=== PATIENT | female | born 1950 | race Caucasian/White ===

== ENCOUNTER → 2018-03-22 10:03 | Outpatient (CLI) | payer MEDICARE, SELFPAY ==
[2018-03-22 12:34] LABS: Erythrocyte Sedimentation Rate 6 mm/hr (0-30)
[2018-03-22 12:38] LABS: Absolute Lymphocyte Count 1.49 X10^3/ul (0.83-4.51); Absolute Neutrophil Count 3.7 X10^3/uL (2.0-7.7); Basophil# 0.03 X10^3/uL; Basophil% 0.5 % (0-1); Eosinophil# 0.12 X10^3/uL; Eosinophils% 2.1 % (0-5); Hematocrit 42.4 % (37-47); Lymphocyte # 1.49 X10^3/ul (4.0); Lymphocyte % 25.8 % (19-41); Mean Corpuscular Hgb 30.4 pg (27.0-32.0); Mean Corpuscular Volume 92.2 fL (81-99); Mean Platelet Vol. 9.7 fl (6.2-12.0); Monocyte# 0.45 X10^3/uL; Monocyte% 7.8 % (0-10); Neutrophil # 3.69 X10^3/uL (2.7-7.7); Neutrophil % 63.8 % (47-70); Platelet Count 241 K/mm3 (150-450); RBC Distribution Width CV 13.6 % (11.6-14.6); RBC Distribution Width SD 45.3 fl (35.1-43.9); White Blood Count 5.8 K/mm3 (4.4-11.0)
[2018-03-22 12:39] LABS: POSITIVE COUNT NO; POSITIVE DIFFERENTIAL NO; POSITIVE MORPHOLOGY NO
[2018-03-22 12:51] LABS: AST(SGOT) 22 U/L (15-37); Alanine Aminotransfer ALT/SGPT 29 U/L (13-56); Albumin, Serum 3.6 g/dL (3.2-5.0); Alkaline Phosphatase 70 U/L (45-117); Anion Gap 8 (5-15); BUN 15 mg/dL (7-18); BUN/Creat Ratio 19.4 RATIO (10-20); CRP < 2.90 mg/L (0.0-3.0); Chloride 106 mmol/L (98-107); Creatinine, Serum 0.77 mg/dL (0.55-1.02); EST Glomerular Filtration Rate 79 mL/min (>60); Est Glom Filt Rate - Afr Amer 95 mL/min (>60); Free T3 2.7 pg/mL (2.18-3.98); Globulin 3.3 g/dL (2.2-4.2); Glucose 86 mg/dL (74-106); Phosphorus 3.7 mg/dL (2.5-4.9); Potassium 4.3 mmol/L (3.5-5.1); Protein, Total 6.9 g/dL (6.4-8.2); Sodium Level 142 mmol/L (136-145); T4 Free Direct 0.94 ng/dL (0.76-1.46); Thyroid Stim Hormone (TSH) 1.95 uIU/mL (0.358-3.74)
[2018-03-23 08:29] LABS: Vitamin D,25 Hydroxy 32.6 ng/mL (29.95-100.01)
[2018-03-23 11:41] LABS: Thyroid Peroxidase AB 51 IU/mL (0-34)
== END ==
PROVIDERS: Family Provider Family Medicine; PCP Family Medicine; Visit Provider Family Medicine
DX: T14.8XXA Other injury of unspecified body region, initial encounter (principal); M81.0 Age-related osteoporosis without current pathological fracture; G47.00 Insomnia, unspecified; R79.89 Other specified abnormal findings of blood chemistry; L40.9 Psoriasis, unspecified; K76.0 Fatty (change of) liver, not elsewhere classified
CPT/HCPCS: 36415; 80048; 80076; 82306; 84100; 84439; 84443; 84481; 85025; 85652; 86140; 86376

== ENCOUNTER → 2018-04-07 15:19 | Outpatient (CLI) | payer MEDICARE, SELFPAY ==
--- NOTE | 2018-04-07 15:21 | BI_ITS ---
MAMMOGRAPHY - BILATERAL SCREENING 3-D EDILBERTO SYNTHESIS REASON FOR EXAM: Female, 67 years old. Bilateral Screening 3-D tomosynthesis PERTINENT HISTORY: Bilateral breast aspirations after right excisional breast biopsy 1990. Still with right areolar itching x several years. Family history mother with mastectomy for calcifications. TECHNIQUE: Digital bilateral breast edilberto (3D mammographic acquisition) in the CC and MLO projections. 2-D mediolateral oblique (MLO) and craniocaudad (CC) views of both breasts were obtained. CAD: Full Field Digital Mammography with Computer Added Detection was performed. COMPARISON: 04/01/2017 3 03/12/2015. FINDINGS: The breast composition is extremely dense which lowers the sensitivity of mammography. No significant asymmetric density, architecture distortion, abnormal microcalcification cluster, dominant mass, adenopathy, skin thickening or nipple retraction identified. Coarse benign-appearing calcification. BI/SCREENING MAMM (CAD), BILAT IMPRESSION: No mammographic signs of malignancy. Routine yearly mammograms recommended. ASSESSMENT CATEGORY: BIRADS Category 2: Benign. A letter regarding these results will be sent to the patient by the facility within 30 days. FOLLOW UP RECOMMENDATION: Yearly follow up mammogram recommended. (A) Negative mammographic results should not deter biopsy as a palpable lesion should be followed on clinical grounds and biopsy performed if clinically persistent for 3 months or increasing size. Approximately 10% of breast cancers are not detected by mammography. A normal mammogram should not delay biopsy of a clinically suspicious abnormality. Electronically Signed: Ronald Waggoner, at 22:04 EDT Tel , Service support ,
== END ==
PROVIDERS: Family Provider Family Medicine; PCP Family Medicine; Visit Provider Family Medicine
DX: Z00.00 Encounter for general adult medical examination without abnormal findings (principal); Z12.31 Encounter for screening mammogram for malignant neoplasm of breast
CPT/HCPCS: 77063; 77067

== ENCOUNTER → 2018-11-22 10:59 | Outpatient (CLI) | payer MEDICARE, SELFPAY ==
--- NOTE | 2018-11-22 11:03 | RAD_ITS ---
STUDY: X-RAY - SOFT TISSUE NECK REASON FOR EXAM: Female, 68 years old. Obstructive sleep apnea . TECHNIQUE: AP and lateral view(s) of the neck were obtained. COMPARISON: None. FINDINGS: Normal visualized nasopharynx, oropharynx, hypopharynx. The airway measures 1.9 cm from the posterior base of the tongue to the anterior prevertebral soft tissues at the C2 level. Normal epiglottis. Normal visualized subglottic tracheal air column. Normal prevertebral soft tissue structures. There are degenerative changes of the cervical spine with cervical spondylosis. The soft tissue structures are unremarkable. RAD/Neck for Soft Tissue IMPRESSION: Normal x-ray soft tissue neck. Electronically Signed: Wayne Garcia, at 15:34 EDT , Service support ,
== END ==
PROVIDERS: Family Provider Family Medicine; PCP Family Medicine; Referring Provider Otolaryngology Otolaryngology/Facial Plastic Surgery; Visit Provider Otolaryngology Otolaryngology/Facial Plastic Surgery
DX: R06.83 Snoring (principal)
CPT/HCPCS: 70360

== ENCOUNTER → 2018-12-13 11:45 | Outpatient (CLI) | payer MEDICARE, SELFPAY ==
[2018-12-13 13:45] LABS: BUN 14 mg/dL (7-18); EST Glomerular Filtration Rate 88 mL/min (>60); Est Glom Filt Rate - Afr Amer 106 mL/min (>60)
== END ==
PROVIDERS: Family Provider Family Medicine; PCP Family Medicine; Referring Provider Otolaryngology Otolaryngology/Facial Plastic Surgery; Visit Provider Otolaryngology Otolaryngology/Facial Plastic Surgery
DX: Z01.812 Encounter for preprocedural laboratory examination (principal)
CPT/HCPCS: 36415; 82565; 84520

== ENCOUNTER → 2019-02-01 | Outpatient (CLI) | payer MEDICARE, SELFPAY ==
--- NOTE | 2019-02-01 16:02 | RAD_ITS ---
HISTORY: Chronic pain after fall. Half months ago. History of rotator cuff repair in 2012. Exam:4 views of the right Shoulder COMPARISON: MRI of the right shoulder from March 15, 2014 FINDINGS: # of images incl. paperwork: 4 XR Shoulder Min 2 Views: The humeral head is well-positioned within the glenoid fossa. No fracture or subluxation. The acromioclavicular joint is normal. The adjacent chest is unremarkable. Anchoring devices within the right humeral head from rotator cuff repair. On the fourth image, there is lower imaging in the right hemithorax, and superimposed over the anterior sixth rib, there is what appears to be a calcified lung parenchymal granuloma. RAD/Shoulder min 2 Views IMPRESSION: No acute disease perceived within the right shoulder. at 0318 Reported and signed by: Saud Mcgrath MD Electronically Signed: Saud Mcgrath MD at 3:17 EDT Tel , Service support ,
== END | disposition home or self-care (01) ==
PROVIDERS: Family Provider Family Medicine; PCP Family Medicine; Referring Provider Family Medicine; Visit Provider Family Medicine
DX: M75.21 Bicipital tendinitis, right shoulder (principal)
CPT/HCPCS: 73030

== ENCOUNTER → 2019-04-04 | Outpatient (CLI) | payer MEDICARE, SELFPAY ==
[2019-04-04 10:29] LABS: Vitamin D,25 Hydroxy 37.7 ng/mL (29.95-100.01)
[2019-04-04 10:40] LABS: AST(SGOT) 18 U/L (15-37); Alanine Aminotransfer ALT/SGPT 31 U/L (13-56); Albumin, Serum 3.5 g/dL (3.2-5.0); Alkaline Phosphatase 67 U/L (45-117); Anion Gap 7 (5-15); BUN 12 mg/dL (7-18); BUN/Creat Ratio 18.9 RATIO (10-20); Bilirubin, Direct 0.08 mg/dL (0.00-0.30); Chloride 107 mmol/L (98-107); Creatinine, Serum 0.64 mg/dL (0.55-1.02); EST Glomerular Filtration Rate 98 mL/min (>60); Est Glom Filt Rate - Afr Amer 119 mL/min (>60); Globulin 3.2 g/dL (2.2-4.2); Glucose 80 mg/dL (74-106); Magnesium 2.4 mg/dL (1.6-2.6); Phosphorus 3.6 mg/dL (2.5-4.9); Protein, Total 6.7 g/dL (6.4-8.2); Sodium Level 141 mmol/L (136-145); Thyroid Stim Hormone (TSH) 2.27 uIU/mL (0.358-3.74)
[2019-04-06 08:23] LABS: Thyroid Peroxidase AB 30 IU/mL (0-34)
== END | disposition home or self-care (01) ==
LOC: MTLAB 07:32
PROVIDERS: Family Provider Family Medicine; PCP Family Medicine; Referring Provider Family Medicine; Visit Provider Family Medicine
DX: K76.0 Fatty (change of) liver, not elsewhere classified (principal); M81.0 Age-related osteoporosis without current pathological fracture; R25.2 Cramp and spasm
CPT/HCPCS: 36415; 80048; 80076; 82306; 82330; 83735; 83970; 84100; 84443; 86376

== ENCOUNTER → 2019-04-27 | Outpatient (CLI) | payer MEDICARE, SELFPAY ==
--- NOTE | 2019-04-27 09:25 | BI_ITS ---
MAMMOGRAPHY - BILATERAL SCREENING REASON FOR EXAM: Female, 68 years old. Routine annual screening examination. PERTINENT HISTORY: Mother with breast cancer. Prior right excisional breast biopsy and bilateral aspirations. TECHNIQUE: Digital bilateral breast edilberto (3D mammographic acquisition) in the CC and MLO projections. 2-D mediolateral oblique (MLO) and craniocaudad (CC) views of both breasts were obtained. CAD: Full Field Digital Mammography with Computer Added Detection was performed. COMPARISON: Comparison is made with prior study dated April 07, 2018 and April 01, 2017. FINDINGS: Breast Composition: The breasts are extremely dense, which lowers the sensitivity of mammography. There are no dominant masses or suspicious calcifications. No other significant abnormalities are identified. There has been no significant change since the prior study. BI/SCREEN MAMM (CAD) W/EDILBERTO BILAT IMPRESSION: Stable bilateral screening mammogram. Yearly follow-up mammogram recommended. (A) ASSESSMENT CATEGORY: BIRADS Category 1: Negative. A letter regarding these results will be sent to the patient by the facility within 30 days. Approximately 10% of breast cancers are not detected by mammography. A normal mammogram should not delay biopsy of a clinically suspicious abnormality. [id number] Electronically Signed: Wayne Garcia, at 14:05 EDT , Service support ,
--- NOTE | 2019-04-27 09:27 | BD_ITS ---
STUDY: DUAL ENERGY X-RAY ABSORPTIOMETRY / DXA REASON FOR EXAM: Female, 68 years old. The patient is postmenopausal. Loss of height. TECHNIQUE: Bone Mineral Density (BMD) measurements of lumbar spine and bilateral hips were obtained. COMPARISON: Comparison is made with prior examination dated April 01, 2017. FINDINGS: Lumbar Spine (L1-L4): g/cm2 (0.858) / T-score (-2.6) / Z-score (-0.9) Findings are suggestive of osteoporosis with a high fracture risk. Left Femur Total: g/cm2 (0.880) / T-score (-1.0) / Z-score (0.4) Left Femoral Neck: g/cm2 (0.805) / T-score (-1.7) / Z-score (0.0) Right Femur Total: g/cm2 (0.920) / T-score (-0.7) / Z-score (0.8) Right Femoral Neck: g/cm2 (0.851) / T-score (-1.3) / Z-score (0.3) The T-Scores on the most recent prior examination were: Lumbar Spine (L1-L4): There has been improvement of bone density since the previous examination. Left Femur Total: which represents a worsening of 2%. Right Femur Total: which represents a worsening of 1.3%. BD/Dexa Bone Density Study IMPRESSION: The patient is considered osteoporotic as outlined below according to World Sj Organization (WHO) criteria with a high fracture risk. There has been worsening of bone density since the previous examination. Reference Information: The T-score is the number of standard deviations above or below the standard which is normal for young adults at their peak bone mineral density. The World Health Organization (WHO) interprets the T-scores as follows: Above -1 Normal bone density Between -1 and -2.5 Osteopenia Equal to / or below -2.5 Osteoporosis As a practical clinical guideline, osteopenia may be graded as follows: Mild -1 through -1.5 Moderate -1.6 through -2.0 Severe -2.1 through -2.4 The Z-score is the number of standard deviations above or below age-matched controls. A Z-score of less than -1.5 would be considered abnormal. References: 1. NIH Osteoporosis and Related Bone Diseases http://www.osteo.org 2. International Society for Clinical Densitometry http://www.iscd.org 3. National Osteoporosis Foundation http://www.nof.org Electronically Signed: Wayne Garcia, at 14:31 EDT , Service support ,
== END | disposition home or self-care (01) ==
LOC: OPBD 09:23
PROVIDERS: Family Provider Family Medicine; PCP Family Medicine; Referring Provider Family Medicine; Visit Provider Family Medicine
DX: Z12.31 Encounter for screening mammogram for malignant neoplasm of breast (principal); M81.0 Age-related osteoporosis without current pathological fracture
CPT/HCPCS: 77063; 77067; 77080

== ENCOUNTER → 2019-09-11 14:32 | Outpatient (CLI) | payer MEDICARE, SELFPAY ==
[2019-09-11 17:50] LABS: CRP < 2.90 mg/L (0.0-3.0)
[2019-09-13 20:07] LABS: Endomysial Antibody IgA Negative (Negative)
[2019-09-13 20:51] LABS: Immunoglobulin A 173 mg/dL (87-352); t-Transglutaminase IgA <2 U/mL (0-3)
== END ==
PROVIDERS: Family Provider Family Medicine; PCP Family Medicine; Referring Provider Internal Medicine Gastroenterology; Visit Provider Internal Medicine Gastroenterology
DX: R10.9 Unspecified abdominal pain (principal); R19.7 Diarrhea, unspecified
CPT/HCPCS: 36415; 82784; 83516; 86140; 86255

== ENCOUNTER → 2020-04-03 11:58 | Outpatient (CLI) | payer MEDICARE, SELFPAY ==
--- NOTE | 2020-04-03 12:03 | RAD_ITS ---
STUDY: X-RAY - LUMBAR SPINE REASON FOR EXAM: Female, 69 years old. DDD lumbar TECHNIQUE: 5 view(s) of the lumbar spine were obtained. COMPARISON: None FINDINGS: Normal lumbar lordosis. S shaped scoliosis. There is a normal alignment of the vertebrae. Degenerative disc disease at the L2-3 and L4-5 levels. Multilevel facet disease. The soft tissue structures are unremarkable. RAD/L/S Spine Min 4 Views IMPRESSION: Multilevel degenerative disease as described. Electronically Signed: Nathaniel Fisher MD at 17:04 EDT Tel , Service support ,
== END ==
PROVIDERS: PCP Family Medicine; Referring Provider Family Medicine; Visit Provider Family Medicine
DX: M51.36 Other intervertebral disc degeneration, lumbar region (principal)
CPT/HCPCS: 72110

== ENCOUNTER → 2020-04-05 07:28 | Outpatient (CLI) | payer MEDICARE, SELFPAY ==
[2020-04-05 09:56] LABS: Erythrocyte Sedimentation Rate 10 mm/hr (0-30)
[2020-04-05 09:57] LABS: Absolute Lymphocyte Count 1.26 X10^3/uL (0.83-4.51); Absolute Neutrophil Count 3.1 X10^3/uL (2.0-7.7); Basophil# 0.04 X10^3/uL; Basophil% 0.8 % (0-1); Eosinophil# 0.14 X10^3/uL; Eosinophils% 2.9 % (0-5); Hematocrit 43.4 % (37-47); Hemoglobin 14.3 g/dL (12.0-15.0); Lymphocyte # 1.26 X10^3/ul (4.0); Lymphocyte % 26.1 % (19-41); Mean Corp Hgb Conc 32.9 g/dL (32-36); Mean Corpuscular Hgb 31.6 pg (27.0-32.0); Mean Corpuscular Volume 95.8 fL (81-99); Mean Platelet Vol. 9.8 fl (6.2-12.0); Monocyte# 0.28 X10^3/uL; Monocyte% 5.8 % (0-10); NRBC Flagged by Analyzer 0 % (0-5); Neutrophil # 3.08 X10^3/uL (2.7-7.7); Platelet Count 244 K/mm3 (150-450); RBC Distribution Width CV 12.9 % (11.6-14.6); RBC Distribution Width SD 45.7 fl (35.1-43.9); Red Blood Count 4.53 M/mm3 (4.2-5.4); White Blood Count 4.8 K/mm3 (4.4-11.0)
[2020-04-05 10:15] LABS: Vitamin B12 996 pg/mL (211-911); Vitamin D,25 Hydroxy 80.2 ng/mL
[2020-04-05 10:21] LABS: ALB/GLOB Ratio 1.1 RATIO (0.9-2.4); AST(SGOT) 19 U/L (15-37); Alanine Aminotransfer ALT/SGPT 25 U/L (13-56); Albumin, Serum 3.5 g/dL (3.2-5.0); Alkaline Phosphatase 66 U/L (45-117); Anion Gap 5 (5-15); BUN 14 mg/dL (7-18); BUN/Creat Ratio 20.5 RATIO (10-20); Chloride 108 mmol/L (98-107); Creatinine, Serum 0.68 mg/dL (0.55-1.02); EST Glomerular Filtration Rate 90 mL/min (>60); Est Glom Filt Rate - Afr Amer 109 mL/min (>60); Globulin 3.2 g/dL (2.2-4.2); Glucose 86 mg/dL (74-106); Iron 87 ug/dL (50-170); Magnesium 2.3 mg/dL (1.6-2.6); Phosphorus 3.2 mg/dL (2.5-4.9); Potassium 4.3 mmol/L (3.5-5.1); Protein, Total 6.7 g/dL (6.4-8.2); Sodium Level 140 mmol/L (136-145); T4 Free Direct 0.91 ng/dL (0.76-1.46); Thyroid Stim Hormone (TSH) 2.39 uIU/mL (0.358-3.74)
== END ==
PROVIDERS: PCP Family Medicine; Referring Provider Family Medicine; Visit Provider Family Medicine
DX: R23.2 Flushing (principal); R53.83 Other fatigue; M81.0 Age-related osteoporosis without current pathological fracture; Z13.220 Encounter for screening for lipoid disorders
CPT/HCPCS: 36415; 80053; 82306; 82607; 83540; 83735; 83970; 84100; 84439; 84443; 84481; 85025; 85652

== ENCOUNTER → 2020-04-29 10:15 | Outpatient (CLI) | payer MEDICARE, SELFPAY ==
--- NOTE | 2020-04-29 10:20 | BI_ITS ---
MAMMOGRAPHY - BILATERAL SCREENING REASON FOR EXAM: Female, 69 years old. Routine annual screening examination. PERTINENT HISTORY: Mother with breast cancer. Remote right excisional breast biopsy for adenoma. TECHNIQUE: Digital bilateral breast edilberto (3D mammographic acquisition) in the CC and MLO projections. 2-D mediolateral oblique (MLO) and craniocaudad (CC) views of both breasts were obtained. CAD: Full Field Digital Mammography with Computer Added Detection was performed. COMPARISON: Comparison is made with prior examination dated 04/27/2019 and 04/07/2018. FINDINGS: Breast Composition: The breasts are extremely dense, which lowers the sensitivity of mammography. There are no dominant masses or suspicious calcifications. No other significant abnormalities are identified. There has been no significant change since the prior study. BI/SCREEN MAMM (CAD) W/EDILBERTO BILAT IMPRESSION: Stable bilateral screening mammogram. Yearly follow-up mammogram recommended. (A) ASSESSMENT CATEGORY: BIRADS Category 1: Negative. A letter regarding these results will be sent to the patient by the facility within 30 days. Approximately 10% of breast cancers are not detected by mammography. A normal mammogram should not delay biopsy of a clinically suspicious abnormality. [id number] Electronically Signed: Wayne Garcia, at 12:27 EDT , Service support ,
== END ==
PROVIDERS: PCP Family Medicine; Referring Provider Family Medicine; Visit Provider Family Medicine
DX: Z12.31 Encounter for screening mammogram for malignant neoplasm of breast (principal); Z80.3 Family history of malignant neoplasm of breast
CPT/HCPCS: 77063; 77067

== ENCOUNTER → 2020-07-03 11:53 | Outpatient (CLI) | payer MEDICARE, SELFPAY ==
--- NOTE | 2020-07-03 11:55 | RAD_ITS ---
HISTORY: Low back pain Thoracic and lumbar spine Comparison prior lumbar spine on April 03, 2020 Findings: Only AP views were provided There is dextroscoliosis of the thoracolumbar spine with the apex of the curvature at the L2 vertebral body. This measures approximately 29. There is also minimal levoscoliosis of the lower thoracic spine centered at the level of T10 measuring approximately 16.7. No acute fracture Calcified granuloma right lung base Postsurgical changes in the right humeral head RAD/Scoliosis 1 view IMPRESSION: Scoliosis of the thoracic and lumbar spine as discussed at 0305 Reported and signed by: Jennifer Urias DO Electronically Signed: Jennifer Urias DO at 3:04 EST Tel , Service support ,
== END ==
PROVIDERS: PCP Family Medicine; Referring Provider Family Medicine; Visit Provider Family Medicine
DX: M41.9 Scoliosis, unspecified (principal)
CPT/HCPCS: 72081

== ENCOUNTER → 2021-02-04 10:50 | Outpatient (CLI) | payer MEDICARE, SELFPAY ==
[2020-09-17 10:15] VITALS: BMI 21.0
--- NOTE | 2021-02-04 10:54 | RAD_ITS ---
STUDY: X-RAY - PELVIS REASON FOR EXAM: Female, 70 years old. PAIN TECHNIQUE: One view of the pelvis was obtained. COMPARISON: None. FINDINGS: There is a non-specific bowel gas pattern. Normal visualized soft tissue structures. There is an 8.5 mm rounded sclerotic density in the superior medial aspect of the left iliac bone most likely representing a small bone island. Normal visualized bilateral superior and inferior pubic rami. Normal pubic symphysis. Normal ischial tuberosities. Normal visualized right femoral head. Normal right acetabulum. Normal right hip joint. Normal visualized left femoral head. Normal left acetabulum. Normal left hip joint. RAD/Pelvis 1 or 2 Views IMPRESSION: Findings suggestive of a small bone island in the upper medial aspect of the left iliac wing. Electronically Signed: Wayne Garcia MD at 15:03 EDT , Service support ,
[2021-02-04 12:12] LABS: Erythrocyte Sedimentation Rate 11 mm/hr (0-30)
[2021-02-04 12:14] LABS: Absolute Lymphocyte Count 1.59 X10^3/uL (0.83-4.51); Absolute Neutrophil Count 4.8 X10^3/uL (2.0-7.7); Basophil# 0.04 X10^3/uL; Basophil% 0.6 % (0-1); Eosinophil# 0.23 X10^3/uL; Eosinophils% 3.2 % (0-5); Hematocrit 44.6 % (37-47); Hemoglobin 14.9 g/dL (12.0-15.0); Lymphocyte # 1.59 X10^3/ul (0.83-4.51); Lymphocyte % 22.2 % (19-41); Mean Corp Hgb Conc 33.4 g/dL (32-36); Mean Corpuscular Hgb 30.7 pg (27.0-32.0); Mean Platelet Vol. 9.8 fl (6.2-12.0); Monocyte# 0.53 X10^3/uL; Monocyte% 7.4 % (0-10); NRBC Flagged by Analyzer 0 % (0-5); Neutrophil # 4.77 X10^3/uL (2.7-7.7); Neutrophil % 66.5 % (47-70); Platelet Count 260 K/mm3 (150-450); RBC Distribution Width CV 12.9 % (11.6-14.6); RBC Distribution Width SD 43.7 fl (35.1-43.9); Red Blood Count 4.85 M/mm3 (4.2-5.4); White Blood Count 7.2 K/mm3 (4.4-11.0)
[2021-02-04 12:45] LABS: ALB/GLOB Ratio 1.2 RATIO (0.9-2.4); AST(SGOT) 25 U/L (15-37); Alanine Aminotransfer ALT/SGPT 30 U/L (13-56); Albumin, Serum 3.7 g/dL (3.2-5.0); Alkaline Phosphatase 89 U/L (45-117); Anion Gap 6 (5-15); BUN 18 mg/dL (7-18); BUN/Creat Ratio 16.8 RATIO (10-20); CRP < 2.90 mg/L (0.0-3.0); Calcium,Total 9.4 mg/dL (8.5-10.1); Chloride 107 mmol/L (98-107); Creatinine, Serum 1.07 mg/dL (0.55-1.02); EST Glomerular Filtration Rate 54 mL/min (>60); Est Glom Filt Rate - Afr Amer 65 mL/min (>60); Glucose 83 mg/dL (74-106); Potassium 4.1 mmol/L (3.5-5.1); Protein, Total 6.7 g/dL (6.4-8.2); Rheumatoid Factor < 10.0 IU/mL (<15); Sodium Level 140 mmol/L (136-145)
[2021-02-04 13:04] LABS: Hepatitis B Surface Antibody Non-Reactive; Hepatitis B Surface Antigen Non-Reactive (Nonreactive); Hepatitis C Antibody Non-Reactive (Nonreactive)
[2021-02-06 08:43] LABS: CCP IgG Antibodies 4 units (0-19)
== END ==
PROVIDERS: PCP Family Medicine; Referring Provider Internal Medicine Rheumatology; Visit Provider Internal Medicine Rheumatology
DX: M06.4 Inflammatory polyarthropathy (principal); M79.7 Fibromyalgia; Q66.70 Congenital pes cavus, unspecified foot; H44.119 Panuveitis, unspecified eye; K76.0 Fatty (change of) liver, not elsewhere classified
CPT/HCPCS: 36415; 72170; 80053; 85025; 85652; 86140; 86200; 86431; 86706; 86803; 87340

== ENCOUNTER → 2021-02-26 15:04 | Outpatient (CLI) | payer MEDICARE, SELFPAY ==
[2020-09-17 10:15] VITALS: BMI 21.0
== END ==
PROVIDERS: PCP Family Medicine; Referring Provider Internal Medicine Rheumatology; Visit Provider Internal Medicine Rheumatology
DX: L40.59 Other psoriatic arthropathy (principal); M79.7 Fibromyalgia; Q66.70 Congenital pes cavus, unspecified foot; H44.112 Panuveitis, left eye; K76.0 Fatty (change of) liver, not elsewhere classified
CPT/HCPCS: 36415; 82955

== ENCOUNTER → 2021-04-10 14:54 | Outpatient (CLI) | payer MEDICARE, SELFPAY ==
[2020-09-17 10:15] VITALS: BMI 21.0
[2021-04-10 17:39] LABS: Anion Gap 7 (5-15); BUN 19 mg/dL (7-18); BUN/Creat Ratio 29.1 RATIO (10-20); Calcium,Total 9.3 mg/dL (8.5-10.1); Chloride 105 mmol/L (98-107); Creatinine, Serum 0.65 mg/dL (0.55-1.02); EST Glomerular Filtration Rate 95 mL/min (>60); Est Glom Filt Rate - Afr Amer 115 mL/min (>60); Glucose 90 mg/dL (74-106); Sodium Level 139 mmol/L (136-145)
[2021-04-10 17:45] LABS: Vitamin D,25 Hydroxy 82.3 ng/mL
== END ==
PROVIDERS: PCP Family Medicine; Visit Provider Family Medicine
DX: L40.50 Arthropathic psoriasis, unspecified (principal); N28.9 Disorder of kidney and ureter, unspecified; M81.0 Age-related osteoporosis without current pathological fracture
CPT/HCPCS: 36415; 80048; 82306

== ENCOUNTER → 2021-04-17 | Outpatient (CLI) | payer MEDICARE, SELFPAY ==
[2021-04-17 10:57] LABS: Bacteria 0 SEEN /hpf (None Seen); Mucous, Urine 0 SEEN /hpf (<or=2+); Red Blood Cells-Urine 0 SEEN /hpf (0-5); White Blood Cells 0 SEEN /hpf (0-5)
[2021-04-17 12:19] LABS: Color, Urine Yellow (Yellow); Glucose, Dipstick Normal (Normal); Ketone-Dipstick Negative (Negative); Leukocyte Esterase-Dipstick Negative /ul (Negative); Nitrite-Dipstick Negative (Negative); Occult Blood-Urine Negative /ul (Negative); Protein-Dipstick Negative (Negative); Urine Bilirubin Dipstick Negative (Negative); Urine Clarity Sl. Cloudy (Clear); Urine Urobilinogen Normal (Normal)
[2021-04-17 12:25] LABS: Squamous Epithelial Cells - UA 0-5 SEEN /hpf (5-10)
== END | disposition home or self-care (01) ==
LOC: LABSPEC 10:51
PROVIDERS: PCP Family Medicine; Referring Provider Family Medicine; Visit Provider Family Medicine
DX: R31.9 Hematuria, unspecified (principal)
CPT/HCPCS: 81001

== ENCOUNTER → 2021-05-29 14:06 | Outpatient (CLI) | payer MEDICARE, SELFPAY ==
--- NOTE | 2021-05-29 14:15 | RAD_ITS ---
INDICATION: CERVICALGIA EXAMINATION/TECHNIQUE: X-RAY - XR Spine Cervical 4 or 5 Views COMPARISON: None. FINDINGS: VERTEBRAE: Preserved vertebral body height. No fracture. Grade 1 anterolisthesis C3 on C4 and C7 on C8. Straightening of the normal cervical lordosis. Mild multilevel facet arthropathy. DISCS: Severe multilevel degenerative disc disease and spondylosis. NECK SOFT TISSUES: No prevertebral soft tissue widening. LUNG APICES: Clear. RAD/Cerv Spine 4 or 5 Views IMPRESSION: Grade 1 anterolisthesis C3 on C4 and C7 on C8. Severe multilevel degenerative disc disease and spondylosis. Electronically Signed: Kyler Ennis MD at 22:24 EDT Tel , Service support ,
== END ==
PROVIDERS: PCP Family Medicine; Referring Provider Nurse Practitioner Family; Visit Provider Nurse Practitioner Family
DX: M54.2 Cervicalgia (principal)
CPT/HCPCS: 72050

== ENCOUNTER → 2021-08-20 13:15 | Outpatient (CLI) | payer MEDICARE, SELFPAY ==
--- NOTE | 2021-08-20 13:16 | MRI_ITS ---
STUDY: MRI CERVICAL SPINE WITHOUT CONTRAST REASON FOR EXAM: Female, 71 years old. Pain left neck TECHNIQUE: Standardized fat and water weighted pulse sequences were obtained in the sagittal and axial planes. COMPARISON: October 17, 2012 FINDINGS: Normal foramen magnum and brainstem-cervical cord junction. Normal craniovertebral junction. Normal anterior atlantoaxial articulation. Normal odontoid process. There is reversal of the normal cervical lordosis. There is no acute fracture. Normal vertebral bodies and posterior osseous elements. C2-3: Normal endplates. Normal disc height, signal and morphology. Normal central canal and intervertebral neural foramina. C3-4: Normal endplates. Normal disc height, signal and morphology. Facet spurring on the left. Normal central canal and intervertebral neural foramina. C4-5: Disc bulge and spurring asymmetric to the right. Facet spurring. No canal stenosis. Right foraminal narrowing. C5-6: Disc bulge and spurring. Mild facet spurring. No canal stenosis. Right foraminal narrowing C6-7: Disc space narrowing. Disc bulge and spurring. Mild facet spurring. No canal stenosis. Mild right foraminal narrowing. C7-T1: Normal endplates. Normal disc height, signal and morphology. Normal central canal and intervertebral neural foramina. Normal cervical cord. Normal visualized soft tissue structures. MRI/Spine Cervical (Routine) IMPRESSION: Multilevel degenerative changes, as described above. Electronically Signed: Keegan Naidu MD at 15:32 EST , Service support ,
== END ==
PROVIDERS: PCP Family Medicine; Visit Provider Orthopaedic Surgery
DX: M50.30 Other cervical disc degeneration, unspecified cervical region (principal)
CPT/HCPCS: 72141

== ENCOUNTER 2021-10-15 10:37 | Outpatient (CLI) | payer MEDICARE, SELFPAY ==
[2021-10-15 12:54] LABS: Anion Gap 5 (5-15); BUN 16 mg/dL (7-18); BUN/Creat Ratio 20.7 RATIO (10-20); Calcium,Total 9.2 mg/dL (8.5-10.1); Chloride 109 mmol/L (98-107); Creatinine, Serum 0.77 mg/dL (0.55-1.02); EST Glomerular Filtration Rate 78 mL/min (>60); Est Glom Filt Rate - Afr Amer 94 mL/min (>60); Glucose 110 mg/dL (74-106); Potassium 4.2 mmol/L (3.5-5.1); Sodium Level 141 mmol/L (136-145)
== END 2021-10-15 23:59 | disposition home or self-care (01) ==
LOC: MTLAB 10:39
PROVIDERS: PCP Family Medicine; Referring Provider Nurse Practitioner Family; Visit Provider Nurse Practitioner Family
DX: Z79.1 Long term (current) use of non-steroidal anti-inflammatories (NSAID) (principal)
CPT/HCPCS: 36415; 80048

== ENCOUNTER → 2022-04-14 | Outpatient (CLI) | payer MEDICARE, SELFPAY ==
[2022-04-14 17:56] LABS: Absolute Neutrophil Count 4.5 X10^3/uL (2.0-7.7); Basophil# 0.05 X10^3/uL; Basophil% 0.7 % (0-1); Eosinophil# 0.11 X10^3/uL; Eosinophils% 1.6 % (0-5); Hemoglobin 14.2 g/dL (12.0-15.0); Lymphocyte % 25.8 % (19-41); Mean Corpuscular Hgb 31.4 pg (27.0-32.0); Mean Corpuscular Volume 95.1 fL (81-99); Mean Platelet Vol. 9.8 fl (6.2-12.0); Monocyte# 0.47 X10^3/uL; Monocyte% 6.7 % (0-10); NRBC Flagged by Analyzer 0 % (0-5); Neutrophil # 4.52 X10^3/uL (2.7-7.7); Neutrophil % 64.8 % (47-70); Platelet Count 273 K/mm3 (150-450); RBC Distribution Width CV 12.7 % (11.6-14.6); RBC Distribution Width SD 45.3 fl (35.1-43.9); Red Blood Count 4.52 M/mm3 (4.2-5.4)
[2022-04-14 17:58] LABS: Glucose, Dipstick Normal (Normal); Ketone-Dipstick Negative (Negative); Leukocyte Esterase-Dipstick Negative /ul (Negative); Nitrite-Dipstick Negative (Negative); Occult Blood-Urine Negative /ul (Negative); Protein-Dipstick Negative (Negative); Specific Gravity, Urine 1.015 (1.002-1.030); Urine Bilirubin Dipstick Negative (Negative); Urine Urobilinogen Normal (Normal); Urine pH 6.5 (5.0 - 8.0)
[2022-04-14 18:09] LABS: Color, Urine Yellow (Yellow); Urine Clarity Clear (Clear)
[2022-04-14 18:12] LABS: Erythrocyte Sedimentation Rate 5 mm/hr (0-30)
[2022-04-14 18:25] LABS: Albumin, Serum 3.4 g/dL (3.2-5.0); BUN 15 mg/dL (7-18); BUN/Creat Ratio 18.3 RATIO (10-20); Creatinine, Serum 0.82 mg/dL (0.55-1.02); EST Glomerular Filtration Rate 73 mL/min (>60); Est Glom Filt Rate - Afr Amer 88 mL/min (>60); Glucose 106 mg/dL (74-106); Protein, Total 6.4 g/dL (6.4-8.2)
[2022-04-14 18:26] LABS: ALB/GLOB Ratio 1.1 RATIO (0.9-2.4); AST(SGOT) 23 U/L (15-37); Alanine Aminotransfer ALT/SGPT 34 U/L (13-56); Alkaline Phosphatase 71 U/L (45-117); Anion Gap 6 (5-15); Calcium,Total 8.8 mg/dL (8.5-10.1); Chloride 105 mmol/L (98-107); Magnesium 2.2 mg/dL (1.6-2.6); Potassium 3.8 mmol/L (3.5-5.1); Sodium Level 138 mmol/L (136-145); Thyroid Stim Hormone (TSH) 1.13 uIU/mL (0.358-3.74)
[2022-04-14 18:40] LABS: PTHIN 72.9 pg/mL (18.4-80.1)
== END | disposition home or self-care (01) ==
LOC: MFPLAB 15:04
PROVIDERS: PCP Family Medicine; Referring Provider Family Medicine; Visit Provider Family Medicine
DX: Z00.00 Encounter for general adult medical examination without abnormal findings (principal); L40.50 Arthropathic psoriasis, unspecified; M81.0 Age-related osteoporosis without current pathological fracture
CPT/HCPCS: 36415; 80053; 81002; 82306; 82330; 83735; 83970; 84443; 85025; 85652

== ENCOUNTER → 2022-04-30 | Outpatient (CLI) | payer MEDICARE, SELFPAY ==
--- NOTE | 2022-04-30 15:07 | BI_ITS ---
MAMMOGRAPHY - BILATERAL SCREENING REASON FOR EXAM: Female, 71 years old. Routine annual screening examination. PERTINENT HISTORY: Mother with breast cancer. TECHNIQUE: Digital bilateral breast edilberto (3D mammographic acquisition) in the CC and MLO projections. 2-D mediolateral oblique (MLO) and craniocaudad (CC) views of both breasts were obtained. CAD: Full Field Digital Mammography with Computer Added Detection was performed. COMPARISON: Comparison is made with prior study dated 04/29/2020 and 04/27/2019. FINDINGS: Breast Composition: The breasts are extremely dense, which lowers the sensitivity of mammography. There are no dominant masses or suspicious calcifications. No other significant abnormalities are identified. There has been no significant change since the prior study. BI/SCRN MAMM (CAD)W/EDILBERTO BILAT IMPRESSION: Stable bilateral screening mammogram. Yearly follow-up mammogram recommended. (A) ASSESSMENT CATEGORY: BIRADS Category 1: Negative. A letter regarding these results will be sent to the patient by the facility within 30 days. Approximately 10% of breast cancers are not detected by mammography. A normal mammogram should not delay biopsy of a clinically suspicious abnormality. [id number] Electronically Signed: Wayne Garcia MD at 15:52 EDT ,
== END | disposition home or self-care (01) ==
LOC: OPBD 15:05
PROVIDERS: PCP Family Medicine; Visit Provider Family Medicine
DX: Z12.31 Encounter for screening mammogram for malignant neoplasm of breast (principal); Z80.3 Family history of malignant neoplasm of breast
CPT/HCPCS: 77063; 77067

== ENCOUNTER → 2022-10-16 | Outpatient (CLI) | payer MEDICARE, SELFPAY ==
[2022-10-16 19:00] LABS: ALB/GLOB Ratio 1.4 RATIO (0.9-2.4); AST(SGOT) 18 U/L (15-37); Alanine Aminotransfer ALT/SGPT 24 U/L (13-56); Albumin, Serum 3.5 g/dL (3.2-5.0); Alkaline Phosphatase 76 U/L (45-117); Anion Gap 5 (5-15); BUN 17 mg/dL (7-18); BUN/Creat Ratio 23.1 RATIO (10-20); Calcium,Total 9.7 mg/dL (8.5-10.1); Chloride 106 mmol/L (98-107); Creatinine, Serum 0.74 mg/dL (0.55-1.02); EST Glomerular Filtration Rate 82 mL/min (>60); Est Glom Filt Rate - Afr Amer 100 mL/min (>60); Globulin 2.5 g/dL (2.2-4.2); Glucose 86 mg/dL (74-106); Potassium 4.3 mmol/L (3.5-5.1); Sodium Level 140 mmol/L (136-145)
== END | disposition home or self-care (01) ==
PROVIDERS: PCP Family Medicine; Referring Provider Family Medicine; Visit Provider Family Medicine
DX: L40.50 Arthropathic psoriasis, unspecified (principal)
CPT/HCPCS: 36415; 80053

== ENCOUNTER → 2023-01-06 | Outpatient (CLI) | payer MEDICARE, SELFPAY ==
[2023-01-06 17:45] LABS: Absolute Lymphocyte Count 1.53 X10^3/uL (0.83-4.51); Absolute Neutrophil Count 4.1 X10^3/uL (2.0-7.7); Basophil# 0.05 X10^3/uL; Basophil% 0.8 % (0-1); Eosinophil# 0.12 X10^3/uL; Eosinophils% 1.9 % (0-5); Hematocrit 40.5 % (37-47); Hemoglobin 13.6 g/dL (12.0-15.0); Lymphocyte # 1.53 X10^3/ul (0.83-4.51); Lymphocyte % 24.8 % (19-41); Mean Corp Hgb Conc 33.6 g/dL (32-36); Mean Corpuscular Hgb 31.3 pg (27.0-32.0); Mean Corpuscular Volume 93.3 fL (81-99); Mean Platelet Vol. 9.9 fl (6.2-12.0); Monocyte# 0.34 X10^3/uL; Monocyte% 5.5 % (0-10); NRBC Flagged by Analyzer 0 % (0-5); Neutrophil # 4.12 X10^3/uL (2.7-7.7); Neutrophil % 66.8 % (47-70); Platelet Count 258 K/mm3 (150-450); RBC Distribution Width CV 13.1 % (11.6-14.6); RBC Distribution Width SD 45.1 fl (35.1-43.9); Red Blood Count 4.34 M/mm3 (4.2-5.4); White Blood Count 6.2 K/mm3 (4.4-11.0)
[2023-01-06 18:14] LABS: Erythrocyte Sedimentation Rate 5 mm/hr (0-30)
[2023-01-06 18:43] LABS: ALB/GLOB Ratio 1.2 RATIO (0.9-2.4); AST(SGOT) 22 U/L (15-37); Alanine Aminotransfer ALT/SGPT 24 U/L (13-56); Albumin, Serum 3.4 g/dL (3.2-5.0); Alkaline Phosphatase 77 U/L (45-117); Anion Gap 5 (5-15); BUN 14 mg/dL (7-18); BUN/Creat Ratio 21.3 RATIO (10-20); CRP < 2.90 mg/L (0.0-3.0); Calcium,Total 9.1 mg/dL (8.5-10.1); Chloride 112 mmol/L (98-107); Creatinine, Serum 0.66 mg/dL (0.55-1.02); EST Glomerular Filtration Rate 94 mL/min (>60); Est Glom Filt Rate - Afr Amer 114 mL/min (>60); Free T3 2.1 pg/mL (2.18-3.98); Globulin 2.8 g/dL (2.2-4.2); Glucose 122 mg/dL (74-106); Iron 52 ug/dL (50-170); Magnesium 2.5 mg/dL (1.6-2.6); Potassium 3.8 mmol/L (3.5-5.1); Protein, Total 6.2 g/dL (6.4-8.2); Rheumatoid Factor < 10.0 IU/mL (<15); Sodium Level 142 mmol/L (136-145); T4 Free Direct 0.91 ng/dL (0.76-1.46); Thyroid Stim Hormone (TSH) 2.25 uIU/mL (0.358-3.74); Uric Acid 3.4 mg/dL (2.6-6.0)
[2023-01-06 20:32] LABS: Vitamin B12 800 pg/mL (211-911); Vitamin D,25 Hydroxy 59.5 ng/mL
[2023-01-08 13:08] LABS: ANTINUCLEAR ANTIBODIES DIRECT Negative (Negative)
== END | disposition home or self-care (01) ==
LOC: MFPLAB 14:41
PROVIDERS: PCP Family Medicine; Visit Provider Family Medicine
DX: R20.0 Anesthesia of skin (principal); M81.0 Age-related osteoporosis without current pathological fracture
CPT/HCPCS: 36415; 80053; 82306; 82607; 83540; 83735; 84439; 84443; 84481; 84550; 85025; 85652; 86038; 86140; 86431

== ENCOUNTER → 2023-02-10 | Outpatient (CLI) | payer MEDICARE, SELFPAY ==
[2023-02-10 13:13] LABS: Anion Gap 4 (5-15); BUN 18 mg/dL (7-18); BUN/Creat Ratio 29.3 RATIO (10-20); Calcium,Total 9.8 mg/dL (8.5-10.1); Chloride 108 mmol/L (98-107); Creatinine, Serum 0.62 mg/dL (0.55-1.02); EST Glomerular Filtration Rate 101 mL/min (>60); Est Glom Filt Rate - Afr Amer 122 mL/min (>60); Free T3 2.7 pg/mL (2.18-3.98); Glucose 85 mg/dL (74-106); Potassium 4.1 mmol/L (3.5-5.1); Sodium Level 139 mmol/L (136-145); T4 Free Direct 0.94 ng/dL (0.76-1.46); Thyroid Stim Hormone (TSH) 2.18 uIU/mL (0.358-3.74)
[2023-02-11 05:07] LABS: Thyroid Peroxidase AB < 9 IU/mL (0-34)
== END | disposition home or self-care (01) ==
LOC: MFPLAB 11:09
PROVIDERS: PCP Family Medicine; Visit Provider Family Medicine
DX: M13.0 Polyarthritis, unspecified (principal); E03.8 Other specified hypothyroidism
CPT/HCPCS: 36415; 80048; 84439; 84443; 84481; 86376

== ENCOUNTER → 2023-02-16 | Outpatient (CLI) | payer MEDICARE, SELFPAY ==
--- NOTE | 2023-02-16 10:46 | US_ITS ---
STUDY: ABDOMINAL ULTRASOUND - RIGHT UPPER QUADRANT REASON FOR VISIT: Female, 72 years old FATTY LIVER TECHNIQUE: Ultrasound evaluation of the right upper quadrant was performed with real-time and static hawkins-scale imaging. TECHNICAL QUALITY: Adequate. COMPARISON: March 15, 2014 FINDINGS: Liver: The liver measures 14.5 cm. There is obliquely diffusely increased echogenicity of the liver. The bile ducts are within normal limits. There is hepatic color flow. The direction of portal flow is hepatopetal. There are multiple hepatic cysts the largest measuring 2.7 x 2.5 x 1.8 cm in the right lobe. Gallbladder: Normal distended gallbladder. The gallbladder wall measures 1.9 mm. There is a negative sonographic Chavarria''s sign. There is no pericholecystic fluid. There are no gallstones. Common Bile Duct (C.B.D.): The common bile duct measures 2.9 mm. Pancreas: Normal size of the head, body and tail of the pancreas. There is normal echogenicity of the pancreas. There is no demonstrated pancreatic mass or cyst. Right Kidney: Normal size of the right kidney. The right kidney measures 11.2 x 4.4 x 3.9 cm. Normal renal cortex. The right cortex measures 1.2 cm. There is no demonstrated renal mass or cyst. There is no right hydronephrosis. US/Abdomen Limited IMPRESSION: Mild nonspecific fatty infiltrated liver and multiple hepatic cysts. No other significant abnormality unchanged since previous exam. Electronically Signed: Edgar Martino MD at 20:30 EDT ,
== END | disposition home or self-care (01) ==
LOC: US 10:45
PROVIDERS: PCP Family Medicine; Referring Provider Family Medicine; Visit Provider Family Medicine
DX: K76.0 Fatty (change of) liver, not elsewhere classified (principal)
CPT/HCPCS: 76705

== ENCOUNTER → 2023-04-23 | Outpatient (CLI) | payer MEDICARE, SELFPAY ==
[2023-04-23 10:34] LABS: Anion Gap 3 (5-15); BUN 14 mg/dL (7-18); BUN/Creat Ratio 21.5 RATIO (10-20); Calcium,Total 9.4 mg/dL (8.5-10.1); Chloride 109 mmol/L (98-107); Cholesterol 186 mg/dL (200); Creatinine, Serum 0.65 mg/dL (0.55-1.02); EST Glomerular Filtration Rate 95 mL/min (>60); Est Glom Filt Rate - Afr Amer 115 mL/min (>60); Glucose 83 mg/dL (74-106); High Density Lipoprotein 78 mg/dL; Potassium 4.4 mmol/L (3.5-5.1); Sodium Level 142 mmol/L (136-145); Triglycerides 63 mg/dL; Very Low Density Lipoprotein 13 mg/dL (5-40)
[2023-04-23 11:49] LABS: PTHIN 58.4 pg/mL (18.4-80.1)
== END | disposition home or self-care (01) ==
PROVIDERS: PCP Family Medicine; Referring Provider Family Medicine; Visit Provider Family Medicine
DX: M81.0 Age-related osteoporosis without current pathological fracture (principal); K76.0 Fatty (change of) liver, not elsewhere classified; Z13.220 Encounter for screening for lipoid disorders
CPT/HCPCS: 36415; 80048; 80061; 83970

== ENCOUNTER 2023-05-04 08:40 | Outpatient (CLI) | payer MEDICARE, SELFPAY ==
--- NOTE | 2023-05-04 08:52 | BD_ITS ---
STUDY: DUAL ENERGY X-RAY ABSORPTIOMETRY / DXA REASON FOR EXAM: Female, 72 years old. Z78.0 TECHNIQUE: Bone Mineral Density (BMD) measurements of lumbar spine and bilateral hips were obtained. COMPARISON: Comparison is made with prior study dated April 27, 2019. FINDINGS: Lumbar Spine (L1-L4): g/cm2 (0.833) / T-score (-2.0) / Z-score (0.4) Findings are suggestive of osteopenia with a moderate fracture risk. Left Femur Total: g/cm2 (0.821) / T-score (-1.0) / Z-score (0.7) Left Femoral Neck: g/cm2 (0.640) / T-score (-1.9) / Z-score (0.1) Right Femur Total: g/cm2 (0.816) / T-score (-1.0) / Z-score (0.7) Right Femoral Neck: g/cm2 (0.640) / T-score (-1.9) / Z-score (0.1) The T-Scores on the most recent prior examination were: Lumbar Spine (L1-L4): There has been improvement of bone density since the previous examination. Left Femur Total: which represents an improvement of 0.4%. Right Femur Total: which represents a worsening of 4.8%. BD/Dexa Bone Density Study IMPRESSION: The patient is considered osteopenic as outlined below according to World Sj Organization (WHO) criteria with a moderate fracture risk. There has been improvement of bone density since the previous examination. Reference Information: The T-score is the number of standard deviations above or below the standard which is normal for young adults at their peak bone mineral density. The World Health Organization (WHO) interprets the T-scores as follows: Above -1 Normal bone density Between -1 and -2.5 Osteopenia Equal to / or below -2.5 Osteoporosis As a practical clinical guideline, osteopenia may be graded as follows: Mild -1 through -1.5 Moderate -1.6 through -2.0 Severe -2.1 through -2.4 The Z-score is the number of standard deviations above or below age-matched controls. A Z-score of less than -1.5 would be considered abnormal. References: 1. NIH Osteoporosis and Related Bone Diseases www osteo.org 2. International Society for Clinical Densitometry www iscd.org 3. National Osteoporosis Foundation www nof.org Electronically Signed: Wayne Garcia MD at 13:44 EDT ,
--- NOTE | 2023-05-04 09:05 | RAD_ITS ---
STUDY: X-RAY - ESOPHAGUS (BARIUM SWALLOW) WITH FLUOROSCOPY REASON FOR EXAM: Female, 72 years old. DYSPHAGIA TECHNIQUE: 14 view(s) of the esophagus were obtained following swallowing of barium. FLUOROSCOPY TIME (if supplied): (33 seconds) minutes/seconds. 6.16 mGy COMPARISON: None. FINDINGS: There is no demonstrated esophageal foreign body. There is no demonstrated stricture or mucosal abnormality. Normal gastroesophageal junction, without a demonstrated hiatal hernia. The patient ingested a 12 mm tablet of barium without any difficulty. There is atherosclerotic tortuosity of the aortic arch and descending thoracic aorta. Normal visualized pulmonary parenchyma. There are diffuse degenerative changes of the visualized thoracic spine. RAD/Esophagus Dual Contrast IMPRESSION: Normal plain film x-ray examination (barium swallow) of the esophagus. Electronically Signed: Wayne Garcia MD at 13:47 EDT ,
== END 2023-05-04 23:59 | disposition home or self-care (01) ==
LOC: RAD 08:40
PROVIDERS: PCP Family Medicine; Referring Provider Family Medicine; Visit Provider Family Medicine
DX: R13.10 Dysphagia, unspecified (principal); Z78.0 Asymptomatic menopausal state
CPT/HCPCS: 74221; 77080

== ENCOUNTER → 2023-05-13 | Outpatient (CLI) | payer MEDICARE, SELFPAY ==
[2023-05-13 12:19] LABS: Absolute Lymphocyte Count 1.48 X10^3/uL (0.83-4.51); Absolute Neutrophil Count 5.7 X10^3/uL (2.0-7.7); Basophil# 0.07 X10^3/uL; Basophil% 0.9 % (0-1); Eosinophil# 0.09 X10^3/uL; Eosinophils% 1.1 % (0-5); Hemoglobin 14.4 g/dL (12.0-15.0); Lymphocyte # 1.48 X10^3/ul (0.83-4.51); Lymphocyte % 18.6 % (19-41); Mean Corp Hgb Conc 32.7 g/dL (32-36); Mean Corpuscular Hgb 30.8 pg (27.0-32.0); Mean Corpuscular Volume 94.2 fL (81-99); Mean Platelet Vol. 10.2 fl (6.2-12.0); Monocyte# 0.55 X10^3/uL; Monocyte% 6.9 % (0-10); NRBC Flagged by Analyzer 0 % (0-5); Neutrophil # 5.72 X10^3/uL (2.7-7.7); Neutrophil % 72.1 % (47-70); Platelet Count 252 K/mm3 (150-450); RBC Distribution Width CV 13.2 % (11.6-14.6); RBC Distribution Width SD 44.8 fl (35.1-43.9); Red Blood Count 4.67 M/mm3 (4.2-5.4); White Blood Count 7.9 K/mm3 (4.4-11.0)
[2023-05-13 12:42] LABS: ALB/GLOB Ratio 1.1 RATIO (0.9-2.4); AST(SGOT) 20 U/L (15-37); Alanine Aminotransfer ALT/SGPT 26 U/L (13-56); Albumin, Serum 3.6 g/dL (3.2-5.0); Alkaline Phosphatase 77 U/L (45-117); Anion Gap 5 (5-15); BUN 17 mg/dL (7-18); BUN/Creat Ratio 24.1 RATIO (10-20); Calcium,Total 9.6 mg/dL (8.5-10.1); Chloride 104 mmol/L (98-107); EST Glomerular Filtration Rate 86 mL/min (>60); Est Glom Filt Rate - Afr Amer 104 mL/min (>60); Globulin 3.4 g/dL (2.2-4.2); Glucose 83 mg/dL (74-106); Sodium Level 137 mmol/L (136-145)
== END | disposition home or self-care (01) ==
PROVIDERS: PCP Family Medicine; Visit Provider Internal Medicine Rheumatology
DX: L40.59 Other psoriatic arthropathy (principal); M35.00 Sjogren syndrome, unspecified; K76.0 Fatty (change of) liver, not elsewhere classified; Z79.899 Other long term (current) drug therapy
CPT/HCPCS: 36415; 80053; 85025

== ENCOUNTER → 2023-08-19 | Outpatient (CLI) | payer MEDICARE, SELFPAY ==
--- NOTE | 2023-08-19 13:11 | RAD_ITS ---
EXAM: XR CHEST, 2 VIEWS CLINICAL INDICATION: COUGH TECHNIQUE: Frontal and lateral views of the chest. COMPARISON: No relevant prior studies available. FINDINGS: LUNGS AND PLEURAL SPACES: Granuloma in the right lung. Hyperinflation of the lungs suggesting COPD. No focal pneumonia. No pneumothorax. No effusion. HEART: No significant abnormality. Cardiac silhouette not enlarged. MEDIASTINUM: Central airways and mediastinal contour are unremarkable. BONES/JOINTS: Scoliotic curvature and degenerative changes of the spine. Postoperative changes of the right shoulder. No acute fracture. SOFT TISSUES: No significant abnormality. VASCULATURE: Atherosclerosis. RAD/Chest PA and Lateral IMPRESSION: Hyperinflation of the lungs suggesting COPD. No focal pneumonia. Electronically Signed: Alberto Gregg DO at 20:09 EST ,
== END | disposition home or self-care (01) ==
LOC: MTRAD 13:05
PROVIDERS: PCP Family Medicine; Referring Provider Family Medicine; Visit Provider Family Medicine
DX: J40 Bronchitis, not specified as acute or chronic (principal)
CPT/HCPCS: 71046

== ENCOUNTER → 2023-11-16 | Outpatient (CLI) | payer MEDICARE, SELFPAY ==
[2023-11-16 15:48] LABS: Absolute Lymphocyte Count 1.81 X10^3/uL (0.83-4.51); Absolute Neutrophil Count 5.8 X10^3/uL (2.0-7.7); Basophil# 0.06 X10^3/uL; Basophil% 0.7 % (0-1); Eosinophil# 0.18 X10^3/uL; Eosinophils% 2.1 % (0-5); Hematocrit 44.1 % (37-47); Hemoglobin 14.6 g/dL (12.0-15.0); Lymphocyte # 1.81 X10^3/ul (0.83-4.51); Lymphocyte % 21.6 % (19-41); Mean Corp Hgb Conc 33.1 g/dL (32-36); Mean Corpuscular Hgb 31.3 pg (27.0-32.0); Mean Corpuscular Volume 94.4 fL (81-99); Mean Platelet Vol. 10.8 fl (6.2-12.0); Monocyte# 0.57 X10^3/uL; Monocyte% 6.8 % (0-10); NRBC Flagged by Analyzer 0 % (0-5); Neutrophil # 5.76 X10^3/uL (2.7-7.7); Neutrophil % 68.7 % (47-70); Platelet Count 260 K/mm3 (150-450); RBC Distribution Width CV 13.2 % (11.6-14.6); RBC Distribution Width SD 45.5 fl (35.1-43.9); Red Blood Count 4.67 M/mm3 (4.2-5.4); White Blood Count 8.4 K/mm3 (4.4-11.0)
[2023-11-16 16:02] LABS: Erythrocyte Sedimentation Rate 11 mm/hr (0-30)
[2023-11-16 16:26] LABS: ALB/GLOB Ratio 1.1 RATIO (0.9-2.4); AST(SGOT) 26 U/L (15-37); Alanine Aminotransfer ALT/SGPT 24 U/L (13-56); Albumin, Serum 3.6 g/dL (3.2-5.0); Alkaline Phosphatase 81 U/L (45-117); Anion Gap 8 (5-15); BUN 16 mg/dL (7-18); BUN/Creat Ratio 20.3 RATIO (10-20); CRP < 2.90 mg/L (0.0-3.0); Calcium,Total 10.4 mg/dL (8.5-10.1); Chloride 105 mmol/L (98-107); Creatinine, Serum 0.79 mg/dL (0.55-1.02); EST Glomerular Filtration Rate 76 mL/min (>60); Est Glom Filt Rate - Afr Amer 92 mL/min (>60); Globulin 3.3 g/dL (2.2-4.2); Glucose 78 mg/dL (74-106); Potassium 4.1 mmol/L (3.5-5.1); Protein, Total 6.9 g/dL (6.4-8.2); Sodium Level 141 mmol/L (136-145)
== END | disposition home or self-care (01) ==
LOC: MTLAB 11:17
PROVIDERS: PCP Family Medicine; Referring Provider Internal Medicine Rheumatology; Visit Provider Internal Medicine Rheumatology
DX: L40.59 Other psoriatic arthropathy (principal); L40.8 Other psoriasis; K76.0 Fatty (change of) liver, not elsewhere classified; Z79.899 Other long term (current) drug therapy
CPT/HCPCS: 36415; 80053; 85025; 85652; 86140

== ENCOUNTER → 2023-12-16 | Outpatient (CLI) | payer MEDICARE, SELFPAY ==
[2023-12-16 12:43] LABS: Anion Gap 3 (5-15); BUN 13 mg/dL (7-18); BUN/Creat Ratio 16.9 RATIO (10-20); Calcium,Total 9.9 mg/dL (8.5-10.1); Chloride 108 mmol/L (98-107); Creatinine, Serum 0.77 mg/dL (0.55-1.02); EST Glomerular Filtration Rate 78 mL/min (>60); Est Glom Filt Rate - Afr Amer 94 mL/min (>60); Glucose 84 mg/dL (74-106); Magnesium 2.5 mg/dL (1.6-2.6); Phosphorus 3.3 mg/dL (2.5-4.9); Potassium 4.2 mmol/L (3.5-5.1); Sodium Level 140 mmol/L (136-145)
[2023-12-16 13:01] LABS: PTHIN 42.8 pg/mL (18.4-80.1)
[2023-12-16 13:59] LABS: Ionized Calcium 5.23 mg/dL (4.36-5.20)
== END | disposition home or self-care (01) ==
LOC: MTLAB 10:21
PROVIDERS: PCP Family Medicine; Referring Provider Family Medicine; Visit Provider Family Medicine
DX: E83.52 Hypercalcemia (principal)
CPT/HCPCS: 36415; 80048; 82330; 83735; 83970; 84100

== ENCOUNTER → 2024-02-03 | Outpatient (CLI) | payer MEDICARE, SELFPAY ==
--- NOTE | 2024-02-03 08:51 | CDU_ITS ---
Reason For Study: Amaurosis Fugax Rt. Velocities/BP Lt. Velocities/BP Prox CCA 81.8/14.2 cm/sec. Prox CCA 94.1/21.6 cm/sec. Mid CCA 94.1/21.6 cm/sec. Mid CCA 80.9/16.6 cm/sec. Dist CCA 86.7/21.6 cm/sec. Dist CCA 74.3/20.4 cm/sec. Prox ICA 74.4/19.2 cm/sec. Prox ICA 45.9/16.6 cm/sec. Mid ICA 81.8/31.4 cm/sec. Mid ICA 42.1/14.7 cm/sec. Dist ICA 91.6/32.7 cm/sec. Dist ICA 80.6/25.3 cm/sec. Rt. ICA/CCA = 1.0. Lt. ICA/CCA = 1.0. Prox ECA 101.4/11.8 cm/sec. Prox ECA 94.1/10.6 cm/sec. Rt. Vert. 43.1/14.7 cm/sec. Lt. Vert. 45.0/13.6 cm/sec. Right Extracranial There is intimal thickening but no significant atherosclerotic plaque noted in the right common carotid artery. There is intimal thickening but no significant atherosclerotic plaque noted in the right internal carotid artery. There is intimal thickening but no significant atherosclerotic plaque noted in the right external carotid artery. Antegrade flow is noted in the right vertebral artery. Left Extracranial There is intimal thickening but no significant atherosclerotic plaque noted in the left common carotid artery. There is intimal thickening but no significant atherosclerotic plaque noted in the left internal carotid artery. There is intimal thickening but no significant atherosclerotic plaque noted in the left external carotid artery. Antegrade flow is noted in the left vertebral artery. Procedure Carotid Duplex [id number]. This is a Carotid Duplex examination using B-mode, color flow and specral Doppler. The exam was diagnostic. Exam performed in department. VL/Carotid Duplex Ultrasound Interpretation Summary Normal right extracranial internal carotid. Normal left extracranial internal carotid. Patent and antegrade vertebrals bilaterally. Ordering Physician: Vinay Patel Referring Physician: Kyler Salvador MD Performed By: Juan Pablo Suarez RVT
== END | disposition home or self-care (01) ==
PROVIDERS: PCP Family Medicine; Referring Provider Ophthalmology; Visit Provider Ophthalmology
DX: H53.10 Unspecified subjective visual disturbances (principal); G45.3 Amaurosis fugax; G43.B0 Ophthalmoplegic migraine, not intractable
CPT/HCPCS: 93880

== ENCOUNTER → 2024-02-14 | Outpatient (CLI) | payer MEDICARE, SELFPAY ==
--- NOTE | 2024-02-14 14:15 | RAD_ITS ---
STUDY: X-RAY - THORACIC SPINE REASON FOR EXAM: Female, 73 years old. DDD TECHNIQUE: 2 view(s) of the thoracic spine were obtained. COMPARISON: None. FINDINGS: Normal kyphosis of the thoracic spine. There is no substantial scoliosis. There is demineralization of the thoracic spine. There is multilevel disc space narrowing of the thoracic spine. The soft tissue structures are unremarkable. RAD/Thoracic Spine 3 Views IMPRESSION: Multilevel disc space narrowing. Electronically Signed: Wayne Garcia MD at 13:34 EDT ,
--- NOTE | 2024-02-14 14:15 | RAD_ITS ---
STUDY: X-RAY EXAMINATION: SCOLIOSIS SERIES REASON FOR EXAM: Female, 73 years old. SCOLIOSIS TECHNIQUE: 2 view(s) of the thoracolumbar spine were obtained in the upright standing position. COMPARISON: None. FINDINGS: There is a 20.9 degree dextroscoliosis scoliosis of the lumbar spine with the apex of the convexity at the L2-L3 level. Normal kyphosis of the thoracic spine. Normal thoracic vertebrae and endplates. Normal disc space heights of the thoracic spine. Normal lordosis of the lumbar spine. Normal lumbar vertebrae and endplates. Normal disc space heights of the lumbar spine. The soft tissue structures are unremarkable. RAD/Scoliosis 2 or 3 views IMPRESSION: 20.9 degree dextroscoliosis of the lumbar spine with the apex of the convexity at the L2-L3 level. Electronically Signed: Wayne Garcia MD at 13:33 EDT ,
--- NOTE | 2024-02-14 14:15 | RAD_ITS ---
STUDY: X-RAY - LUMBAR SPINE REASON FOR EXAM: Female, 73 years old. DDD TECHNIQUE: 4 view(s) of the lumbar spine were obtained. COMPARISON: None FINDINGS: Normal lumbar lordosis. There is a dextroscoliosis of the lumbar spine. There is a normal alignment of the vertebrae. Normal vertebral bodies and endplates. There is multi-level degenerative disc disease with multi-level disc space narrowing. The soft tissue structures are unremarkable. RAD/L/S Spine Min 4 Views IMPRESSION: Dextroscoliosis and disc space narrowing at multiple levels. Electronically Signed: Wayne Garcia MD at 13:35 EDT ,
== END | disposition home or self-care (01) ==
PROVIDERS: PCP Family Medicine; Referring Provider Clinical Nurse Specialist Adult Health; Visit Provider Clinical Nurse Specialist Adult Health
DX: M41.9 Scoliosis, unspecified (principal); M51.36 Other intervertebral disc degeneration, lumbar region; M51.34 Other intervertebral disc degeneration, thoracic region
CPT/HCPCS: 72072; 72082; 72110

== ENCOUNTER → 2024-02-23 | Outpatient (CLI) | payer MEDICARE, SELFPAY ==
[2024-02-23 15:45] LABS: Ionized Calcium 4.96 mg/dL (4.36-5.20)
[2024-02-23 15:49] LABS: Anion Gap 6 (5-15); BUN 15 mg/dL (7-18); BUN/Creat Ratio 21.2 RATIO (10-20); Calcium,Total 9.2 mg/dL (8.5-10.1); Chloride 109 mmol/L (98-107); Creatinine, Serum 0.71 mg/dL (0.55-1.02); EST Glomerular Filtration Rate 86 mL/min (>60); Est Glom Filt Rate - Afr Amer 104 mL/min (>60); Glucose 81 mg/dL (74-106); Potassium 4.2 mmol/L (3.5-5.1); Sodium Level 139 mmol/L (136-145)
[2024-02-23 15:52] LABS: Vitamin D,25 Hydroxy 38.1 ng/mL
[2024-02-23 19:51] LABS: Ionized Calcium Order ORDER TUBE
== END | disposition home or self-care (01) ==
LOC: MFPLAB 11:49
PROVIDERS: PCP Family Medicine; Visit Provider Family Medicine
DX: E83.52 Hypercalcemia (principal)
CPT/HCPCS: 36415; 80048; 82306; 82330

== ENCOUNTER → 2024-03-28 | Outpatient (CLI) | payer MEDICARE, SELFPAY ==
--- NOTE | 2024-03-28 13:06 | MRI_ITS ---
STUDY: MRI THORACIC SPINE WITHOUT CONTRAST REASON FOR EXAM: Female, 73 years old. DEGENERATIVE DISC DISEASE TECHNIQUE: Standardized fat and water weighted pulse sequences were obtained in the sagittal and axial planes. COMPARISON: Thoracic spine x-ray dated February 14, 2024 FINDINGS: Normal kyphosis of the thoracic spine. Mild dextroscoliosis is present. T1-2, T2-3, T3-4, T4-5, T5-6, T6-7, T7-8, T8-9, T9-10, T10-11, T11-12: Disc desiccation at all visualized levels. Mild multilevel disc space narrowing, Schmorl''s node formation, spondylosis, endplate spurring. Minor disc bulges are present at several levels but not resulting in cord compression or central canal stenosis. No critical foraminal stenosis with nerve root compression is demonstrated. Benign fatty hemangiomas are present at multiple levels. No demonstrated acute fracture or compression deformity or active marrow edema. No aggressive lesions are present. No spinal cord demyelinating lesions or intramedullary mass or nodule or cyst.. Normal central canal and intervertebral neural foramina at the corresponding levels. Normal visualized thoracic cord. Normal conus medullaris that terminates at the T12-L1 level. The soft tissue structures are unremarkable. MRI/Spine Thoracic (Routine) IMPRESSION: 1. Multilevel degenerative changes of the thoracic spine. Electronically Signed: Robert Ramsey MD at 15:49 EDT ,
== END | disposition home or self-care (01) ==
LOC: MRI 13:03
PROVIDERS: PCP Family Medicine; Referring Provider Clinical Nurse Specialist Adult Health; Visit Provider Clinical Nurse Specialist Adult Health
DX: M51.34 Other intervertebral disc degeneration, thoracic region (principal)
CPT/HCPCS: 72146

== ENCOUNTER → 2024-09-13 | Outpatient (CLI) | payer MEDICARE, SELFPAY ==
[2024-09-13 10:07] LABS: Absolute Lymphocyte Count 1.67 X10^3/uL (0.83-4.51); Absolute Neutrophil Count 5.3 X10^3/uL (2.0-7.7); Basophil# 0.05 X10^3/uL; Basophil% 0.7 % (0-1); Eosinophil# 0.08 X10^3/uL; Hematocrit 43.4 % (37-47); Hemoglobin 14.1 g/dL (12.0-15.0); Lymphocyte # 1.67 X10^3/ul (0.83-4.51); Lymphocyte % 21.7 % (19-41); Mean Corp Hgb Conc 32.5 g/dL (32-36); Mean Corpuscular Hgb 30.3 pg (27.0-32.0); Mean Corpuscular Volume 93.1 fL (81-99); Mean Platelet Vol. 9.7 fl (6.2-12.0); Monocyte# 0.52 X10^3/uL; Monocyte% 6.8 % (0-10); NRBC Flagged by Analyzer 0 % (0-5); Neutrophil # 5.34 X10^3/uL (2.7-7.7); Neutrophil % 69.5 % (47-70); Platelet Count 270 K/mm3 (150-450); RBC Distribution Width CV 12.9 % (11.6-14.6); RBC Distribution Width SD 43.9 fl (35.1-43.9); Red Blood Count 4.66 M/mm3 (4.2-5.4); White Blood Count 7.7 K/mm3 (4.4-11.0)
[2024-09-13 10:11] LABS: Erythrocyte Sedimentation Rate 2 mm/hr (0-30)
[2024-09-13 10:54] LABS: ALB/GLOB Ratio 1.2 RATIO (0.9-2.4); AST(SGOT) 17 U/L (15-37); Alanine Aminotransfer ALT/SGPT 21 U/L (13-56); Albumin, Serum 3.6 g/dL (3.2-5.0); Alkaline Phosphatase 82 U/L (45-117); Anion Gap 2 (5-15); BUN 18 mg/dL (7-18); BUN/Creat Ratio 20.4 RATIO (10-20); CRP < 2.90 mg/L (0.0-3.0); Calcium,Total 9.4 mg/dL (8.5-10.1); Chloride 109 mmol/L (98-107); Creatinine, Serum 0.88 mg/dL (0.55-1.02); EST Glomerular Filtration Rate 66 mL/min (>60); Est Glom Filt Rate - Afr Amer 80 mL/min (>60); Globulin 3.1 g/dL (2.2-4.2); Glucose 68 mg/dL (74-106); Potassium 4.2 mmol/L (3.5-5.1); Protein, Total 6.7 g/dL (6.4-8.2); Sodium Level 140 mmol/L (136-145)
== END | disposition home or self-care (01) ==
LOC: MTLAB 09:12
PROVIDERS: PCP Family Medicine; Referring Provider Internal Medicine Rheumatology; Visit Provider Internal Medicine Rheumatology
DX: L40.59 Other psoriatic arthropathy (principal); M79.7 Fibromyalgia; Z79.899 Other long term (current) drug therapy
CPT/HCPCS: 36415; 80053; 85025; 85652; 86140

== ENCOUNTER → 2024-10-05 | Outpatient (CLI) | payer MEDICARE, SELFPAY ==
[2024-10-05 12:41] LABS: Vitamin D,25 Hydroxy 47.9 ng/mL
== END | disposition home or self-care (01) ==
LOC: MFPLAB 09:53
PROVIDERS: PCP Family Medicine; Referring Provider Family Medicine; Visit Provider Family Medicine
DX: E55.9 Vitamin D deficiency, unspecified (principal)
CPT/HCPCS: 36415; 82306

== ENCOUNTER → 2025-02-22 | Outpatient (CLI) | payer MEDICARE, SELFPAY ==
[2025-02-22 16:07] LABS: Anion Gap 12 (5-15); BUN 14 mg/dL (4-19); BUN/Creat Ratio 16.7 RATIO (10-20); Calcium,Total 9.6 mg/dL (7.6-11.0); Carbon Dioxide 23.1 mmol/L (21.0-32.0); Chloride 105 mmol/L (98-108); Creatinine, Serum 0.81 mg/dL (0.70-1.20); EST Glomerular Filtration Rate 76 (>60); Glucose 94 mg/dL (70-99); Potassium 4.1 mmol/L (3.3-5.1); Sodium Level 140 mmol/L (133-145); Vitamin D,25 Hydroxy 59.2 ng/mL (30-100)
--- OUTSIDE RECORDS SUMMARY | 2025-02-22 21:31 | XMS RPT_ITS | CCD ---
Author Organization [facility] CliniSysd Care Team Providers Care Communications Billing Analyst Name Role Phone Dr. Tigre Salvador Primary Care Provider Dr. Tigre Salvador Referring Provider Babar, Dr. Ware Attending Provider [phone] Dr. Tigre Salvador Primary Care Provider [phone] Dr. Tigre Salvador Referring Provider Babar, Dr. Ware Attending Provider [phone] Hollis Tomas Attending Provider [phone] Dr. Sam Shook Attending Provider [phone] [place] MEZA, Dr. Chávez Primary Care Provider Dossiddharth PENA, Dr. Ware Attending Provider [phone] Dossiddharth DC, Dr. Ware Referring Provider [phone] [place] MEZA, Dr. Chávez Referring Provider Kyler Salvador Primary Care Unavailable DosJeanie messina Referring Unavailable DosJeanie messina Attending Unavailable Kyler Salvador Primary Care Unavailable Kyler Salvador Referring Unavailable DossiJeanie Attending Unavailable Kyler Salvador Primary Care Unavailable DosJeanie messina Attending Unavailable DosJeanie messina Referring Unavailable Kyler Salvador Primary Care Unavailable Dossi, Jeanie Attending Unavailable Kyler Salvador Referring Unavailable Kyler Salvador Primary Care Unavailable Kyler Salvador Referring Unavailable DossiJeanie Attending Unavailable Kyler Salvador Primary Care Unavailable Kyler Salvador Referring Unavailable Dossi, Jeanie Attending Unavailable Kyler Salvador Primary Care Unavailable Dossi, Jeanie Attending Unavailable Kyler Salvador Referring Unavailable Kyler Salvador Primary Care Unavailable Raneden, [facility] Referring Unavailable Dossi, Jeanie Attending Unavailable Raneden, [place] Primary [facility] Unavailable Dossi, Jeanie Attending Unavailable [facility]aned[facility], [facility] Referring Unavailable Raneden, [place] Primary Care Unavailable Dossi, Jeanie Attending Unavailable Dossi, Jeanie Referring Unavailable Dossi, Jeanie Referring Unavailable Ranney, [place] Primary Care Unavailable Dossi, Jeanie Attending Unavailable Dossi, Jeanie Referring Unavailable Ranney, [place] Primary Care Unavailable Dossi, Jeanie Attending Unavailable Ranney, [place] Primary Care Unavailable Ranney, [facility] Referring Unavailable Dossi, Jeanie Attending Unavailable Miley, Yasmin Referring Unavailable Miley, Yasmin Attending Unavailable Raneden, [place] Primary Care Unavailable Raneden, [place] Primary [facility] Unavailable [facility], [facility] Referring Unavailable Ranney, Christopher Attending Unavailable Miley, Yasmin Attending Unavailable Raneden, [place] Primary Care Unavailable Miley, Yasmin Referring Unavailable Ranney, [facility] Attending Unavailable Raneden, [place] Primary Care Unavailable Vellanki, Cait Referring Unavailable Vellanki, Cait Attending Unavailable Raneden, [place] Primary Care Unavailable Dossi, Jeanie Referring Unavailable Raneden, [place] Primary Care Unavailable Dossi, Jeanie Attending Unavailable Dossi, Jeanie Referring Unavailable Raneden, [place] Primary Care Unavailable Dossi, Jeanie Attending Unavailable Allergies Allergy Classification Reported Allergen(s) Allergy Type Date of Onset Reaction(s) Facility (12 sources) Adhesive Tape; Translations: [adhesive tape] Propensity to adverse reactions 2 Rash [facility] (11 sources) POISON MARLEEN EXTRACT Drug Allergy 2 unknown [facility] (1 source) poison marleen extract Drug allergy (disorder) 5 [facility] Repository Medications Current Medications Medication Drug Class(es) Dates Sig (Normalized) Sig (Original) calcium carbonate 1250 mg oral tablet (11 sources) Start: 07-10-2020 take 1 tablet by mouth once daily Calcium Carbonate (Calcium 500) 500 mg calcium (1,250 mg) tablet Active 500 mg PO DAILY July 10, 2020 1:00am cholecalciferol 0.025 mg oral capsule (11 sources) Vitamin D Start: 07-10-2020 take 1 capsule by mouth once daily Cholecalciferol (Vitamin D3) 25 mcg (1,000 unit) capsule Active 25 ug PO DAILY July 10, 2020 1:00am Multivitamin With Minerals (3 sources) Start: 06-04-2023 take 1 tablet by mouth once daily Multivitamin With Minerals Active 1 TABLET PO DAILY June 04, 2023 12:00am Start: 06-04-2023 take 1 tablet by ginny th once daily Multivitamin With Minerals Active 1 TABLET PO DAILY 2023 11:00pm Multivitamin With Minerals tablet (1 source) Start: 06-04-2023 Multivitamin W ith Minerals tablet Active 1 {tbl} PO DAILY June 04, 2023 12:00am nabumetone 500 mg oral tablet (1 source) Nonsteroidal Anti-inflammatory Drug Start: 05-04-2024 take 1 tablet by mouth twice daily Nabumetone 500 mg tablet Active 500 mg PO TWICE A DAY May 04, 2024 12:00am polyethylene glycol 3350 31773 mg powder for oral solution (15 sources) Osmotic Laxative Start: 07-10-2020 End: 06-04-2023 Polyethylene Glycol 3350 (Miralax) 17 gram/dose powder Active 17 g PO DAILY as needed June 04, 2023 9:30am Completed/Discontinued Medications Medication Drug Class(es) Dates Sig (Normalized) Sig (Original) Magnesium (11 sources) Start: 07-10-2020 End: 06-04-2023 take 1 tablet by mouth once daily Magnesium 200 mg tablet Discontinued 200 mg PO DAILY July 10, 2020 1:00am June 04, 2023 9:30am Start: 07-10-2020 End: 06-04-2023 take 200 mg by mouth once daily Magnesium Discontinued 200 MG PO DAILY July 10, 2020 1:00am June 04, 2023 9:30am Start: 07-10-2020 End: 06-04-2023 take 200 mg by mouth once daily Magnesium Discontinued 200 MG PO DAILY July 10, 2020 12:00am June 04, 2023 8:30am Start: 07-10-2020 take 200 mg by mouth once daily Magnesium Active 200 MG PO DAILY July 10, 2020 1:00am Multivitamin (Daily Multi-Vitamin) tablet (11 sources) Start: 07-10-2020 End: 06-04-2023 Multivitamin (Daily Multi-Vitamin) tablet Discontinued 1 {tbl} PO DAILY July 10, 2020 1:00am June 04, 2023 9:30am Start: 07-10-2020 End: 06-04-2023 take 1 tablet by mouth once daily Multivitamin (Daily Multi-Vitamin) tablet Discontinued 1 TABLET PO DAILY July 10, 2020 1:00am June 04, 2023 9:30am Start: 07-10-2020 End: 06-04-2023 take 1 tablet by mouth once daily Multivitamin (Daily Multi-Vitamin) tablet Discontinued 1 TABLET PO DAILY July 10, 2020 12:00am June 04, 2023 8:30am Start: 07-10-2020 take 1 tablet by ginny th once daily Multivitamin (Daily Multi-Vitamin) tablet Active 1 TABLET PO DAILY July 10, 2020 1:00am vitamin b12 1 mg oral capsule (11 sources) Vitamin B12 Start: 07-10-2020 End: 07-18-2021 take 1 capsule by mouth once daily Cyanocobalamin (Vitamin B-12) 1,000 mcg capsule Discontinued 1000 ug PO DAILY July 10, 2020 1:00am July 18, 2021 12:34pm Problems Active Problems Problem Classification Problem Date Documented Date Episodic/Chronic Cataract (11 sources) Bilateral cataracts 03-26-2022 Chronic Nutritional deficiencies (1 source) Vitamin D deficiency, unspecified; Translations: [Vitamin D deficiency, unspecified] Onset: 10-20-2024 Chronic Other acquired deformities (14 sources) Scoliosis deformity of spine; Translations: [Scoliosis, unspecified] 09-17-2020 Chronic Comment on above: right apex L2 Other acquired deformities (17 sources) Scoliosis, unspecified; Translations: [Scoliosis [and kyphoscoliosis], idiopathic] Onset: 02-22-2024 12-10-2022 Chronic Other bone disease and musculoskeletal deformities (1 source) Other idiopathic scoliosis, thoracolumbar region; Translations: [Other idiopathic scoliosis, thoracolumbar region] Onset: 02-05-2025 Chronic Other bone disease and musculoskeletal deformities (20 sources) Segmental and somatic dysfunction; Translations: [Segmental and somatic dysfunction of cervical region] 04-15-2021 Episodic Other bone disease and musculoskeletal deformities (16 sources) Segmental and somatic dysfunction of lumbar region; Translations: [Nonallopathic lesions, lumbar region] Onset: 02-05-2025 12-10-2022 Episodic Other bone disease and musculoskeletal deformities (16 sources) Segmental and somatic dysfunction of pelvic region; Translations: [Nonallopathic lesions, pelvic region] Onset: 02-05-2025 12-10-2022 Episodic Other bone disease and musculoskeletal deformities (8 sources) Segmental and somatic dysfunction of cervical region; Translations: [Nonallopathic lesions, cervical region] Onset: 02-05-2025 12-24-2022 Episodic Other bone disease and musculoskeletal deformities (10 sources) Segmental and somatic dysfunction of thoracic region; Translations: [Nonallopathic lesions, thoracic region] Onset: 02-05-2025 12-24-2022 Episodic Other inflammatory condition of skin (1 source) Other psoriatic arthropathy; Translations: [Other psoriatic arthropathy] Onset: 10-03-2024 Chronic Other nervous system disorders (11 sources) Peripheral neuritis; Translations: [Other specified mononeuropathies] 09-17-2020 Chronic Other nervous system disorders (1 source) Other specified mononeuropathies; Translations: [Other specified mononeuropathies] Onset: 01-25-2025 Chronic Other nutritional; endocrine; and metabolic disorders (1 source) Hypercalcemia; Translations: [Hypercalcemia] Onset: 03-13-2024 Chronic Residual codes; unclassified (1 source) Other specified postprocedural states; Translations: [Other specified postprocedural states] Onset: 11-15-2024 Episodic Spondylosis; intervertebral disc disorders; other back problems (20 sources) Degeneration of cervical intervertebral disc; Translations: [Other cervical disc degeneration, unspecified cervical region] Onset: 04-22-2024 12-24-2022 Chronic Spondylosis; intervertebral disc disorders; other back problems (20 sources) Neck pain; Translations: [Cervicalgia] Onset: 01-25-2025 04-15-2021 Episodic Unclassified (1 source) M41.25 - Other idiopathic scoliosis, thoracolumbar region,M99.02 - Segmental and somatic dysfunction of thoracic region,G58.8 - Other specified mononeuropathies Unclassified (1 source) Other intervertebral disc degeneration, 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; Translations: [Other intervertebral disc degeneration, 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] Onset: 02-05-2025 Unclassified (1 source) Low back pain, unspecified; Translations: [Low back pain, unspecified] Onset: 12-18-2024 Past or Other Problems Problem Classification Problem Date Documented Da te Episodic/Chronic Unclassified (11 sources) hx of child 03-26-2022 Results Test Name Value Interpretation Reference Range Facility Chiropractic Reporton 2024 Chiropractic Report [facility] [address] [place] [address] OFFICE VISIT Date of Service: 02/05/25 MR#: [id number] Acct: [id number] Name: HELDER BROWNLEE Rep #: [id number] : 1950 Provider: BECKY Silvestre Age/Sex: 74/F Location: [facility] Status: Signed Intake Vital Signs 07/17/24 11:42 Height 5 ft 2 in Intake Visit Reasons: Back pain Chief Complaint: Low and upper back Pain Is patient in pain?: Yes (right shoulder, low back ) Pain scale (1-10): 1 Allergies poison marleen extract Allergy (Unknown, Verified 02/05/25 10:40) unknown adhesive tape Adverse Reaction (Mild, Verified 02/05/25 10:40) Rash Medications ???Medication ???Instructions ???Recorded ???Confirmed ???Type calcium carbonate (Calcium 500) 500 mg PO DAILY 07/10/20 02/05/25 History cholecalciferol (vitamin D3) 25 25 mcg PO DAILY 07/10/20 02/05/25 History mcg (1,000 unit) capsule multivitamin with minerals 1 tab PO DAILY 06/04/23 02/05/25 H istory polyethylene glycol 3350 17 17 g PO DAILY PRN 06/04/23 5 History gram/dose oral powder (Miralax) nabumetone 500 mg tablet 500 mg PO BID 05/04/24 02/05/25 Hi story Have you fallen in the past year?: No PFSH Medical History History of breast abscess Cataracts Arthritis Osteoporosis Scoliosis Appendicitis hx of child Low back pain Visual impairment Psoriasis Surgical History History of cataract surgery History of rotator cuff surgery Hx of breast lump removal History of laparotomy Hx of appendectomy Hx of section Family History Mother Arthritis Autoimmune disease Hypertension Father Hypertension Myocardial infarction Brother Depression Grandfather CVA (cerebral vascular accident) Sister Thyroid disorder Social History Smoking Status: Never smoker alcohol intake: never what type of physical activity do you participate in: walking and swimming frequency: 3-4 times per week HPI Back pain Chief Complaint: neck/low back Visit Number: 5 Details: Helder is a 74 year old female here to follow up on back pain. Pt. c/o intermittent sharp pains in her right shoulder/upper back. She feels as though her shoulder 'falls forward' She rates her shoulder pain a mild 1/10 today. She complains of left low back pain that is tender to touch. She states it extends up towards the thoracic area on the left. She has been treating her left rib pain with CBD and Magnesium oil which has been helpful. She had to take her NSAID's daily to help alleviate her pain. Her low back is achy equal bilaterally. Her pain and stiffness is worse in the mornings but gets better as the day goes on. She has had difficulty sleeping at night due to this discomfort.She treats pain at home with heat, turmeric, stretching and aspirin as needed. She reports chiropractic adjustments and dry needling are helpful in relieving her pain and discomfort. Location: neck/back Duration: frequent Aggravating or associated factors: twisting, bending,lifting R arm Relieving factors: chiro/acu Pain Quality: aching and dull Exam Musc General: Yes normal gait, muscle weakness, joint tenderness and decreased range of motion; No normal posture Cervical Spine: Yes loss of normal cervical lordosis, Yes cervical muscular tenderness right greater than left diffuse , Yes cervical spasm right greater than left lower trapezius and paracervical muscles and Yes misalignment misalignment: C5 and C6 Thoracic/Lumber: No thoracic and lumbar spine normal to inspection, Yes paraspinal tenderness on the right greater than left (lumbopelvic/upper thoracic) and on the left greater than right (mid thoracic), Yes scoliosis (R thoracolumbar apex L2), Yes thoraco-lumbar spasm on the right greater than left (paraspinal L1-L5, trap,latissimus dorsi) and on the left greater than right (glute, piriformis, thoracic paraspinal (T5-T10),), Yes Trigger (R:teres Major,trap,latissimus dorsi) and Yes misalignment T1, T2, T6, T7, T8, L1, L2, L3, L4, L5 and RIL Sacroiliac joints: on the right tender to palpation Office Procedures Procedures - Chiropractic Procedures Manipulation: Cervical C6, Lumbar L4, Thoracic T4 and Pelvis RIL Manipulation: 3-4 regions Acupuncture: Acupuncture with electrical stimulation (ES) (initial session) Patient Response: positive Details: ???Acupuncture Patient instructions/Risk: Patient instructed not to move and informed of risks of moving. Risks associated with the procedure and the specific location were reviewed with the patient and consent was obtained. Acupuncture performed: E-stim was u (more content not included)... Normal [facility] Chiropractic Reporton 2024 Chiropractic Report [facility] [address] [place] [address] OFFICE VISIT Date of Service: 12/25/24 MR#: [id number] Acct: [id number] Name: KEMHELDER HESTER Rep #: [id number] : 1950 Provider: BECKY Silvestre Age/Sex: 74/F Location: [facility] Status: Signed Intake Vital Signs 07/17/24 11:42 Height 5 ft 2 in Intake Visit Reasons: Back pain Chief Complaint: Low and upper back Pain Is patient in pain?: Yes (LBP, Left rib) Pain scale (1-10): 4 Allergies poison marleen extract Allergy (Unknown, Verified 12/25/24 10:45) unknown adhesive tape Adverse Reaction (Mild, Verified 12/25/24 10:45) Rash Medications ???Medication ???Instructions ???Recorded ???Confirmed ???Type calcium carbonate (Calcium 500) 500 mg PO DAILY 07/10/20 12/25/24 History cholecalciferol (vitamin D3) 25 25 mcg PO DAILY 07/10/20 12/25/24 History mcg (1,000 unit) capsule multivitamin with minerals 1 tab PO DAILY 06/04/23 12/25/24 H istory polyethylene glycol 3350 17 17 g PO DAILY PRN 06/04/23 5 History gram/dose oral powder (Miralax) nabumetone 500 mg tablet 500 mg PO BID 05/04/24 12/25/24 Hi story Have you fallen in the past year?: No PFSH Medical History History of breast abscess Cataracts Arthritis Osteoporosis Scoliosis Appendicitis hx of child Low back pain Visual impairment Psoriasis Surgical History History of cataract surgery History of rotator cuff surgery Hx of breast lump removal History of laparotomy Hx of appendectomy Hx of section Family History Mother Arthritis Autoimmune disease Hypertension Father Hypertension Myocardial infarction Brother Depression Grandfather CVA (cerebral vascular accident) Sister Thyroid disorder Social History Smoking Status: Never smoker alcohol intake: never what type of physical activity do you participate in: walking and swimming frequency: 3-4 times per week HPI Back pain Chief Complaint: neck/low back Visit Number: 4 Details: Helder is a 74 year old female here to follow up on back pain. She reports improvement in her right shoulder pain since her last adjustment. She complains of minimal pain in her shoulder today. She st ates the dry needling is helping a great deal and her pain level has improved. She had a flare up of low back pain that started two weeks ago after [place]. She had to take her NSAID's daily to help alleviate her pain. The low back pain is equal bilaterally. She continues to experience left rib pain that is quite bothersome. She rates her pain 4/10 today. She has been trying to only take NSAID's every other day due to bruising on her hands. The pain and stiffness is worse in the mornings but gets better as the day goes on. She treats pain at home with heat, turmeric, stretching and aspirin as needed. She reports chiropractic adjustments and dry needling are helpful in relieving her pain and discomfort. Location: neck/back Duration: intermittent Aggravating or associated factors: twisting, bending,lifting R arm Relieving factors: chiro/DN Pain Quality: aching and dull Exam Musc General: Yes normal gait, muscle weakness, joint tenderness and decreased range of motion; No normal posture Cervical Spine: Yes loss of normal cervical lordosis, Yes cervical muscular tenderness bilateral lower , Yes cervical spasm right greater than left lower trapezius and paracervical muscles and Yes misalignment misalignment: C5 and C6 Thoracic/Lumber: No thoracic and lumbar spine normal to inspection, Yes paraspinal tenderness on the right greater than left (lumbopelvic/upper thoracic) and on the left greater than right (mid thoracic,lumbopelvic) , Yes scoliosis (R thoracolumbar apex L2), Yes thoraco-lumbar spasm on the right greater than left (paraspinal L1-L5, trap,latissimus dorsi) and on the left greater than right (glute, piriformis, thoracic paraspinal (T5-T10),), Yes Trigger (R:teres Major,trap,latissimus dorsi) and Yes misalignment T1, T2, T6, T7, T8, L1, L2, L3, L4, L5 and RIL Sacroiliac joints: on the right tender to palpation Office Procedures Procedures - Chiropractic Procedures Manipulation: Cervical C6, Lumbar L4, Thoracic T4 and Pelvis RIL Manipulation: 3-4 regions Patient Response: positive Dry Needling Patient Position: Side laying Patient Instructions/Consent: Patient instructed not to move and informed of risks of moving. Risks associated with the procedure and the specific location were reviewed with the patient and consent was obtained. Procedure: The R:teres Major,trap,latissimu (more content not included)... Normal [facility] Chiropractic Reporton 2024 Chiropractic Report [facility] [address] [place] [address] OFFICE VISIT Date of Service: 11/14/24 MR#: [id number] Acct: [id number] Name: HELDER BROWNLEE Rep #: [id number] : 1950 Provider: BECKY Silvestre Age/Sex: 74/F Location: [facility] Status: Signed Intake Vital Signs 07/17/24 11:42 Height 5 ft 2 in Intake Visit Reasons: Back pain Chief Complaint: Low and upper back Pain Is patient in pain?: Yes (low back ) Pain scale (1-10): 3 Allergies poison marleen extract Allergy (Unknown, Verified 11/14/24 14:07) unknown adhesive tape Adverse Reaction (Mild, Verified 11/14/24 14:07) Rash Medications ???Medication ???Instructions ???Recorded ???Confirmed ???Type calcium carbonate (Calcium 500) 500 mg PO DAILY 07/10/20 11/14/24 History cholecalciferol (vitamin D3) 25 25 mcg PO DAILY 07/10/20 11/14/24 History mcg (1,000 unit) capsule multivitamin with minerals 1 tab PO DAILY 06/04/23 11/14/24 H istory polyethylene glycol 3350 17 17 g PO DAILY PRN 06/04/23 5 History gram/dose oral powder (Miralax) nabumetone 500 mg tablet 500 mg PO BID 05/04/24 11/14/24 Hi story Have you fallen in the past year?: No PFSH Medical History History of breast abscess Cataracts Arthritis Osteoporosis Scoliosis Appendicitis hx of child Low back pain Visual impairment Psoriasis Surgical History History of cataract surgery History of rotator cuff surgery Hx of breast lump removal History of laparotomy Hx of appendectomy Hx of section Family History Mother Arthritis Autoimmune disease Hypertension Father Hypertension Myocardial infarction Brother Depression Grandfather CVA (cerebral vascular accident) Sister Thyroid disorder Social History Smoking Status: Never smoker alcohol intake: never what type of physical activity do you participate in: walking and swimming frequency: 3-4 times per week HPI Back pain Chief Complaint: neck/low back Visit Number: 3 Details: Helder is a 74 year old female here to follow up on back pain. Pt. complains of right shoulder stiffness that extends down her arm and into her upper back. She states the dry needling is helping a great deal and her pain level has improved. She also complains of low back pain and stiffness. She states she had company last week and her low back pain increased with being on her feet more but it has improved. She rates her pain 3/10 today. She has been trying to only take NSAID's every other day due to bruising on her hands. The pain and stiffness is worse in the mornings but gets better as the day goes on. She treats pain at home with heat, turmeric, stretching and aspirin as needed. She reports chiropractic adjustments and dry needling are helpful in relieving her pain and discomfort. Location: neck/back Duration: intermittent Aggravating or associated factors: twisting, bending,lifting R arm Relieving factors: chiro/DN Pain Quality: aching and dull Exam Musc General: Yes normal gait, muscle weakness, joint tenderness and decreased range of motion; No normal posture Cervical Spine: Yes loss of normal cervical lordosis, Yes cervical muscular tenderness bilateral lower , Yes cervical spasm right greater than left lower trapezius and paracervical muscles and Yes misalignment misalignment: C5 and C6 Thoracic/Lumber: No thoracic and lumbar spine normal to inspection, Yes paraspinal tenderness on the right greater than left (lumbopelvic/upper thoracic) and on the left greater than right (mid thoracic,lumbopelvic) , Yes scoliosis (R thoracolumbar apex L2), Yes thoraco-lumbar spasm on the right greater than left (paraspinal L1-L5, trap,latissimus dorsi) and on the left greater than right (glute, piriformis, thoracic paraspinal (T5-T10),), Yes Trigger (R:deltoid,trap,latis simus dorsi) and Yes misalignment T1, T2, T6, T7, T8, L1, L2, L3, L4, L5 and RIL Sacroiliac joints: on the right tender to palpation Office Procedures Procedures - Chiropractic Procedures Manipulation: Cervical C6, Lumbar L4, Thoracic T4 and Pelvis RIL Manipulation: 3-4 regions Patient Response: positive Dry Needling Patient Position: Prone Patient Instructions/Consent: Patient instructed not to move and informed of risks of moving. Risks associated with the procedure and the specific location were reviewed with the patient and consent was obtained. Procedure: The R:deltoid,trap,latiss imus dorsi was located by palpation. The skin and surrounding area was inspected and found to be free of any defects. The area was cleaned and prepped. Need (more content not included)... Normal [facility] Chiropractic Reporton 2024 Chiropractic Report [facility] [place] [address] OFFICE VISIT Date of Service: 10/19/24 MR#: [id number] Acct: [id number] Name: HELDER BROWNLEE Rep #: [id number] : 1950 Provider: BECKY Silvestre Age/Sex: 74/F Location: [facility] Status: Signed Intake Vital Signs 07/17/24 11:42 Height 5 ft 2 in Intake Visit Reasons: Back pain Chief Complaint: Low and upper back Pain Is patient in pain?: Yes (Right shoulder, LBP, Left rib) Pain scale (1-10): 3 Allergies poison marleen extract Allergy (Unknown, Verified 10/19/24 09:41) unknown adhesive tape Adverse Reaction (Mild, Verified 10/19/24 09:41) Rash Medications ???Medication ???Instructions ???Recorded ???Confirmed ???Type calcium carbonate (Calcium 500) 500 mg PO DAILY 07/10/20 10/19/24 History cholecalciferol (vitamin D3) 25 25 mcg PO DAILY 07/10/20 10/19/24 History mcg (1,000 unit) capsule multivitamin with minerals 1 tab PO DAILY 06/04/23 10/19/24 H istory polyethylene glycol 3350 17 17 g PO DAILY PRN 06/04/23 5 History gram/dose oral powder (Miralax) nabumetone 500 mg tablet 500 mg PO BID 05/04/24 10/19/24 Hi story Have you fallen in the past year?: No PFSH Medical History History of breast abscess Cataracts Arthritis Osteoporosis Scoliosis Appendicitis hx of child Low back pain Visual impairment Psoriasis Surgical History History of cataract surgery History of rotator cuff surgery Hx of breast lump removal History of laparotomy Hx of appendectomy Hx of section Family History Mother Arthritis Autoimmune disease Hypertension Father Hypertension Myocardial infarction Brother Depression Grandfather CVA (cerebral vascular accident) Sister Thyroid disorder Social History Smoking Status: Never smoker alcohol intake: never what type of physical activity do you participate in: walking and swimming frequency: 3-4 times per week HPI Back pain Chief Complaint: neck/low back Visit Number: 2 Details: Helder is a 74 year old female here to follow up on back pain. She complains of right shoulder pain and stiffness that extends down her arm and into her upper back. The right shoulder is the worse as she had a bicep tendon avulsion year ago. She gets a lot of relief with DN. She also complains of left anterior cutaneous pain that is intermittent, she states it is painful. The cold weather causes her psoriatic arthritis to flare up. She also complains of low back pain and stiffness. She rates her pain 3/10. She has been trying to only take NSAID's every other day due to bruising on her hands but she finds this is not controlling her pain well. The pain and stiffness is worse in the mornings but gets better as the day goes on. She is thinking about being evaluated by Dr. Goncalves for her left rib and back pain. She treats pain at home with heat, turmeric, stretching and aspirin as needed. She reports chiropractic adjustments and dry needling are helpful in relieving her pain and discomfort. Location: neck/back Duration: intermittent Aggravating or associated factors: twisting, bending,lifting R arm Relieving factors: chiro/DN Pain Quality: aching and dull Exam Musc General: Yes normal gait, muscle weakness, joint tenderness and decreased range of motion; No normal posture Cervical Spine: Yes loss of normal cervical lordosis, Yes cervical muscular tenderness bilateral lower , Yes cervical spasm right greater than left lower trapezius and paracervical muscles and Yes misalignment misalignment: C5 and C6 Thoracic/Lumber: No thoracic and lumbar spine normal to inspection, Yes paraspinal tenderness on the right greater than left (lumbopelvic/upper thoracic) and on the left greater than right (mid thora cic, R abdominus/oblique rib 8), Yes scoliosis (R thoracolumbar apex L2), Yes thoraco-lumbar spasm on the right greater than left (paraspinal L1-L5, trap) and on the left greater than right (glute, piriformis, thoracic paraspinal (T5-T10),serratus), Yes Trigger (R deltoid,R bicep,R/Lsupraspin,Ls er) and Yes misalignment T1, T2, T6, T7, T8, L1, L2, L3, L4, L5 and RIL Sacroiliac joints: on the right tender to palpation Office Procedures Procedures - Chiropractic Procedures Manipulation: Cervical C6, Lumbar L4, Thoracic T4 and Pelvis LIL Manipulation: 3-4 regions Patient Response: positive Dry Needling Patient Position: Supine and Prone Patient Instructions/Consent: Patient instructed not to move and informed of risks of moving. Risks associated with the procedure and the specific location were (more content not included)... Normal [facility] Vitamin D,25 Hydroxyon 10-05 Vitamin D 25-OH 47.9 ng/mL Normal [facility] Comment on above: Order Comment: Order Date: 10/05/24 Order Info: [id number] - [id number] Result Comment: Symone min D 25(OH) Status Range Deficiency <20 ng/mL (50nmol/L) Insufficiency 20 - 30 ng/mL (50 - 75 nmol/L) Sufficiency 30 - 100 ng/mL (75 - 250 nmol/L) Toxicity >100 ng/mL (>250 nmol/L) Performed By: #### L 506.1000 #### [facility] [address] [place] [address], [address] Chiropractic Reporton 2024 Chiropractic Report [facility] [address] [place] [address] OFFICE VISIT Date of Service: 09/21/24 MR#: [id number] Acct: [id number] Name: HELDER BROWNLEE Rep #: [id number] : 1950 Provider: BECKY Silvestre Age/Sex: 74/F Location: [facility] Status: Signed Intake Vital Signs 07/17/24 11:42 Height 5 ft 2 in Intake Visit Reasons: Back pain Chief Complaint: Low and upper back Pain Is patient in pain?: Yes (Shoulders, UBP, Left rib) Pain scale (1-10): 3 Allergies poison marleen extract Allergy (Unknown, Verified 09/21/24 09:41) unknown adhesive tape Adverse Reaction (Mild, Verified 09/21/24 09:41) Rash Medications ???Medication ???Instructions ???Recorded ???Confirmed ???Type calcium carbonate (Calcium 500) 500 mg PO DAILY 07/10/20 09/21/24 History cholecalciferol (vitamin D3) 25 25 mcg PO DAILY 07/10/20 09/21/24 History mcg (1,000 unit) capsule multivitamin with minerals 1 tab PO DAILY 06/04/23 09/21/24 History polyethylene glycol 3350 17 17 g PO DAILY PRN 06/04/23 09/21/24 History gram/dose oral powder (Miralax) nabumetone 500 mg tablet 500 mg PO BID 05/04/24 09/21/24 History Have you fallen in the past year?: No PFSH Medical History History of breast abscess Cataracts Arthritis Osteoporosis Scoliosis Appendicitis hx of child Low back pain Visual impairment Psoriasis Surgical History (Updated 09/21/24 @ 10:[address] Jeanie Eckert, BECKY) History of cataract surgery History of rotator cuff surgery Hx of breast lump removal History of laparotomy Hx of appendectomy Hx of section Family History Mother Arthritis Autoimmune disease Hypertension Father Hypertension Myocardial infarction Brother Depression Grandfather CVA (cerebral vascular accident) Sister Thyroid disorder Social History Smoking Status: Never smoker alcohol intake: never what type of physical activity do you participate in: walking and swimming frequency: 3-4 times per week HPI Back pain Chief Complaint: neck/low back Visit Number: 1 Details: Helder is a 74 year old female here to follow up on back pain. She reports her last adjustment and dry needling were helpful in alleviating her pain but this cold weather has exacerbated her pain. She reports an increase in her shoulder pain and stiffness. The right shoulder is the worse as she had a bicep tendon avulsion year ago. She also states her left rib has still sore at times, but overall doing much better. She thinks it could be her psoriatic arthritis flaring up because of the weather. She rates her pain 3/10. The pain and stiffness is worse in the mornings but gets better as the day goes on. Her overall shoulder ROM has improved since last visit. She treats pain at home with heat, turmeric, stretching and aspirin as needed. She reports chiropractic adjustments and dry needling are helpful in relieving her pain and discomfort. Location: neck/back Duration: intermittent Aggravating or associated factors: twisting, bending,lifting R arm Relieving factors: chiro/DN Pain Quality: aching and dull Exam Musc General: Yes normal gait, muscle weakness, joint tenderness and decreased range of motion; No normal posture Cervical Spine: Yes loss of normal cervical lordosis, Yes cervical muscular tenderness right greater than left lower , Yes cervical spasm right greater than left lower trapezius and paracervical muscles, left upper intrinsics and Yes misalignment misalignment: C2, C5 and C6 Thoracic/Lumber: No thoracic and lumbar spine normal to inspection, Yes paraspinal tenderness on the right greater than left (lumbopelvic/upper thoracic) and on the left greater than right (mid thoracic), Yes scoliosis (R thoracolumbar apex L2), Yes thoraco-lumbar spasm on the right greater than left (paraspinal L1-L5, trap) and on the left greater than right (glute, piriformis, thoracic paraspinal (T5-T10)), Yes Trigger (R deltoid, R bicep,R supraspinatus) and Yes misalignment T1, T2, T6, T7, L1, L2, L3, L4, L5 and RIL Sacroiliac joints: on the right tender to palpation Office Procedures Procedures - Chiropractic Procedures Manipulation: Cervical C6, Lumbar L4, Thoracic T4 and Pelvis LIL Manipulation: 3-4 regions Patient Response: positive Dry Needling Patient Position: Prone Patient Instructions/Consent: Patient instructed not to move and informed of risks of moving. Risks associated with the procedure and the specific location were reviewed with the patient and consent was obtained. Procedure: The R deltoid, R bicep,R supraspinatus was located by palpation. The skin and surrounding area was inspected (more content not included)... Normal [facility] CBC W/Diff, Automatedon 08-30 Absolute Lymph 1.67 X10 3/uL Normal 0.83-4.51 [facility] Comment on above: Performed By: #### L 101.9900, L100.0100, L500.4050, L501.6710 ####[facility] [address] [place], [address] Absolute Neut 5.3 X10 3/uL Normal 2.0-7.7 [facility] Comment on above: Performed By: #### L 101.9900, L100.0100, L500.4050, L501.6710 ####[facility] [address] [place], [address] Basophils/100 WBC (Bld) 0.7 % Normal 0-1 [facility] Comment on above: Performed By: #### L 101.9900, L100.0100, L500.4050, L501.6710 ####[facility] [address] [place], [address] Eosinophils/100 WBC (Bld) 1.0 % Normal 0-5 [facility] Comment on above: Performed By: #### L 101.9900, L100.0100, L500.4050, L501.6710 ####[facility] [address] [place], [address] Erythrocyte distribution width (RBC) [Ratio] 12.9 % Normal 11.6-14.6 [facility] Comment on above: Performed By: #### L 101.9900, L100.0100, L500.4050, L501.6710 ####[facility] [address] [place], [address] Hematocrit (Bld) [Volume fraction] 43.4 % Normal 37-47 [facility] Comment on above: Performed By: #### L 101.9900, L100.0100, L500.4050, L501.6710 ####[facility] [address] [place], [address] Hemoglobin (Bld) [Mass/Vol] 14.1 g/dL Normal 12.0-15.0 [facility] Comment on above: Performed By: #### L 101.9900, L100.0100, L500.4050, L501.6710 ####[facility] [address] [place], [address] IG% 0.300 Normal 0.0-0.9 [facility] Comment on above: Result Comment: IG% - Immature Granulocytes (promyelocytes, myelocytes and metamyelocytes) > 1% indicates that a LEFT SHIFT is Present. Performed By: #### L 101.9900, L100.0100, L500.4050, L501.6710 ####[facility] [address] [place], [address] Lymphocytes/100 WBC (Bld) 21.7 % Normal 19-41 [facility] Comment on above: Performed By: #### L 101.9900, L100.0100, L500.4050, L501.6710 ####[facility] [address] [place], [address] MCH (RBC) [Entitic mass] 30.3 pg Normal 27.0-32.0 [facility] Comment on above: Performed By: #### L 101.9900, L100.0100, L500.4050, L501.6710 ####[facility] [address] [place], [address] MCHC (RBC) [Mass/Vol] 32.5 g/dL Normal 32-36 [facility] Comment on above: Performed By: #### L 101.9900, L100.0100, L500.4050, L501.6710 ####[facility] [address] [place], [address] MCV (RBC) [Entitic vol] 93.1 fL Normal 81-99 [facility] Comment on above: Performed By: #### L 101.9900, L100.0100, L500.4050, L501.6710 ####[facility] [address] [place], [address] Monocytes/100 WBC (Bld) 6.8 % Normal 0-10 [facility] Comment on above: Performed By: #### L 101.9900, L100.0100, L500.4050, L501.6710 ####[facility] [address] [place], [address] Neutrophils/100 WBC (Bld) 69.5 % Normal 47-70 [facility] Comment on above: Performed By: #### L 101.9900, L100.0100, L500.4050, L501.6710 ####[facility] [address] [place], [address] Nucleated RBC (Bld) [#/Vol] 0 10*3/uL Normal 0-5 [facility] Comment on above: Performed By: #### L 101.9900, L100.0100, L500.4050, L501.6710 ####[facility] [address] [place], [address] Platelet mean volume (Bld) [Entitic vol] 9.7 fL Normal 6.2-12.0 [facility] Comment on above: Performed By: #### L 101.9900, L100.0100, L500.4050, L501.6710 ####[facility] [address] [place], [address] Platelets (Bld) [#/Vol] 270 10*3/uL Normal 150-450 [facility] Comment on above: Performed By: #### L 101.9900, L100.0100, L500.4050, L501.6710 ####[facility] [address] [place], [address] RBC (Bld) [#/Vol] 4.66 10*6/uL Normal 4.2-5.4 [facility] Comment on above: Performed By: #### L 101.9900, L100.0100, L500.4050, L501.6710 ####[facility] [address] [place], [address] RDW SD 43.9 fl Normal 35.1-43.9 [facility] Comment on above: Performed By: #### L 101.9900, L100.0100, L500.4050, L501.6710 ####[facility] [address] [place], [address] WBC (Bld) [#/Vol] 7.7 10*3/uL Normal 4.4-11.0 [facility] Comment on above: Performed By: #### L 101.9900, L100.0100, L500.4050, L501.6710 ####[facility] [address] [place], [address] CRPon 09-13-2024 C-REACTIVE PROT < 2.90 Normal 0.0-3.0 [facility] Comment on above: Result Comment: C-Re active Protein (CRP) provides useful information for the diagnosis, therapy and monitoring of inflammatory processes and associated diseases. For the evaluation of Relative Risk for Cardiovascular Disease, a High Sensitivity CRP (HSCRP) should be ordered. Performed By: #### L 101.9900, L100.0100, L500.4050, L501.6710 ####[facility] [address] [place], [address] Comprehensive Metabolic Prof ilon 09-13-2024 Albumin [Mass/Vol] 3.6 g/dL Normal 3.2-5.0 [facility] Comment on above: Performed By: #### L 101.9900, L100.0100, L500.4050, L501.6710 ####[facility] [address] [place], [address] Albumin/Globulin [Mass ratio] 1.2 {ratio} Normal 0.9-2.4 [facility] Comment on above: Performed By: #### L 101.9900, L100.0100, L500.4050, L501.6710 ####[facility] [address] [place], [address] ALK P 82 U/L Normal 45-117 [facility] Comment on above: Performed By: #### L 101.9900, L100.0100, L500.4050, L501.6710 ####[facility] [address] [place], [address] ALT [Catalytic activity/Vol] 21 U/L Normal 13-56 [facility] Comment on above: Performed By: #### L 101.9900, L100.0100, L500.4050, L501.6710 ####[facility] [address] [place], [address] AST [Catalytic activity/Vol] 17 U/L Normal 15-37 [facility] Comment on above: Performed By: #### L 101.9900, L100.0100, L500.4050, L501.6710 ####[facility] [address] [place], [address] Bilirubin [Mass/Vol] 0.30 mg/dL Normal 0.20-1.00 [facility] Comment on above: Result Comment: For patients on eltrombopag therapy, use of Dimension [place] TBIL is not recommended. Performed By: #### L 101.9900, L100.0100, L500.4050, L501.6710 ####[facility] [address] [place], [address] BUN/CRE 20.4 RATIO High 10-20 [facility] Comment on above: Performed By: #### L 101.9900, L100.0100, L500.4050, L501.6710 ####[facility] [address] [place], [address] CA,Total 9.4 mg/dL Normal 8.5-10.1 [facility] Comment on above: Performed By: #### L 101.9900, L100.0100, L500.4050, L501.6710 ####[facility] [address] [place], [address] Chloride [Moles/Vol] 109 mmol/L High 98-107 [facility] Comment on above: Performed By: #### L 101.9900, L100.0100, L500.4050, L501.6710 ####[facility] [address] [place], [address] CO2 [Moles/Vol] 29.0 mmol/L Normal 21.0-32.0 [facility] Comment on above: Performed By: #### L 101.9900, L100.0100, L500.4050, L501.6710 ####[facility] [address] [place], [address] Creatinine [Mass/Vol] 0.88 mg/dL Normal 0.55-1.02 [facility] Comment on above: Result Comment: The validity of the calculated GFR GFRAA in patients over 70 years has not been determined. Clinical correlation is essential. Performed By: #### L 101.9900, L100.0100, L500.4050, L501.6710 ####[facility] [address] [place], [address] EST GFR - AA 80 mL/min Normal >60 [facility] Comment on above: Result Comment: Afri can [place] GFR Calc Performed By: #### L 101.9900, L100.0100, L500.4050, L501.6710 ####[facility] [address] [place], [address] GAP 2 Low 5-15 [facility] Comment on above: Performed By: #### L 101.9900, L100.0100, L500.4050, L501.6710 ####[facility] [address] [place], [address] GFR/1.73 sq M.predicted among non-blacks MDRD (S/P/Bld) [Vol rate/Area] 66 mL/min/{1.73_m2} Normal >60 [facility] Comment on above: Result Comment: Non- GFR Calc Performed By: #### L 101.9900, L100.0100, L500.4050, L501.6710 ####[facility] [address] [place], [address] Globulin (S) [Mass/Vol] 3.1 g/dL Normal 2.2-4.2 [facility] Comment on above: Performed By: #### L 101.9900, L100.0100, L500.4050, L501.6710 ####[facility] [address] [place], [address] Glucose [Mass/Vol] 68 mg/dL Low 74-106 [facility] Comment on above: Performed By: #### L 101.9900, L100.0100, L500.4050, L501.6710 ####[facility] [address] [place], [address] Potassium [Moles/Vol] 4.2 mmol/L Normal 3.5-5.1 [facility] Comment on above: Performed By: #### L 101.9900, L100.0100, L500.4050, L501.6710 ####[facility] [address] [place], [address] Sodium [Moles/Vol] 140 mmol/L Normal 136-145 [facility] Comment on above: Performed By: #### L 101.9900, L100.0100, L500.4050, L501.6710 ####[facility] [address] [place], [address] T PROT 6.7 g/dL Normal 6.4-8.2 [facility] Comment on above: Performed By: #### L 101.9900, L100.0100, L500.4050, L501.6710 ####[facility] [address] [place], [address] Urea nitrogen [Mass/Vol] 18 mg/dL Normal 7-18 [facility] Comment on above: Performed By: #### L 101.9900, L100.0100, L500.4050, L501.6710 ####[facility] [address] [place], [address] Erythrocyte Sed Rateon 09-13 SED RATE 2 mm/hr Normal 0-30 [facility] Comment on above: Performed By: #### L 101.9900, L100.0100, L500.4050, L501.6710 ####[facility] [address] [place], [address] Chiropractic Reporton 2023 Chiropractic Report [facility] [address] [place] [address] OFFICE VISIT Date of Service: 08/21/24 MR#: [id number] Acct: [id number] Name: BROWNLEECARHELDER KACIE Rep #: [id number] : 1950 Provider: BECKY Silvestre Age/Sex: 74/F Location: [facility] Status: Signed Intake Vital Signs 07/17/24 11:42 Height 5 ft 2 in Intake Visit Reasons: Back pain Chief Complaint: Low and upper back Pain Is patient in pain?: Yes (UBP, left rib) Pain scale (1-10): 4 Allergies poison marleen extract Allergy (Unknown, Verified 08/21/24 09:15) unknown adhesive tape Adverse Reaction (Mild, Verified 08/21/24 09:15) Rash Medications ???Medication ???Instructions ???Recorded ???Confirmed ???Type calcium carbonate (Calcium 500) 500 mg PO DAILY 07/10/20 08/21/24 History cholecalciferol (vitamin D3) 25 25 mcg PO DAILY 07/10/20 08/21/24 History mcg (1,000 unit) capsule multivitamin with minerals 1 tab PO DAILY 06/04/23 08/21/24 History polyethylene glycol 3350 17 17 g PO DAILY PRN 06/04/23 08/21/24 History gram/dose oral powder (Miralax) nabumetone 500 mg tablet 500 mg PO BID 05/04/24 08/21/24 History Have you fallen in the past year?: No PFSH Medical History History of breast abscess Cataracts Arthritis Osteoporosis Scoliosis Appendicitis hx of child Low back pain Visual impairment Psoriasis Surgical History History of cataract surgery History of rotator cuff surgery Hx of breast lump removal History of laparotomy Hx of appendectomy Hx of section Family History Mother Arthritis Autoimmune disease Hypertension Father Hypertension Myocardial infarction Brother Depression Grandfather CVA (cerebral vascular accident) Sister Thyroid disorder Social History Smoking Status: Never smoker alcohol intake: never what type of physical activity do you participate in: walking and swimming frequency: 3-4 times per week HPI Back pain Chief Complaint: neck/low back Visit Number: 10 Details: Helder is a 74 year old female here to follow up on back pain. Pt. reports a flare up over the last 5 days. She reports an increase in her upper back and left rib pain. She did not do anything to exacerbate the pain. She complains of pain in her bilateral shoulders. She thinks it could be her psoriatic arthritis flaring up because of the weather. She rates her pain 4/10. The pain and stiffness is worse in the mornings but gets better as the day goes on. Her overall shoulder ROM has improved since last visit. She treats pain at home with heat, turmeric, stretching and aspirin as needed. She reports chiropractic adjustments and dry needling are helpful in relieving her pain and discomfort. Location: neck/back Duration: intermittent Aggravating or associated factors: twisting, bending standing walking Relieving factors: chiro/DN Pain Quality: aching and dull Exam Musc General: Yes normal gait, muscle weakness, joint tenderness and decreased range of motion; No normal posture Cervical Spine: Yes loss of normal cervical lordosis, Yes cervical muscular tenderness bilateral lower , Yes cervical spasm right greater than left lower trapezius and paracervical muscles, left upper intrinsics and Yes misalignment misalignment: C2, C5 and C6 Thoracic/Lumber: No thoracic and lumbar spine normal to inspection, Yes paraspinal tenderness on the right greater than left (lumbopelvic/upper thoracic) and on the left greater than right (mid thorac ic), Yes scoliosis (R thoracolumbar apex L2), Yes thoraco-lumbar spasm on the right greater than left (paraspinal L1-L5, trap) and on the left greater than right (glute, piriformis, thoracic paraspinal (T5-T10)), Yes Trigger (Ltrapezius, latissimus,thoracic p) and Yes misalignment T1, T2, T6, T7, L1, L2, L3, L4, L5 and RIL Sacroiliac joints: on the right tender to palpation Office Procedures Procedures - Chiropractic Procedures Manipulation: Cervical C6, Lumbar L4, Thoracic T4 and Pelvis LIL Manipulation: 3-4 regions Patient Response: positive Dry Needling Patient Position: Prone Patient Instructions/Consent: Patient instructed not to move and informed of risks of moving. Risks associated with the procedure and the specific location were reviewed with the patient and consent was obtained. Procedure: The L trapezius, L latissimus,L thoracic multifidi(T4/5/6) was located by palpation. The skin and surrounding area was inspected and found to be free of any defects. The area was cleaned and prepped. Needle Number: [id number] Minutes: 20 Therapy Performed by: Dr. Jeanie Eckert DC P (more content not included)... Normal [facility] Chiropractic Reporton 2023 Chiropractic Report [facility] Chiropractic [facility] [place] [address] OFFICE VISIT Date of Service: 07/31/24 MR#: [id number] Acct: [id number] Name: HELDER BROWNLEE Rep #: [id number] : 1950 Provider: BECKY Silvestre Age/Sex: 74/F Location: [facility] Status: Signed Intake Vital Signs 05/04/24 14:10 07/17/24 11:42 Height 5 ft 2 in 5 ft 2 in Intake Visit Reasons: Back pain Chief Complaint: Low and upper back Pain Is patient in pain?: Yes (Neck, MBP, LBP) Pain scale (1-10): 4 Allergies poison marleen extract Allergy (Unknown, Verified 07/31/24 11:06) unknown adhesive tape Adverse Reaction (Mild, Verified 07/31/24 11:06) Rash Medications ???Medication ???Instructions ???Recorded ???Confirmed ???Type calcium carbonate (Calcium 500) 500 mg PO DAILY 07/10/20 07/31/24 History cholecalciferol (vitamin D3) 25 25 mcg PO DAILY 07/10/20 07/31/24 History mcg (1,000 unit) capsule multivitamin with minerals 1 tab PO DAILY 06/04/23 07/31/24 History polyethylene glycol 3350 17 17 g PO DAILY PRN 06/04/23 07/31/24 History gram/dose oral powder (Miralax) nabumetone 500 mg tablet 500 mg PO BID 05/04/24 07/31/24 History Have you fallen in the past year?: No PFSH Medical History History of breast abscess Cataracts Arthritis Osteoporosis Scoliosis Appendicitis hx of child Low back pain Visual impairment Psoriasis Surgical History History of cataract surgery History of rotator cuff surgery Hx of breast lump removal History of laparotomy Hx of appendectomy Hx of section Family History Mother Arthritis Autoimmune disease Hypertension Father Hypertension Myocardial infarction Brother Depression Grandfather CVA (cerebral vascular accident) Sister Thyroid disorder Social History Smoking Status: Never smoker alcohol intake: never what type of physical activity do you participate in: walking and swimming frequency: 3-4 times per week HPI Back pain Chief Complaint: neck/low back Visit Number: 9 Details: Helder is a 74 year old female here to follow up on back pain. Pt. reports continued improvement with the dry needling and adjustments. She complains of pain in her upper back pain and stiffness. She rates the upper back and left rib pain pain 4/10. She also reports this pain extends into her shoulders bilaterally. She rates her shoulder pain 2/10. She also complains of low back pain that she rates 3/10. The pain and stiffness is worse in the mornings but gets better as the day goes on. Her overall shoulder ROM has improved since last visit. She treats pain at home with heat, turmeric, stretching and aspirin as needed. She reports chiropractic adjustments and dry needling are helpful in relieving her pain and discomfort. Location: neck/back Duration: intermittent Aggravating or associated factors: twisting, bending standing walking Relieving factors: chiro/DN Pain Quality: aching and dull Exam Musc General: Yes normal gait, muscle weakness, joint tenderness and decreased range of motion; No normal posture Cervical Spine: Yes loss of normal cervical lordosis, Yes cervical muscular tenderness (improving) bilateral lower , Yes cervical spasm right greater than left lower trapezius and paracervical muscles, left upper intrinsics and Yes misalignment misalignment: C2, C5 and C6 Thoracic/Lumber: No thoracic and lumbar spine normal to inspection, Yes paraspinal tenderness (improving) on the right greater than left (lumbopelvic/upper thoracic) and on the left greater than right (mid thoracic), Yes scoliosis (R thoracolumbar apex L2), Yes thoraco-lumbar spasm on the right greater than left (paraspinal L1-L5, trap) and on the left greater than right (glute, piriformis, thoracic paraspinal (T5-T10)), Yes Trigger (R/Ltrapezius, latissimus,thoracic p) and Yes misalignment T1, T2, T6, T7, L1, L2, L3, L4, L5 and RIL Sacroiliac joints: on the right tender to palpation Office Procedures Procedures - Chiropractic Procedures Manipulation: Cervical C6, Lumbar L4, Thoracic T4 and Pelvis LIL Manipulation: 3-4 regions Patient Response: positive Dry Needling Patient Position: Prone Patient Instructions/Consent: Patient instructed not to move and informed of risks of moving. Risks associated with the procedure and the specific location were reviewed with the patient and consent was obtained. Procedure: The R/L trapezius, R/L latissimus, L thoracic paraspinal was located by palpation. The skin and surrounding area was inspected and found to be free of any defects. The area was cleaned and prepped. (more content not included)... Normal [facility] Chiropractic Reporton 2023 Chiropractic Report [facility] [address] [place] [address] OFFICE VISIT Date of Service: 07/17/24 MR#: [id number] Acct: [id number] Name: HELDER BROWNLEE Rep #: [id number] : 1950 Provider: BECKY Silvestre Age/Sex: 74/F Location: [facility] Status: Signed Intake Vital Signs 05/04/24 14:10 Height 5 ft 2 in Intake Visit Reasons: Back pain Chief Complaint: Low and upper back Pain Allergies poison marleen extract Allergy (Unknown, Verified 07/17/24 11:07) unknown adhesive tape Adverse Reaction (Mild, Verified 07/17/24 11:07) Rash Medications ???Medication ???Instructions ???Recorded ???Confirmed ???Type calcium carbonate (Calcium 500) 500 mg PO DAILY 07/10/20 07/17/24 History cholecalciferol (vitamin D3) 25 25 mcg PO DAILY 07/10/20 07/17/24 History mcg (1,000 unit) capsule multivitamin with minerals 1 tab PO DAILY 06/04/23 07/17/24 History polyethylene glycol 3350 17 17 g PO DAILY PRN 06/04/23 07/17/24 History gram/dose oral powder (Miralax) nabumetone 500 mg tablet 500 mg PO BID 05/04/24 07/17/24 History Have you fallen in the past year?: No PFSH Medical History History of breast abscess Cataracts Arthritis Osteoporosis Scoliosis Appendicitis hx of child Low back pain Visual impairment Psoriasis Surgical History History of cataract surgery History of rotator cuff surgery Hx of breast lump removal History of laparotomy Hx of appendectomy Hx of section Family History Mother Arthritis Autoimmune disease Hypertension Father Hypertension Myocardial infarction Brother Depression Grandfather CVA (cerebral vascular accident) Sister Thyroid disorder Social History Smoking Status: Never smoker alcohol intake: never what type of physical activity do you participate in: walking and swimming frequency: 3-4 times per week HPI Back pain Chief Complaint: neck/low back Visit Number: 8 Details: Helder is a 74 year old female here to follow up on back pain. Pt. reports continued improvement of her upper back and shoulder pain from the dry needling and adjustments. She complains of upper back pain and stiffness that extends into her shoulders bilaterally. Since her last adjustment she has experienced four episodes of let rib pain but reports they are less intense. The pain and stiffness is worse in the mornings but gets better as the day goes on. She denies new injury, numbness, tingling or radiculopathy. She treats pain at home with heat, turmeric, stretching and aspirin as needed. She reports chiropractic adjustments and dry needling are helpful in relieving her pain and discomfort. Location: neck/back Duration: intermittent Aggravating or associated factors: twisting, bending standing walking Relieving factors: chiro Pain Quality: aching and dull Exam Musc General: Yes normal gait, muscle weakness, joint tenderness and decreased range of motion; No normal posture Cervical Spine: Yes loss of normal cervical lordosis, Yes cervical muscular tenderness (improving) bilateral diffuse , Yes cervical spasm right greater than left lower trapezius and paracervical muscles, left upper intrinsics and Yes misalignment misalignment: C2, C5 and C6 Thoracic/Lumber: No thoracic and lumbar spine normal to inspection, Yes paraspinal tenderness (improving) on the right greater than left (lumbopelvic) and on the left greater than right (mid thoracic), Yes scoliosis (R thoracolumbar apex L2), Yes thoraco-lumbar spasm on the right greater than left (paraspinal L1-L5, trap) and on the left greater than right (glute, piriformis, thoracic paraspinal (T5-T10)), Yes Trigger (trapezius, latissimus) and Yes misalignment T1, T2, T6, T7, L1, L2, L3, L4, L5 and RIL Sacroiliac joints: on the right tender to palpation Office Procedures Procedures - Chiropractic Procedures Manipulation: Cervical C6, Lumbar L4, Thoracic T4 and Pelvis LIL Manipulation: 3-4 regions Patient Response: positive Dry Needling Patient Position: Prone Patient Instructions/Consent: Patient instructed not to move and informed of risks of moving. Risks associated with the procedure and the specific location were reviewed with the patient and consent was obtained. Procedure: The LEFT:trapezius and latissimus was located by palpation. The skin and surrounding area was inspected and found to be free of any defects. The area was cleaned and prepped. Needle insertion and withdraw was completed. Pressure applied where needed. Needle Number: [id number] Minutes: 20 Therapy Performed by: Dr. Jeanie Eckert DC Patient Respons (more content not included)... Normal [facility] Chiropractic Reporton 2023 Chiropractic Report [facility] [address] [place] [address] OFFICE VISIT Date of Service: 07/04/24 MR#: [id number] Acct: [id number] Name: HELDER BROWNLEE Rep #: [id number] : 1950 Provider: BECKY Silvestre Age/Sex: 74/F Location: [facility] Status: Signed Intake Vital Signs 05/04/24 14:10 Height 5 ft 2 in Intake Visit Reasons: Back pain Chief Complaint: Low and upper back Pain Is patient in pain?: Yes (low back ) Pain scale (1-10): 3 Allergies poison marleen extract Allergy (Unknown, Verified 07/04/24 10:43) unknown adhesive tape Adverse Reaction (Mild, Verified 07/04/24 10:43) Rash Medications ???Medication ???Instructions ???Recorded ???Confirmed ???Type calcium carbonate (Calcium 500) 500 mg PO DAILY 07/10/20 07/04/24 History cholecalciferol (vitamin D3) 25 25 mcg PO DAILY 07/10/20 07/04/24 History mcg (1,000 unit) capsule multivitamin with minerals 1 tab PO DAILY 06/04/23 07/04/24 History polyethylene glycol 3350 17 17 g PO DAILY PRN 06/04/23 07/04/24 History gram/dose oral powder (Miralax) nabumetone 500 mg tablet 500 mg PO BID 05/04/24 07/04/24 History Have you fallen in the past year?: No PFSH Medical History History of breast abscess Cataracts Arthritis Osteoporosis Scoliosis Appendicitis hx of child Low back pain Visual impairment Psoriasis Surgical History History of cataract surgery History of rotator cuff surgery Hx of breast lump removal History of laparotomy Hx of appendectomy Hx of section Family History Mother Arthritis Autoimmune disease Hypertension Father Hypertension Myocardial infarction Brother Depression Grandfather CVA (cerebral vascular accident) Sister Thyroid disorder Social History Smoking Status: Never smoker alcohol intake: never what type of physical activity do you participate in: walking and swimming frequency: 3-4 times per week HPI Back pain Chief Complaint: neck/low back Visit Number: 7 Details: Helder is a 74 year old female here to follow up on back pain. Pt. reports improvement of her upper back/ bilateral shoulder pain after dry needling last visit. She rates her upper back pain 2/10 today. She c/o low back pain and stiffness. She rates her low back pain 3/10. The discomfort is worse in the morning upon rising and then gradually improves as she moves around throughout the day. She also continues to experience pain in her left rib area at times but is not painful at this time. She denies new injury, numbness, tingling or radiculopathy. She treats pain at home with heat, turmeric, stretching and aspirin as needed. She reports chiropractic adjustments and dry needling are helpful in relieving her pain and discomfort. Location: neck/back Duration: intermittent Aggravating or associated factors: twisting, bending standing walking Relieving factors: chiro Pain Quality: aching and dull Exam Musc General: Yes normal gait, muscle weakness, joint tenderness and decreased range of motion; No normal posture Cervical Spine: Yes loss of normal cervical lordosis, Yes cervical muscular tenderness (improving) bilateral diffuse , Yes cervical spasm right greater than left lower trapezius and paracervical muscles, left upper intrinsics and Yes misalignment misalignment: C2, C5 and C6 Thoracic/Lumber: No thoracic and lumbar spine normal to inspection, Yes paraspinal tenderness (improving) on the right greater than left (lumbopelvic) and on the left greater than right (mid thoracic), Yes scoliosis (R thoracolumbar apex L2), Yes thoraco-lumbar spasm on the right greater than left (paraspinal L1-L5, trap) and on the left greater than right (glute, piriformis, thoracic paraspinal (T5-T10)), Yes Trigger (trapezius, supraspinatus,latissi mus) and Yes misalignment T1, T2, T6, T7, L1, L2, L3, L4, L5 and RIL Sacroiliac joints: on the right tender to palpation Office Procedures Procedures - Chiropractic Procedures Manipulation: Cervical C6, Lumbar L4, Thoracic T4 and Pelvis LIL Manipulation: 3-4 regions Patient Response: positive Assessment and Plan Assessment and Plan (1) Scoliosis: Status: Chronic Qualifiers: Idiopathic scoliosis type: other Scoliosis type: idiopathic Spinal region: thoracolumbar Qualified Code(s): M41.25 - Other idiopathic scoliosis, thoracolumbar region Comment: right apex L2 (2) Segmental and somatic dysfunction of pelvic region: Status: Acute (3) Segmental and somatic dysfunction of lumbar region: Status: Acute (4) Segmental and somatic dysfunction of thoracic region: Status: Acute (5) Segmental (more content not included)... Normal [facility] Chiropractic Reporton 2023 Chiropractic Report [facility] [address] [place] [id number] OFFICE VISIT Date of Service: 06/19/24 MR#: [id number] Acct: [id number] Name: HELDER BROWNLEE Rep #: [id number] : 1950 Provider: BECKY Silvestre Age/Sex: 74/F Location: [facility] Status: Signed Intake Vital Signs 05/04/24 14:10 Height 5 ft 2 in Intake Visit Reasons: Back pain Chief Complaint: Low and upper back Pain Is patient in pain?: Yes (low back upper back ) Pain scale (1-10): 3 Allergies poison marleen extract Allergy (Unknown, Verified 06/19/24 10:38) unknown adhesive tape Adverse Reaction (Mild, Verified 06/19/24 10:38) Rash Medications ???Medication ???Instructions ???Recorded ???Confirmed ???Type calcium carbonate (Calcium 500) 500 mg PO DAILY 07/10/20 06/19/24 History cholecalciferol (vitamin D3) 25 25 mcg PO DAILY 07/10/20 06/19/24 History mcg (1,000 unit) capsule multivitamin with minerals 1 tab PO DAILY 06/04/23 06/19/24 History polyethylene glycol 3350 17 17 g PO DAILY PRN 06/04/23 06/19/24 History gram/dose oral powder (Miralax) nabumetone 500 mg tablet 500 mg PO BID 05/04/24 06/19/24 History Have you fallen in the past year?: No PFSH Medical History History of breast abscess Cataracts Arthritis Osteoporosis Scoliosis Appendicitis hx of child Low back pain Visual impairment Psoriasis Surgical History History of cataract surgery History of rotator cuff surgery Hx of breast lump removal History of laparotomy Hx of appendectomy Hx of section Family History Mother Arthritis Autoimmune disease Hypertension Father Hypertension Myocardial infarction Brother Depression Grandfather CVA (cerebral vascular accident) Sister Thyroid disorder Social History Smoking Status: Never smoker alcohol intake: never what type of physical activity do you participate in: walking and swimming frequency: 3-4 times per week HPI Back pain Chief Complaint: neck/low back Visit Number: 6 Details: Helder is a 74 year old female here to follow up on back pain. Pt. complains of low back pain and stiffness. She rates her low back pain 3/10. The discomfort is worse in the morning upon rising and then gradually improves as she moves around throughout the day. She also continues to experience some upper back/ bilateral trap pain and feels like she has knots in them especially the right side. She rates her trap/upper back pain 2/10. She states the left rib area is not painful today but flares up often. She denies new injury, numbness, tingling or radiculopathy. She treats pain at home with heat, turmeric, stretching and aspirin as needed. She reports chiropractic adjustments are helpful in relieving her pain and discomfort. Location: neck/back Duration: intermittent Aggravating or associated factors: twisting, bending standing walking Relieving factors: chiro Pain Quality: aching and dull Exam Musc General: Yes normal gait, muscle weakness, joint tenderness and decreased range of motion; No normal posture Cervical Spine: Yes loss of normal cervical lordosis, Yes cervical muscular tenderness (improving) right greater than left lower , Yes cervical spasm right greater than left lower trapezius and paracervical muscles, left upper intrinsics and Yes misalignment misalignment: C2, C5 and C6 Thoracic/Lumber: No thoracic and lumbar spine normal to inspection, Yes paraspinal tenderness (improving) on the right greater than left (lumbopelvic) and on the left greater than right (mid thoracic), Yes scoliosis (R thoracolumbar apex L2), Yes thoraco-lumbar spasm on the right greater than left (paraspinal L1-L5, trap) and on the left greater than right (glute, piriformis, thoracic paraspinal (T5-T10)), Yes Trigger (trapezius, supraspinatus,latissi mus) and Yes misalignment T1, T2, T6, T7, L1, L2, L3, L4, L5 and RIL Sacroiliac joints: on the right tender to palpation Office Procedures Procedures - Chiropractic Procedures Manipulation: Cervical C6, Lumbar L4, Thoracic T4 and Pelvis LIL Manipulation: 3-4 regions Patient Response: positive Dry Needling Patient Position: Prone Patient Instructions/Consent: Patient instructed not to move and informed of risks of moving. Risks associated with the procedure and the specific location were reviewed with the patient and consent was obtained. Procedure: The R/L trapezius, R supraspinatus,L latissimus was located by palpation. The skin and surrounding area was inspected and found to be free of any defects. The area was cleaned and prepped. Needle Number: [id number] Minutes: 20 (more content not included)... Normal [facility] Chiropractic Reporton 2023 Chiropractic Report [facility] [address] [place] [address] OFFICE VISIT Date of Service: 06/12/24 MR#: [id number] Acct: [id number] Name: HELDER BROWNLEE Rep #: [id number] : 1950 Provider: BECKY Silvestre Age/Sex: 74/F Location: [facility] Status: Signed Intake Vital Signs 05/04/24 14:10 Height 5 ft 2 in Weight: 123 lb BMI 22.4 BP 100/58 L Intake Visit Reasons: Back pain Chief Complaint: Low back Pain Is patient in pain?: Yes (LBP) Pain scale (1-10): 3 Allergies poison marleen extract Allergy (Unknown, Verified 06/12/24 13:47) unknown adhesive tape Adverse Reaction (Mild, Verified 06/12/24 13:47) Rash Medications ???Medication ???Instructions ???Recorded ???Confirmed ???Type calcium carbonate (Calcium 500) 500 mg PO DAILY 07/10/20 06/12/24 History cholecalciferol (vitamin D3) 25 25 mcg PO DAILY 07/10/20 06/12/24 History mcg (1,000 unit) capsule multivitamin with minerals 1 tab PO DAILY 06/04/23 06/12/24 History polyethylene glycol 3350 17 17 g PO DAILY PRN 06/04/23 06/12/24 History gram/dose oral powder (Miralax) nabumetone 500 mg tablet 500 mg PO BID 05/04/24 06/12/24 History Have you fallen in the past year?: Yes [facility] Medical History History of breast abscess Cataracts Arthritis Osteoporosis Scoliosis Appendicitis hx of child Low back pain Visual impairment Psoriasis Surgical History History of cataract surgery History of rotator cuff surgery Hx of breast lump removal History of laparotomy Hx of appendectomy Hx of section Family History Mother Arthritis Autoimmune disease Hypertension Father Hypertension Myocardial infarction Brother Depression Grandfather CVA (cerebral vascular accident) Sister Thyroid disorder Social History Smoking Status: Never smoker alcohol intake: never what type of physical activity do you participate in: walking and swimming frequency: 3-4 times per week HPI Back pain Chief Complaint: neck/low back Visit Number: 5 Details: Helder is a 74 year old female here to follow up on low back pain. Pt. reports that she is still improving with each visit. She complains of low back pain and stiffness. She rates her low back pain 3/10. The discomfort is worse in the morning upon rising and then gradually improves as she moves around throughout the day. She continues to experience most of her pain in the left rib. She has had injections which were temporarily helpful. She also complains of knots in her upper back. She denies any numbness, tingling or radiculopathy. She treats pain at home with heat, turmeric, stretching and aspirin as needed. She reports chiropractic adjustments have been helpful in the past. Location: neck/back Duration: intermittent Aggravating or associated factors: twisting, bending standing walking Relieving factors: chiro Pain Quality: aching and dull Exam Musc General: Yes normal gait, muscle weakness, joint tenderness and decreased range of motion; No normal posture Cervical Spine: Yes loss of normal cervical lordosis, Yes cervical muscular tenderness (improving) bilateral lower , Yes cervical spasm right greater than left lower trapezius and paracervical muscles, left upper intrinsics and Yes misalignment misalignment: C2, C5 and C6 Thoracic/Lumber: No thoracic and lumbar spine normal to inspection, Yes paraspinal tenderness (improving) on the right greater than left (lumbopelvic) and on the left greater than right (mid thoracic), Yes scoliosis (R thoracolumbar apex L2), Yes thoraco-lumbar spasm on the right greater than left (paraspinal L1-L5) and on the left greater than right (glute, piriformis, thoracic paraspinal (T5-T10)) and Yes misalignment T1, T2, T6, T7, L1, L2, L3, L4, L5 and RIL Sacroiliac joints: on the right tender to palpation Office Procedures Procedures - Chiropractic Procedures Manipulation: Cervical C6, Lumbar L4, Thoracic T4 and Pelvis LIL Manipulation: 3-4 regions Patient Response: positive Assessment and Plan Assessment and Plan (1) Segmental and somatic dysfunction of pelvic region: Status: Acute (2) Segmental and somatic dysfunction of lumbar region: Status: Acute (3) Segmental and somatic dysfunction of thoracic region: Status: Acute (4) DDD (degenerative disc disease), lumbosacral: Status: Chronic Qualifiers: Disc-related pain type: discogenic back pain only Qualified Code(s): M51.370 - Other intervertebral disc degeneration, 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 (5) Scoliosis: Status: Chronic Qualifiers: Scoliosis type: idiopathic Idi (more content not included)... Normal [facility] Chiropractic Reporton 2023 Chiropractic Report [facility] [address] [place] [address] OFFICE VISIT Date of Service: 05/25/24 MR#: [id number] Acct: [id number] Name: HELDER BROWNLEE Rep #: [id number] : 1950 Provider: BECKY Silvestre Age/Sex: 73/F Location: [facility] Status: Signed Intake Vital Signs 05/04/24 14:10 Height 5 ft 2 in Weight: 123 lb BMI 22.4 BP 100/58 L Intake Visit Reasons: Back pain Chief Complaint: Low back Pain Is patient in pain?: Yes Pain scale (1-10): 2 Allergies poison marleen extract Allergy (Unknown, Verified 05/25/24 14:31) unknown adhesive tape Adverse Reaction (Mild, Verified 05/25/24 14:31) Rash Have you fallen in the past year?: Yes [facility] Medical History History of breast abscess Cataracts Arthritis Osteoporosis Scoliosis Appendicitis hx of child Low back pain Visual impairment Psoriasis Surgical History History of cataract surgery History of rotator cuff surgery Hx of breast lump removal History of laparotomy Hx of appendectomy Hx of section Family History Mother Arthritis Autoimmune disease Hypertension Father Hypertension Myocardial infarction Brother Depression Grandfather CVA (cerebral vascular accident) Sister Thyroid disorder Social History Smoking Status: Never smoker alcohol intake: never what type of physical activity do you participate in: walking and swimming frequency: 3-4 times per week HPI Back pain Chief Complaint: neck/low back Visit Number: 4 Details: Helder is a 73 year old female here to follow up on low back pain. Pt. reports that she is still improving after every visit. She states that she has some tightness in her low back today but it is mild, she rates it at a 2/10. The discomfort is worse in the morning upon rising and then gradually improves as she moves around throughout the day. Pt stated that she did fall this past Wednesday but it did not increase her back discomfort at all. She continues to get most of her discomfort in the left rib 6/7 anterior region. She has had injections which were temporarily helpful. She denies any numbness, tingling or radiculopathy. She treats pain at home with heat, turmeric, stretching and aspirin as needed. She reports chiropractic adjustments have been helpful in the past. Location: neck/back Duration: intermittent Aggravating or associated factors: twisting, bending standing walking Relieving factors: chiro Pain Quality: aching and dull Exam Musc General: Yes normal gait, muscle weakness, joint tenderness and decreased range of motion; No normal posture Cervical Spine: Yes loss of normal cervical lordosis, Yes cervical muscular tenderness (improving) bilateral diffuse , Yes cervical spasm right greater than left lower trapezius and paracervical muscles, left upper intrinsics and Yes misalignment misalignment: C2, C5 and C6 Thoracic/Lumber: No thoracic and lumbar spine normal to inspection, Yes paraspinal tenderness (improving) on the right greater than left (lumbopelvic) and on the left greater than right (mid thoracic), Yes scoliosis (R thoracolumbar apex L2), Yes thoraco-lumbar spasm on the right greater than left (paraspinal L1-L5) and on the left greater than right (glute, piriformis, thoracic paraspinal (T5-T10)) and Yes misalignment T1, T2, T6, T7, L1, L2, L3, L4, L5 and RIL Sacroiliac joints: on the right tender to palpation Office Procedures Procedures - Chiropractic Procedures Manipulation: Lumbar L4, Thoracic T4 and Pelvis LIL Manipulation: 3-4 regions Patient Response: positive Assessment and Plan Assessment and Plan (1) Segmental and somatic dysfunction of pelvic region: Status: Acute (2) Segmental and somatic dysfunction of lumbar region: Status: Acute (3) Segmental and somatic dysfunction of thoracic region: Status: Acute (4) DDD (degenerative disc disease), lumbosacral: Status: Chronic Orders: Orders Chiropractic Treatments 05/25/24 M51.37 - Other intervertebral disc degeneration, lumbosacral region, M99.01 - Segmental and somatic dysfunction of cervical region, M99.02 - Segmental and somatic dysfunction of thoracic region, M99.03 - Segmental and somatic dysfunction of lumbar region, M99.05 - Segmental and somatic dysfunction of pelvic region Plan Patient was treated without incident. She is showing improvement besides the L rib (6/7) area. She is following up w Dr. Delgado regarding injection. Continue care. Plan Details Goals Barriers: Goals Decrease spasm Improve intersegmental motion Decrease pain Barriers Scoliosis DDD Follow Up (more content not included)... Normal [facility] Chiropractic Reporton 2023 Chiropractic Report [facility] [address] [place] [address] OFFICE VISIT Date of Service: 05/18/24 MR#: [id number] Acct: [id number] Name: HELDER BROWNLEE Rep #: [id number] : 1950 Provider: BECKY Silvestre Age/Sex: 73/F Location: [facility] Status: Signed Intake Vital Signs 05/04/24 14:10 Height 5 ft 2 in Weight: 123 lb BMI 22.4 BP 100/58 L Intake Visit Reasons: Back pain Chief Complaint: Low back Pain Is patient in pain?: Yes Pain scale (1-10): 3 Allergies poison marleen extract Allergy (Unknown, Verified 05/18/24 15:30) unknown adhesive tape Adverse Reaction (Mild, Verified 05/18/24 15:30) Rash Have you fallen in the past year?: No PFSH Medical History History of breast abscess Cataracts Arthritis Osteoporosis Scoliosis Appendicitis hx of child Low back pain Visual impairment Psoriasis Surgical History History of cataract surgery History of rotator cuff surgery Hx of breast lump removal History of laparotomy Hx of appendectomy Hx of section Family History Mother Arthritis Autoimmune disease Hypertension Father Hypertension Myocardial infarction Brother Depression Grandfather CVA (cerebral vascular accident) Sister Thyroid disorder Social History Smoking Status: Never smoker alcohol intake: never what type of physical activity do you participate in: walking and swimming frequency: 3-4 times per week HPI Back pain Chief Complaint: neck/low back Visit Number: 3 Details: Helder is a 73 year old female here to follow up on low back pain. Pt. reports that she has improved since her last visit. She states that the sharp pains she was experiencing the last time have subsided. She states the there is some tightness in the center low back area but it is not overly painful. The discomfort is worse in the morning upon rising and then gradually improves as she moves around throughout the day. She rates her pain 3/10 today. She denies new injury, or radiculopathy. She treats pain at home with heat, turmeric, stretching and aspirin as needed. She reports chiropractic adjustments have been helpful in the past. Location: neck/back Duration: intermittent Aggravating or associated factors: twisting, bending standing walking Relieving factors: chiro Pain Quality: aching and dull Exam Musc General: Yes normal gait, muscle weakness, joint tenderness and decreased range of motion; No normal posture Cervical Spine: Yes loss of normal cervical lordosis, Yes cervical muscular tenderness (improving) bilateral diffuse , Yes cervical spasm right greater than left lower trapezius and paracervical muscles, left upper intrinsics and Yes misalignment misalignment: C2, C5 and C6 Thoracic/Lumber: No thoracic and lumbar spine normal to inspection, Yes paraspinal tenderness (improving) on the right greater than left (lumbopelvic) and on the left greater than right (mid thoracic), Yes scoliosis (R thoracolumbar apex L2), Yes thoraco-lumbar spasm on the right greater than left (paraspinal L1-L5) and on the left greater than right (glute, piriformis, thoracic paraspinal (T5-T10)) and Yes misalignment T1, T2, T6, T7, L1, L2, L3, L4, L5 and RIL Sacroiliac joints: on the right tender to palpation Office Procedures Procedures - Chiropractic Procedures Manipulation: Cervical C2 and C6, Lumbar L2, Thoracic T2 and T7 and Pelvis RIL Manipulation: 3-4 regions Patient Response: positive Assessment and Plan Assessment and Plan (1) Segmental and somatic dysfunction of pelvic region: Status: Acute (2) Segmental and somatic dysfunction of lumbar region: Status: Acute (3) Segmental and somatic dysfunction of thoracic region: Status: Acute (4) Segmental and somatic dysfunction of cervical region: Status: Acute (5) Degenerative disc disease, cervical: Status: Chronic (6) DDD (degenerative disc disease), lumbosacral: Status: Chronic Orders: Orders Chiropractic Treatments Today M50.30 - Other cervical disc degeneration, unspecified cervical region, M51.37 - Other intervertebral disc degeneration, lumbosacral region, M99.01 - Segmental and somatic dysfunction of cervical region, M99.02 - Segmental and somatic dysfunction of thoracic region, M99.03 - Segmental and somatic dysfunction of lumbar region, M99.05 - Segmental and somatic dysfunction of pelvic region Plan Patient was treated without incident. Continue care as recommended, she is showing improvement. Plan Details Goals Barriers: Goals Decrease spasm Improve intersegmental motion Decrease pain Barriers Scol (more content not included)... Normal [facility] Chiropractic Reporton 2023 Chiropractic Report [facility] [address] [place] [address] OFFICE VISIT Date of Service: 05/11/24 MR#: [id number] Acct: [id number] Name: HELDER BROWNLEE Rep #: [id number] : 1950 Provider: BECKY Silvestre Age/Sex: 73/F Location: [facility] [place] Status: Signed Intake Vital Signs 05/04/24 14:10 Height 5 ft 2 in Weight: 123 lb BMI 22.4 BP 100/58 L Intake Visit Reasons: Back pain Chief Complaint: Low back Pain Is patient in pain?: Yes (low back ) Pain scale (1-10): 3 Allergies poison marleen extract Allergy (Unknown, Verified 05/04/24 14:09) unknown adhesive tape Adverse Reaction (Mild, Verified 05/04/24 14:09) Rash Have you fallen in the past year?: Yes [facility] Medical History History of breast abscess Cataracts Arthritis Osteoporosis Scoliosis Appendicitis hx of child Low back pain Visual impairment Psoriasis Surgical History History of cataract surgery History of rotator cuff surgery Hx of breast lump removal History of laparotomy Hx of appendectomy Hx of section Family History Mother Arthritis Autoimmune disease Hypertension Father Hypertension Myocardial infarction Brother Depression Grandfather CVA (cerebral vascular accident) Sister Thyroid disorder Social History Smoking Status: Never smoker alcohol intake: never what type of physical activity do you participate in: walking and swimming frequency: 3-4 times per week HPI Back pain Chief Complaint: neck/low back Visit Number: 2 Details: Helder is a 73 year old female here to follow up on low back pain. Pt. continues to c/o a constant dull ache that increases with activity. She also c/o a quick, sharp pain across her low back with certain movements which she has experienced 2-3 times since the last time she was in. She rates her pain 3/10 today. She states the right foot numbness/tingling seems to be improving with stretching and epsom salt baths. She denies new injury, or radiculopathy. She treats pain at home with heat, turmeric and aspirin as needed. She reports chiropractic adjustments have been helpful in the past. Location: neck/back Duration: intermittent Aggravating or associated factors: twisting, bending standing walking Relieving factors: chiro Pain Quality: aching and dull Exam Musc General: Yes normal gait, muscle weakness, joint tenderness and decreased range of motion; No normal posture Cervical Spine: Yes loss of normal cervical lordosis, Yes cervical muscular tenderness bilateral diffuse , Yes cervical spasm right greater than left lower trapezius and paracervical muscles, left upper intrinsics and Yes misalignment misalignment: C2, C5 and C6 Thoracic/Lumber: No thoracic and lumbar spine normal to inspection, Yes paraspinal tenderness on the right greater than left (lumbopelvic) and on the left greater than right (mid thoracic), Yes scoliosis (R thoracolumbar apex L2), Yes thoraco-lumbar spasm on the right greater than left (paraspinal L1-L5) and on the left greater than right (glute, piriformis, thoracic paraspinal (T5- T10)) and Yes misalignment T1, T2, T6, T7, L1, L2, L3, L4, L5 and RIL Sacroiliac joints: on the right tender to palpation Neuro General: patient alert, patient awake, patient oriented x3, gait normal, normal light touch, pain and propioception and deep tendon reflexes 2+ bilaterally Cranial Nerves: CN's II-XI intact bilaterally Cognition: normal cognition Speech: speech normal Gait: normal gait Motor: muscle tone normal throughout Sensory Exam: no sensory deficits noted DTR's: Rt Patellar: 1+, Lt Patellar: 1+, Rt Ankle: 1+ and Lt Ankle: 1+ Ortho Test CERVICAL Compression pain: Negative Distraction pain: relief Kirill's pain: Negative Valsalvas: Negative Shoulder depression pain: Right THORACIC Kemps: Positive and Right Schepelmanns pain: Left Yeager: Positive LUMBAR Kemps: Positive and Right Valsalvas: Negative SLR: Positive and Right Braggards: Negative Iliac Compression: Positive and Right Office Procedures Procedures - Chiropractic Procedures Manipulation: Cervical C2 and C6, Lumbar L2, Thoracic T2 and T7 and Pelvis RIL Manipulation: 3-4 regions Patient Response: positive Assessment and Plan Assessment and Plan (1) Segmental and somatic dysfunction of pelvic region: Status: Acute (2) Segmental and somatic dysfunction of lumbar region: Status: Acute (3) Segmental and somatic dysfunction of thoracic region: Status: Acute (4) Segmental and somatic dysfunction of cervical region: Status: Acute (5) DDD (degenerative disc disease), lumbosacral: (more content not included)... Normal [facility] Chiropractic Reporton 2023 Chiropractic Report [facility] [address] [place] [address] OFFICE VISIT Date of Service: 05/04/24 MR#: [id number] Acct: [id number] Name: HELDER BROWNLEE Rep #: [id number] : 1950 Provider: BECKY Silvestre Age/Sex: 73/F Location: [facility] Status: Signed Intake Vital Signs 12/10/22 11:15 05/04/24 14:10 Height 5 ft 2 in 5 ft 2 in Weight: 123 lb BMI 22.4 BP 100/58 L Intake Visit Reasons: REEVAL Chief Complaint: Low back Pain Is patient in pain?: Yes (low back ) Pain scale (1-10): 3 Allergies poison marleen extract Allergy (Unknown, Verified 05/04/24 14:09) unknown adhesive tape Adverse Reaction (Mild, Verified 05/04/24 14:09) Rash Medications ???Medication ???Instructions ???Recorded ???Confirmed ???Type calcium carbonate (Calcium 500) 500 mg PO DAILY 07/10/20 05/04/24 History cholecalciferol (vitamin D3) 25 25 mcg PO DAILY 07/10/20 05/04/24 History mcg (1,000 unit) capsule multivitamin with minerals 1 tab PO DAILY 06/04/23 05/04/24 History polyethylene glycol 3350 17 17 g PO DAILY PRN 06/04/23 05/04/24 History gram/dose oral powder (Miralax) nabumetone 500 mg tablet 500 mg PO BID 05/04/24 05/04/24 History Have you fallen in the past year?: Yes PFSH Medical History History of breast abscess Cataracts Arthritis Osteoporosis Scoliosis Appendicitis hx of child Low back pain Visual impairment Psoriasis Surgical History History of cataract surgery History of rotator cuff surgery Hx of breast lump removal History of laparotomy Hx of appendectomy Hx of section Family History Mother Arthritis Autoimmune disease Hypertension Father Hypertension Myocardial infarction Brother Depression Grandfather CVA (cerebral vascular accident) Sister Thyroid disorder Social History Smoking Status: Never smoker alcohol intake: never what type of physical activity do you participate in: walking and swimming frequency: 3-4 times per week HPI REEVAL Chief Complaint: low back pain Visit Number: 1 Details: Helder is a 73 year old female here for a re-evaluation of back pain. Pt. states advises she has been experiencing low back pain for a long period of time but recently went to see a different chiropractor. She states they told her she has very little space between her L4/L5 discs. She is concerned and would like to get Dr. Eckert's opinion and get an adjustment. She describes it as a constant dull ache that increases with activity. She c/o intermittent sciatica pain in her right leg, less often into her left glute. She experiences right foot numbness/tingling at times. She has had recent xrays and MRthoracic. She has a history of scoliosis and notices an empty area in her left abdomen where the muscle is minimal. Pain at times -interstitial. She did have a fall on Apr 12 where she bruised her left calf and foot but denies new back injury. She denies numbness or tingling. She treats pain at home with heat, turmeric and aspirin as needed. She reports chiropractic adjustments have been helpful in the past. Location: neck/back Duration: constant Aggravating or associated factors: bending, standing, walking Relieving factors: chiro Pain Quality: aching, dull and radiating Exam Musc General: Yes normal gait, muscle weakness, joint tenderness and decreased range of motion; No normal posture Cervical Spine: Yes loss of normal cervical lordosis, Yes cervical muscular tenderness bilateral diffuse , Yes pain with cervical ROM with lateral flexion to right and with lateral flexion to left, Yes cervical spasm right greater than left lower trapezius and paracervical muscles, left upper intrinsics and Yes misalignment misalignment: C2, C5 and C6 Thoracic/Lumber: No thoracic and lumbar spine normal to inspection, Yes Lasegue's sign negative, Yes straight leg raise negative bilaterally, Yes pain with thoraco-lumbar ROM with lateral flexion to the right, Yes paraspinal tenderness on the right greater than left (lumbopelvic) and on the left greater than right (mid thoracic), Yes scoliosis (R thoracolumbar apex L2), Yes thoraco-lumbar spasm on the right greater than left (paraspinal L1-L5) and on the left greater than right (glute, piriformis, thoracic paraspinal (T5-T10)) and Yes misalignment T1, T2, T6, T7, L1, L2, L3, L4, L5 and RIL Sacroiliac joints: on the right tender to palpation Neuro General: patient alert, patient awake, patient oriented x3, gait normal, normal light touch, pain and propioception and deep tendon reflexes 2+ bilaterally Cranial Nerves: CN's II-XI intact bilaterally (more content not included)... Normal [facility] Spine Thoracic (Routine)on 0 03-28-2024 Spine Thoracic (Routine) [facility] Imaging Services [address] [place] [id number] Spine Thoracic (Routine) MR#: [id number] Acct: [id number] Name: HELDER BROWNLEE Rep #: [id number] : 1950 F 73 From: Robert kincaid MD PCP: Dr. Kyler Salvador MD Status: REG CLI Study: Spine Thoracic (Routine) Date of Exam: Exam# [id number] Ordering Dr: Yasmin Trent [id number] STUDY: MRI THORACIC SPINE WITHOUT CONTRAST REASON FOR EXAM: Female, 73 years old. DEGENERATIVE DISC DISEASE TECHNIQUE: Standardized fat and water weighted pulse sequences were obtained in the sagittal and axial planes. COMPARISON: Thoracic spine x-ray dated February 14, 2024 FINDINGS: Normal kyphosis of the thoracic spine. Mild dextroscoliosis is present. T1-2, T2-3, T3-4, T4-5, T5-6, T6-7, T7-8, T8-9, T9-10, T10-11, T11-12: Disc desiccation at all visualized levels. Mild multilevel disc space narrowing, Schmorl''s node formation, spondylosis, endplate spurring. Minor disc bulges are present at several levels but not resulting in cord compression or central canal stenosis. No critical foraminal stenosis with nerve root compression is demonstrated. Benign fatty hemangiomas are present at multiple levels. No demonstrated acute fracture or compression deformity or active marrow edema. No aggressive lesions are present. No spinal cord demyelinating lesions or intramedullary mass or nodule or cyst.. Normal central canal and intervertebral neural foramina at the corresponding levels. Normal visualized thoracic cord. Normal conus medullaris that terminates at the T12-L1 level. The soft tissue structures are unremarkable. MRI/Spine Thoracic (Routine) IMPRESSION: 1. Multilevel degenerative changes of the thoracic spine. Electronically Signed: Robert Ramsey MD at 15:49 EDT Reading Location ID and State: [address] [place] [address] , Service support , CC: Yasmin Trent; Dr. Kyler Salvador MD Vb Net Developer: Signed Normal [facility] Basic Metabolic Profile (BMP )on 02-23-2024 BUN/CRE 21.2 RATIO High 10-20 [facility] Comment on above: Order Comment: Order Date: 02/21/24Order Info: [id number] - BMP Performed By: #### L 500.2500, L506.1000 ####[facility] [address] [place], [address] CA,Total 9.2 mg/dL Normal 8.5-10.1 [facility] Comment on above: Order Comment: Order Date: 02/21/24Order Info: [id number] - BMP Performed By: #### L 500.2500, L506.1000 ####[facility] [address] [place], [address] Chloride [Moles/Vol] 109 mmol/L High 98-107 [facility] Comment on above: Order Comment: Order Date: 02/21/24Order Info: [id number] - BMP Performed By: #### L 500.2500, L506.1000 ####[facility] [address] [place], [address] CO2 [Moles/Vol] 24.0 mmol/L Normal 21.0-32.0 [facility] Comment on above: Order Comment: Order Date: 02/21/24Order Info: [id number] - BMP Performed By: #### L 500.2500, L506.1000 ####[facility] [address] [place], [address] Creatinine [Mass/Vol] 0.71 mg/dL Normal 0.55-1.02 [facility] Comment on above: Order Comment: Order Date: 02/21/24Order Info: [id number] - BMP Result Comment: The validity of the calculated GFR GFRAA in patients over 70 years has not been determined. Clinical correlation is essential. Performed By: #### L 500.2500, L506.1000 ####[facility] [address] [place], [address] EST GFR - AA 104 mL/min Normal >60 [facility] Comment on above: Order Comment: Order Date: 02/21/24Order Info: 666-08 - BMP Result Comment: Afri can Malaysian GFR Calc Performed By: #### L 500.2500, L506.1000 ####[facility] [address] [place], [address] GAP 6 Normal 5-15 [facility] Comment on above: Order Comment: Order Date: 02/21/24Order Info: 666-08 - BMP Performed By: #### L 500.2500, L506.1000 ####[facility] [address] [place], [address] GFR/1.73 sq M.predicted among non-blacks MDRD (S/P/Bld) [Vol rate/Area] 86 mL/min/{1.73_m2} Normal >60 [facility] Comment on above: Order Comment: Order Date: 02/21/24Order Info: 666-08 - BMP Result Comment: Non- GFR Calc Performed By: #### L 500.2500, L506.1000 ####[facility] [address] [place], [address] Glucose [Mass/Vol] 81 mg/dL Normal 74-106 [facility] Comment on above: Order Comment: Order Date: 02/21/24Order Info: 666-08 - BMP Performed By: #### L 500.2500, L506.1000 ####[facility] [address] [place], [address] Potassium [Moles/Vol] 4.2 mmol/L Normal 3.5-5.1 [facility] Comment on above: Order Comment: Order Date: 02/21/24Order Info: 666-08 - BMP Performed By: #### L 500.2500, L506.1000 ####[facility] [address] [place], [address] Sodium [Moles/Vol] 139 mmol/L Normal 136-145 [facility] Comment on above: Order Comment: Order Date: 02/21/24Order Info: 666-08 - BMP Performed By: #### L 500.2500, L506.1000 ####[facility] [address] [place], [address] Urea nitrogen [Mass/Vol] 15 mg/dL Normal 7-18 [facility] Comment on above: Order Comment: Order Date: 02/21/24Order Info: 666-08 - BMP Performed By: #### L 500.2500, L506.1000 ####[facility] [address] [place], [address] L501.2276on 02-23-2024 Ionized Calcium 4.96 mg/dL Normal 4.36-5.20 [facility] Comment on above: Performed By: #### L 501.2276 ####[facility] [address] [place], [address] Vitamin D,25 Hydroxyon 02-22 Vitamin D 25-OH 38.1 ng/mL Normal [facility] Comment on above: Order Comment: Order Date: 02/21/24Order Info: [id number] - [id number] Result Comment: Symone min D 25(OH) Status Range Deficiency <20 ng/mL (50nmol/L) Insufficiency 20 - 30 ng/mL (50 - 75 nmol/L) Sufficiency 30 - 100 ng/mL (75 - 250 nmol/L) Toxicity >100 ng/mL (>250 nmol/L) Performed By: #### L 500.2500, L506.1000 ####[facility] [address] [place], [address] L/S Spine Min 4 Viewson 01-28 L/S Spine Min 4 Views [facility] Services [address] [place] [address] L/S Spine Min 4 Views MR#: [id number] Acct: [id number] Name: HELDER BROWNLEE Rep #: [id number] : 1950 F 73 From: Wayne loja MD PCP: Dr. Kyler Salvador MD Status: REG CLI Study: L/S Spine Min 4 Views Date of Exam: 02/14/24 Exam# [id number] Ordering Dr: Yasmin Trent [id number] STUDY: X-RAY - LUMBAR SPINE REASON FOR EXAM: Female, 73 years old. DDD TECHNIQUE: 4 view(s) of the lumbar spine were obtained. COMPARISON: None FINDINGS: Normal lumbar lordosis. There is a dextroscoliosis of the lumbar spine. There is a normal alignment of the vertebrae. Normal vertebral bodies and endplates. There is multi-level degenerative disc disease with multi-level disc space narrowing. The soft tissue structures are unremarkable. RAD/L/S Spine Min 4 Views IMPRESSION: Dextroscoliosis and disc space narrowing at multiple levels. Electronically Signed: Wayne Garcia MD at 13:35 EDT , CC: Yasmin Trent; Dr. Kyler Salvador MD Vb Net Developer: Signed Normal [facility] Scoliosis 2 or 3 viewson Scoliosis 2 or 3 views [facility] Services [address] [place], [place] [address] Scoliosis 2 or 3 views MR#: [id number] Acct: [id number] Name: HELDER BROWNLEE Rep #: [id number] : 1950 F 73 From: Wayne loja MD PCP: Dr. Kyler Salvador MD Status: [facility] Study: Scoliosis 2 or 3 views Date of Exam: 02/14/24 Exam# [id number] Ordering Dr: Yasmin Trent [id number] STUDY: X-RAY EXAMINATION: SCOLIOSIS SERIES REASON FOR EXAM: Female, 73 years old. SCOLIOSIS TECHNIQUE: 2 view(s) of the thoracolumbar spine were obtained in the upright standing position. COMPARISON: None. FINDINGS: There is a 20.9 degree dextroscoliosis scoliosis of the lumbar spine with the apex of the convexity at the L2-L3 level. Normal kyphosis of the thoracic spine. Normal thoracic vertebrae and endplates. Normal disc space heights of the thoracic spine. Normal lordosis of the lumbar spine. Normal lumbar vertebrae and endplates. Normal disc space heights of the lumbar spine. The soft tissue structures are unremarkable. RAD/Scoliosis 2 or 3 views IMPRESSION: 20.9 degree dextroscoliosis of the lumbar spine with the apex of the convexity at the L2-L3 level. Electronically Signed: Wayne Garcia MD at 13:33 EDT , CC: Yasmin Trent; Dr. Kyler Salvador MD Vb Net Developer: Signed Normal [facility] Thoracic Spine 3 Viewson Thoracic Spine 3 Views [facility] Imaging Services [address] [place], [place] [address] Thoracic Spine 3 Views MR#: [id number] Acct: [id number] Name: HELDER BROWNLEE Rep #: [id number] : 1950 F 73 From: Wayne loja MD PCP: Dr. Kyler Salvador MD Status: [facility] Study: Thoracic Spine 3 Views Date of Exam: 02/14/24 Exam# [id number] Ordering Dr: Yasmin Trent [id number] STUDY: X-RAY - THORACIC SPINE REASON FOR EXAM: Female, 73 years old. DDD TECHNIQUE: 2 view(s) of the thoracic spine were obtained. COMPARISON: None. FINDINGS: Normal kyphosis of the thoracic spine. There is no substantial scoliosis. There is demineralization of the thoracic spine. There is multilevel disc space narrowing of the thoracic spine. The soft tissue structures are unremarkable. RAD/Thoracic Spine 3 Views IMPRESSION: Multilevel disc space narrowing. Electronically Signed: Wayne Garcia MD at 13:34 EDT , CC: Yasmin Trent; Dr. Kyler Salvador MD Vb Net Developer: Signed Normal [facility] Basophil percentageOrdered B y: Kyler Salvador on 12-16-2023 Basophil percentage 3.3 mg/dL 2.5-4.9 [facility] Chloride [Moles/Vol] 108 mmol/L 98-107 [facility] Glucose [Mass/Vol] 84 mg/dL 74-106 [facility] Potassium [Moles/Vol] 4.2 mmol/L 3.5-5.1 [facility] Sodium [Moles/Vol] 140 mmol/L 136-145 [facility] Laboratory - Chemistry and C hemistry - challengeOrdered By: Kyler Salvador on 12-16-2023 CO2 [Moles/Vol] 29.0 mmol/L 21.0-32.0 [facility] Magnesium [Mass/Vol] 2.5 mg/dL 1.6-2.6 [facility] Urea nitrogen/Creatinine [Mass ratio] 16.9 mg/mg 10-20 [facility] No Panel InformationOrdered By: Kyler Salvador on 12-16-2023 Ionized Calcium 5.23 mg/dL 4.36-5.20 [facility] Estimated GFR (MDRD) Amer 94 mL/min >60 [facility] Comment on above: GFR Calc Estimated GFR (MDRD) Non-Af Amer 78 mL/min >60 [facility] Comment on above: Non- GFR Calc Parathyroid Hormone (Intact) 42.8 pg/mL 18.4-80.1 [facility] Serum or plasma calcium elisa urement (mass/volume)Ordered By: Kyler Salvador on 12-16-2023 Calcium [Mass/Vol] 9.9 mg/dL 8.5-10.1 [facility] Serum or plasma creatinine m easurement (mass/volume)Ordered By: Kyler Salvador on 12-16-2023 Creatinine [Mass/Vol] 0.77 mg/dL 0.55-1.02 [facility] Comment on above: The validity of the calculated GFR & GFRAA in patients over 70 years has not been determined. Clinical correlation is essential. Serum or plasma urea nitroge n measurement (mass/volume)Ordered By: Kyler Salvador on 12-16-2023 Urea nitrogen [Mass/Vol] 13 mg/dL - [facility] Thin prep Papanicolaou smear with manual screeningOrdered By: Kyler Salvador on 12-16-2023 Thin prep Papanicolaou smear with manual screening 3 - [facility] Absolute lymphocyte countOrd ered By: Caitkendall Pearce on 11-16-2023 Lymphocytes Auto (Unsp spec) [#/Vol] 1.81 10*3/uL 0.83-4.51 [facility] Automated lymphocyte count a s percentage of total leukocytesOrdered By: Cait Pearce on 11-16-2023 Lymphocytes/100 WBC Auto (Unsp spec) 21.6 % 19-41 [facility] Basophil percentageOrdered B y: Cait Pearce on 11-16-2023 Basophils/100 WBC (Bld) 0.7 % 0-1 [facility] Bilirubin [Mass/Vol] 0.30 mg/dL 0.20-1.00 [facility] Comment on above: For patients on eltr ombopag therapy, use of Dimension [place] TBIL is not recommended. Chloride [Moles/Vol] 105 mmol/L 98-107 [facility] Eosinophils/100 WBC (Bld) 2.1 % 0-5 [facility] Glucose [Mass/Vol] 78 mg/dL 74-106 [facility] Hemoglobin (Bld) [Mass/Vol] 14.6 g/dL 12.0-15.0 [facility] Monocytes/100 WBC (Bld) 6.8 % 0-10 [facility] Neutrophils (Bld) [#/Vol] 5.8 10*3/uL 2.0-7.7 [facility] Neutrophils/100 WBC (Bld) 68.7 % 47-70 [facility] Potassium [Moles/Vol] 4.1 mmol/L 3.5-5.1 [facility] Comment on above: Slight Hemolysis, Re sult may be falsely increased. Protein [Mass/Vol] 6.9 g/dL 6.4-8.2 [facility] Sodium [Moles/Vol] 141 mmol/L 136-145 [facility] WBC (Bld) [#/Vol] 8.4 10*3/uL 4.4-11.0 [facility] Determination of erythrocyte mean corpuscular volume (MCV)Ordered By: Cait Pearce on 11-16-2023 MCV (RBC) [Entitic vol] 94.4 fL 81-99 [facility] Erythrocyte distribution wid th ratioOrdered By: Cait Pearce on 11-16-2023 Erythrocyte distribution width (RBC) [Ratio] 13.2 % 11.6-14.6 [facility] Erythrocyte distribution wid th standard deviationOrdered By: Cait Pearce on 11-16-2023 Erythrocyte distribution width (RBC) [Entitic vol] 45.5 fL 35.1-43.9 [facility] Erythrocyte sedimentation ra teOrdered By: Cait Pearce on 11-16-2023 ESR (Bld) [Velocity] 11 mm/h 0-30 [facility] Hematocrit Auto (Bld) [Volum e fraction]Ordered By: Cait Ramses on 11-16-2023 Hematocrit (Bld) [Volume fraction] 44.1 % 37-47 [facility] Immature granulocytes/100 WB C Auto (Bld)Ordered By: Caitkendall Pearce on 11-16-2023 Immature granulocytes/100 WBC (Bld) 0.100 % 0.0-0.9 [facility] Comment on above: IG% - Immature Granu locytes (promyelocytes, myelocytes and metamyelocytes) > 1% indicates that a LEFT SHIFT is Present. Laboratory - Chemistry and C hemistry - challengeOrdered By: Cait Pearce on 11-16-2023 Albumin/Globulin [Mass ratio] 1.1 {ratio} 0.9-2.4 [facility] ALP [Catalytic activity/Vol] 81 U/L 45-117 [facility] ALT [Catalytic activity/Vol] 24 U/L 13-56 [facility] CO2 [Moles/Vol] 28.0 mmol/L 21.0-32.0 [facility] Globulin (S) [Mass/Vol] 3.3 g/dL 2.2-4.2 [facility] Urea nitrogen/Creatinine [Mass ratio] 20.3 mg/mg 10-20 [facility] Laboratory - Hematology and Cell countsOrdered By: Cait Pearce on 11-16-2023 MCH (RBC) [Entitic mass] 31.3 pg 27.0-32.0 [facility] MCHC (RBC) [Mass/Vol] 33.1 g/dL 32-36 [facility] Nucleated RBC/100 WBC (Bld) [Ratio] 0 % 0-5 [facility] Platelet mean volume (Bld) [Entitic vol] 10.8 fL 6.2-12.0 [facility] Platelets (Bld) [#/Vol] 260 10*3/uL 150-450 [facility] No Panel InformationOrdered By: Cait Pearce on 11-16-2023 C-Reactive Protein Extended Range < 2.90 mg/L 0.0-3.0 [facility] Comment on above: C-Reactive Protein ( CRP) provides useful information for thediagnosis, therapy and monitoring of inflammatory processesand associated diseases. For the evaluation of Relative Riskfor Cardiovascular Disease, a High Sensitivity CRP (HSCRP)should be ordered. Estimated GFR (MDRD) Amer 92 mL/min >60 [facility] Comment on above: GFR Calc Estimated GFR (MDRD) Non-Af Amer 76 mL/min >60 [facility] Comment on above: Non- GFR Calc RBC Auto (Bld) [#/Vol]Ordere d By: Cait Pearce on 11-16-2023 RBC (Bld) [#/Vol] 4.67 10*6/uL 4.2-5.4 [facility] Serum or plasma calcium elisa urement (mass/volume)Ordered By: Cait Pearce on 11-16-2023 Calcium [Mass/Vol] 10.4 mg/dL 8.5-10.1 [facility] Serum or plasma creatinine m easurement (mass/volume)Ordered By: Cait Pearce on 11-16-2023 Creatinine [Mass/Vol] 0.79 mg/dL 0.55-1.02 [facility] Comment on above: The validity of the calculated GFR & GFRAA in patients over 70 years has not been determined. Clinical correlation is essential. Serum or plasma urea nitroge n measurement (mass/volume)Ordered By: Cait Pearce on 11-16-2023 Urea nitrogen [Mass/Vol] 16 mg/dL 7-18 [facility] Thin prep Papanicolaou smear with manual screeningOrdered By: [facility] on 11-16-2023 Thin prep Papanicolaou smear with manual screening 3.6 g/dL 3.2-5.0 [facility] Thin prep Papanicolaou smear with manual screening 26 U/L 15- [facility] Comment on above: Slight Hemolysis, Re sult may be falsely increased. Thin prep Papanicolaou smear with manual screening 8 5-15 [facility] Absolute lymphocyte countOrd ered By: Cait Pearce on 05-13-2023 Lymphocytes Auto (Unsp spec) [#/Vol] 1.48 10*3/uL 0.83-4.51 [facility] Basophil percentageOrdered B y: Cait Pearce on 05-13-2023 Basophils/100 WBC (Bld) 0.9 % 0-1 [facility] Bilirubin [Mass/Vol] 0.30 mg/dL 0.20-1.00 [facility] Comment on above: For patients on eltr ombopag therapy, use of Dimension [place] TBIL is not recommended. Chloride [Moles/Vol] 104 mmol/L 98-107 [facility] Eosinophils/100 WBC (Bld) 1.1 % 0-5 [facility] Glucose [Mass/Vol] 83 mg/dL 74-106 [facility] Neutrophils (Bld) [#/Vol] 5.7 10*3/uL 2.0-7.7 [facility] Neutrophils/100 WBC (Bld) 72.1 % 47-70 [facility] Potassium [Moles/Vol] 4.0 mmol/L 3.5-5.1 [facility] Protein [Mass/Vol] 7.0 g/dL 6.4-8.2 [facility] Sodium [Moles/Vol] 137 mmol/L 136-145 [facility] WBC (Bld) [#/Vol] 7.9 10*3/uL 4.4-11.0 [facility] Blood erythrocytes count (nu mber/volume)Ordered By: Cait Pearce on 05-13-2023 RBC (Bld) [#/Vol] 4.67 10*6/uL 4.2-5.4 [facility] Blood hemoglobin measurement (mass/volume)Ordered By: Cait Pearce on 05-13-2023 Hemoglobin (Bld) [Mass/Vol] 14.4 g/dL 12.0-15.0 [facility] Blood lymphocytes/100 leukoc ytesOrdered By: Cait Pearce on 05-13-2023 Lymphocytes/100 WBC (Bld) 18.6 % 19-41 [facility] Blood monocytes/100 leukocyt esOrdered By: Cait Pearce on 05-13-2023 Monocytes/100 WBC (Bld) 6.9 % 0-10 [facility] Blood platelet mean volumeOr dered By: Cait Pearce on 05-13-2023 Platelet mean volume (Bld) [Entitic vol] 10.2 fL 6.2-12.0 [facility] Determination of erythrocyte mean corpuscular volume (MCV)Ordered By: Cait Pearce on 05-13-2023 MCV (RBC) [Entitic vol] 94.2 fL 81-99 [facility] Hematocrit Auto (Bld) [Volum e fraction]Ordered By: Cait Pearce on 05-13-2023 Hematocrit (Bld) [Volume fraction] 44.0 % 37-47 [facility] Laboratory - Chemistry and C hemistry - challengeOrdered By: Cait Pearce on 05-13-2023 ALP [Catalytic activity/Vol] 77 U/L 45-117 [facility] ALT [Catalytic activity/Vol] 26 U/L 13-56 [facility] CO2 [Moles/Vol] 28.0 mmol/L 21.0-32.0 [facility] Globulin (S) [Mass/Vol] 3.4 g/dL 2.2-4.2 [facility] Urea nitrogen/Creatinine [Mass ratio] 24.1 mg/mg 10-20 [facility] Laboratory - Hematology and Cell countsOrdered By: Cait Pearce on 05-13-2023 Erythrocyte distribution width (RBC) [Entitic vol] 44.8 fL 35.1-43.9 [facility] Erythrocyte distribution width (RBC) [Ratio] 13.2 % 11.6-14.6 [facility] Immature granulocytes/100 WBC (Bld) 0.400 % 0.0-0.9 [facility] Comment on above: IG% - Immature Granu locytes (promyelocytes, myelocytes and metamyelocytes) > 1% indicates that a LEFT SHIFT is Present. MCH (RBC) [Entitic mass] 30.8 pg 27.0-32.0 [facility] Nucleated RBC/100 WBC (Bld) [Ratio] 0 % 0-5 [facility] MCHC Auto (RBC) [Mass/Vol]Or dered By: Cait Pearce on 05-13-2023 MCHC (RBC) [Mass/Vol] 32.7 g/dL 32-36 [facility] No Panel InformationOrdered By: Cait Pearce on 05-13-2023 Estimated GFR (MDRD) Amer 104 mL/min >60 [facility] Comment on above: GFR Calc Estimated GFR (MDRD) Non-Af Amer 86 mL/min >60 [facility] Comment on above: Non- GFR Calc Platelets bldOrdered By: Sandy Pearce on 05-13-2023 Platelets (Bld) [#/Vol] 252 10*3/uL 150-450 [facility] Serum or plasma albumin elisa urement (mass/volume)Ordered By: Cait Pearce on 05-13-2023 Albumin [Mass/Vol] 3.6 g/dL 3.2-5.0 [facility] Serum or plasma albumin/glob ulin mass ratioOrdered By: Cait Pearce on 05-13-2023 Albumin/Globulin [Mass ratio] 1.1 {ratio} 0.9-2.4 [facility] Serum or plasma calcium elisa urement (mass/volume)Ordered By: Cait Pearce on 05-13-2023 Calcium [Mass/Vol] 9.6 mg/dL 8.5-10.1 [facility] Serum or plasma creatinine m easurement (mass/volume)Ordered By: Cait Pearce on 05-13-2023 Creatinine [Mass/Vol] 0.70 mg/dL 0.55-1.02 [facility] Comment on above: The validity of the calculated GFR & GFRAA in patients over 70 years has not been determined. Clinical correlation is essential. Serum or plasma urea nitroge n measurement (mass/volume)Ordered By: Cait Pearce on 05-13-2023 Urea nitrogen [Mass/Vol] 17 mg/dL 7-18 [facility] Thin prep Papanicolaou smear with manual screeningOrdered By: [facility] Rams[facility] on 05-13-2023 Thin prep Papanicolaou smear with manual screening 20 U/L 15-37 [facility] Thin prep Papanicolaou smear with manual screening 5 5-15 [facility] Basophil percentageOrdered B y: Tigre Salvador on 04-23-2023 Chloride [Moles/Vol] 109 mmol/L 98-107 [facility] Cholesterol [Mass/Vol] 186 mg/dL <200 [facility] Comment on above: <200 mg/dL Desirable 200-240 mg/dL Borderline >240 mg/dL High Risk Glucose [Mass/Vol] 83 mg/dL 74-106 [facility] Potassium [Moles/Vol] 4.4 mmol/L 3.5-5.1 [facility] Sodium [Moles/Vol] 142 mmol/L 136-145 [facility] Triglyceride [Mass/Vol] 63 mg/dL <199 [facility] Comment on above: The drugs N-Acetylcy steine and Metamizole may falsely depress this assay.Serum Triglycerides Reference Interval Normal <150 mg/dL Borderline high 150 - 199 mg/dL High 200 - 499 mg/dL Very High > or = 500 mg/dL Laboratory - Chemistry and C hemistry - challengeOrdered By: Tigre Salvador on 04-23-2023 CO2 [Moles/Vol] 30.0 mmol/L 21.0-32.0 [facility] Urea nitrogen/Creatinine [Mass ratio] 21.5 mg/mg 10-20 [facility] No Panel InformationOrdered By: Tigre Salvador on 04-23-2023 Estimated GFR (MDRD) Amer 115 mL/min >60 [facility] Comment on above: GFR Calc Estimated GFR (MDRD) Non-Af Amer 95 mL/min >60 [facility] Comment on above: Non- GFR Calc Parathyroid Hormone (Intact) 58.4 pg/mL 18.4-80.1 [facility] Serum or plasma calcium elisa urement (mass/volume)Ordered By: Tigre Salvador on 04-23-2023 Calcium [Mass/Vol] 9.4 mg/dL 8.5-10.1 [facility] Serum or plasma cholesterol in HDL measurement (mass/volume)Ordered By: Tigre Salvador on 04-23-2023 Cholesterol in HDL [Mass/Vol] 78 mg/dL >40 [facility] Comment on above: The drugs N-Acetylcy steine and Metamizole may falsely depress this assay. Reference Range HDL <40 mg/dL Low HDL Cholesterol HDL >or= 60 mg/dL High HDL Cholesterol Serum or plasma cholesterol in VLDL measurement (mass/volume)Ordered By: Tigre Salvador on 04-23-2023 Cholesterol in VLDL [Mass/Vol] 13 mg/dL 5-40 [facility] Serum or plasma creatinine m easurement (mass/volume)Ordered By: Tigre Salvador on 04-23-2023 Creatinine [Mass/Vol] 0.65 mg/dL 0.55-1.02 [facility] Comment on above: The validity of the calculated GFR & GFRAA in patients over 70 years has not been determined. Clinical correlation is essential. Serum or plasma low density lipoprotein (LDL) cholesterol measurement (mass/volume)Ordered By: Tigre Salvador on 04-23-2023 Cholesterol in LDL [Mass/Vol] 95 mg/dL 0-130 [facility] Serum or plasma urea nitroge n measurement (mass/volume)Ordered By: Tigre Salvador on 04-23-2023 Urea nitrogen [Mass/Vol] 14 mg/dL 7-18 [facility] Thin prep Papanicolaou smear with manual screeningOrdered By: Tigre Salvador on 04-23-2023 Thin prep Papanicolaou smear with manual screening 3 5-15 [facility] Basophil percentageOrdered B y: Dr. Salvador on 02-10-2023 Chloride [Moles/Vol] 108 mmol/L 98-107 [facility] Glucose [Mass/Vol] 85 mg/dL 74-106 [facility] Potassium [Moles/Vol] 4.1 mmol/L 3.5-5.1 [facility] Sodium [Moles/Vol] 139 mmol/L 136-145 [facility] Laboratory - Chemistry and C hemistry - challengeOrdered By: Dr. Salvador on 02-10-2023 CO2 [Moles/Vol] 27.0 mmol/L 21.0-32.0 [facility] Free T4 [Mass/Vol] 0.94 ng/dL 0.76-1.46 [facility] Urea nitrogen/Creatinine [Mass ratio] 29.3 mg/mg 10-20 [facility] No Panel InformationOrdered By: Dr. Salvador on 02-10-2023 Estimated GFR (MDRD) Amer 122 mL/min >60 [facility] Comment on above: GFR Calc Estimated GFR (MDRD) Non-Af Amer 101 mL/min >60 [facility] Comment on above: Non- GFR Calc Free Triiodothyronine (T3) pg/dL 2.7 pg/mL 2.18-3.98 [facility] Thyroid Stimulating Hormone (TSH) 2.18 uIU/mL 0.358-3.74 [facility] Serum or plasma calcium elisa urement (mass/volume)Ordered By: Dr. Salvador on 02-10-2023 Calcium [Mass/Vol] 9.8 mg/dL 8.5-10.1 [facility] Serum or plasma creatinine m easurement (mass/volume)Ordered By: Dr. Salvador on 02-10-2023 Creatinine [Mass/Vol] 0.62 mg/dL 0.55-1.02 [facility] Comment on above: The validity of the calculated GFR & GFRAA in patients over 70 years has not been determined. Clinical correlation is essential. Serum or plasma thyroperoxid ase antibody assay (units/volume)Ordered By: Dr. Salvador on 02-10-2023 TPO Ab Qn [IU]/mL 0-34 [facility] Comment on above: Performed at: [address] [id number] Director: Gyu Chance PhD, Phone: [phone] Serum or plasma urea nitroge n measurement (mass/volume)Ordered By: Dr. Salvador on 02-10-2023 Urea nitrogen [Mass/Vol] 18 mg/dL 7-18 [facility] Thin prep Papanicolaou smear with manual screeningOrdered By: Dr. Salvador on 02-10-2023 Thin prep Papanicolaou smear with manual screening 4 5-15 [facility] Absolute lymphocyte countOrd ered By: Dr. Salvador on 01-06-2023 Lymphocytes Auto (Unsp spec) [#/Vol] 1.53 10*3/uL 0.83-4.51 [facility] Basophil percentageOrdered B y: Dr. Salvador on 01-06-2023 Basophils/100 WBC (Bld) 0.8 % 0-1 [facility] Bilirubin [Mass/Vol] 0.20 mg/dL 0.20-1.00 [facility] Comment on above: For patients on eltr ombopag therapy, use of Dimension [place] TBIL is not recommended. Chloride [Moles/Vol] 112 mmol/L 98-107 [facility] Eosinophils/100 WBC (Bld) 1.9 % 0-5 [facility] Glucose [Mass/Vol] 122 mg/dL 74-106 [facility] Comment on above: Fasting Glucose resu lt from 100 to 125 mg/dL suggests IMPAIRED HOMEOSTASIS per A.D.A. criteria. Neutrophils (Bld) [#/Vol] 4.1 10*3/uL 2.0-7.7 [facility] Neutrophils/100 WBC (Bld) 66.8 % 47-70 [facility] Potassium [Moles/Vol] 3.8 mmol/L 3.5-5.1 [facility] Protein [Mass/Vol] 6.2 g/dL 6.4-8.2 [facility] Sodium [Moles/Vol] 142 mmol/L 136-145 [facility] WBC (Bld) [#/Vol] 6.2 10*3/uL 4.4-11.0 [facility] Blood erythrocytes count (nu mber/volume)Ordered By: Dr. Salvador on 01-06-2023 RBC (Bld) [#/Vol] 4.34 10*6/uL 4.2-5.4 [facility] Blood hemoglobin measurement (mass/volume)Ordered By: Dr. Salvador on 01-06-2023 Hemoglobin (Bld) [Mass/Vol] 13.6 g/dL 12.0-15.0 [facility] Blood lymphocytes/100 leukoc ytesOrdered By: Dr. Salvador on 01-06-2023 Lymphocytes/100 WBC (Bld) 24.8 % 19-41 [facility] Blood monocytes/100 leukocyt esOrdered By: Dr. Salvador on 01-06-2023 Monocytes/100 WBC (Bld) 5.5 % 0-10 [facility] Blood platelet mean volumeOr dered By: Dr. Salvador on 01-06-2023 Platelet mean volume (Bld) [Entitic vol] 9.9 fL 6.2-12.0 [facility] Determination of erythrocyte mean corpuscular volume (MCV)Ordered By: Dr. Salvador on 01-06-2023 MCV (RBC) [Entitic vol] 93.3 fL 81-99 [facility] Erythrocyte sedimentation ra teOrdered By: Dr. Salvador on 01-06-2023 ESR (Bld) [Velocity] 5 mm/h 0-30 [facility] Hematocrit Auto (Bld) [Volum e fraction]Ordered By: Dr. Salvador on 01-06-2023 Hematocrit (Bld) [Volume fraction] 40.5 % 37-47 [facility] Iron measurement (mass/mass) Ordered By: Dr. Salvador on 01-06-2023 Iron (Unsp spec) [Mass/Mass] 52 ug/dL 50-170 [facility] Laboratory - Chemistry and C hemistry - challengeOrdered By: Dr. Salvador on 01-06-2023 ALP [Catalytic activity/Vol] 77 U/L 45-117 [facility] ALT [Catalytic activity/Vol] 24 U/L 13-56 [facility] CO2 [Moles/Vol] 25.0 mmol/L 21.0-32.0 [facility] Cobalamin (Vitamin B12) [Mass/Vol] 800 pg/mL 211-911 [facility] Free T4 [Mass/Vol] 0.91 ng/dL 0.76-1.46 [facility] Globulin (S) [Mass/Vol] 2.8 g/dL 2.2-4.2 [facility] Magnesium [Mass/Vol] 2.5 mg/dL 1.6-2.6 [facility] Urea nitrogen/Creatinine [Mass ratio] 21.3 mg/mg 10-20 [facility] Laboratory - Hematology and Cell countsOrdered By: Dr. Salvador on 01-06-2023 Erythrocyte distribution width (RBC) [Entitic vol] 45.1 fL 35.1-43.9 [facility] Erythrocyte distribution width (RBC) [Ratio] 13.1 % 11.6-14.6 [facility] Immature granulocytes/100 WBC (Bld) 0.200 % 0.0-0.9 [facility] Comment on above: IG% - Immature Granu locytes (promyelocytes, myelocytes and metamyelocytes) > 1% indicates that a LEFT SHIFT is Present. MCH (RBC) [Entitic mass] 31.3 pg 27.0-32.0 [facility] Nucleated RBC/100 WBC (Bld) [Ratio] 0 % 0-5 [facility] MCHC Auto (RBC) [Mass/Vol]Or dered By: Dr. Salvador on 01-06-2023 MCHC (RBC) [Mass/Vol] 33.6 g/dL 32-36 [facility] No Panel InformationOrdered By: Dr. Salvador on 01-06-2023 Anti-Nuclear Antibody Screen Negative Negative [facility] Comment on above: Performed at: [facility] [employer] [address] [id number] Director: Guy Chance PhD, Phone: [phone] Estimated GFR (MDRD) Amer 114 mL/min >60 [facility] Comment on above: GFR Calc Estimated GFR (MDRD) Non-Af Amer 94 mL/min >60 [facility] Comment on above: Non- GFR Calc Free Triiodothyronine (T3) pg/dL 2.1 pg/mL 2.18-3.98 [facility] Thyroid Stimulating Hormone (TSH) 2.25 uIU/mL 0.358-3.74 [facility] Vitamin D 25-Hydroxy 59.5 ng/mL [facility] Comment on above: Vitamin D 25(OH) Sta tus Range Deficiency <20 ng/mL (50nmol/L) Insufficiency 20 - 30 ng/mL (50 - 75 nmol/L) Sufficiency 30 - 100 ng/mL (75 - 250 nmol/L) Toxicity >100 ng/mL (>250 nmol/L) Platelets bldOrdered By: Dr. Salvador on 01-06-2023 Platelets (Bld) [#/Vol] 258 10*3/uL 150-450 [facility] Serum or plasma C reactive p rotein measurement (mass/volume)Ordered By: Dr. Salvador on 01-06-2023 CRP [Mass/Vol] mg/L 0.0-3.0 [facility] Comment on above: C-Reactive Protein ( CRP) provides useful information for thediagnosis, therapy and monitoring of inflammatory processesand associated diseases. For the evaluation of Relative Riskfor Cardiovascular Disease, a High Sensitivity CRP (HSCRP)should be ordered. Serum or plasma albumin elisa urement (mass/volume)Ordered By: Dr. Salvador on 01-06-2023 Albumin [Mass/Vol] 3.4 g/dL 3.2-5.0 [facility] Serum or plasma albumin/glob ulin mass ratioOrdered By: Dr. Salvador on 01-06-2023 Albumin/Globulin [Mass ratio] 1.2 {ratio} 0.9-2.4 [facility] Serum or plasma calcium elisa urement (mass/volume)Ordered By: Dr. Salvador on 01-06-2023 Calcium [Mass/Vol] 9.1 mg/dL 8.5-10.1 [facility] Serum or plasma creatinine m easurement (mass/volume)Ordered By: Dr. Savlador on 01-06-2023 Creatinine [Mass/Vol] 0.66 mg/dL 0.55-1.02 [facility] Comment on above: The validity of the calculated GFR & GFRAA in patients over 70 years has not been determined. Clinical correlation is essential. Serum or plasma urea nitroge n measurement (mass/volume)Ordered By: Dr. Salvador on 01-06-2023 Urea nitrogen [Mass/Vol] 14 mg/dL 7-18 [facility] Serum or plasma uric acid me asurement (mass/volume)Ordered By: Dr. Salvador on 01-06-2023 Urate [Mass/Vol] 3.4 mg/dL 2.6-6.0 [facility] Comment on above: The drugs N-Acetylcy steine and Metamizole may falsely depress this assay. Serum rheumatoid factor dete ctionOrdered By: Dr. Salvador on 01-06-2023 Rheumatoid factor Ql (S) < 10.0 IU/mL <15 [facility] Thin prep Papanicolaou smear with manual screeningOrdered By: Dr. Salvador on 01-06-2023 Thin prep Papanicolaou smear with manual screening 22 U/L 15-37 [facility] Thin prep Papanicolaou smear with manual screening 5 5-15 [facility] Basophil percentageOrdered B y: Dr. Salvador on 10-16-2022 Bilirubin [Mass/Vol] 0.20 mg/dL 0.20-1.00 [facility] Comment on above: For patients on eltr ombopag therapy, use of Dimension [place] TBIL is not recommended. Chloride [Moles/Vol] 106 mmol/L 98-107 [facility] Glucose [Mass/Vol] 86 mg/dL 74-106 [facility] Potassium [Moles/Vol] 4.3 mmol/L 3.5-5.1 [facility] Protein [Mass/Vol] 6.0 g/dL 6.4-8.2 [facility] Sodium [Moles/Vol] 140 mmol/L 136-145 [facility] Laboratory - Chemistry and C hemistry - challengeOrdered By: Dr. Salvador on 10-16-2022 ALP [Catalytic activity/Vol] 76 U/L 45-117 [facility] ALT [Catalytic activity/Vol] 24 U/L 13-56 [facility] CO2 [Moles/Vol] 29.0 mmol/L 21.0-32.0 [facility] Globulin (S) [Mass/Vol] 2.5 g/dL 2.2-4.2 [facility] Urea nitrogen/Creatinine [Mass ratio] 23.1 mg/mg 10-20 [facility] No Panel InformationOrdered By: Dr. Salvador on 10-16-2022 Estimated GFR (MDRD) Amer 100 mL/min >60 [facility] Comment on above: GFR Calc Estimated GFR (MDRD) Non-Af Amer 82 mL/min >60 [facility] Comment on above: Non- GFR Calc Serum or plasma albumin elisa urement (mass/volume)Ordered By: Dr. Salvador on 10-16-2022 Albumin [Mass/Vol] 3.5 g/dL 3.2-5.0 [facility] Serum or plasma albumin/glob ulin mass ratioOrdered By: Dr. Salvador on 10-16-2022 Albumin/Globulin [Mass ratio] 1.4 {ratio} 0.9-2.4 [facility] Serum or plasma calcium elisa urement (mass/volume)Ordered By: Dr. Salvador on 10-16-2022 Calcium [Mass/Vol] 9.7 mg/dL 8.5-10.1 [facility] Serum or plasma creatinine m easurement (mass/volume)Ordered By: Dr. Salvador on 10-16-2022 Creatinine [Mass/Vol] 0.74 mg/dL 0.55-1.02 [facility] Comment on above: The validity of the calculated GFR & GFRAA in patients over 70 years has not been determined. Clinical correlation is essential. Serum or plasma urea nitroge n measurement (mass/volume)Ordered By: Dr. Salvador on 10-16-2022 Urea nitrogen [Mass/Vol] 17 mg/dL 7-18 [facility] Thin prep Papanicolaou smear with manual screeningOrdered By: Dr. Salvador on 10-16-2022 Thin prep Papanicolaou smear with manual screening 18 U/L 15-37 [facility] Thin prep Papanicolaou smear with manual screening 5 5-15 [facility] Absolute lymphocyte counton 04-14-2022 Lymphocytes Auto (Unsp spec) [#/Vol] 1.80 10*3/uL 0.83-4.51 [facility] Work Phone: Basophil percentageon 2021 Basophils/100 WBC (Bld) 0.7 % 0-1 [facility] Work Phone: [phone] Bilirubin [Mass/Vol] 0.30 mg/dL 0.20-1.00 [facility] Work Phone: [phone] Comment on above: For patients on eltr ombopag therapy, use of Dimension [place] TBIL is not recommended. Chloride [Moles/Vol] 105 mmol/L 98-107 [facility] Work Phone: [phone] Eosinophils/100 WBC (Bld) 1.6 % 0-5 [facility] Work Phone: Glucose [Mass/Vol] 106 mg/dL 74-106 [facility] Work Phone: [phone] Comment on above: Fasting Glucose resu lt from 100 to 125 mg/dL suggests IMPAIRED HOMEOSTASIS per A.D.A. criteria. Neutrophils (Bld) [#/Vol] 4.5 10*3/uL 2.0-7.7 [facility] Work Phone: Neutrophils/100 WBC (Bld) 64.8 % 47-70 [facility] Work Phone: Potassium [Moles/Vol] 3.8 mmol/L 3.5-5.1 [facility] Work Phone: Protein [Mass/Vol] 6.4 g/dL 6.4-8.2 [facility] Work Phone: Sodium [Moles/Vol] 138 mmol/L 136-145 [facility] Work Phone: [phone] WBC (Bld) [#/Vol] 7.0 10*3/uL 4.4-11.0 [facility] Work Phone: Bilirubin Test strip Ql (U)o n 04-14-2022 Bilirubin Ql (U) Negative Negative [facility] Work Phone: Blood erythrocytes count (nu mber/volume)on 04-14-2022 RBC (Bld) [#/Vol] 4.52 10*6/uL 4.2-5.4 [facility] Work Phone: Blood hemoglobin measurement (mass/volume)on 04-14-2022 Hemoglobin (Bld) [Mass/Vol] 14.2 g/dL 12.0-15.0 [facility] Work Phone: Blood lymphocytes/100 leukoc yteson 04-14-2022 Lymphocytes/100 WBC (Bld) 25.8 % 19-41 [facility] Work Phone: Blood monocytes/100 leukocyt eson 04-14-2022 Monocytes/100 WBC (Bld) 6.7 % 0-10 [facility] Work Phone: Blood platelet mean volumeon 04-14-2022 Platelet mean volume (Bld) [Entitic vol] 9.8 fL 6.2-12.0 [facility] Work Phone: Determination of erythrocyte mean corpuscular volume (MCV)on 04-14-2022 MCV (RBC) [Entitic vol] 95.1 fL 81-99 [facility] Work Phone: Erythrocyte sedimentation ra cr 04-14-2022 ESR (Bld) [Velocity] 5 mm/h 0-30 [facility] Work Phone: Hematocrit Auto (Bld) [Volum e fraction]on 04-14-2022 Hematocrit (Bld) [Volume fraction] 43.0 % 37-47 [facility] Work Phone: Ketones Test strip Ql (U)on 04-14-2022 Ketones Ql (U) Negative Negative [facility] Work Phone: Laboratory - Chemistry and C hemistry - challengeon 04-14-2022 ALP [Catalytic activity/Vol] 71 U/L 45-117 [facility] Work Phone: ALT [Catalytic activity/Vol] 34 U/L 13-56 [facility] Work Phone: CO2 [Moles/Vol] 27.0 mmol/L 21.0-32.0 [facility] Work Phone: Globulin (S) [Mass/Vol] 3.0 g/dL 2.2-4.2 [facility] Work Phone: Magnesium [Mass/Vol] 2.2 mg/dL 1.6-2.6 [facility] Work Phone: Urea nitrogen/Creatinine [Mass ratio] 18.3 mg/mg 10-20 [facility] Work Phone: Laboratory - Hematology and Cell countson 04-14-2022 Erythrocyte distribution width (RBC) [Entitic vol] 45.3 fL 35.1-43.9 [facility] Work Phone: Erythrocyte distribution width (RBC) [Ratio] 12.7 % 11.6-14.6 [facility] Work Phone: Immature granulocytes/100 WBC (Bld) 0.400 % 0.0-0.9 [facility] Work Phone: Comment on above: IG% - Immature Granu locytes (promyelocytes, myelocytes and metamyelocytes) > 1% indicates that a LEFT SHIFT is Present. MCH (RBC) [Entitic mass] 31.4 pg 27.0-32.0 [facility] Work Phone: Nucleated RBC/100 WBC (Bld) [Ratio] 0 % 0-5 [facility] Work Phone: MCHC Auto (RBC) [Mass/Vol]on 04-14-2022 MCHC (RBC) [Mass/Vol] 33.0 g/dL 32-36 [facility] Work Phone: Nitrite Test strip Ql (U)on 04-14-2022 Nitrite Ql (U) Negative Negative [facility] Work Phone: No Panel Informationon 04-14 Estimated GFR (MDRD) Amer 88 mL/min >60 [facility] Work Phone: Comment on above: GFR Calc Estimated GFR (MDRD) Non-Af Amer 73 mL/min >60 [facility] Work Phone: Comment on above: Non- GFR Calc Ionized Calcium 5.3 mg/dL 4.5-5.6 [facility] Work Phone: Comment on above: Performed at: [address] [id number] Director: Guy Chance PhD, Phone: [phone] Parathyroid Hormone (Intact) 72.9 pg/mL 18.4-80.1 [facility] Work Phone: Thyroid Stimulating Hormone (TSH) 1.13 uIU/mL 0.358-3.74 [facility] Work Phone: Vitamin D 25-Hydroxy 67.0 ng/mL [facility] Work Phone: Comment on above: Vitamin D 25(OH) Sta tus Range Deficiency <20 ng/mL (50nmol/L) Insufficiency 20 - 30 ng/mL (50 - 75 nmol/L) Sufficiency 30 - 100 ng/mL (75 - 250 nmol/L) Toxicity >100 ng/mL (>250 nmol/L) Platelets bldon 04-14-2022 Platelets (Bld) [#/Vol] 273 10*3/uL 150-450 [facility] Work Phone: Protein Test strip Ql (U)on 04-14-2022 Protein Ql (U) Negative Negative [facility] Work Phone: Serum or plasma albumin elisa urement (mass/volume)on 04-14-2022 Albumin [Mass/Vol] 3.4 g/dL 3.2-5.0 [facility] Work Phone: Serum or plasma albumin/glob ulin mass ratioon 04-14-2022 Albumin/Globulin [Mass ratio] 1.1 {ratio} 0.9-2.4 [facility] Work Phone: Serum or plasma calcium elisa urement (mass/volume)on 04-14-2022 Calcium [Mass/Vol] 8.8 mg/dL 8.5-10.1 [facility] Work Phone: Serum or plasma creatinine m easurement (mass/volume)on 04-14-2022 Creatinine [Mass/Vol] 0.82 mg/dL 0.55-1.02 [facility] Work Phone: Comment on above: The validity of the calculated GFR & GFRAA in patients over 70 years has not been determined. Clinical correlation is essential. Serum or plasma urea nitroge n measurement (mass/volume)on 04-14-2022 Urea nitrogen [Mass/Vol] 15 mg/dL 7-18 [facility] Work Phone: Thin prep Papanicolaou smear with manual screeningon 04-14-2022 Thin prep Papanicolaou smear with manual screening 23 U/L 15-37 [facility] Work Phone: Thin prep Papanicolaou smear with manual screening 6 5-15 [facility] Work Phone: Urine blood detectionon 03-30 RBC Ql (U) Negative Negative [facility] Work Phone: Urine clarityon 04-14-2022 Clarity (U) Clear Clear [facility] Work Phone: Urine color determinationon 04-14-2022 Color (U) Yellow Yellow [facility] Work Phone: Urine glucose detectionon Glucose Ql (U) Normal mg/dl Normal [facility] Work Phone: Urine leukocyte esterase det ection by dipstickon 04-14-2022 Leukocyte esterase Test strip Ql (U) Negative Negative [facility] Work Phone: Urine pHon 04-14-2022 pH (U) 6.5 [pH] 5.0 - 8.0 [facility] Work Phone: Urine specific gravity measu rementon 04-14-2022 Specific gravity (U) [Rel density] 1.015 1.002-1.030 [facility] Work Phone: Urobilinogen Auto test strip Ql (U)on 04-14-2022 Urobilinogen Ql (U) Normal mg/dl Normal [facility] Work Phone: Vital Signs Date Time Vital Sign Value Performing Clinician Margo garnica 12-10-2022 11:15-0400 Body height 157.[address] Tigre Salvador Work Phone: [facility] 12-10-2022 11:15-0400 Body mass index (BMI) [Ratio] 21.9 kg/m2 Dr. Tigre Salvador Work Phone: [facility] 12-10-2022 11:15-0400 Body weight 54.[address] Tigre Salvador Work Phone: [facility] 12-10-2022 11:15-0400 Diastolic blood pressure 68 mm[Hg] Dr. Tigre Salvador Work Phone: [facility] 12-10-2022 11:15-0400 Systolic blood pressure 110 mm[Hg] Dr. Tigre Salvador Work Phone: [facility] Encounters Encounter Date Encounter Type Care Provider Facility Start: 02-05-2025 End: 02-05-[address] Jeanie Eckert [facility] Work Phone: Start: 02-05-2025 End: 02-05-[address] Kyler Salvador MD Work Phone: [facility] Work Phone: Start: 12-25-2024 End: 12-25-[address] Jeanie Eckert DC -[facility] Work Phone: Start: 12-25-2024 End: 12-25-2024 ambulatory Kyler Salvador Facility:[facility] Start: 11-14-2024 End: 11-14-[address] Jeanie Eckert DC -[facility] Work Phone: Start: 11-14-2024 End: 11-14-2024 ambulatory Jeanie Eckert Facility:[facility] Start: 10-19-2024 End: 10-19-[address] Jeanie Eckert DC -[facility] Work Phone: Start: 10-19-2024 End: 10-19-2024 ambulatory Jeanie Eckert Facility:[facility] Start: 10-05-2024 End: 10-05-2024 ambulatory Kyler Salvador Facility:[facility] Start: 09-21-2024 End: 09-[facility] Start: 09-13-2024 End: 09-13-2024 ambulatory Cait Pearce Facility:[facility] Start: 08-21-2024 End: 08-21-2024 ambulatory Jeanie Eckert Facility:[facility] Start: 07-31-2024 End: 07-31-2024 ambulatory Jeanie Eckert Facility:[facility] Start: 07-17-2024 End: 07-17-2024 ambulatory Christkeith Salvador Facility:[facility] Start: 07-04-2024 End: 07-04-2024 ambulatory Christopher Modesto Facility:[facility] Start: 06-19-2024 End: 06-19-2024 ambulatory Christopher [place] Facility:[facility] Start: 06-12-2024 End: 06-12-2024 ambulatory Christopher [place] Facility:[facility] Start: 05-25-2024 End: 05-25-2024 ambulatory Christophjulien Salvador Facility:[facility] Start: 05-18-2024 End: 05-18-2024 ambulatory Christopher [place] Facility:[facility] Start: 05-11-2024 End: 05-11-2024 ambulatory Christopher [place] Facility:[facility] Start: 05-04-2024 End: 05-04-2024 ambulatory Christopher [place] Facility:[facility] Start: 03-28-2024 End: 03-28-2024 ambulatory [facility] Facility:[facility] Start: 02-23-2024 End: 02-23-2024 ambulatory [facility] Facility:[facility] Start: 02-14-2024 End: 02-14-2024 ambulatory [facility] Facility:[facility] Start: 12-16-2023 End: 12-16-2023 ambulatory [facility] Work Phone: Start: 12-16-2023 End: 12-16-2023 Patient encounter procedure [facility] Work Phone: Start: 11-16-2023 End: 11-16-2023 ambulatory [facility] Work Phone: Start: 11-16-2023 End: 11-16-2023 Patient encounter procedure [facility] Work Phone: Start: 08-19-2023 End: 08-19-[address] Tigre Salvador Work Phone: [facility] Work Phone: Start: 08-19-2023 End: 08-19-[address] Tigre Salvador [facility] Phone[facility] Work Phone: Start: 06-04-2023 End: 06-04-[address] Tigre Salvador Work Phone: [facility] Work Phone: Start: 05-13-2023 End: 05-13-[address] Tigre Salvador Work Phone: [facility] Work Phone: Start: 05-13-2023 End: 05-13-[address] Tigre Salvador Work Phone: [facility] Work Phone: Start: 05-04-2023 End: 05-04-[address] Tigre Salvador Work Phone: [facility] Work Phone: Start: 04-29-2023 End: 04-29-[address] [facility] Work Phone: Start: 04-23-2023 End: 04-23-[address] Tigre Salvador Work Phone: [facility] Work Phone: Start: 04-23-2023 End: 04-23-[address] Tigre Salvador Work Phone: [facility] Work Phone: Start: 02-16-2023 End: 02-16-[address] Tigre Salvador Work Phone: [facility] Work Phone: Start: 02-16-2023 End: 02-16-[address] Tigre Salvador Work Phone: [facility] Start: 02-10-2023 End: 02-10-[address] Tigre Salvador Work Phone: [facility] Work Phone: Start: 02-10-2023 End: 02-10-[address] Tigre Salvador Work Phone: [facility] Start: 01-06-2023 End: 01-06-[address] Tigre Salvador Work Phone: [facility] Work Phone: Start: 01-06-2023 End: 01-06-[address] Tigre Salvador Work Phone: [facility] Start: 12-30-2022 End: 12-30-[address] Tigre Salvador Work Phone: [facility] Start: 12-24-2022 End: 12-24-[address] Tigre Salvador Work Phone: [facility] Start: 12-17-2022 End: 12-17-[address] Tigre Salvador Work Phone: [facility] Start: 12-10-2022 End: 12-10-[address] Tigre Salvador Work Phone: [facility] Start: 10-16-2022 End: 10-16-[address] Tigre Salvador Work Phone: [facility] Start: 04-30-2022 End: 04-30-2022 ambulatory [facility] Work Phone: Start: 04-30-2022 End: 04-30-2022 Patient encounter procedure [facility] Bone Densit[facility] Start: 04-14-2022 End: 04-14-2022 ambulatory [facility] Work Phone: Start: 04-14-2022 End: 04-14-2022 Patient encounter procedure [facility] Procedures Date Procedure Procedure Detail Performing Clinician Start: 08-19-2023 Plain chest X-ray Dr. Ryan Salvador Work Phone: Start: 06-04-[address] Tripp Salvador Work Phone: Start: 05-04-[address] Tigre Salvador Work Phone: Start: 05-04-2023 Dual energy X-ray absorptiometry Dr. Tigre Salvador Work Phone: Start: 02-16-[address] Tigre Salvador Work Phone: Start: 04-30-2022 Screening mammography History of repair of musculotendinous cuff of shoulder History of rotator cuff surgery Dr. Kyler Salvador MD Work Phone: Comment on above: 2014- R bicep ruptur e, not corrected History of repair of musculotendinous cuff of shoulder History of rotator cuff surgery Dr. Jeanie Eckert DC Plan of Treatment Date Care Activity Detail Author Start: 12-25-2024 Patient referral [facility] Work Phone: MR Lumbar spine [facility] Patient referral [facility] Work Phone: Payers Date Payer Category Payer Medicare [id number] 2024 Self-pay [id number] 2024 Unknown [id number] 2016 Unknown AARP [id number] 2014 Medicare MEDICARE PART A B [id number] Medicare ANTHEM MEDICARE SENIOR ADVANTA [id number] Unknown AARP MCR ADV [id number] 00 [id number] Unknown [id number] Unknown [id number] Unknown [id number] Unknown [id number] [id number] Unknown [id number] [id number] Unknown [id number] [id number] Unknown [id number] [id number] Unknown [id number] [id number] Unknown [id number] 2.16.840.1.618754.3.579.2.462 Unknown [id number] 2.16.840.1.560090.3.579.2.462 Unknown [id number] [id number] Unknown [id number] 2.16.840.1.378870.3.579.2.462 Unknown [id number] 2.16.840.1.288870.3.579.2.462 Unknown [id number] [id number] Unknown [id number] [id number] Unknown [id number] [id number] Unknown [id number] 2.16.840.1.802009.3.579.2.462 Unknown [id number] [id number] Unknown [id number] [id number] Unknown [id number] Social History Date Type Detail Facility Start: 09-08-2021 End: 06-04-2023 Tobacco smoking status NHIS Unknown if ever smoked [facility] Start: 1950 Sex Assigned At Female W [facility] Start: 07-17-2024 Tobacco smoking stat us NHIS Never smoked tobacco (finding) [facility] Goals Date Patient Goal Desired Activity /State Evaluation note 10-19-2024 Note Date & Type Note Facility 10-19-2024 Evaluation note Diagnosis Onset Date Resolution Neck pain acute October 19, 2024 9:23am Segmental and somatic dysfunction of cervical region acute October 19 9:23am Segmental and somatic dysfunction of lumbar region acute October 19 9:23am Segmental and somatic dysfunction of pelvic region acute October 19 9:23am Segmental and somatic dysfunction of thoracic region acute October 19 9:23am DDD (degenerative disc disease), lumbosacral chronic October [id number] 9:23am History of rotator cuff surgery chronic October 19 9:23am Back pain noneactive October 19, 2024 9:23am Neck pain acute November 14 1:53pm Segmental and somatic dysfunction of cervical region acute November 14, 2024 1:53pm Segmental and somatic dysfunction of lumbar region acute November 14, 2024 1:53pm Segmental and somatic dysfunction of pelvic region acute November 14, 2024 1:53pm Segmental and somatic dysfunction of thoracic region acute November 14, 2024 1:53pm DDD (degenerative disc disease), lumbosacral chronic October 1:53pm Scoliosis chronic November 14 1:53pm Back pain noneactive November 14 1:53pm Neck pain acute December 25 10:09am Segmental and somatic dysfunction of cervical region acute December 25, 2024 10:09am Segmental and somatic dysfunction of lumbar region acute December 25, 2024 10:09am Segmental and somatic dysfunction of pelvic region acute December 25, 2024 10:09am Segmental and somatic dysfunction of thoracic region acute December 25, 2024 10:09am DDD (degenerative disc disease), lumbosacral chronic November 10:09am Scoliosis chronic December 25 10:09am Back pain noneactive December 25 10:09am Segmental and somatic dysfunction of cervical region acute February 05, 2025 10:24am Segmental and somatic dysfunction of lumbar region acute February 05, 2025 10:24am Segmental and somatic dysfunction of pelvic region acute February 05, 2025 10:24am Segmental and somatic dysfunction of thoracic region acute February 05, 2025 10:24am DDD (degenerative disc disease), lumbosacral chronic February 05, 2025 10:24am Degenerative disc disease, cervical chronic February 05, 2025 10:24am Scoliosis chronic February 05, 2025 10:24am Back pain noneactive February 05, 2025 10:24am [facility] Work Phone: Evaluation note Note Date & Type Note Facility Evaluation note No assessment information availa [facility] Work Phone: Evaluation note Note Date & Type Note Facility Evaluation note Diagnosis Onset Date Segmental and somatic dysfun ction of lumbar region acute Segmental and somatic dysfun ction of pelvic region acute DDD (degenerative disc disease), lumbosacral chronic Scoliosis chronic Segmental and somatic dysfun ction of lumbar region acute Segmental and somatic dysfun ction of pelvic region acute DDD (degenerative disc disease), lumbosacral chronic Scoliosis chronic Segmental and somatic dysfun ction of cervical region acute Segmental and somatic dysfun ction of lumbar region acute Segmental and somatic dysfun ction of pelvic region acute Segmental and somatic dysfun ction of thoracic region acute DDD (degenerative disc disease), lumbosacral chronic Degenerative disc disease, cervical chronic Scoliosis chronic Segmental and somatic dysfun ction of cervical region acute Segmental and somatic dysfun ction of lumbar region acute Segmental and somatic dysfun ction of pelvic region acute Segmental and somatic dysfun ction of thoracic region acute DDD (degenerative disc disease), lumbosacral chronic Degenerative disc disease, cervical chronic Scoliosis [facility] Work Phone: Evaluation note Note Date & Type Note Facility Evaluation note Diagnosis Onset Date Segmental and somatic dysfun ction of cervical region acute Segmental and somatic dysfun ction of lumbar region acute Segmental and somatic dysfun ction of pelvic region acute Segmental and somatic dysfun ction of thoracic region acute DDD (degenerative disc disease), lumbosacral chronic Degenerative disc disease, cervical chronic Scoliosis [facility] Work Phone: Evaluation note Note Date & Type Note Facility Evaluation note Diagnosis Onset Date Segmental and somatic dysfun ction of lumbar region acute Segmental and somatic dysfun ction of pelvic region acute Segmental and somatic dysfun ction of thoracic region acute DDD (degenerative disc disease), lumbosacral chronic Scoliosis [facility] Work Phone: Evaluation note Note Date & Type Note Facility Evaluation note Diagnosis Onset Date Segmental and somatic dysfun ction of lumbar region acute Segmental and somatic dysfun ction of pelvic region acute Segmental and somatic dysfun ction of thoracic region acute DDD (degenerative disc disease), lumbosacral chronic Scoliosis chronic DDD (degenerative disc disease), lumbosacral chronic Scoliosis chronic [facility] Work Phone: Family History No Family History Records Found Relationship Condition Age at Onset Recorded Date/T jaime mother Arthritis Unknown Autoimmune disease Unknown Hypertension Unknown father Hypertension Unknown Myocardial infarction Unknown brother Depression Unknown grandfather Cerebrovascular accident (CVA) Unknown sister Disorder of thyroid Unknown Chief Complaint and Reason for Visit Chief Complaint SCREENING/OSTEO Chief Complaint Back pain Back pain Back pain Back pain Reason for Visit Segmental and somati c dysfunction of lumbar region Segmental and somatic dysfunction of pelvic region DDD (degenerative disc disease), lumbosacral Scoliosis Segmental and somatic dysfunction of lumbar region Segmental and somatic dysfunction of pelvic region DDD (degenerative disc disease), lumbosacral Scoliosis Segmental and somatic dysfunction of cervical region Segmental and somatic dysfunction of lumbar region Segmental and somatic dysfunction of pelvic region Segmental and somatic dysfunction of thoracic region DDD (degenerative disc disease), lumbosacral Degenerative disc disease, cervical Scoliosis Segmental and somatic dysfunction of cervical region Segmental and somatic dysfunction of lumbar region Segmental and somatic dysfunction of pelvic region Segmental and somatic dysfunction of thoracic region DDD (degenerative disc disease), lumbosacral Degenerative disc disease, cervical Scoliosis Chief Complaint Back pain Back pain Back pain Back pain FATTY LIVER Reason for Visit Segmental and somati c dysfunction of lumbar region Segmental and somatic dysfunction of pelvic region DDD (degenerative disc disease), lumbosacral Scoliosis Segmental and somatic dysfunction of lumbar region Segmental and somatic dysfunction of pelvic region DDD (degenerative disc disease), lumbosacral Scoliosis Segmental and somatic dysfunction of cervical region Segmental and somatic dysfunction of lumbar region Segmental and somatic dysfunction of pelvic region Segmental and somatic dysfunction of thoracic region DDD (degenerative disc disease), lumbosacral Degenerative disc disease, cervical Scoliosis Segmental and somatic dysfunction of cervical region Segmental and somatic dysfunction of lumbar region Segmental and somatic dysfunction of pelvic region Segmental and somatic dysfunction of thoracic region DDD (degenerative disc disease), lumbosacral Degenerative disc disease, cervical Scoliosis Chief Complaint Back pain FATTY LIVER EORDER Reason for Visit Segmental and somati c dysfunction of cervical region Segmental and somatic dysfunction of lumbar region Segmental and somatic dysfunction of pelvic region Segmental and somatic dysfunction of thoracic region DDD (degenerative disc disease), lumbosacral Degenerative disc disease, cervical Scoliosis Chief Complaint FATTY LIVER EORDER Back pain DYSPHAGIA COPY PCP Reason for Visit Segmental and somati c dysfunction of lumbar region Segmental and somatic dysfunction of pelvic region Segmental and somatic dysfunction of thoracic region DDD (degenerative disc disease), lumbosacral Scoliosis Chief Complaint Back pain DYSPHAGIA COPY PCP LUMBAR SPINE Room 1 CXR Reason for Visit Segmental and somati c dysfunction of lumbar region Segmental and somatic dysfunction of pelvic region Segmental and somatic dysfunction of thoracic region DDD (degenerative disc disease), lumbosacral Scoliosis DDD (degenerative disc disease), lumbosacral Scoliosis Chief Complaint CXR PAIN- COPY PCP Chief Complaint PAIN- COPY PCP EORDER Chief Complaint Admit Date DRY NEEDLING/ADJUSTMENT October 19 025 9:23am DRY NEEDLING/ADJUSTMENT November 14, 2024 1:53pm DRY NEEDLING/ADJUSTMENT December 25, 2024 10:09am ACUPUNCTURE/ADJUSTMENT February 05, 2025 10 :24am Reason for Visit Admit Date Neck pain October 19, 2024 9:23am Segmental and somatic dysfunction of cer vical region October 19, 2024 9:23am Segmental and somatic dysfunction of lum bar region October 19, 2024 9:23am Segmental and somatic dysfunction of pel anila region October 19, 2024 9:23am Segmental and somatic dysfunction of tho racic region October 19, 2024 9:23am DDD (degenerative disc disease), lumbosa cral October 19, 2024 9:23am History of rotator cuff surgery October 19, 2024 9:23am Back pain October 19, 2024 9:23am Neck pain November 14, 2024 1:5 3pm Segmental and somatic dysfunction of cer vical region November 14, 2024 1:53pm Segmental and somatic dysfunction of lum bar region November 14, 2024 1:53pm Segmental and somatic dysfunction of pel anila region November 14, 2024 1:53pm Segmental and somatic dysfunction of tho racic region November 14, 2024 1:53pm DDD (degenerative disc disease), lumbosa cral November 14, 2024 1:53pm Scoliosis November 14, 2024 1:5 3pm Back pain November 14, 2024 1:5 3pm Neck pain December 25, 2024 10: 09am Segmental and somatic dysfunction of cer vical region December 25, 2024 10:09am Segmental and somatic dysfunction of lum bar region December 25, 2024 10:09am Segmental and somatic dysfunction of pel anila region December 25, 2024 10:09am Segmental and somatic dysfunction of tho racic region December 25, 2024 10:09am DDD (degenerative disc disease), lumbosa cral December 25, 2024 10:09am Scoliosis December 25, 2024 10: 09am Back pain December 25, 2024 10: 09am Segmental and somatic dysfunction of cer vical region February 05, 2025 10:24am Segmental and somatic dysfunction of lum bar region February 05, 2025 10:24am Segmental and somatic dysfunction of pel anila region February 05, 2025 10:24am Segmental and somatic dysfunction of tho racic region February 05, 2025 10:24am DDD (degenerative disc disease), lumbosa cral February 05, 2025 10:24am Degenerative disc disease, cervical February 05, 2025 10:24am Scoliosis February 05, 2025 10:24 am Back pain February 05, 2025 10:24 am Summary Purpose Advance Directives No Advanced Directives Records Found Additional Source Comments Care Teams (unrecognized sec tion and content) Team Status: Active Member Role Status Dates Dr. Tigre Salvador MD Family Provider Active Dr. Tigre Salvador MD Primary Care Provider Activ e Team Status: Inactive Member Role Status Dates Dr. Tigre Salvador MD Primary Care Provider, Refe rring Provider Active Dr. Jeanie Eckert DC Attending Provider Active Team Status: Inactive Member Role Status Dates Dr. Tigre Salvador MD Primary Care Provider, Attending Provider, Referring Provider Active Team Status: Inactive Member Role Status Dates Dr. Tigre Salvador MD Primary Care Provider, Atte nding Provider Active Team Status: Active Member Role Status Dates Dr. Tigre Salvador MD Primary Care Provider, Attending Provider, Referring Provider Active Team Status: Inactive Member Role Status Dates Dr. Tigre Salvador MD Primary Care Provider Activ e Dr. Cait Pearce MD Attending Provider Active Team Status: Inactive Member Role Status Dates Dr. Tigre Salvador MD Primary Care Provider, Refe rring Provider Active Dr. Hollis Tomas DO Attending Provider Active Team Status: Inactive Member Role Status Dates Dr. Tigre Salvador MD Primary Care Provider Activ e Dr. Sam Shook MD Attending Provider Active Team Status: Inactive Member Role Status Dates Dr. Tigre Salvador MD Primary Care Provider Activ e Dr. Cait Pearce MD Attending Provider, Referring Provider Active Team Status: Active Member Role Status Dates Dr. Kyler Salvador MD Family Provider Active Dr. Kyler Salvador MD Primary Care Provider Acti ve Team Status: Inactive Member Role Status Dates Dr. Kyler Salvador MD Primary Care Provider Acti ve Dr. Cait Pearce MD Attending Provider, Referring Provider Active Team Status: Inactive Member Role Status Dates Dr. Kyler Salvador MD Primary Care Provider, Attending Provider, Referring Provider Active Team Status: Inactive Member Role Status Dates Dr. Kyler Salvador MD Primary Care Provider Acti ve Start: October 19, 2024 End: October 19, 2024 Dr. Jeanie Eckert DC Attending Provider Active S tart: October 19, 2024 End: October 19, 2024 Dr. Jeanie Eckert DC Referring Provider Active S tart: October 19, 2024 End: October 19, 2024 Team Status: Inactive Member Role Status Dates Dr. Kyler Salvador MD Primary Care Provider Acti ve Start: November 14, 2024 End: November 14, 2024 Dr. Jeanie Eckert DC Attending Provider Active S tart: November 14, 2024 End: November 14, 2024 Dr. Jeanie Eckert DC Referring Provider Active S tart: November 14, 2024 End: November 14, 2024 Team Status: Inactive Member Role Status Dates Dr. Kyler Salvador MD Primary Care Provider Acti ve Start: December 25, 2024 End: December 25, 2024 Dr. Jeanie Eckert DC Attending Provider Active S tart: December 25, 2024 End: December 25, 2024 Dr. Jeanie Eckert DC Referring Provider Active S tart: December 25, 2024 End: December 25, 2024 Team Status: Inactive Member Role Status Dates Dr. Kyler Salvador MD Primary Care Provider Acti ve Start: February 05, 2025 End: February 05, 2025 Dr. Kyler Salvador MD Referring Provider Active Start: February 05, 2025 End: February 05, 2025 Dr. Jeanie Eckert DC Attending Provider Active S tart: February 05, 2025 End: February 05, 2025 INFORMATION SOURCE (unrecogn ized section and content) DATE CREATED AUTHOR 02/06/2025 [facility] FOR RECORDS PERTAINING TO PATIENTS WHO ARE OR HAVE BEEN ENROLLED IN A CHEMICAL DEPENDENCY/SUBSTANCEABUSE PROGRAM, SOME INFORMATION MAY BE OMITTED. This clinical summary was aggregated from multiple sources. Caution should be exercised in using it in the provision of clinical care. This summary normalizes information from multiple sources, and as a consequence, information in this document may materially change the coding, format and clinical context of patient data. In addition, data may be omitted in some cases. CLINICAL DECISIONS SHOULD BE BASED ON THE PRIMARY CLINICAL RECORDS. [facility] [employer] [facility]. provides no warranty or guarantee of the accuracy or completeness of information in this document.
== END | disposition home or self-care (01) ==
LOC: MFPLAB 12:12
PROVIDERS: PCP Family Medicine; Referring Provider Family Medicine; Visit Provider Family Medicine
DX: L40.50 Arthropathic psoriasis, unspecified (principal); E55.9 Vitamin D deficiency, unspecified
CPT/HCPCS: 36415; 80048; 82306

== ENCOUNTER → 2025-03-15 | Outpatient (CLI) | payer MEDICARE, SELFPAY ==
--- NOTE | 2025-03-15 09:34 | RAD_ITS ---
EXAM: XR Right Hip With Pelvis When Performed, 2 or 3 Views CLINICAL INDICATION: R HIP PAIN TECHNIQUE: Two or three views of the right hip with pelvis when performed. COMPARISON: No relevant prior studies available. FINDINGS: BONES/JOINTS: Mild degenerative changes of the hip joint. No acute fracture. No dislocation. SOFT TISSUES: Unremarkable. RAD/HIP, UNI W/ Pelvis 2-3 Views IMPRESSION: Degenerative changes as above. Reading Location[facility]
== END | disposition home or self-care (01) ==
PROVIDERS: PCP Family Medicine; Referring Provider Family Medicine; Visit Provider Family Medicine
DX: M25.551 Pain in right hip (principal)
CPT/HCPCS: 73502

== ENCOUNTER → 2025-03-28 | Outpatient (CLI) | payer MEDICARE, SELFPAY ==
[2025-03-28 16:06] LABS: Hematocrit 39.8 % (37-47); Hemoglobin 13.1 g/dL (12.0-15.0); Immature Granulocytes Count 0.020 X10^3/uL (0.0-0.0); Mean Corp Hgb Conc 32.9 g/dL (32-36); Mean Corpuscular Volume 92.8 fL (81-99); Mean Platelet Vol. 10.4 fl (6.2-12.0); NRBC Flagged by Analyzer 0 % (0-5); Platelet Count 241 K/mm3 (150-450); RBC Distribution Width CV 13.2 % (11.6-14.6); RBC Distribution Width SD 44.8 fl (35.1-43.9); Red Blood Count 4.29 M/mm3 (4.2-5.4); White Blood Count 8.2 K/mm3 (4.4-11.0)
[2025-03-28 16:20] LABS: AST(SGOT) 23 U/L (<=31); Alanine Aminotransfer ALT/SGPT 17 U/L (<=34); Albumin, Serum 3.9 g/dL (3.4-4.8); Alkaline Phosphatase 79 U/L (35-104); Anion Gap 10 (5-15); BUN 25 mg/dL (4-19); BUN/Creat Ratio 31.4 RATIO (10-20); Calcium,Total 9.8 mg/dL (7.6-11.0); Carbon Dioxide 25.2 mmol/L (21.0-32.0); Chloride 104 mmol/L (98-108); Globulin 2.3 g/dL (2.2-4.2); Glucose 84 mg/dL (70-99); Potassium 4.2 mmol/L (3.3-5.1)
[2025-03-28 16:29] LABS: CRP < 3.00 mg/L (0.0-3.0)
== END | disposition home or self-care (01) ==
LOC: MTLAB 11:30
PROVIDERS: PCP Family Medicine; Referring Provider Internal Medicine Rheumatology; Visit Provider Internal Medicine Rheumatology
DX: L40.59 Other psoriatic arthropathy (principal); M79.7 Fibromyalgia; K76.0 Fatty (change of) liver, not elsewhere classified; Z79.899 Other long term (current) drug therapy
CPT/HCPCS: 36415; 80053; 85025; 85652; 86140

== ENCOUNTER → 2025-03-30 | Outpatient (CLI) | payer MEDICARE, SELFPAY ==
--- NOTE | 2025-03-30 14:22 | RAD_ITS ---
PROCEDURE: CHEST PA AND LATERAL 03/30/2025 REASON FOR EXAM: ARTHROPATHY TECHNIQUE: CHEST PA AND LATERAL COMPARISON: None FINDINGS: Hardware: None Heart: The heart is nonenlarged Mediastinum: The mediastinal contour is unremarkable. Lungs: Hyperinflation. Calcified granuloma in the superior segment of the right lower lobe. Bones: Degenerative changes are identified within the thoracic spine. Dextroscoliosis at the thoracolumbar junction. Prior rotator cuff surgery involving the right shoulder. RAD/Chest PA and Lateral IMPRESSION: Hyperinflation. Calcified granuloma in the right midlung. Reading Location: [id number]
[2025-04-03 20:08] LABS: QNTFERON TB Mitogen Value > 10.00 IU/mL (.); QNTFERON TB Nil Value 0.01 IU/mL (.); QNTFERON TB1+ Ag Value 0.01 IU/mL (.); QNTFERON TB2+ Ag Value 0.02 IU/mL (.); QNTIFERON TB Positive Criteria Negative (Negative)
== END | disposition home or self-care (01) ==
LOC: MTLAB 14:18
PROVIDERS: PCP Family Medicine; Referring Provider Internal Medicine Rheumatology; Visit Provider Internal Medicine Rheumatology
DX: L40.59 Other psoriatic arthropathy (principal); M79.7 Fibromyalgia; Z79.899 Other long term (current) drug therapy
CPT/HCPCS: 36415; 71046; 86480

== ENCOUNTER → 2025-07-03 | Outpatient (CLI) | payer MEDICARE, SELFPAY ==
--- NOTE | 2025-07-03 12:20 | BD_ITS ---
PROCEDURE: BD/Dexa Bone Density Study
== END | disposition home or self-care (01) ==
LOC: OPBD 12:17
PROVIDERS: PCP Family Medicine; Referring Provider Family Medicine; Visit Provider Family Medicine
DX: Z78.0 Asymptomatic menopausal state (principal); M85.80 Other specified disorders of bone density and structure, unspecified site
CPT/HCPCS: 77080

== ENCOUNTER 2025-07-07 15:48 | Emergency (ER) | payer MEDICARE, SELFPAY ==
[2025-07-07 15:49] VITALS: BP 135/71; PULSE 122; RESP 18; TEMP 37.8; O2SAT 96; BMI 23.6
[2025-07-07 16:16] LABS: Mucous, Urine 0 SEEN /hpf (<or=2+)
--- NOTE | 2025-07-07 16:16 | CM.ED ---
Social Work Date of referral: 07/07/25 Reason for referral: Advanced Care Directives (ACD's) not on file. Referred by: Social Work Identification Patient provided consent to social work visit. Python Java Developer requested a copy of ACD's which patient agreed to bring in. Gosia Watters, PEER EDUCATOR, BOOK AUTHOR
[2025-07-07 16:20] LABS: Color, Urine Yellow (Yellow); Glucose, Dipstick Normal (Normal); Ketone-Dipstick Negative (Negative); Leukocyte Esterase-Dipstick Negative /ul (Negative); Nitrite-Dipstick Negative (Negative); Occult Blood-Urine 25 /ul (Negative); Protein-Dipstick 15 mg/dl (Negative); Specific Gravity, Urine 1.010 (1.002-1.030); Urine Bilirubin Dipstick Negative (Negative)
[2025-07-07 16:29] LABS: Red Blood Cells-Urine 0-5 SEEN /hpf (0-5); Squamous Epithelial Cells - UA 0-5 SEEN /hpf (5-10)
[2025-07-07] MEDS: 0.9% Normal Saline (1000mL) 1,000 ML 999 ML IV (16:36)
--- OUTSIDE RECORDS SUMMARY | 2025-07-07 16:39 | XMS RPT_ITS | CCD ---
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 Tigre Salvador Primary Care Provider Dr. Tigre Salvador Referring Provider Babar, Dr. Ware Attending Provider [phone] Dr. Tigre Salvador Primary Care Provider [phone] [place], Dr. Landeros Referring Provider Dossi, Dr. Ware Attending Provider [phone] Dr. Hollis Tomas Attending Provider [phone] Dr. Sam Shook Attending Provider [phone] [place] MEZA, Dr. Chávez Primary Care Provider Dossi DC, Dr. Ware Attending Provider Dossi DC, Dr. Ware Referring Provider [phone] [place] MEZA, Dr. Chávez Referring Provider [place] MEZA, Dr. Chávez Primary Care Provider Dossi DC, Dr. Ware Attending Provider [phone] Dossi DC, Dr. Ware Referring Provider [phone] [place] MEZA, Dr. Chávez Attending Provider [phone] [place] MEZA, Dr. Chávez Primary Care Provider Dossi DC, Dr. Ware Attending Provider Dossi DC, Dr. Ware Referring Provider [phone] [place] MEZA, Dr. Chávez Referring Provider [phone] [place] MEZA, Kyler Referring Provider Jake Pearce MD, Dr. Chavira Attending Provider Ramses MEZA, Dr. Chavira Referring Provider [place] MEZA, Dr. Chávez Primary Care Physicia n Dossi DC, Dr. Ware Attending Physician Dossi DC, Dr. Ware Referring Provider [place] MEZA, Dr. Chávez Attending Physician Ramses MEZA, Dr. Chavira Attending Physician Ralph MEZA, Dr. Lino Attending Physician [place], Chunger Referring Unavailable Ranney, Christopher Primary Care Unavailable Dossi, Jeanie Attending Unavailable Dossi, Jeanie Referring Unavailable Ranney, Christopher Primary Care Unavailable Dossi, Jeanie Attending Unavailable Dossi, Jeanie Referring Unavailable Ranney, Christopher Primary Care Unavailable Dossi, Jeanie Attending Unavailable Dossi, Jeanie Referring Unavailable Ranney, Christopher Primary Care Unavailable Dossi, Jeanie Attending Unavailable Ranney, Christopher Primary Care Unavailable Dossi, Jeanie Attending Unavailable Dossi, Jeanie Referring Unavailable Ranney, Christopher Primary Care Unavailable Dossi, Jeanie Attending Unavailable Dossi, Jeanie Referring Unavailable Dossi, Jeanie Referring Unavailable Ranney, Christopher Primary Care Unavailable Dossi, Jeanie Attending Unavailable Dossi, Jeanie Referring Unavailable Ranney, Christopher Primary Care Unavailable Dossi, Jeanie Attending Unavailable Ranney, Christopher Referring Unavailable Ranney, Christopher Attending Unavailable Ranney, Christopher Primary Care Unavailable Vellanki, Cait Referring Unavailable Vellanki, Cait Attending Unavailable Ranney, Christopher Primary Care Unavailable Ranney, Christopher Referring Unavailable Ranney, Christopher Attending Unavailable Ranney, Christopher Primary Care Unavailable Ranney, Christopher Primary Care Unavailable Dossi, Jeanie Attending Unavailable Dossi, Jeanie Referring Unavailable Ranney, Christopher Attending Unavailable Ranney DUNG Christopher Referring Unavaila ble Ranney, Christopher Primary Care Unavailable Vellanki, Ciat Referring Unavailable Vellanki, Cait Attending Unavailable Ranney, Christopher Primary Care Unavailable Ranney, Christopher Referring Unavailable Ranney, Christopher Attending Unavailable Ranney, Christopher Primary Care Unavailable Vellanki, Cait Referring Unavailable Cait Pearce Attending Unavailable [facility] Unavailable [place] Foster Primary [facility] Unavailable Jeanie Eckert Attending Unavailable Jeanie Eckert Referring Unavailable [facility] Unavailable Holland Rosas Attending Unavailable [facility] Referring Unavailable [facility] Unavailable Jeanie Eckert Attending Unavailable [place] [facility] Referring Unavailable Jeanie Eckert Referring Unavailable [facility] Unavailable Jeanie Eckert Attending Unavailable Allergies Allergy Classification Reported Allergen(s) Allergy Type Date of Onset Reaction(s) Facility (20 sources) Adhesive Tape; Translations: [adhesive tape] Propensity to adverse reactions 2 Rash [facility] (19 sources) POISON MARLEEN EXTRACT Drug Allergy 2 [facility] (1 source) sulfaSALAzine Drug Allergy 5 [facility] (1 source) sulfaSALAzine Drug Allergy 5 [facility] Repository (1 source) poison marleen extract Drug allergy (disorder) 5 [facility] Repository Medications Current Medications Medication Drug Class(es) Dates Sig (Normalized) Sig (Original) benzonatate 200 mg oral capsule (2 sources) Non-narcotic Antitussive Start: 05-21-2025 take 1 capsule by mouth three times daily as needed Benzonatate 200 mg capsule Active 200 mg PO THREE TIMES A DAY as needed May 21, 2025 12:00am Complies with drug therapy cholecalciferol 0.025 mg oral capsule (20 sources) Vitamin D Start: 05-31-2025 take 1 capsule by mouth once daily Cholecalciferol (Vitamin D3) 25 mcg (1,000 unit) capsule Active 75 ug PO DAILY May 31, 2025 11:01am Complies with drug therapy Start: 07-10-2020 End: 05-31-2025 take 1 capsule by mouth once daily Cholecalciferol (Vitamin D3) 25 mcg (1,000 unit) capsule Discontinued 25 ug PO DAILY July 10, 2020 1:00am May 31, 2025 11:02am Multivitamin With Minerals (3 sources) Start: 06-04-2023 take 1 tablet by mouth once daily Multivitamin With Minerals Active 1 TABLET PO DAILY June 04, 2023 12:00am Start: 06-04-2023 take 1 tablet by ginny th once daily Multivitamin With Minerals Active 1 TABLET PO DAILY 2023 11:00pm Multivitamin With Minerals tablet (9 sources) Start: 06-04-2023 Multivitamin W ith Minerals tablet Active 1 {tbl} PO DAILY June 04, 2023 12:00am Complies with drug therapy Start: 06-04-2023 Multivitamin W ith Minerals tablet Active 1 {tbl} PO DAILY June 04, 2023 12:00am nabumetone 500 mg oral tablet (10 sources) Nonsteroidal Anti-inflammatory Drug Start: 05-04-2024 End: 05-31-2025 take 1 tablet by mouth twice daily as needed Nabumetone 500 mg tablet Active 500 mg PO TWICE A DAY as needed May 31, 2025 11:02am Complies with drug therapy Risankizumab-Rzaa (1 source) Start: 05-31-2025 Risankizumab-Rza a (Skyrizi) 150 mg/mL pen injector Active 150 mg SC every 12 weeks May 31, 2025 12:00am Complies with drug therapy Completed/Discontinued Medications Medication Drug Class(es) Dates Sig (Normalized) Sig (Original) calcium carbonate 1250 mg oral tablet (19 sources) Start: 07-10-2020 End: 05-31-2025 take 1 tablet by mouth once daily Calcium Carbonate (Calcium 500) 500 mg calcium (1,250 mg) tablet Discontinued 500 mg PO DAILY July 10, 2020 1:00am May 31, 2025 11:01am Magnesium (19 sources) Start: 07-10-2020 End: 06-04-2023 take 1 [...] 10, 2020 1:00am Multivitamin (Daily Multi-Vitamin) tablet (19 sources) Start: 07-10-2020 End: 06-04-2023 Multivitamin (Daily [...] TABLET PO DAILY July 10, 2020 1:00am polyethylene glycol 3350 73406 mg powder for oral solution (20 sources) Osmotic Laxative Start: 07-10-2020 End: 05-31-2025 Polyethylene Glycol 3350 (Miralax) 17 gram/dose powder Discontinued 17 g PO DAILY as needed June 04, 2023 9:30am May 31, 2025 11:02am vitamin b12 1 mg oral capsule (19 sources) Vitamin B12 Start: 07-10-2020 End: 07-18-2021 take 1 capsule by mouth once daily Cyanocobalamin (Vitamin B-12) 1,000 mcg capsule Discontinued 1000 ug PO DAILY July 10, 2020 1:00am July 18, 2021 12:34pm Problems Active Problems Problem Classification Problem Date Documented Date Episodic/Chronic Cataract (19 sources) Bilateral cataracts 03-26-2022 Chronic Nutritional deficiencies (1 source) Vitamin D deficiency, unspecified; Translations: [Vitamin D deficiency, unspecified] Onset: 10-20-2024 Chronic Osteoporosis (1 source) Age-related osteoporosis without current pathological fracture; Translations: [Age-related osteoporosis without current pathological fracture] Onset: 07-03-2025 Chronic Other acquired deformities (20 sources) Scoliosis deformity of spine; Translations: [Scoliosis, unspecified] 09-17-2020 Chronic Comment on above: right apex L2 Other acquired deformities (16 sources) Scoliosis, unspecified; Translations: [Scoliosis [and kyphoscoliosis], idiopathic] 12-10-2022 Chronic Other acquired deformities (6 sources) Acquired scoliosis Chronic Other bone disease and musculoskeletal deformities (1 source) Other idiopathic scoliosis, thoracolumbar region; Translations: [Other idiopathic scoliosis, thoracolumbar region] Onset: 06-27-2025 Chronic Other bone disease and musculoskeletal deformities (20 sources) Segmental and somatic dysfunction; Translations: [Segmental and somatic dysfunction of cervical region] 04-15-2021 Episodic Other bone disease and musculoskeletal deformities (16 sources) Segmental and somatic dysfunction of lumbar region; Translations: [Nonallopathic lesions, lumbar region] Onset: 06-27-2025 12-10-2022 Episodic Other bone disease and musculoskeletal deformities (16 sources) Segmental and somatic dysfunction of pelvic region; Translations: [Nonallopathic lesions, pelvic region] Onset: 06-27-2025 12-10-2022 Episodic Other bone disease and musculoskeletal deformities (8 sources) Segmental and somatic dysfunction of cervical region; Translations: [Nonallopathic lesions, cervical region] Onset: 05-28-2025 12-24-2022 Episodic Other bone disease and musculoskeletal deformities (10 sources) Segmental and somatic dysfunction of thoracic region; Translations: [Nonallopathic lesions, thoracic region] Onset: 06-27-2025 12-24-2022 Episodic Other inflammatory condition of skin (1 source) Other psoriatic arthropathy; Translations: [Other psoriatic arthropathy] Onset: 04-20-2025 Chronic Other inflammatory condition of skin (1 source) Arthropathic psoriasis, unspecified; Translations: [Arthropathic psoriasis, unspecified] Onset: 03-04-2025 Chronic Other nervous system disorders (20 sources) Peripheral neuritis; Translations: [Other specified mononeuropathies] 09-17-2020 Chronic Other nervous system disorders (1 source) Other chronic pain; Translations: [Other chronic pain] Onset: 06-27-2025 Chronic Other nervous system disorders (1 source) Other specified mononeuropathies; Translations: [Other specified mononeuropathies] Onset: 05-28-2025 Chronic Spondylosis; intervertebral disc disorders; other back problems (20 sources) Degeneration of cervical intervertebral disc; Translations: [Other cervical disc degeneration, unspecified cervical region] Onset: 05-28-2025 12-24-2022 Chronic Spondylosis; intervertebral disc disorders; other back problems (20 sources) Neck pain; Translations: [Cervicalgia] Onset: 01-25-2025 04-15-2021 Episodic Unclassified (7 sources) M41.25 - Other idiopathic scoliosis, thoracolumbar region,M99.02 - Segmental and somatic dysfunction of thoracic region,G58.8 - Other specified mononeuropathies Unclassified (6 sources) Segmental and somatic dysfunction of thoracic region Unclassified (6 sources) Intercostal neuritis Unclassified (1 source) Other intervertebral disc degeneration, 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; Translations: [Other intervertebral disc degeneration, 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] Onset: 06-27-2025 Unclassified (1 source) Low back pain, unspecified; Translations: [Low back pain, unspecified] Onset: 03-12-2025 Past or Other Problems Problem Classification Problem Date Documented Date Episodic/Chronic Other non-traumatic joint disorders (1 source) Pain in right hip; Translations: [Pain in right hip] Onset: 03-22-2025 Episodic Residual codes; unclassified (1 source) Other specified postprocedural states; Translations: [Other specified postprocedural states] Onset: 11-15-2024 Episodic Unclassified (19 sources) hx of child 03-26-2022 Results Test Name Value Interpretation Reference Range Facility Dexa Bone Density Studyon Dexa Bone Density Study [facility] Services [address] [place] [address] [id number] Dexa Bone Density Study MR#: [id number] Acct: [id number] Name: HELDER BROWNLEE Rep #: [id number] : 1950 F 75 From: Wayne loja MD PCP: Dr. Kyler Salvador MD Status: REG CLI Study: Dexa Bone Density Study Date of Exam: 07/03/25 Exam# [id number] Ordering Dr: Kyler Salvador PROCEDURE: DEXA BONE DENSITY STUDY 07/03/2025 REASON FOR EXAM: F, age 75 y/o . Postmenopausal. TECHNIQUE: Procedure Code: BDDBD Modality: DX Procedure: DEXA BONE DENSITY STUDY COMPARISON: Prior study dated April 27, 2019. FINDINGS: BMD and T-SCORES Lumbar spine: 0.842 g/cm2, T-score -1.9 Levels: L1 through L4 Change from prior: Improvement of 3.3%. Left femoral neck: 0.641 g/cm2, T-score -1.9 Femoral neck comparison data not recommended for monitoring change. Left total hip: 0.775 g/cm2, T-score -1.4 Change from prior: Loss of 5.6%. Right femoral neck: 0.653 g/cm2, T-score -1.8 Femoral neck comparison data not recommended for monitoring change. Right total hip: 0.757 g/cm2, T-score -1.5 Change from prior: Loss of 7.1%. The World Health Organization has defined the following categories based on bone density: Normal bone density: T-score equal to or greater than -1.0 Osteopenia: T-score between -1.0 and -2.5 Osteoporosis: T-score equal to or less than -2.5 FRAX (or Comparable) Fracture Risk Assessment: 10 Year Probability of Fracture: Major Osteoporotic Fracture: 12th% Hip Fracture: 3.1% (Note: FRAX is not to be reported in setting of normal range bone density, osteoporosis on DEXA, known history of osteoporosis, prior osteoporotic hip or vertebral fracture, or for any patient undergoing pharmacological treatment for bone loss.) The National Osteoporosis Foundation (NOF) recommends pharmacological treatment for patients with a FRAX 10-year risk of 3% or higher for a hip fracture, or 20% or higher for a major osteoporotic fracture, to prevent osteoporosis and reduce fracture risk. The patient does meet the pharmacological treatment recommendations for prevention of osteoporosis. BD/Dexa Bone Density Study IMPRESSION: OSTEOPENIA. Recommend follow-up as clinically warranted. Reading Location: [id number] CC: Dr. Kyler Salvador MD [employer] Laminator: Signed Normal [facility] Chiropractic Reporton 2024 Chiropractic Report [facility] [address] [place] [address] OFFICE VISIT Date of Service: 06/27/25 MR#: [id number] Acct: [id number] Name: HELDER BROWNLEE Rep #: [id number] : 1950 Provider: BECKY Silvestre Age/Sex: 75/F Location: [place] Status: Signed Intake Vital Signs 07/17/24 11:42 05/31/25 10:55 Height 5 ft 2 in 5 ft 2 in Weight: 123 lb BMI 22.4 BP 118/71 Blood Pressure Location Lt brachial Position Sitting Respiration 15 Pulse 76 Pulse Source Monitor Temp 97.8 F Temp Source Temporal Pulse Oximetry (%) 95 Oxygen Delivery Method room air Intake Visit Reasons: Back pain Chief Complaint: Right hip and low back pain Administrative Processor Required: No Accompanied by: Self Is patient in pain?: Yes Pain scale (1-10): 6 Allergies poison marleen extract Allergy (Unknown, Verified 06/27/25 10:07) unknown sulfasalazine (From Azulfidine) Allergy (Verified 06/27/25 10:07) Hives adhesive tape Adverse Reaction (Mild, Verified 06/27/25 10:07) Rash Medications ???Medication ???Instructions ???Recorded ???Confirmed ???Type multivitamin with minerals 1 tab PO DAILY 06/04/23 06/27/25 H istory benzonatate 200 mg capsule 200 mg PO TID PRN 05/21/25 5 History cholecalciferol (vitamin D3) 25 75 mcg PO DAILY 05/31/25 06/27/25 History mcg (1,000 unit) capsule nabumetone 500 mg tablet 500 mg PO BID PRN 05/31/25 5 History risankizumab-rzaa 150 mg/mL 150 mg subcut Q12W 05/31/25 History subcutaneous pen injector (Skyrizi) Have you fallen in the past year?: [...] vascular accident) Sister Thyroid disorder Social History household members: spouse current occupational status: retired pets and animals: Yes pets and animals: cat(s) Smoking Status: Never smoker alcohol intake: never caffeine: Yes Type: coffee Number of servings: 2 what type of physical activity do you participate in: walking frequency: 5-6 times per week do you feel safe at home: Yes HPI Back pain Chief Complaint: Right hip and low back pain Visit Number: 9 Details: Helder is a 74 year old female here to follow up on low back pain and right hip pain radiating to groin that is dull and achy. Occasional brief right hip sharp pain during certain movements while standing. She states she still has some right hip/RLE weakness, mobility, and ROM issues. Denies recent falls. Left lateral rib area pain continues, neurology seen. She rates her pain 6/10 today. Initially attributed some improvement with Skyrizi for arthritis, although now is not sure. She treats pain at home with Magnesium oil and multi-mineral supplement which has been helpful. She had to take her NSAID's daily to help alleviate her pain. Her pain and stiffness is worse in the mornings but gets better as the day goes on. She treats pain at home with heat, turmeric, stretching, ibuprofen and nabumetone as needed. She reports chiropractic adjustments and acupuncture are helpful in relieving her pain and discomfort. Location: neck/back Duration: frequent Aggravating or associated factors: twisting, bending,standing Relieving factors: chiro Pain Quality: aching, dull [...] the right greater than left (paraspinal L1-L5, trap,latissimus, glute, piriformis) and on the left greater than right ( thoracic paraspinal (T5-T10),), Yes Trigger (L serratus a,teres jacob,subscap) and Yes misalignment T1, (more content not included)... Normal [facility] Neurology Visit Reporton Neurology Visit Report [facility] [address] [facility], [address] [place] [address] OFFICE VISIT Date of Service: 05/31/25 MR#: [id number] Acct: [id number] Name: HELDER BROWNLEE Rep #: [id number] : 1950 Provider: Dr. Holland rubin MD Age/Sex: 74/F Location: [place]. Status: Signed HPI HPI Chief Complaint: Establish Care Details: The patient is a 74-year-old right-handed female who [facility]. She was referred by Dr. 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 This patient presents by herself for evaluation of anterior cutaneous nerve entrapment syndrome. Patient has had left upper quadrant segmental pain since about 2010. Exact cause for this had not been known for many years. It is not until relatively recently that she was identified as having significant scoliosis of the thoracolumbar spine. Scoliosis of thoracolumbar spine may play a role in the patient's radicular-like symptom complex. X-rays including scoliosis series were reviewed by me. Scoliosis series dated 07/03/2020 indicated dextroscoliosis thoracolumbar spine with the apex of the curvature at the L2 vertebral body. It measured approximately 29. There is also a levoscoliosis of the lower thoracic spine centered at the level about T10 measuring about 16.7. No acute fractures were identified. Postsurgical changes in the right head noted on the images. Patient did have MRI of the dated 10/17/2012 reported focal left paramedian herniation at T11-T12. Bone deformities of several vertebral endplates were noted with juxtacortical Schmorl's nodes. Hemangioma at T12-L1 also noted. Additional findings are also identified on that report not related to the spine. It is clear that the patient has significant spondylosis throughout the cervical thoracic and lumbar spine judging from her various films and MRIs that been performed and are available in her radiology file for review. Patient reported initial presentation of pain originating in the lower thoracic spine radiating around the left side of her thorax to near the costochondral junction. Intensity of pain may be exacerbated by being in a seated position depending on a car or chair. Also noted particularly at night. Patient has learned to sleep on her right side to alleviate pain. She often uses local heat to provide relief from pain. Various attempts to treat this including injections have been tried with limited benefit. Approaching a lower thoracic source of radiculopathy or pain may be technically difficult particular with her scoliotic curves. No surgical options have been offered considering the technical difficulty associated with her anatomy. 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 There is a basis for being referred here now. Patient does note that this pain seems to be relatively quiet at this point in time. She does indicate that there seems to be an area of tenderness near the anterior margins of the left lower ribs. Patient has not had trauma which would account for this. Patient does have significant osteoporosis. She is being monitored every 2 years with DEXA scan. There are multiple therapies available for advanced osteoporosis which may be available to the patient patient's been advised to discuss this with her primary care physician or comfort station attendant. Patient does have psoriasis which is currently being treated with Skyrizi. ROS: General: No recent respiratory illnesses or viral syndromes. HEENT: No headache. Vision intact. History of cataract removal with placement of intraocular lenses. Hearing intact. No epistaxis. Respiratory: Regular respiration. No hemoptysis. Cardiac: No shortness of breath or chest pain. Abdomen: Possible referred pain as noted above. No hematemesis or passing blood per stool. : No hematuria. Extremities: Polyarticular arthritis. Scoliosis is noted above. Skin: Psoriasis currently controlled. Neurologic no strokes or seizures noted. Exam Const Other: Blood pressure 118/71 pulse 76 respiration 15 temperature 97.8 O2 sat 95%. BMI is 22.4%. General: No acute distress. HEENT: Normocephalic. Conjunctive eyes clear. Respiratory: Unlabored breathing. Extremities: No obvious deformities of arms or legs. Difficult for me to determine if the patient has any psoriatic arthritis by visual inspection of hands. Skin: Patient has psoriasis which is currently being treated. No obvious lesions on exposed areas to my review. Deferred to dermatology. Neurologic examination: Limited examination at this time. Mental status: Patient awake alert and able to give details regarding her overall health status and treatments. Cognition normal. CN II-XII: The pupils do appear to be equal and (more content not included)... Normal [facility] Chiropractic Reporton 2024 Chiropractic Report [facility] [address] [place] [address] OFFICE VISIT Date of Service: 05/21/25 MR#: [id number] Acct: [id number] Name: HELDER BROWNLEE Rep #: [id number] : 1950 Provider: BECKY Silvestre Age/Sex: 74/F Location: [place] Status: Signed Intake Vital Signs 07/17/24 11:42 Height 5 ft 2 in Intake Visit Reasons: Back pain Chief Complaint: Low and upper back Pain Is patient in pain?: Yes (right low back ) Pain scale (1-10): 4 Allergies poison marleen extract Allergy (Unknown, Verified 05/21/25 10:04) unknown adhesive tape Adverse Reaction (Mild, Verified 05/21/25 10:04) Rash Medications ???Medication ???Instructions ???Recorded ???Confirmed ???Type calcium carbonate (Calcium 500) 500 mg PO DAILY 07/10/20 05/21/25 History cholecalciferol (vitamin D3) 25 25 mcg PO DAILY 07/10/20 05/21/25 History mcg (1,000 unit) capsule multivitamin with minerals 1 tab PO DAILY 06/04/23 05/21/25 H istory polyethylene glycol 3350 17 17 g PO DAILY PRN 06/04/23 5 History gram/dose oral powder (Miralax) nabumetone 500 mg tablet 500 mg PO BID 05/04/24 05/21/25 Hi story benzonatate 200 mg capsule 200 mg PO TID PRN 05/21/25 5 History Have you fallen in the past [...] follow up on back pain. Pt. reports some improvement in her right shoulder/upper back . She states she still has some mobility/ROM issues but mild pain 1/10. She continues to complain of right low back pain that extends into her right hip and groin. She states transitioning from sitting to standing is when she feels the most pain. She rates her pain 4/10 today. She was recently was started on a new medication skyrizi for arthritis and states she believes it is giving her some relief. She treats pain at home with CBD and Magnesium oil which has been helpful. She had to take her NSAID's daily to help alleviate her pain. Her pain and stiffness is worse in the mornings but gets better as the day goes on. She treats pain at home with heat, turmeric, stretching and aspirin as needed. She reports chiropractic adjustments and acupuncture are helpful in relieving her pain and discomfort. Location: neck/back Duration: frequent Aggravating or associated factors: twisting, bending,standing Relieving factors: chiro Pain Quality: aching, dull [...] the right greater than left (paraspinal L1-L5, trap,latissimus, glute, piriformis) and on the left greater than right ( thoracic paraspinal (T5-T10),), Yes Trigger (R lumbar multifidi,Glute medius,pir) and Yes misalignment T1, T2, T6, T7, T8, L1, L2, L3, L4, L5 and RIL Sacroiliac joints: on the right tender to palpation Office Procedures Procedures - Chiropractic Procedures Manipulation: Cervical C6, Lumbar L4, Thoracic T4 and Pelvis RIL Manipulation: 3-4 regions Patient Response: positive Details: ???Acupuncture Patient instructions/Risk: Patient instructed not to move and informed of risks of moving. Risks associated with the procedure and the specific location were reviewed with the patient and consent w as obtained. Acupunc (more content not included)... Normal [facility] Chiropractic Reporton 2024 Chiropractic Report [facility] [address] [place] [address] OFFICE VISIT Date of Service: 04/12/25 MR#: [id number] Acct: [id number] Name: HELDER BROWNLEE Rep #: [id number] : 1950 Provider: BECKY Silvestre Age/Sex: 74/F Location: [facility] Status: Signed Intake Vital Signs 07/17/24 11:42 Height 5 ft 2 in Intake Visit Reasons: Back pain Chief Complaint: Low and upper back Pain Is patient in pain?: Yes (right low back ) Pain scale (1-10): 3 Allergies poison marleen extract Allergy (Unknown, Verified 04/12/25 10:11) unknown adhesive tape Adverse Reaction (Mild, Verified 04/12/25 10:11) Rash Medications ???Medication ???Instructions ???Recorded ???Confirmed ???Type calcium carbonate (Calcium 500) 500 mg PO DAILY 07/10/20 04/12/25 History cholecalciferol (vitamin D3) 25 25 mcg PO DAILY 07/10/20 04/12/25 History mcg (1,000 unit) capsule multivitamin with minerals 1 tab PO DAILY 06/04/23 04/12/25 H istory polyethylene glycol 3350 17 17 g PO DAILY PRN 06/04/23 5 History gram/dose oral powder (Miralax) nabumetone 500 mg tablet 500 mg PO BID 05/04/24 04/12/25 Hi story Have you fallen in the [...] follow up on back pain. Pt. reports slight improvement in her right shoulder/upper back . She states she still has some mobility/ROM issues but mild pain 09/08. She continues to complain of right low back pain that extends into her right hip and groin. She states transitioning from sitting to standing is when she feels the most pain. She just returned from a trip and states she did well traveling, her pain did not increase. She treats pain at home with CBD and Magnesium oil which has been helpful. She had to take her NSAID's daily to help alleviate her pain. Her pain and stiffness is worse in the mornings but gets better as the day goes on. She treats pain at home with heat, turmeric, stretching and aspirin as needed. She reports chiropractic adjustments and dry needling are helpful in relieving her pain and discomfort. Location: neck/back Duration: frequent Aggravating or associated factors: twisting, bending,standing Relieving factors: chiro Pain Quality: aching, dull [...] the right greater than left (paraspinal L1-L5, trap,latissimus, glute, piriformis) and on the left greater than right ( thoracic paraspinal (T5-T10),), Yes Trigger (R lumbar multifidi,Glute medius,pir) and Yes misalignment T1, T2, T6, T7, [...] and consent was obtained. Procedure: The R lumbar multifidi,Glute medius,piriformis was located by palpation. The skin and surrounding area was inspected a (more content not included)... Normal [facility] Quantiferon TB-Gold+on 04-03 QFT MITOGEN ANN > 10.00 Normal . [facility] Comment on above: Performed By: #### L 3400.8000 ####[facility] [address] [place], [place], [phone] QFT NIL VALUE 0.01 IU/mL Normal . [facility] Comment on above: Performed By: #### L 3400.8000 ####[facility] [address] [place], [place], [phone] QFT TB GOLD+ Comment Normal . [facility] Comment on above: Result Comment: David tiFERON-TB Gold Plus is a qualitative indirect test for M tuberculosis infection (including disease) and is intended for use in conjunction with risk assessment, radiography, and other medical and diagnostic evaluations. The QuantiFERON-TB Gold Plus result is determined by subtracting the Nil value from either TB antigen (Ag) value. The Mitogen tube serves as a control for the test. Performed By: #### L 3400.8000 ####[facility] [address] [place], [place], [phone] QFT TB POS CRIT Negative Normal Negative [facility] Comment on above: Result Comment: No r esponse to M tuberculosis antigens detected. Infection with M tuberculosis is unlikely, but high risk individuals should be considered for additional testing (ATS/IDSA/CDC Clinical Practice Guidelines, 2017). The reference range is an Antigen minus Nil result of <0.35 IU/mL. The specimen received for QuantiFERON testing was incubated by the ordering institution. Specific procedures outlined in our Directory of Services and in the package insert for the QuantiFERON Gold (In Tube) test must be followed to enable for proper stimulation of cells for the production of interferon gamma. Chemiluminescence immunoassay methodology Performed at: [facility] [address] [id number] Photoengraving Etcher: Guy Chance PhD, Phone: [phone] Performed By: #### L 3400.8000 ####[facility] [address] [place], [address] QFT TB1+ AG ANN 0.01 IU/mL Normal . [facility] Comment on above: Performed By: #### L 3400.8000 ####[facility] [address] [place], [place], [address] QFT TB2+ AG ANN 0.02 IU/mL Normal . [facility] Comment on above: Performed By: #### L 3400.8000 ####[facility] [address] [place], [address] Chest PA and Lateralon 03-30 Chest PA and Lateral [facility] Imaging Services [address] [place] [address] Chest PA and Lateral MR#: [id number] Acct: [id number] Name: HELDER BROWNLEE Rep #: [id number] : 1950 F 74 From: Wayne loja MD PCP: Dr. Kyler Salvador MD Status: REG CLI Study: Chest PA and Lateral Date of Exam: 03/30/25 Exam# [id number] Ordering Dr: Cait Pearce MD PROCEDURE: CHEST PA AND LATERAL 03/30/2025 REASON FOR EXAM: ARTHROPATHY TECHNIQUE: CHEST PA AND LATERAL COMPARISON: None FINDINGS: Hardware: None Heart: The heart is nonenlarged Mediastinum: The mediastinal contour is unremarkable. Lungs: Hyperinflation. Calcified granuloma in the superior segment of the right lower lobe. Bones: Degenerative changes are identified within the thoracic spine. Dextroscoliosis at the thoracolumbar junction. Prior rotator cuff surgery involving the right shoulder. RAD/Chest PA and Lateral IMPRESSION: Hyperinflation. Calcified granuloma in the right midlung. Reading Location: [id number] CC: Dr. Kyler Salvador MD; Dr. Cait Pearce MD [employer] Laminator: Signed Normal [facility] Qualitative QuantiFERON-TB g old in tube testOrdered By: Cait Pearce on 03-30-2025 M. tuberculosis tuberculin stim IFN-g Ql (Bld) 0.01 IU/mL . [facility] Absolute lymphocyte countOrd ered By: Cait Pearce on 03-28-2025 Lymphocytes Auto (Unsp spec) [#/Vol] 1.78 10*3/uL 0.83-4.51 [facility] Absolute neutrophil countOrd ered By: Cait Pearce on 03-28-2025 Neutrophils (Bld) [#/Vol] 5.6 10*3/uL 2.0-7.7 [facility] Anion gap in Serum or Plasma Ordered By: Cait Pearce on 03-28-2025 Anion gap [Moles/Vol] 10 mmol/L 5- [facility] Automated lymphocyte count a s percentage of total leukocytesOrdered By: Cait Pearce on 03-28-2025 Lymphocytes/100 WBC Auto (Unsp spec) 21.8 % - [facility] BUN/creatinine ratioOrdered By: Caitkendall Pearce on 03-28-2025 Urea nitrogen/Creatinine [Mass ratio] 31.4 mg/mg High 10- [facility] Basophil percentageOrdered B y: Cait Pearce on 03-28-2025 Basophils/100 WBC (Bld) 0.7 % 0-1 [facility] Bilirubin, totalOrdered By: Cait Pearce on 03-28-2025 Bilirubin [Mass/Vol] 0.19 mg/dL 0.00-1.30 [facility] CBC W/Diff, Automatedon 03-01 Absolute Lymph 1.78 X10 3/uL Normal 0.83-4.51 [facility] Comment on above: Performed By: #### L 100.0100, L501.6710, L500.4050, L101.9900 #### [facility] [address] [place], [address] Absolute Neut 5.6 X10 3/uL Normal 2.0-7.7 [facility] Comment on above: Performed By: #### L 100.0100, L501.6710, L500.4050, L101.9900 #### [facility] [address] [place], [address] Basophils/100 WBC (Bld) 0.7 % Normal 0-1 [facility] Comment on above: Performed By: #### L 100.0100, L501.6710, L500.4050, L101.9900 #### [facility] [address] [place], [address] Eosinophils/100 WBC (Bld) 1.2 % Normal 0-5 [facility] Comment on above: Performed By: #### L 100.0100, L501.6710, L500.4050, L101.9900 #### [facility] [address] [place], [address] Erythrocyte distribution width (RBC) [Ratio] 13.2 % Normal 11.6-14.6 [facility] Comment on above: Performed By: #### L 100.0100, L501.6710, L500.4050, L101.9900 #### [facility] [address] [place], [address] Hematocrit (Bld) [Volume fraction] 39.8 % Normal 37-47 [facility] Comment on above: Performed By: #### L 100.0100, L501.6710, L500.4050, L101.9900 #### [facility] [address] [place], [address] Hemoglobin (Bld) [Mass/Vol] 13.1 g/dL Normal 12.0-15.0 [facility] Comment on above: Performed By: #### L 100.0100, L501.6710, L500.4050, L101.9900 #### [facility] [address] [place], [address] IG% 0.200 Normal 0.0-0.9 [facility] Comment on above: Result Comment: IG% - Immature Granulocytes (promyelocytes, myelocytes and metamyelocytes) > 1% indicates that a LEFT SHIFT is Present. Performed By: #### L 100.0100, L501.6710, L500.4050, L101.9900 #### [facility] [address] [place], [address] Lymphocytes/100 WBC (Bld) 21.8 % Normal 19-41 [facility] Comment on above: Performed By: #### L 100.0100, L501.6710, L500.4050, L101.9900 #### [facility] [address] [place], [address] MCH (RBC) [Entitic mass] 30.5 pg Normal 27.0-32.0 [facility] Comment on above: Performed By: #### L 100.0100, L501.6710, L500.4050, L101.9900 #### [facility] [address] [place], [address] MCHC (RBC) [Mass/Vol] 32.9 g/dL Normal 32-36 [facility] Comment on above: Performed By: #### L 100.0100, L501.6710, L500.4050, L101.9900 #### [facility] [address] [place], [address] MCV (RBC) [Entitic vol] 92.8 fL Normal 81-99 [facility] Comment on above: Performed By: #### L 100.0100, L501.6710, L500.4050, L101.9900 #### [facility] [address] [place], [address] Monocytes/100 WBC (Bld) 7.0 % Normal 0-10 [facility] Comment on above: Performed By: #### L 100.0100, L501.6710, L500.4050, L101.9900 #### [facility] [address] [place], [address] Neutrophils/100 WBC (Bld) 69.1 % Normal 47-70 [facility] Comment on above: Performed By: #### L 100.0100, L501.6710, L500.4050, L101.9900 #### [facility] [address] [place], [address] Nucleated RBC (Bld) [#/Vol] 0 10*3/uL Normal 0-5 [facility] Comment on above: Performed By: #### L 100.0100, L501.6710, L500.4050, L101.9900 #### [facility] [address] [place], [address] Platelet mean volume (Bld) [Entitic vol] 10.4 fL Normal 6.2-12.0 [facility] Comment on above: Performed By: #### L 100.0100, L501.6710, L500.4050, L101.9900 #### [facility] [address] [place], [address] Platelets (Bld) [#/Vol] 241 10*3/uL Normal 150-450 [facility] Comment on above: Performed By: #### L 100.0100, L501.6710, L500.4050, L101.9900 #### [facility] [address] [place], [address] RBC (Bld) [#/Vol] 4.29 10*6/uL Normal 4.2-5.4 [facility] Comment on above: Performed By: #### L 100.0100, L501.6710, L500.4050, L101.9900 #### [facility] [address] [place], [address] RDW SD 44.8 fl High 35.1-43.9 [facility] Comment on above: Performed By: #### L 100.0100, L501.6710, L500.4050, L101.9900 #### [facility] [address] [place], [address] WBC (Bld) [#/Vol] 8.2 10*3/uL Normal 4.4-11.0 [facility] Comment on above: Performed By: #### L 100.0100, L501.6710, L500.4050, L101.9900 #### [facility] [address] [place], [address] CRPon 03-28-2025 C-REACTIVE PROT < 3.00 Normal 0.0-3.0 [facility] Comment on above: Performed By: #### L 100.0100, L501.6710, L500.4050, L101.9900 ####[facility] [address] [place], [address] Carbon dioxide, total [Moles /volume] in Central venous bloodOrdered By: Cait Pearce on 03-28-2025 CO2 [Moles/Vol] 25.2 mmol/L 21.0-32.0 [facility] Chloride assayOrdered By: Joss Pearce on 03-28-2025 Chloride [Moles/Vol] 104 mmol/L 98-108 [facility] Comprehensive Metabolic Prof ilon 03-28-2025 Albumin [Mass/Vol] 3.9 g/dL Normal 3.4-4.8 [facility] Comment on above: Performed By: #### L 100.0100, L501.6710, L500.4050, L101.9900 #### [facility] [address] [place], [address] Albumin/Globulin [Mass ratio] 1.7 {ratio} Normal 0.9-2.4 [facility] Comment on above: Performed By: #### L 100.0100, L501.6710, L500.4050, L101.9900 #### [facility] [address] [place], [address] ALK PHOS 79 U/L Normal 35-104 [facility] Comment on above: Performed By: #### L 100.0100, L501.6710, L500.4050, L101.9900 #### [facility] [address] [place], [address] ALT [Catalytic activity/Vol] 17 U/L Normal <=34 [facility] Comment on above: Performed By: #### L 100.0100, L501.6710, L500.4050, L101.9900 #### [facility] [address] [place], [address] AST [Catalytic activity/Vol] 23 U/L Normal <=31 [facility] Comment on above: Performed By: #### L 100.0100, L501.6710, L500.4050, L101.9900 #### [facility] [address] [place], [address] Bilirubin [Mass/Vol] 0.19 mg/dL Normal 0.00-1.30 [facility] Comment on above: Performed By: #### L 100.0100, L501.6710, L500.4050, L101.9900 #### [facility] [address] [place], [address] BUN/CRE 31.4 RATIO High 10-20 [facility] Comment on above: Performed By: #### L 100.0100, L501.6710, L500.4050, L101.9900 #### [facility] [address] [place], [address] Calcium [Mass/Vol] 9.8 mg/dL Normal 7.6-11.0 [facility] Comment on above: Performed By: #### L 100.0100, L501.6710, L500.4050, L101.9900 #### [facility] [address] [place], [address] Chloride [Moles/Vol] 104 mmol/L Normal 98-108 [facility] Comment on above: Performed By: #### L 100.0100, L501.6710, L500.4050, L101.9900 #### [facility] [address] [place], [address] CO2 [Moles/Vol] 25.2 mmol/L Normal 21.0-32.0 [facility] Comment on above: Performed By: #### L 100.0100, L501.6710, L500.4050, L101.9900 #### [facility] [address] [place], [address] Creatinine [Mass/Vol] 0.79 mg/dL Normal 0.70-1.20 [facility] Comment on above: Performed By: #### L 100.0100, L501.6710, L500.4050, L101.9900 #### [facility] [address] [place], [address] GAP 10 Normal 5-15 [facility] Comment on above: Performed By: #### L 100.0100, L501.6710, L500.4050, L101.9900 #### [facility] [address] [place], [address] GFR/1.73 sq M.predicted among non-blacks MDRD (S/P/Bld) [Vol rate/Area] 78 mL/min/{1.73_m2} Normal >60 [facility] Comment on above: Result Comment: mL/m in/1.73m2 CKD-EPI Creatinine Equation (2020) Performed By: #### L 100.0100, L501.6710, L500.4050, L101.9900 #### [facility] [address] [place], [address] Globulin (S) [Mass/Vol] 2.3 g/dL Normal 2.2-4.2 [facility] Comment on above: Performed By: #### L 100.0100, L501.6710, L500.4050, L101.9900 #### [facility] [address] [place], [address] Glucose [Mass/Vol] 84 mg/dL Normal 70-99 [facility] Comment on above: Performed By: #### L 100.0100, L501.6710, L500.4050, L101.9900 #### [facility] [address] [place], [address] Potassium [Moles/Vol] 4.2 mmol/L Normal 3.3-5.1 [facility] Comment on above: Performed By: #### L 100.0100, L501.6710, L500.4050, L101.9900 #### [facility] [address] [place], [address] Sodium [Moles/Vol] 139 mmol/L Normal 133-145 [facility] Comment on above: Performed By: #### L 100.0100, L501.6710, L500.4050, L101.9900 #### [facility] [address] [place], [address] T PROT 6.1 g/dL Normal 5.9-8.4 [facility] Comment on above: Performed By: #### L 100.0100, L501.6710, L500.4050, L101.9900 #### [facility] [address] [place], [address] Urea nitrogen [Mass/Vol] 25 mg/dL High 4-19 [facility] Comment on above: Performed By: #### L 100.0100, L501.6710, L500.4050, L101.9900 #### [facility] [address] [place], [address] Eosinophil percentageOrdered By: Cait Pearce on 03-28-2025 Eosinophils/100 WBC (Bld) 1.2 % 0-5 [facility] Erythrocyte Sed Rateon 03-28 SED RATE 3 mm/hr Normal - [facility] Comment on above: Performed By: #### L 100.0100, L501.6710, L500.4050, L101.9900 ####[facility] [address] [place], [address] Erythrocyte distribution wid th ratioOrdered By: Cait Pearce on 03-28-2025 Erythrocyte distribution width (RBC) [Ratio] 13.2 % 11.6-14.6 [facility] Erythrocyte distribution wid th standard deviationOrdered By: Cait Pearce on 03-28-2025 Erythrocyte distribution width (RBC) [Ratio] 44.8 fl High 35.1-43.9 [facility] Erythrocyte sedimentation ra teOrdered By: Cait Pearce on 03-28-2025 ESR (Bld) [Velocity] 3 mm/h [facility] Glomerular filtration rate ( GFR) estimation/1.73 sq m using serum, plasma, or whole bOrdered By: Cait Pearce on 03-28-2025 GFR/1.73 sq M.predicted among non-blacks MDRD (S/P/Bld) [Vol rate/Area] 78 mL/min/{1.73_m2} >60 [facility] Comment on above: mL/min/1.73m2 CKD-EP I Creatinine Equation (2020) Hematocrit Auto (Bld) [Volum e fraction]Ordered By: Cait Pearce on 03-28-2025 Hematocrit (Bld) [Volume fraction] 39.8 % 37-47 [facility] Hemoglobin measurementOrdere d By: Cait Pearce on 03-28-2025 Hemoglobin (Bld) [Mass/Vol] 13.1 g/dL 12.0-15.0 [facility] Immature granulocytes/100 WB C Auto (Bld)Ordered By: Cait Pearce on 03-28-2025 Immature granulocytes/100 WBC (Bld) 0.200 % 0.0-0.9 [facility] Comment on above: IG% - Immature Granu locytes (promyelocytes, myelocytes and metamyelocytes) > 1% indicates that a LEFT SHIFT is Present. Laboratory - Chemistry and C hemistry - challengeOrdered By: Cait Pearce on 03-28-2025 AST [Catalytic activity/Vol] 23 U/L <32 [facility] MCV (mean corpuscular volume ) determinationOrdered By: Cait Pearce on 03-28-2025 MCV (RBC) [Entitic vol] 92.8 fL 81-99 [facility] Mean corpuscular hemoglobin (MCH) determinationOrdered By: Cait Pearce on 03-28-2025 MCH (RBC) [Entitic mass] 30.5 pg 27.0-32.0 [facility] Mean corpuscular hemoglobin concentration (MCHC) determinationOrdered By: Cait Pearce on 03-28-2025 MCHC (RBC) [Mass/Vol] 32.9 g/dL 32-36 [facility] Mean platelet volume determi nationOrdered By: Cait Pearce on 03-28-2025 Platelet mean volume (Bld) [Entitic vol] 10.4 fL 6.2-12.0 [facility] Monocyte percentageOrdered B y: Cait Pearce on 03-28-2025 Monocytes/100 WBC (Bld) 7.0 % 0-10 [facility] Neutrophil percentageOrdered By: Cait Pearce on 03-28-2025 Neutrophils/100 WBC (Bld) 69.1 % 47-70 [facility] Nucleated red blood cell per centageOrdered By: Cait Pearce on 03-28-2025 Nucleated RBC/100 WBC (Bld) [Ratio] 0 % 0-5 [facility] Platelet countOrdered By: Joss Pearce on 03-28-2025 Platelets (Bld) [#/Vol] 241 10*3/uL 150-450 [facility] Potassium measurement (mass/ volume)Ordered By: Cait Pearce on 03-28-2025 Potassium (Unsp spec) [Mass/Vol] 4.2 mmol/L 3.3-5.1 [facility] RBC Auto (Bld) [#/Vol]Ordere d By: Cait Pearce on 03-28-2025 RBC (Bld) [#/Vol] 4.29 10*6/uL 4.2-5.4 [facility] Serum creatinine measurement (mass/volume)Ordered By: Cait Pearce on 03-28-2025 Creatinine [Mass/Vol] 0.79 mg/dL 0.70-1.20 [facility] Serum globulin measurementOr dered By: Cait eParce on 03-28-2025 Globulin (S) [Mass/Vol] 2.3 g/dL 2.2-4.2 [facility] Serum glucose measurement (m ass/volume)Ordered By: Cait Pearce on 03-28-2025 Glucose [Mass/Vol] 84 mg/dL 70-99 [facility] Serum or plasma C reactive p rotein measurement (mass/volume)Ordered By: Cait Pearce on 03-28-2025 CRP [Mass/Vol] mg/L 0.0-3.0 [facility] Serum or plasma alanine da silva otransferase (ALT) measurementOrdered By: Cait Pearce on 03-28-2025 ALT [Catalytic activity/Vol] 17 U/L <35 [facility] Serum or plasma albumin elisa urement (mass/volume)Ordered By: Cait Pearce on 03-28-2025 Albumin [Mass/Vol] 3.9 g/dL 3.4-4.8 [facility] Serum or plasma albumin/glob ulin mass ratioOrdered By: Cait Pearce on 03-28-2025 Albumin/Globulin [Mass ratio] 1.7 {ratio} 0.9-2.4 [facility] Serum or plasma alkaline louis sphatase measurementOrdered By: Cait Pearce on 03-28-2025 ALP [Catalytic activity/Vol] 79 U/L 35-104 [facility] Serum or plasma calcium elisa urement (mass/volume)Ordered By: Cait Pearce on 03-28-2025 Calcium [Mass/Vol] 9.8 mg/dL 7.6-11.0 [facility] Serum or plasma urea nitroge n measurement (mass/volume)Ordered By: Cait Pearce on 03-28-2025 Urea nitrogen [Mass/Vol] 25 mg/dL High 4-19 [facility] Sodium levelOrdered By: Norberto Pearce on 03-28-2025 Sodium [Moles/Vol] 139 mmol/L 133-145 [facility] Total proteinOrdered By: Sandy Pearce on 03-28-2025 Protein [Mass/Vol] 6.1 g/dL 5.9-8.4 [facility] White blood cell (WBC) count Ordered By: Cait Pearce on 03-28-2025 WBC (Bld) [#/Vol] 8.2 10*3/uL 4.4-11.0 [facility] HIP, UNI W/ Pelvis 2-3 Views on 03-15-2025 HIP, UNI W/ Pelvis 2-3 Views [facility] Imaging Services [address] [place] [address] HIP, UNI W/ Pelvis 2-3 Views MR#: [id number] Acct: [id number] Name: HELDER BROWNLEE Rep #: [id number] : 1950 F 74 From: [place] MD PCP: Dr. Kyler Salvador MD Status: REG CLI Study: HIP, UNI W/ Pelvis 2-3 Views Date of Exam: Exam# [id number] Ordering Dr: Kyler Salvador EXAM: XR Right Hip With Pelvis When Performed, 2 or 3 Views CLINICAL INDICATION: R HIP PAIN TECHNIQUE: Two or three views of the right hip with pelvis when performed. COMPARISON: No relevant prior studies available. FINDINGS: BONES/JOINTS: Mild degenerative changes of the hip joint. No acute fracture. No dislocation. SOFT TISSUES: Unremarkable. RAD/HIP, UNI W/ Pelvis 2-3 Views IMPRESSION: Degenerative changes as above. [facility] CC: Dr. Kyler Salvador MD [employer]: Signed Normal [facility] Chiropractic Reporton 2024 Chiropractic Report [facility] [address] [place] [address] [id number] OFFICE VISIT Date of Service: 03/05/25 MR#: [id number] Acct: [id number] Name: HELDER BROWNLEE Rep #: [id number] : 1950 Provider: BECKY Silvestre Age/Sex: 74/F Location: [facility] Status: Signed Intake Vital Signs 07/17/24 11:42 Height 5 ft 2 in Intake Visit Reasons: Back pain Chief Complaint: Low and upper back Pain Allergies poison marleen extract Allergy (Unknown, Verified 02/05/25 10:40) unknown adhesive tape Adverse Reaction (Mild, Verified 02/05/25 10:40) Rash Have you fallen in the past year?: No PFS Medical History History of breast abscess Cataracts [...] up on back pain. Pt. reports improvement in her right shoulder/upper back . She states she still has some mobility/ROM issues but no pain. She complains of right low back pain that extends into her right hip, groin, glute and quad. She treats pain at home with CBD and Magnesium oil which has been helpful. She had to take her NSAID's daily to help alleviate her pain. Her pain and stiffness is worse in the mornings but gets better as the day goes on. She has difficulty sleeping at times due to this discomfort. She treats pain at home with heat, turmeric, stretching and aspirin as needed. She reports chiropractic adjustments and dry needling are helpful in relieving her pain and discomfort. Location: neck/back Duration: frequent Aggravating or associated factors: twisting, bending,standing Relieving factors: chiro/acu Pain Quality: aching, dull and radiating Exam [...] on the left greater than right (mid tho racic), Yes scoliosis (R thoracolumbar apex L2), Yes thoraco-lumbar spasm on the right greater than left (paraspinal L1-L5, trap,latissimus dorsi) and on the left greater than right (glute, piriformis, thoracic paraspinal (T5-T10),) and Yes misalignment T1, T2, T6, T7, [...] consent was obtained. Acupuncture performed: E-stim was utilized. Acupoints Treated: LI4,jianqian,SI10,BL2 3,24,25,40, GB30,SP6 Sterile, single use, solid filament needles were inserted at various depths and angles to release tight tissue, improve microcirculation and remove neuro-noxious chemicals via a myofascial twitch response. Aromas were inserted, needle manipulation was performed. Needle removal was performed and pressure was applied when necessary. Minutes:20 Needle Number: .20x30,.25x40 Patient response: pos Patient Positioning: prone Assessment and Plan Assessment and Plan (1) Back pain: Qualifiers: Back pain location: low back pain Chronicity: chronic Back pain laterality: right Sciatica presence: with sciatica Sciatica laterality: sciatica of right side Qualified Code(s): M54.41 - Lumbago with sc (more content not included)... Normal [facility] Anion gap in Serum or Plasma Ordered By: Klyer Salvador on 02-22-2025 Anion gap [Moles/Vol] 12 mmol/L - [facility] BUN/creatinine ratioOrdered By: Kyler Salvador on 02-22-2025 Urea nitrogen/Creatinine [Mass ratio] 16.7 mg/mg - [facility] Basic Metabolic Profile (BMP )on 02-22-2025 BUN/CRE 16.7 RATIO Normal 06-18 [facility] Comment on above: Order Comment: Order Date: 01/15/25 Order Info: 0667- - BMP Performed By: #### L 500.2500 #### [facility] [address] [place], [address] Calcium [Mass/Vol] 9.6 mg/dL Normal 7.6-11.0 [facility] Comment on above: Order Comment: Order Date: 01/15/25 Order Info: 0667- - BMP Performed By: #### L 500.2500 #### [facility] [address] [place], [address] Chloride [Moles/Vol] 105 mmol/L Normal 98-108 [facility] Comment on above: Order Comment: Order Date: 01/15/25 Order Info: 0667- - BMP Performed By: #### L 500.2500 #### [facility] [address] [place], [address] CO2 [Moles/Vol] 23.1 mmol/L Normal 21.0-32.0 [facility] Comment on above: Order Comment: Order Date: 01/15/25 Order Info: 0667-1 - BMP Performed By: #### L 500.2500 #### [facility] [address] [place], [address] Creatinine [Mass/Vol] 0.81 mg/dL Normal 0.70-1.20 [facility] Comment on above: Order Comment: Order Date: 01/15/25 Order Info: 0667-1 - BMP Performed By: #### L 500.2500 #### [facility] [address] [place], [address] GAP 12 Normal 5-15 [facility] Comment on above: Order Comment: Order Date: 01/15/25 Order Info: 0667- - BMP Performed By: #### L 500.2500 #### [facility] [address] [place], [address] GFR/1.73 sq M.predicted among non-blacks MDRD (S/P/Bld) [Vol rate/Area] 76 mL/min/{1.73_m2} Normal >60 [facility] Comment on above: Order Comment: Order Date: 01/15/25 Order Info: 0667-1 - BMP Result Comment: mL/m in/1.73m2 CKD-EPI Creatinine Equation (2020) Performed By: #### L 500.2500 #### [facility] [address] [place], [address] Glucose [Mass/Vol] 94 mg/dL Normal 70-99 [facility] Comment on above: Order Comment: Order Date: 01/15/25 Order Info: 0667-1 - BMP Performed By: #### L 500.2500 #### [facility] [address] [place], [address] Potassium [Moles/Vol] 4.1 mmol/L Normal 3.3-5.1 [facility] Comment on above: Order Comment: Order Date: 01/15/25 Order Info: 0667-1 - BMP Performed By: #### L 500.2500 #### [facility] [address] [place], [id number] Sodium [Moles/Vol] 140 mmol/L Normal 133-145 [facility] Comment on above: Order Comment: Order Date: 01/15/25 Order Info: 0667-1 - BMP Performed By: #### L 500.2500 #### [facility] [address] [place], [place], [address] Urea nitrogen [Mass/Vol] 14 mg/dL Normal - [facility] Comment on above: Order Comment: Order Date: 01/15/25 Order Info: 0667-1 - BMP Performed By: #### L 500.2500 #### [facility] [address] [place], [place], [address] Carbon dioxide, total [Moles /volume] in Central venous bloodOrdered By: Kyler Salvador on 02-22-2025 CO2 [Moles/Vol] 23.1 mmol/L 21.0-32.0 [facility] Chloride assayOrdered By: Mack Salvador on 02-22-2025 Chloride [Moles/Vol] 105 mmol/L 98-108 [facility] Glomerular filtration rate ( GFR) estimation/1.73 sq m using serum, plasma, or whole bOrdered By: Kyler Salvador on 02-22-2025 GFR/1.73 sq M.predicted among non-blacks MDRD (S/P/Bld) [Vol rate/Area] 76 mL/min/{1.73_m2} >60 [facility] Comment on above: mL/min/1.73m2 CKD-EP I Creatinine Equation (2020) Potassium measurement (mass/ volume)Ordered By: Kyler Salvador on 02-22-2025 Potassium (Unsp spec) [Mass/Vol] 4.1 mmol/L 3.3-5.1 [facility] Serum creatinine measurement (mass/volume)Ordered By: Kyler Salvador on 02-22-2025 Creatinine [Mass/Vol] 0.81 mg/dL 0.70-1.20 [facility] Serum glucose measurement (m ass/volume)Ordered By: Kyler Salvador on 02-22-2025 Glucose [Mass/Vol] 94 mg/dL 70-99 [facility] Serum or plasma calcium elisa urement (mass/volume)Ordered By: Kyler Salvador on 02-22-2025 Calcium [Mass/Vol] 9.6 mg/dL 7.6-11.0 [facility] Serum or plasma urea nitroge n measurement (mass/volume)Ordered By: Kyler Salvador on 02-22-2025 Urea nitrogen [Mass/Vol] 14 mg/dL 4-19 [facility] Sodium levelOrdered By: Piter jhonny [place] on 02-22-2025 Sodium [Moles/Vol] 140 mmol/L 133-145 [facility] Vitamin D,25 Hydroxyon 02-22 Vitamin D 25-OH 59.2 ng/mL Normal 30-100 [facility] Comment on above: Order Comment: Order Date: 01/15/25Order Info: 0667-1 - BMP Result Comment: Symone min D Status Deficiency: <20 ng/mL (50nmol/L) Insufficiency: 20-30 ng/mL (50-75 nmol/L) Sufficiency: 30-100 ng/mL (75-250 nmol/L) Toxicity: >100 ng/mL (>250 nmol/L) Performed By: #### L 506.1001 ####[facility] [address] [place], [place], [id number] Chiropractic Reporton 2024 Chiropractic Report [facility] [address] [place] [id number] OFFICE VISIT Date of Service: 02/05/25 MR#: [id number] Acct: [id number] Name: HEDLER BROWNLEE Rep #: [id number] : 1950 Provider: BECKY Silvestre Age/Sex: 74/F [place] [facility] [place]: Signed Intake Vital Signs 07/17/24 11:42 [...] was u (more content not included)... Normal [facility] Chiropractic Reporton 2024 Chiropractic Report [facility] [address] [place] [address] OFFICE VISIT Date of Service: 12/25/24 MR#: [id number] Acct: [id number] Name: HELDER BROWNLEE Rep #: [id number] : 1950 Provider: BECKY Silvestre Age/Sex: 74/F Location: [facility] Status: Signed Intake Vital Signs 07/17/24 11:42 [...] weeks ago after [place]. She had to take her NSAID's daily [...] and consent was obtained. Procedure: The R:teres Major,trap,latissbashiru (more content not included)... Normal [facility] Chiropractic Reporton 2024 Chiropractic Report [facility] [address] [place] [address] OFFICE VISIT Date of Service: 11/14/24 MR#: [id number] Acct: [id number] Name: HELDER BROWNLEE Rep #: [id number] : 1950 Provider: BECKY Silvestre Age/Sex: 74/F Location: [facility] Status: Signed Intake Vital Signs 07/17/24 11:42 [...] prepped. Need (more content not included)... Normal [facility] Chiropractic Reporton 2024 Chiropractic Report [facility] [address] [place] [address] OFFICE VISIT Date of Service: 10/19/24 MR#: [id number] Acct: [id number] Name: HELDER BROWNLEE Rep #: [id number] : 1950 Provider: BECKY Silvestre Age/Sex: 74/F [place] [facility] [place]: Signed Intake Vital Signs 07/17/24 11:42 [...] location were (more content not included)... Normal [facility] Vitamin D,25 Hydroxyon 10-05 Vitamin D 25-OH 47.9 ng/mL Normal [facility] Comment on above: Order Comment: Order Date: 10/05/24Order Info: [id number] - VITD25 Result Comment: Symone min D 25(OH) Status Range Deficiency <20 ng/mL (50nmol/L) Insufficiency 20 - 30 ng/mL (50 - 75 nmol/L) Sufficiency 30 - 100 ng/mL (75 - 250 nmol/L) Toxicity >100 ng/mL (>250 nmol/L) Performed By: #### L 506.1000 ####[facility] [address] [place], [address] Chiropractic Reporton 2024 Chiropractic Report [facility] [place] [address] OFFICE VISIT Date of Service: 09/21/24 MR#: [id number] Acct: [id number] Name: HELDER BROWNLEE Rep #: [id number] : 1950 Provider: BECKY Silvestre Age/Sex: 74/F Location: [facility] Status: Signed Intake Vital Signs 07/17/24 11:42 [...] was inspected (more content not included)... Normal [facility] CBC W/Diff, Automatedon 08-30 Absolute Lymph 1.67 X10 3/uL Normal 0.83-4.51 [facility] Comment on above: Performed By: #### L 500.4050, L501.6710, L101.9900, L100.0100 ####[facility] [address] [place], [address] Absolute Neut 5.3 X10 3/uL Normal 2.0-7.7 [facility] Comment on above: Performed By: #### L 500.4050, L501.6710, L101.9900, L100.0100 ####[facility] [address] [place], [address] Basophils/100 WBC (Bld) 0.7 % Normal 0-1 [facility] Comment on above: Performed By: #### L 500.4050, L501.6710, L101.9900, L100.0100 ####[facility] [address] [place], [address] Eosinophils/100 WBC (Bld) 1.0 % Normal 0-5 [facility] Comment on above: Performed By: #### L 500.4050, L501.6710, L101.9900, L100.0100 ####[facility] [address] [place], [address] Erythrocyte distribution width (RBC) [Ratio] 12.9 % Normal 11.6-14.6 [facility] Comment on above: Performed By: #### L 500.4050, L501.6710, L101.9900, L100.0100 ####[facility] [address] [place], [address] Hematocrit (Bld) [Volume fraction] 43.4 % Normal 37-47 [facility] Comment on above: Performed By: #### L 500.4050, L501.6710, L101.9900, L100.0100 ####[facility] [address] [place], [address] Hemoglobin (Bld) [Mass/Vol] 14.1 g/dL Normal 12.0-15.0 [facility] Comment on above: Performed By: #### L 500.4050, L501.6710, L101.9900, L100.0100 ####[facility] [address] [place], [address] IG% 0.300 Normal 0.0-0.9 [facility] Comment on above: Result Comment: IG% - Immature Granulocytes (promyelocytes, myelocytes and metamyelocytes) > 1% indicates that a LEFT SHIFT is Present. Performed By: #### L 500.4050, L501.6710, L101.9900, L100.0100 ####[facility] [address] [place], [address] Lymphocytes/100 WBC (Bld) 21.7 % Normal 19-41 [facility] Comment on above: Performed By: #### L 500.4050, L501.6710, L101.9900, L100.0100 ####[facility] [address] [place], [address] MCH (RBC) [Entitic mass] 30.3 pg Normal 27.0-32.0 [facility] Comment on above: Performed By: #### L 500.4050, L501.6710, L101.9900, L100.0100 ####[facility] [address] [place], [address] MCHC (RBC) [Mass/Vol] 32.5 g/dL Normal 32-36 [facility] Comment on above: Performed By: #### L 500.4050, L501.6710, L101.9900, L100.0100 ####[facility] [address] [place], [address] MCV (RBC) [Entitic vol] 93.1 fL Normal 81-99 [facility] Comment on above: Performed By: #### L 500.4050, L501.6710, L101.9900, L100.0100 ####[facility] [address] [place], [address] Monocytes/100 WBC (Bld) 6.8 % Normal 0-10 [facility] Comment on above: Performed By: #### L 500.4050, L501.6710, L101.9900, L100.0100 ####[facility] [address] [place], [address] Neutrophils/100 WBC (Bld) 69.5 % Normal 47-70 [facility] Comment on above: Performed By: #### L 500.4050, L501.6710, L101.9900, L100.0100 ####[facility] [address] [place], [address] Nucleated RBC (Bld) [#/Vol] 0 10*3/uL Normal 0-5 [facility] Comment on above: Performed By: #### L 500.4050, L501.6710, L101.9900, L100.0100 ####[facility] [address] [place], [address] Platelet mean volume (Bld) [Entitic vol] 9.7 fL Normal 6.2-12.0 [facility] Comment on above: Performed By: #### L 500.4050, L501.6710, L101.9900, L100.0100 ####[facility] [address] [place], [address] Platelets (Bld) [#/Vol] 270 10*3/uL Normal 150-450 [facility] Comment on above: Performed By: #### L 500.4050, L501.6710, L101.9900, L100.0100 ####[facility] [address] [place], [address] RBC (Bld) [#/Vol] 4.66 10*6/uL Normal 4.2-5.4 [facility] Comment on above: Performed By: #### L 500.4050, L501.6710, L101.9900, L100.0100 ####[facility] [address] [place], [address] RDW SD 43.9 fl Normal 35.1-43.9 [facility] Comment on above: Performed By: #### L 500.4050, L501.6710, L101.9900, L100.0100 ####[facility] [address] [place], [address] WBC (Bld) [#/Vol] 7.7 10*3/uL Normal 4.4-11.0 [facility] Comment on above: Performed By: #### L 500.4050, L501.6710, L101.9900, L100.0100 ####[facility] [address] [place], [address] CRPon 09-13-2024 C-REACTIVE PROT < 2.90 Normal 0.0-3.0 [facility] Comment on above: Result Comment: C-Re active Protein (CRP) provides useful information for the diagnosis, therapy and monitoring of inflammatory processes and associated diseases. For the evaluation of Relative Risk for Cardiovascular Disease, a High Sensitivity CRP (HSCRP) should be ordered. Performed By: #### L 500.4050, L501.6710, L101.9900, L100.0100 ####[facility] [address] [place], [address] Comprehensive Metabolic Prof ilon 09-13-2024 Albumin [Mass/Vol] 3.6 g/dL Normal 3.2-5.0 [facility] Comment on above: Performed By: #### L 500.4050, L501.6710, L101.9900, L100.0100 ####[facility] [address] [place], [address] Albumin/Globulin [Mass ratio] 1.2 {ratio} Normal 0.9-2.4 [facility] Comment on above: Performed By: #### L 500.4050, L501.6710, L101.9900, L100.0100 ####[facility] [address] [place], [address] ALK P 82 U/L Normal 45-117 [facility] Comment on above: Performed By: #### L 500.4050, L501.6710, L101.9900, L100.0100 ####[facility] [address] [place], [address] ALT [Catalytic activity/Vol] 21 U/L Normal 13-56 [facility] Comment on above: Performed By: #### L 500.4050, L501.6710, L101.9900, L100.0100 ####[facility] [address] [place], [address] AST [Catalytic activity/Vol] 17 U/L Normal 15-37 [facility] Comment on above: Performed By: #### L 500.4050, L501.6710, L101.9900, L100.0100 ####[facility] [address] [place], [address] Bilirubin [Mass/Vol] 0.30 mg/dL Normal 0.20-1.00 [facility] Comment on above: Result Comment: For patients on eltrombopag therapy, use of Dimension [place] TBIL is not recommended. Performed By: #### L 500.4050, L501.6710, L101.9900, L100.0100 ####[facility] [address] [place], [address] BUN/CRE 20.4 RATIO High 10-20 [facility] Comment on above: Performed By: #### L 500.4050, L501.6710, L101.9900, L100.0100 ####[facility] [address] [place], [address] CA,Total 9.4 mg/dL Normal 8.5-10.1 [facility] Comment on above: Performed By: #### L 500.4050, L501.6710, L101.9900, L100.0100 ####[facility] [address] [place], [address] Chloride [Moles/Vol] 109 mmol/L High 98-107 [facility] Comment on above: Performed By: #### L 500.4050, L501.6710, L101.9900, L100.0100 ####[facility] [address] [place], [address] CO2 [Moles/Vol] 29.0 mmol/L Normal 21.0-32.0 [facility] Comment on above: Performed By: #### L 500.4050, L501.6710, L101.9900, L100.0100 ####[facility] [address] [place], [address] Creatinine [Mass/Vol] 0.88 mg/dL Normal 0.55-1.02 [facility] Comment on above: Result Comment: The validity of the calculated GFR GFRAA in patients over 70 years has not been determined. Clinical correlation is essential. Performed By: #### L 500.4050, L501.6710, L101.9900, L100.0100 ####[facility] [address] [place], [address] EST GFR - AA 80 mL/min Normal >60 [facility] Comment on above: Result Comment: Afri can [place] GFR Calc Performed By: #### L 500.4050, L501.6710, L101.9900, L100.0100 ####[facility] [address] [place], [address] GAP 2 Low 5-15 [facility] Comment on above: Performed By: #### L 500.4050, L501.6710, L101.9900, L100.0100 ####[facility] [address] [place], [address] GFR/1.73 sq M.predicted among non-blacks MDRD (S/P/Bld) [Vol rate/Area] 66 mL/min/{1.73_m2} Normal >60 [facility] Comment on above: Result Comment: Non- GFR Calc Performed By: #### L 500.4050, L501.6710, L101.9900, L100.0100 ####[facility] [address] [place], [address] Globulin (S) [Mass/Vol] 3.1 g/dL Normal 2.2-4.2 [facility] Comment on above: Performed By: #### L 500.4050, L501.6710, L101.9900, L100.0100 ####[facility] [address] [place], [address] Glucose [Mass/Vol] 68 mg/dL Low 74-106 [facility] Comment on above: Performed By: #### L 500.4050, L501.6710, L101.9900, L100.0100 ####[facility] [id number] [place], [address] Potassium [Moles/Vol] 4.2 mmol/L Normal 3.5-5.1 [facility] Comment on above: Performed By: #### L 500.4050, L501.6710, L101.9900, L100.0100 ####[facility] [id number] [place], [address] Sodium [Moles/Vol] 140 mmol/L Normal 136-145 [facility] Comment on above: Performed By: #### L 500.4050, L501.6710, L101.9900, L100.0100 ####[facility] [id number] [place], [address] T PROT 6.7 g/dL Normal 6.4-8.2 [facility] Comment on above: Performed By: #### L 500.4050, L501.6710, L101.9900, L100.0100 ####[facility] [id number] [place], [address] Urea nitrogen [Mass/Vol] 18 mg/dL Normal 7-18 [facility] Comment on above: Performed By: #### L 500.4050, L501.6710, L101.9900, L100.0100 ####[facility] [id number] [place], [address] Erythrocyte Sed Rateon 09-13 SED RATE 2 mm/hr Normal 0-30 [facility] Comment on above: Performed By: #### L 500.4050, L501.6710, L101.9900, L100.0100 ####[facility] [id number] [place], [address] Chiropractic Reporton 2023 Chiropractic Report [facility] [address] [place] [address] OFFICE VISIT Date of Service: 08/21/24 MR#: [id number] Acct: [id number] Name: HELDER BROWNLEE Rep #: [id number] : 1950 Provider: BECKY Silvestre Age/Sex: 74/F [place] [facility] [place]: [place] Intake Vital Signs 07/17/24 11:42 [...] area was cleaned and prepped. Needle Number: [id number] Minutes: 20 Therapy Performed by: Dr. Jeanie Alejandra (more content not included)... Normal [facility] Chiropractic Reporton 2023 Chiropractic Report [facility] [address] [place] [address] OFFICE VISIT Date of Service: 07/31/24 MR#: [id number] Acct: [id number] Name: HELDER BROWNLEE Rep #: [id number] : 1950 Provider: BECKY Silvestre Age/Sex: 74/F Location: [facility] Status: Signed Intake Vital Signs 05/04/24 14:10 [...] and prepped. (more content not included)... Normal [facility] Chiropractic Reporton 2023 Chiropractic Report [facility] Chiropractic [facility] [place] [address] OFFICE VISIT Date of Service: 07/17/24 MR#: [id number] Acct: [id number] Name: HELDER BROWNLEE Rep #: [id number] : 1950 Provider: BECKY Silvestre Age/Sex: 74/F Location: [facility] Status: Signed Intake Vital Signs 05/04/24 14:10 [...] completed. Pressure applied where needed. Needle Number: [id number] Minutes: 20 Therapy Performed by: Dr. Jeanie Eckert DC Patient Respons (more content not included)... Normal [facility] Basophil percentageOrdered B y: Kyler Salvador on 12-16-2023 Basophil percentage 3.3 mg/dL 2.5-4.9 [facility] Chloride [Moles/Vol] 108 mmol/L 98-107 [facility] Glucose [Mass/Vol] 84 mg/dL 74-106 [facility] Potassium [Moles/Vol] 4.2 mmol/L 3.5-5.1 [facility] Sodium [Moles/Vol] 140 mmol/L 136-145 [facility] Laboratory - Chemistry and C hemistry - challengeOrdered By: Kyler Salvador on 12-16-2023 CO2 [Moles/Vol] 29.0 mmol/L 21.0-32.0 [facility] Magnesium [Mass/Vol] 2.5 mg/dL 1.6-2.6 [facility] Urea nitrogen/Creatinine [Mass ratio] 16.9 mg/mg 10-20 [facility] No Panel InformationOrdered By: Kyler Salvador on 12-16-2023 Ionized Calcium 5.23 mg/dL 4.36-5.20 [facility] Estimated GFR (MDRD) Amer 94 mL/min >60 [facility] Comment on above: GFR Calc Estimated GFR (MDRD) Non-Af Amer 78 mL/min >60 [facility] Comment on above: Non- GFR Calc Parathyroid Hormone (Intact) 42.8 pg/mL 18.4-80.1 [facility] Serum or plasma calcium elisa urement (mass/volume)Ordered By: Kyler Salvador on 12-16-2023 Calcium [Mass/Vol] 9.9 mg/dL 8.5-10.1 [facility] Serum or plasma creatinine m easurement (mass/volume)Ordered By: Kyler Salvador on 12-16-2023 Creatinine [Mass/Vol] 0.77 mg/dL 0.55-1.02 [facility] Comment on above: The validity of the calculated GFR & GFRAA in patients over 70 years has not been determined. Clinical correlation is essential. Serum or plasma urea nitroge n measurement (mass/volume)Ordered By: Kyler Salvador on 12-16-2023 Urea nitrogen [Mass/Vol] 13 mg/dL - [facility] Thin prep Papanicolaou smear with manual screeningOrdered By: Kyler Salvador on 12-16-2023 Thin prep Papanicolaou smear with manual screening 3 5-15 [facility] Absolute lymphocyte countOrd ered By: Cait Pearce on 11-16-2023 Lymphocytes Auto (Unsp spec) [#/Vol] 1.81 10*3/uL 0.83-4.51 [facility] Automated lymphocyte count a s percentage of total leukocytesOrdered By: Cait Pearce on 11-16-2023 Lymphocytes/100 WBC Auto (Unsp spec) 21.6 % 19-41 [facility] Basophil percentageOrdered B y: Cait Pearce on 11-16-2023 Basophils/100 WBC (Bld) 0.7 % 0-1 [facility] Bilirubin [Mass/Vol] 0.30 mg/dL 0.20-1.00 [facility] Comment on above: For patients on eltr ombopag therapy, use of Dimension [place] TBIL is not recommended. Chloride [Moles/Vol] 105 mmol/L 98-107 [facility] Eosinophils/100 WBC (Bld) 2.1 % 0-5 [facility] Glucose [Mass/Vol] 78 mg/dL 74-106 [facility] Hemoglobin (Bld) [Mass/Vol] 14.6 g/dL 12.0-15.0 [facility] Monocytes/100 WBC (Bld) 6.8 % 0-10 [facility] Neutrophils (Bld) [#/Vol] 5.8 10*3/uL 2.0-7.7 [facility] Neutrophils/100 WBC (Bld) 68.7 % 47-70 [facility] Potassium [Moles/Vol] 4.1 mmol/L 3.5-5.1 [facility] Comment on above: Slight Hemolysis, Re sult may be falsely increased. Protein [Mass/Vol] 6.9 g/dL 6.4-8.2 [facility] Sodium [Moles/Vol] 141 mmol/L 136-145 [facility] WBC (Bld) [#/Vol] 8.4 10*3/uL 4.4-11.0 [facility] Determination of erythrocyte mean corpuscular volume (MCV)Ordered By: Cait Pearce on 11-16-2023 MCV (RBC) [Entitic vol] 94.4 fL 81-99 [facility] Erythrocyte distribution wid th ratioOrdered By: Cait Pearce on 11-16-2023 Erythrocyte distribution width (RBC) [Ratio] 13.2 % 11.6-14.6 [facility] Erythrocyte distribution wid th standard deviationOrdered By: Caitkendall Pearce on 11-16-2023 Erythrocyte distribution width (RBC) [Entitic vol] 45.5 fL 35.1-43.9 [facility] Erythrocyte sedimentation ra teOrdered By: [facility] on 11-16-2023 ESR (Bld) [Velocity] 11 mm/h 0-30 [facility] Hematocrit Auto (Bld) [Volum e fraction]Ordered By: Caitkendall Pearce on 11-16-2023 Hematocrit (Bld) [Volume fraction] 44.1 % 37-47 [facility] Immature granulocytes/100 WB C Auto (Bld)Ordered By: [facility] on 11-16-2023 Immature granulocytes/100 WBC (Bld) 0.100 % 0.0-0.9 [facility] Comment on above: IG% - Immature Granu locytes (promyelocytes, myelocytes and metamyelocytes) > 1% indicates that a LEFT SHIFT is Present. Laboratory - Chemistry and C hemistry - challengeOrdered By: [facility] on 11-16-2023 Albumin/Globulin [Mass ratio] 1.1 {ratio} 0.9-2.4 [facility] ALP [Catalytic activity/Vol] 81 U/L 45-117 [facility] ALT [Catalytic activity/Vol] 24 U/L 13-56 [facility] CO2 [Moles/Vol] 28.0 mmol/L 21.0-32.0 [facility] Globulin (S) [Mass/Vol] 3.3 g/dL 2.2-4.2 [facility] Urea nitrogen/Creatinine [Mass ratio] 20.3 mg/mg 10-20 [facility] Laboratory - Hematology and Cell countsOrdered By: Caitkendall Pearce on 11-16-2023 MCH (RBC) [Entitic mass] 31.3 pg 27.0-32.0 [facility] MCHC (RBC) [Mass/Vol] 33.1 g/dL 32-36 [facility] Nucleated RBC/100 WBC (Bld) [Ratio] 0 % 0-5 [facility] Platelet mean volume (Bld) [Entitic vol] 10.8 fL 6.2-12.0 [facility] Platelets (Bld) [#/Vol] 260 10*3/uL 150-450 [facility] No Panel InformationOrdered By: Cait Pearce on 11-16-2023 C-Reactive Protein Extended Range < 2.90 mg/L 0.0-3.0 [facility] Comment on above: C-Reactive Protein ( CRP) provides useful information for thediagnosis, therapy and monitoring of inflammatory processesand associated diseases. For the evaluation of Relative Riskfor Cardiovascular Disease, a High Sensitivity CRP (HSCRP)should be ordered. Estimated GFR (MDRD) Amer 92 mL/min >60 [facility] Comment on above: GFR Calc Estimated GFR (MDRD) Non-Af Amer 76 mL/min >60 [facility] Comment on above: Non- GFR Calc RBC Auto (Bld) [#/Vol]Ordere d By: Cait Pearce on 11-16-2023 RBC (Bld) [#/Vol] 4.67 10*6/uL 4.2-5.4 [facility] Serum or plasma calcium elisa urement (mass/volume)Ordered By: Cait Pearce on 11-16-2023 Calcium [Mass/Vol] 10.4 mg/dL 8.5-10.1 [facility] Serum or plasma creatinine m easurement (mass/volume)Ordered By: Cait Pearce on 11-16-2023 Creatinine [Mass/Vol] 0.79 mg/dL 0.55-1.02 [facility] Comment on above: The validity of the calculated GFR & GFRAA in patients over 70 years has not been determined. Clinical correlation is essential. Serum or plasma urea nitroge n measurement (mass/volume)Ordered By: Cait Pearce on 11-16-2023 Urea nitrogen [Mass/Vol] 16 mg/dL 7-18 [facility] Thin prep Papanicolaou smear with manual screeningOrdered By: Cait Pearce on 11-16-2023 Thin prep Papanicolaou smear with manual screening 3.6 g/dL 3.2-5.0 [facility] Thin prep Papanicolaou smear with manual screening 26 U/L 15-37 [facility] Comment on above: Slight Hemolysis, Re sult may be falsely increased. Thin prep Papanicolaou smear with manual screening 8 5-15 [facility] Absolute lymphocyte countOrd ered By: Cait Pearce on 05-13-2023 Lymphocytes Auto (Unsp spec) [#/Vol] 1.48 10*3/uL 0.83-4.51 [facility] Basophil percentageOrdered B y: Cait Pearce on 05-13-2023 Basophils/100 WBC (Bld) 0.9 % 0-1 [facility] Bilirubin [Mass/Vol] 0.30 mg/dL 0.20-1.00 [facility] Comment on above: For patients on eltr ombopag therapy, use of Dimension [place] TBIL is not recommended. Chloride [Moles/Vol] 104 mmol/L 98-107 [facility] Eosinophils/100 WBC (Bld) 1.1 % 0-5 [facility] Glucose [Mass/Vol] 83 mg/dL 74-106 [facility] Neutrophils (Bld) [#/Vol] 5.7 10*3/uL 2.0-7.7 [facility] Neutrophils/100 WBC (Bld) 72.1 % 47-70 [facility] Potassium [Moles/Vol] 4.0 mmol/L 3.5-5.1 [facility] Protein [Mass/Vol] 7.0 g/dL 6.4-8.2 [facility] Sodium [Moles/Vol] 137 mmol/L 136-145 [facility] WBC (Bld) [#/Vol] 7.9 10*3/uL 4.4-11.0 [facility] Blood erythrocytes count (nu mber/volume)Ordered By: Cait Pearce on 05-13-2023 RBC (Bld) [#/Vol] 4.67 10*6/uL 4.2-5.4 [facility] Blood hemoglobin measurement (mass/volume)Ordered By: Cait Pearce on 05-13-2023 Hemoglobin (Bld) [Mass/Vol] 14.4 g/dL 12.0-15.0 [facility] Blood lymphocytes/100 leukoc ytesOrdered By: Cait Pearce on 05-13-2023 Lymphocytes/100 WBC (Bld) 18.6 % 19-41 [facility] Blood monocytes/100 leukocyt esOrdered By: Cait Pearce on 05-13-2023 Monocytes/100 WBC (Bld) 6.9 % 0-10 [facility] Blood platelet mean volumeOr dered By: Cait Pearce on 05-13-2023 Platelet mean volume (Bld) [Entitic vol] 10.2 fL 6.2-12.0 [facility] Determination of erythrocyte mean corpuscular volume (MCV)Ordered By: Cait Pearce on 05-13-2023 MCV (RBC) [Entitic vol] 94.2 fL 81-99 [facility] Hematocrit Auto (Bld) [Volum e fraction]Ordered By: Cait Pearce on 05-13-2023 Hematocrit (Bld) [Volume fraction] 44.0 % 37-47 [facility] Laboratory - Chemistry and C hemistry - challengeOrdered By: Cait Pearce on 05-13-2023 ALP [Catalytic activity/Vol] 77 U/L 45-117 [facility] ALT [Catalytic activity/Vol] 26 U/L 13-56 [facility] CO2 [Moles/Vol] 28.0 mmol/L 21.0-32.0 [facility] Globulin (S) [Mass/Vol] 3.4 g/dL 2.2-4.2 [facility] Urea nitrogen/Creatinine [Mass ratio] 24.1 mg/mg 10-20 [facility] Laboratory - Hematology and Cell countsOrdered By: Cait Pearce on 05-13-2023 Erythrocyte distribution width (RBC) [Entitic vol] 44.8 fL 35.1-43.9 [facility] Erythrocyte distribution width (RBC) [Ratio] 13.2 % 11.6-14.6 [facility] Immature granulocytes/100 WBC (Bld) 0.400 % 0.0-0.9 [facility] Comment on above: IG% - Immature Granu locytes (promyelocytes, myelocytes and metamyelocytes) > 1% indicates that a LEFT SHIFT is Present. MCH (RBC) [Entitic mass] 30.8 pg 27.0-32.0 [facility] Nucleated RBC/100 WBC (Bld) [Ratio] 0 % 0-5 [facility] MCHC Auto (RBC) [Mass/Vol]Or dered By: Cait Pearce on 05-13-2023 MCHC (RBC) [Mass/Vol] 32.7 g/dL 32-36 [facility] No Panel InformationOrdered By: Cait Pearce on 05-13-2023 Estimated GFR (MDRD) Amer 104 mL/min >60 [facility] Comment on above: GFR Calc Estimated GFR (MDRD) Non-Af Amer 86 mL/min >60 [facility] Comment on above: Non- GFR Calc Platelets bldOrdered By: Sandy Pearce on 05-13-2023 Platelets (Bld) [#/Vol] 252 10*3/uL 150-450 [facility] Serum or plasma albumin elisa urement (mass/volume)Ordered By: Cait Pearce on 05-13-2023 Albumin [Mass/Vol] 3.6 g/dL 3.2-5.0 [facility] Serum or plasma albumin/glob ulin mass ratioOrdered By: Cait Pearce on 05-13-2023 Albumin/Globulin [Mass ratio] 1.1 {ratio} 0.9-2.4 [facility] Serum or plasma calcium elisa urement (mass/volume)Ordered By: Cait Pearce on 05-13-2023 Calcium [Mass/Vol] 9.6 mg/dL 8.5-10.1 [facility] Serum or plasma creatinine m easurement (mass/volume)Ordered By: Cait Pearce on 05-13-2023 Creatinine [Mass/Vol] 0.70 mg/dL 0.55-1.02 [facility] Comment on above: The validity of the calculated GFR & GFRAA in patients over 70 years has not been determined. Clinical correlation is essential. Serum or plasma urea nitroge n measurement (mass/volume)Ordered By: Cait Pearce on 05-13-2023 Urea nitrogen [Mass/Vol] 17 mg/dL 7-18 [facility] Thin prep Papanicolaou smear with manual screeningOrdered By: Cait Pearce on 05-13-2023 Thin prep Papanicolaou smear with manual screening 20 U/L 15-37 [facility] Thin prep Papanicolaou smear with manual screening 5 5-15 [facility] Basophil percentageOrdered B y: Tigre Salvador on 04-23-2023 Chloride [Moles/Vol] 109 mmol/L 98-107 [facility] Cholesterol [Mass/Vol] 186 mg/dL <200 [facility] Comment on above: <200 mg/dL Desirable 200-240 mg/dL Borderline >240 mg/dL High Risk Glucose [Mass/Vol] 83 mg/dL 74-106 [facility] Potassium [Moles/Vol] 4.4 mmol/L 3.5-5.1 [facility] Sodium [Moles/Vol] 142 mmol/L 136-145 [facility] Triglyceride [Mass/Vol] 63 mg/dL <199 [facility] Comment on above: The drugs N-Acetylcy steine and Metamizole may falsely depress this assay.Serum Triglycerides Reference Interval Normal <150 mg/dL Borderline high 150 - 199 mg/dL High 200 - 499 mg/dL Very High > or = 500 mg/dL Laboratory - Chemistry and C hemistry - challengeOrdered By: Tigre Salvador on 04-23-2023 CO2 [Moles/Vol] 30.0 mmol/L 21.0-32.0 [facility] Urea nitrogen/Creatinine [Mass ratio] 21.5 mg/mg 10-20 [facility] No Panel InformationOrdered By: Tigre Salvador on 04-23-2023 Estimated GFR (MDRD) Amer 115 mL/min >60 [facility] Comment on above: GFR Calc Estimated GFR (MDRD) Non-Af Amer 95 mL/min >60 [facility] Comment on above: Non- GFR Calc Parathyroid Hormone (Intact) 58.4 pg/mL 18.4-80.1 [facility] Serum or plasma calcium elisa urement (mass/volume)Ordered By: Tigre Salvador on 04-23-2023 Calcium [Mass/Vol] 9.4 mg/dL 8.5-10.1 [facility] Serum or plasma cholesterol in HDL measurement (mass/volume)Ordered By: Tigre Salvador on 04-23-2023 Cholesterol in HDL [Mass/Vol] 78 mg/dL >40 [facility] Comment on above: The drugs N-Acetylcy steine and Metamizole may falsely depress this assay. Reference Range HDL <40 mg/dL Low HDL Cholesterol HDL >or= 60 mg/dL High HDL Cholesterol Serum or plasma cholesterol in VLDL measurement (mass/volume)Ordered By: Tigre Salvador on 04-23-2023 Cholesterol in VLDL [Mass/Vol] 13 mg/dL 5-40 [facility] Serum or plasma creatinine m easurement (mass/volume)Ordered By: Tigre Salvador on 04-23-2023 Creatinine [Mass/Vol] 0.65 mg/dL 0.55-1.02 [facility] Comment on above: The validity of the calculated GFR & GFRAA in patients over 70 years has not been determined. Clinical correlation is essential. Serum or plasma low density lipoprotein (LDL) cholesterol measurement (mass/volume)Ordered By: Tigre Salvador on 04-23-2023 Cholesterol in LDL [Mass/Vol] 95 mg/dL 0-130 [facility] Serum or plasma urea nitroge n measurement (mass/volume)Ordered By: Tigre Salvador on 04-23-2023 Urea nitrogen [Mass/Vol] 14 mg/dL 7-18 [facility] Thin prep Papanicolaou smear with manual screeningOrdered By: Tigre Salvador on 04-23-2023 Thin prep Papanicolaou smear with manual screening 3 5-15 [facility] Basophil percentageOrdered B y: Dr. Salvador on 02-10-2023 Chloride [Moles/Vol] 108 mmol/L 98-107 [facility] Glucose [Mass/Vol] 85 mg/dL 74-106 [facility] Potassium [Moles/Vol] 4.1 mmol/L 3.5-5.1 [facility] Sodium [Moles/Vol] 139 mmol/L 136-145 [facility] Laboratory - Chemistry and C hemistry - challengeOrdered By: Dr. Salvador on 02-10-2023 CO2 [Moles/Vol] 27.0 mmol/L 21.0-32.0 [facility] Free T4 [Mass/Vol] 0.94 ng/dL 0.76-1.46 [facility] Urea nitrogen/Creatinine [Mass ratio] 29.3 mg/mg 10-20 [facility] No Panel InformationOrdered By: Dr. Salvador on 02-10-2023 Estimated GFR (MDRD) Amer 122 mL/min >60 [facility] Comment on above: GFR Calc Estimated GFR (MDRD) Non-Af Amer 101 mL/min >60 [facility] Comment on above: Non- GFR Calc Free Triiodothyronine (T3) pg/dL 2.7 pg/mL 2.18-3.98 [facility] Thyroid Stimulating Hormone (TSH) 2.18 uIU/mL 0.358-3.74 [facility] Serum or plasma calcium elisa urement (mass/volume)Ordered By: Dr. Salvador on 02-10-2023 Calcium [Mass/Vol] 9.8 mg/dL 8.5-10.1 [facility] Serum or plasma creatinine m easurement (mass/volume)Ordered By: Dr. Salvador on 02-10-2023 Creatinine [Mass/Vol] 0.62 mg/dL 0.55-1.02 [facility] Comment on above: The validity of the calculated GFR & GFRAA in patients over 70 years has not been determined. Clinical correlation is essential. Serum or plasma thyroperoxid ase antibody assay (units/volume)Ordered By: Dr. Salvador on 02-10-2023 TPO Ab Qn [IU]/mL 0-34 [facility] Comment on above: Performed at: [facility] [address] [id number] Director: Guy Chance PhD, Phone: [phone] Serum or plasma urea nitroge n measurement (mass/volume)Ordered By: Dr. Salvador on 02-10-2023 Urea nitrogen [Mass/Vol] 18 mg/dL 7-18 [facility] Thin prep Papanicolaou smear with manual screeningOrdered By: Dr. Salvador on 02-10-2023 Thin prep Papanicolaou smear with manual screening 4 5-15 [facility] Absolute lymphocyte countOrd ered By: Dr. Salvador on 01-06-2023 Lymphocytes Auto (Unsp spec) [#/Vol] 1.53 10*3/uL 0.83-4.51 [facility] Basophil percentageOrdered B y: Dr. Salvador on 01-06-2023 Basophils/100 WBC (Bld) 0.8 % 0-1 [facility] Bilirubin [Mass/Vol] 0.20 mg/dL 0.20-1.00 [facility] Comment on above: For patients on eltr ombopag therapy, use of Dimension [place] TBIL is not recommended. Chloride [Moles/Vol] 112 mmol/L 98-107 [facility] Eosinophils/100 WBC (Bld) 1.9 % 0-5 [facility] Glucose [Mass/Vol] 122 mg/dL 74-106 [facility] Comment on above: Fasting Glucose resu lt from 100 to 125 mg/dL suggests IMPAIRED HOMEOSTASIS per A.D.A. criteria. Neutrophils (Bld) [#/Vol] 4.1 10*3/uL 2.0-7.7 [facility] Neutrophils/100 WBC (Bld) 66.8 % 47-70 [facility] Potassium [Moles/Vol] 3.8 mmol/L 3.5-5.1 [facility] Protein [Mass/Vol] 6.2 g/dL 6.4-8.2 [facility] Sodium [Moles/Vol] 142 mmol/L 136-145 [facility] WBC (Bld) [#/Vol] 6.2 10*3/uL 4.4-11.0 [facility] Blood erythrocytes count (nu mber/volume)Ordered By: Dr. Salvador on 01-06-2023 RBC (Bld) [#/Vol] 4.34 10*6/uL 4.2-5.4 [facility] Blood hemoglobin measurement (mass/volume)Ordered By: Dr. Salvador on 01-06-2023 Hemoglobin (Bld) [Mass/Vol] 13.6 g/dL 12.0-15.0 [facility] Blood lymphocytes/100 leukoc ytesOrdered By: Dr. Salvador on 01-06-2023 Lymphocytes/100 WBC (Bld) 24.8 % 19-41 [facility] Blood monocytes/100 leukocyt esOrdered By: Dr. Salvador on 01-06-2023 Monocytes/100 WBC (Bld) 5.5 % 0-10 [facility] Blood platelet mean volumeOr dered By: Dr. Salvador on 01-06-2023 Platelet mean volume (Bld) [Entitic vol] 9.9 fL 6.2-12.0 [facility] Determination of erythrocyte mean corpuscular volume (MCV)Ordered By: Dr. Salvador on 01-06-2023 MCV (RBC) [Entitic vol] 93.3 fL 81-99 [facility] Erythrocyte sedimentation ra teOrdered By: Dr. Salvador on 01-06-2023 ESR (Bld) [Velocity] 5 mm/h 0-30 [facility] Hematocrit Auto (Bld) [Volum e fraction]Ordered By: Dr. Salvador on 01-06-2023 Hematocrit (Bld) [Volume fraction] 40.5 % 37-47 [facility] Iron measurement (mass/mass) Ordered By: Dr. Salvador on 01-06-2023 Iron (Unsp spec) [Mass/Mass] 52 ug/dL 50-170 [facility] Laboratory - Chemistry and C hemistry - challengeOrdered By: Dr. Salvador on 01-06-2023 ALP [Catalytic activity/Vol] 77 U/L 45-117 [facility] ALT [Catalytic activity/Vol] 24 U/L 13-56 [facility] CO2 [Moles/Vol] 25.0 mmol/L 21.0-32.0 [facility] Cobalamin (Vitamin B12) [Mass/Vol] 800 pg/mL 211-911 [facility] Free T4 [Mass/Vol] 0.91 ng/dL 0.76-1.46 [facility] Globulin (S) [Mass/Vol] 2.8 g/dL 2.2-4.2 [facility] Magnesium [Mass/Vol] 2.5 mg/dL 1.6-2.6 [facility] Urea nitrogen/Creatinine [Mass ratio] 21.3 mg/mg 10-20 [facility] Laboratory - Hematology and Cell countsOrdered By: Dr. Salvador on 01-06-2023 Erythrocyte distribution width (RBC) [Entitic vol] 45.1 fL 35.1-43.9 [facility] Erythrocyte distribution width (RBC) [Ratio] 13.1 % 11.6-14.6 [facility] Immature granulocytes/100 WBC (Bld) 0.200 % 0.0-0.9 [facility] Comment on above: IG% - Immature Granu locytes (promyelocytes, myelocytes and metamyelocytes) > 1% indicates that a LEFT SHIFT is Present. MCH (RBC) [Entitic mass] 31.3 pg 27.0-32.0 [facility] Nucleated RBC/100 WBC (Bld) [Ratio] 0 % 0-5 [facility] MCHC Auto (RBC) [Mass/Vol]Or dered By: Dr. Salvador on 01-06-2023 MCHC (RBC) [Mass/Vol] 33.6 g/dL 32-36 [facility] No Panel InformationOrdered By: Dr. Salvador on 01-06-2023 Anti-Nuclear Antibody Screen Negative Negative [facility] Comment on above: Performed at: [place] [address] Director: Guy Chance PhD, Phone: [phone] Estimated GFR (MDRD) Amer 114 mL/min >60 [facility] Comment on above: GFR Calc Estimated GFR (MDRD) Non-Af Amer 94 mL/min >60 [facility] Comment on above: Non- GFR Calc Free Triiodothyronine (T3) pg/dL 2.1 pg/mL 2.18-3.98 [facility] Thyroid Stimulating Hormone (TSH) 2.25 uIU/mL 0.358-3.74 [facility] Vitamin D 25-Hydroxy 59.5 ng/mL [facility] Comment on above: Vitamin D 25(OH) Sta tus Range Deficiency <20 ng/mL (50nmol/L) Insufficiency 20 - 30 ng/mL (50 - 75 nmol/L) Sufficiency 30 - 100 ng/mL (75 - 250 nmol/L) Toxicity >100 ng/mL (>250 nmol/L) Platelets bldOrdered By: Dr. Salvador on 01-06-2023 Platelets (Bld) [#/Vol] 258 10*3/uL 150-450 [facility] Serum or plasma C reactive p rotein measurement (mass/volume)Ordered By: Dr. Salvador on 01-06-2023 CRP [Mass/Vol] mg/L 0.0-3.0 [facility] Comment on above: C-Reactive Protein ( CRP) provides useful information for thediagnosis, therapy and monitoring of inflammatory processesand associated diseases. For the evaluation of Relative Riskfor Cardiovascular Disease, a High Sensitivity CRP (HSCRP)should be ordered. Serum or plasma albumin elisa urement (mass/volume)Ordered By: Dr. Salvador on 01-06-2023 Albumin [Mass/Vol] 3.4 g/dL 3.2-5.0 [facility] Serum or plasma albumin/glob ulin mass ratioOrdered By: Dr. Salvador on 01-06-2023 Albumin/Globulin [Mass ratio] 1.2 {ratio} 0.9-2.4 [facility] Serum or plasma calcium elisa urement (mass/volume)Ordered By: Dr. aSlvador on 01-06-2023 Calcium [Mass/Vol] 9.1 mg/dL 8.5-10.1 [facility] Serum or plasma creatinine m easurement (mass/volume)Ordered By: Dr. Salvador on 01-06-2023 Creatinine [Mass/Vol] 0.66 mg/dL 0.55-1.02 [facility] Comment on above: The validity of the calculated GFR & GFRAA in patients over 70 years has not been determined. Clinical correlation is essential. Serum or plasma urea nitroge n measurement (mass/volume)Ordered By: Dr. Salvador on 01-06-2023 Urea nitrogen [Mass/Vol] 14 mg/dL 7-18 [facility] Serum or plasma uric acid me asurement (mass/volume)Ordered By: Dr. Salvador on 01-06-2023 Urate [Mass/Vol] 3.4 mg/dL 2.6-6.0 [facility] Comment on above: The drugs N-Acetylcy steine and Metamizole may falsely depress this assay. Serum rheumatoid factor dete ctionOrdered By: Dr. Salvador on 01-06-2023 Rheumatoid factor Ql (S) < 10.0 IU/mL <15 [facility] Thin prep Papanicolaou smear with manual screeningOrdered By: Dr. Salvador on 01-06-2023 Thin prep Papanicolaou smear with manual screening 22 U/L 15-37 [facility] Thin prep Papanicolaou smear with manual screening 5 5-15 [facility] Basophil percentageOrdered B y: Dr. Salvador on 10-16-2022 Bilirubin [Mass/Vol] 0.20 mg/dL 0.20-1.00 [facility] Comment on above: For patients on eltr ombopag therapy, use of Dimension [place] TBIL is not recommended. Chloride [Moles/Vol] 106 mmol/L 98-107 [facility] Glucose [Mass/Vol] 86 mg/dL 74-106 [facility] Potassium [Moles/Vol] 4.3 mmol/L 3.5-5.1 [facility] Protein [Mass/Vol] 6.0 g/dL 6.4-8.2 [facility] Sodium [Moles/Vol] 140 mmol/L 136-145 [facility] Laboratory - Chemistry and C hemistry - challengeOrdered By: Dr. Salvador on 10-16-2022 ALP [Catalytic activity/Vol] 76 U/L 45-117 [facility] ALT [Catalytic activity/Vol] 24 U/L 13-56 [facility] CO2 [Moles/Vol] 29.0 mmol/L 21.0-32.0 [facility] Globulin (S) [Mass/Vol] 2.5 g/dL 2.2-4.2 [facility] Urea nitrogen/Creatinine [Mass ratio] 23.1 mg/mg 10-20 [facility] No Panel InformationOrdered By: Dr. Salvador on 10-16-2022 Estimated GFR (MDRD) Amer 100 mL/min >60 [facility] Comment on above: GFR Calc Estimated GFR (MDRD) Non-Af Amer 82 mL/min >60 [facility] Comment on above: Non- GFR Calc Serum or plasma albumin elisa urement (mass/volume)Ordered By: Dr. Salvador on 10-16-2022 Albumin [Mass/Vol] 3.5 g/dL 3.2-5.0 [facility] Serum or plasma albumin/glob ulin mass ratioOrdered By: Dr. Salvador on 10-16-2022 Albumin/Globulin [Mass ratio] 1.4 {ratio} 0.9-2.4 [facility] Serum or plasma calcium elisa urement (mass/volume)Ordered By: Dr. Salvador on 10-16-2022 Calcium [Mass/Vol] 9.7 mg/dL 8.5-10.1 [facility] Serum or plasma creatinine m easurement (mass/volume)Ordered By: Dr. Salvador on 10-16-2022 Creatinine [Mass/Vol] 0.74 mg/dL 0.55-1.02 [facility] Comment on above: The validity of the calculated GFR & GFRAA in patients over 70 years has not been determined. Clinical correlation is essential. Serum or plasma urea nitroge n measurement (mass/volume)Ordered By: Dr. Salvador on 10-16-2022 Urea nitrogen [Mass/Vol] 17 mg/dL 7-18 [facility] Thin prep Papanicolaou smear with manual screeningOrdered By: Dr. Salvador on 10-16-2022 Thin prep Papanicolaou smear with manual screening 18 U/L 15-37 [facility] Thin prep Papanicolaou smear with manual screening 5 5-15 [facility] Absolute lymphocyte counton 04-14-2022 Lymphocytes Auto (Unsp spec) [#/Vol] 1.80 10*3/uL 0.83-4.51 [facility] Work Phone: Basophil percentageon 2021 Basophils/100 WBC (Bld) 0.7 % 0-1 [facility] Work Phone: Bilirubin [Mass/Vol] 0.30 mg/dL 0.20-1.00 [facility] Work Phone: Comment on above: For patients on eltr ombopag therapy, use of Dimension [place] TBIL is not recommended. Chloride [Moles/Vol] 105 mmol/L 98-107 [facility] Work Phone: Eosinophils/100 WBC (Bld) 1.6 % 0-5 [facility] Work Phone: Glucose [Mass/Vol] 106 mg/dL 74-106 [facility] Work Phone: Comment on above: Fasting Glucose resu lt from 100 to 125 mg/dL suggests IMPAIRED HOMEOSTASIS per A.D.A. criteria. Neutrophils (Bld) [#/Vol] 4.5 10*3/uL 2.0-7.7 [facility] Work Phone: Neutrophils/100 WBC (Bld) 64.8 % 47-70 [facility] Work Phone: Potassium [Moles/Vol] 3.8 mmol/L 3.5-5.1 [facility] Work Phone: Protein [Mass/Vol] 6.4 g/dL 6.4-8.2 [facility] Work Phone: Sodium [Moles/Vol] 138 mmol/L 136-145 [facility] Work Phone: WBC (Bld) [#/Vol] 7.0 10*3/uL 4.4-11.0 [facility] Work Phone: Bilirubin Test strip Ql (U)o n 04-14-2022 Bilirubin Ql (U) Negative Negative [facility] Work Phone: Blood erythrocytes count (nu mber/volume)on 04-14-2022 RBC (Bld) [#/Vol] 4.52 10*6/uL 4.2-5.4 [facility] Work Phone: Blood hemoglobin measurement (mass/volume)on 04-14-2022 Hemoglobin (Bld) [Mass/Vol] 14.2 g/dL 12.0-15.0 [facility] Work Phone: Blood lymphocytes/100 leukoc yteson 04-14-2022 Lymphocytes/100 WBC (Bld) 25.8 % 19-41 [facility] Work Phone: Blood monocytes/100 leukocyt eson 08-16-2022 Monocytes/100 WBC (Bld) 6.7 % 0-10 [facility] Work Phone: [phone] Blood platelet mean volumeon 04-14-2022 Platelet mean volume (Bld) [Entitic vol] 9.8 fL 6.2-12.0 [facility] Work Phone: [phone] Determination of erythrocyte mean corpuscular volume (MCV)on 04-14-2022 MCV (RBC) [Entitic vol] 95.1 fL 81-99 [facility] Work Phone: [phone] Erythrocyte sedimentation ra cr 04-14-2022 ESR (Bld) [Velocity] 5 mm/h 0-30 [facility] Work Phone: [phone] Hematocrit Auto (Bld) [Volum e fraction]on 04-14-2022 Hematocrit (Bld) [Volume fraction] 43.0 % 37-47 [facility] Work Phone: [phone] Ketones Test strip Ql (U)on 04-14-2022 Ketones Ql (U) Negative Negative [facility] Work Phone: [phone] Laboratory - Chemistry and C hemistry - challengeon 04-14-2022 ALP [Catalytic activity/Vol] 71 U/L 45-117 [facility] Work Phone: [phone] [Catalytic activity/Vol] 34 U/L 13-56 [facility] Work Phone: [phone] CO2 [Moles/Vol] 27.0 mmol/L 21.0-32.0 [facility] Work Phone: Globulin (S) [Mass/Vol] 3.0 g/dL 2.2-4.2 [facility] Work Phone: [phone] Magnesium [Mass/Vol] 2.2 mg/dL 1.6-2.6 [facility] Work Phone: [phone] Urea nitrogen/Creatinine [Mass ratio] 18.3 mg/mg 10-20 [facility] Work Phone: [phone] Laboratory - Hematology and Cell countson 04-14-2022 Erythrocyte distribution width (RBC) [Entitic vol] 45.3 fL 35.1-43.9 [facility] Work Phone: [phone] Erythrocyte distribution width (RBC) [Ratio] 12.7 % 11.6-14.6 [facility] Work Phone: [phone] Immature granulocytes/100 WBC (Bld) 0.400 % 0.0-0.9 [facility] Work Phone: [phone] Comment on above: IG% - Immature Granu locytes (promyelocytes, myelocytes and metamyelocytes) > 1% indicates that a LEFT SHIFT is Present. MCH (RBC) [Entitic mass] 31.4 pg 27.0-32.0 [facility] Work Phone: [phone] Nucleated RBC/100 WBC (Bld) [Ratio] 0 % 0-5 [facility] Work Phone: [phone] MCHC Auto (RBC) [Mass/Vol]on 04-14-2022 MCHC (RBC) [Mass/Vol] 33.0 g/dL 32-36 [facility] Work Phone: [phone] Nitrite Test strip Ql (U)on 04-14-2022 Nitrite Ql (U) Negative Negative [facility] Work Phone: [phone] No Panel Informationon 04-14 Estimated GFR (MDRD) Amer 88 mL/min >60 [facility] Work Phone: Comment on above: GFR Calc Estimated GFR (MDRD) Non-Af Amer 73 mL/min >60 [facility] Work Phone: [phone] Comment on above: Non- GFR Calc Ionized Calcium 5.3 mg/dL 4.5-5.6 [facility] Work Phone: [phone] Comment on above: Performed at: [address] [id number] Director: Guy Chance PhD, Phone: [phone] Parathyroid Hormone (Intact) 72.9 pg/mL 18.4-80.1 [facility] Work Phone: [phone] Thyroid Stimulating Hormone (TSH) 1.13 uIU/mL 0.358-3.74 [facility] Work Phone: Vitamin D 25-Hydroxy 67.0 ng/mL [facility] Work Phone: Comment on above: Vitamin D 25(OH) Sta tus Range Deficiency <20 ng/mL (50nmol/L) Insufficiency 20 - 30 ng/mL (50 - 75 nmol/L) Sufficiency 30 - 100 ng/mL (75 - 250 nmol/L) Toxicity >100 ng/mL (>250 nmol/L) Platelets bldon 04-14-2022 Platelets (Bld) [#/Vol] 273 10*3/uL 150-450 [facility] Work Phone: Protein Test strip Ql (U)on 04-14-2022 Protein Ql (U) Negative Negative [facility] Work Phone: Serum or plasma albumin elisa urement (mass/volume)on 04-14-2022 Albumin [Mass/Vol] 3.4 g/dL 3.2-5.0 [facility] Work Phone: Serum or plasma albumin/glob ulin mass ratioon 04-14-2022 Albumin/Globulin [Mass ratio] 1.1 {ratio} 0.9-2.4 [facility] Work Phone: Serum or plasma calcium elisa urement (mass/volume)on 04-14-2022 Calcium [Mass/Vol] 8.8 mg/dL 8.5-10.1 [facility] Work Phone: [phone] Serum or plasma creatinine m easurement (mass/volume)on 04-14-2022 Creatinine [Mass/Vol] 0.82 mg/dL 0.55-1.02 [facility] Work Phone: Comment on above: The validity of the calculated GFR & GFRAA in patients over 70 years has not been determined. Clinical correlation is essential. Serum or plasma urea nitroge n measurement (mass/volume)on 04-14-2022 Urea nitrogen [Mass/Vol] 15 mg/dL 7-18 [facility] Work Phone: Thin prep Papanicolaou smear with manual screeningon 04-14-2022 Thin prep Papanicolaou smear with manual screening 23 U/L 15-37 [facility] Work Phone: Thin prep Papanicolaou smear with manual screening 6 5-15 [facility] Work Phone: Urine blood detectionon 03-30 RBC Ql (U) Negative Negative [facility] Work Phone: Urine clarityon 04-14-2022 Clarity (U) Clear Clear [facility] Work Phone: Urine color determinationon 04-14-2022 Color (U) Yellow Yellow [facility] Work Phone: Urine glucose detectionon Glucose Ql (U) Normal mg/dl Normal [facility] Work Phone: Urine leukocyte esterase det ection by dipstickon 04-14-2022 Leukocyte esterase Test strip Ql (U) Negative Negative [facility] Work Phone: Urine pHon 04-14-2022 pH (U) 6.5 [pH] 5.0 - 8.0 [facility] Work Phone: Urine specific gravity measu rementon 04-14-2022 Specific gravity (U) [Rel density] 1.015 1.002-1.030 [facility] Work Phone: Urobilinogen Auto test strip Ql (U)on 04-14-2022 Urobilinogen Ql (U) Normal mg/dl Normal [facility] Work Phone: Vital Signs Date Time Vital Sign Value Performing Clinician Faci lity 05-31-2025 10:55-0400 Body height 157.[address] Kyler Salvador MD Work Phone: [facility] 05-31-2025 10:55-0400 Body mass index (BMI) [Ratio] 22.4 kg/m2 Dr. Kyler Salvador MD Work Phone: [facility] 05-31-2025 10:55-0400 Body temperature 97.8 [degF] Dr. Kyler Salvador MD Work Phone: [facility] 05-31-2025 10:55-0400 Body weight 55.[address] Kyler Salvador MD Work Phone: [facility] 05-31-2025 10:55-0400 Diastolic blood pressure 71 mm[Hg] Dr. Kyler Salvador MD Work Phone: [facility] 05-31-2025 10:55-0400 Heart rate 76 /min Dr. Kyler Salvador MD Work Phone: [facility] 05-31-2025 10:55-0400 Respiratory rate 15 /min Dr. Kyler Salvador MD Work Phone: [facility] 05-31-2025 10:55-0400 SaO2% (BldA) [Mass fraction] 95 % Dr. Kyler Salvador MD Work Phone: [facility] 05-31-2025 10:55-0400 Systolic blood pressure 118 mm[Hg] Dr. Kyler Salvador MD Work Phone: [facility] 12-10-2022 11:15-0400 Body height 157.[address] Tigre Salvador Work Phone: [facility] 12-10-2022 11:15-0400 Body mass index (BMI) [Ratio] 21.9 kg/m2 Dr. Tigre Salvador Work Phone: [facility] 12-10-2022 11:15-0400 Body weight 54.[address] Tigre Salvador Work Phone: [facility] 12-10-2022 11:15-0400 Diastolic blood pressure 68 mm[Hg] Dr. Tigre Salvador Work Phone: [facility] 12-10-2022 11:15-0400 Systolic blood pressure 110 mm[Hg] Dr. Tigre Salvador Work Phone: [facility] Encounters Encounter Date Encounter Type Care Provider Facility Start: 07-03-2025 [facility] Start: 06-27-2025 End: 06-27-2025 ambulatory Kyler Salvador Facility:[facility] Start: 05-31-2025 End: 05-31-[address] Holland Rosas MD -[facility] Work Phone: Start: 05-31-2025 End: 05-31-[address] Kyler Salvador MD Work Phone: -[facility] Start: 05-21-2025 End: 05-21-[address] Jeanie Eckert DC -[facility] Work Phone: Start: 05-21-2025 End: 05-21-[address] Kyler Salvador MD Work Phone: [facility] Start: 04-12-2025 End: 04-12-[address] Jeanie Eckert DC -[facility] Work Phone: Start: 04-12-2025 End: 04-12-[address] Kyler Salvador MD Work Phone: [facility] Start: 03-30-2025 End: 03-30-[address] Kyler Salvador MD Work Phone: -[facility] [place] Start: 03-30-2025 End: 03-30-[address] [facility] Start: 03-30-2025 End: 03-30-2025 ambulatory Cait Pearce Facility:[facility] Start: 03-28-2025 End: 03-28-[address] Kyler Salvador MD Work Phone: -[facility] [place] Start: 03-28-2025 End: 03-28-[address] Cait Pearce MD -[facility] [place] Work Phone: Start: 03-28-2025 End: 03-28-2025 ambulatory Caitkendall Pearce Facility:[facility] Start: 03-15-2025 End: 03-15-[address] Kyler Salvador MD Work Phone: -[facility] Start: 03-15-2025 End: 03-15-[address] Kyler Salvador MD -[facility] Work Phone: Start: 03-15-2025 End: 03-15-20[facility] Start: 03-05-2025 End: 03-05-[address] Jeanie Eckert DC -[facility] Work Phone: Start: 03-05-2025 End: 03-05-[address] Kyler Salvador MD Work Phone: [facility] Start: 02-22-2025 End: 02-22-[address] Kyler Salvador MD Work Phone: -[facility] Start: 02-22-2025 End: 02-22-[address] Kyler Salvador MD -[facility] Start: 02-22-2025 End: 02-22-2025 ambulatory Kyler Salvador Facility:[facility] Start: 02-05-2025 End: 02-05-[address] Jeanie Eckert DC -[facility] Work Phone: Start: 02-05-2025 End: 02-05-[address] Kyler Salvador MD Work Phone: [facility] Work Phone: Start: 12-25-2024 End: 12-25-[address] Jeanie Eckert DC -[facility] Work Phone: Start: 12-25-2024 End: 12-25-2024 ambulatory Jeanie Eckert Facility:[facility] Start: 11-14-2024 End: 11-14-[address] Jeanie Eckert DC -[facility] Work Phone: Start: 11-14-2024 End: 11-14-2024 ambulatory Jeanie Eckert Facility:[facility] Start: 10-19-2024 End: 10-19-[address] Jeanie Eckert DC -[facility] Work Phone: Start: 10-19-2024 End: 10-19-2024 ambulatory Jeanie Eckert Facility:[facility] Start: 10-05-2024 End: 10-05-2024 ambulatory Kyler Salvador Facility:[facility] Start: 09-21-2024 End: 09-21-2024 ambulatory Kyler Salvador Facility:[facility] Start: 09-13-2024 End: 09-13-20[facility] Start: 08-21-2024 End: 08-21-2024 ambulatory Jeanie Eckert Facility:[facility] Start: 07-31-2024 End: 07-31-2024 ambulatory Jeanie Eckert Facility:[facility] Start: 07-17-2024 End: 07-17-2024 ambulatory Kyler Salvador Facility:[facility] Start: 12-16-2023 End: 12-16-2023 ambulatory [facility] Work Phone: Start: 12-16-2023 End: 12-16-2023 Patient encounter procedure [facility] Work Phone: Start: 11-16-2023 End: 11-16-2023 ambulatory [facility] Work Phone: Start: 11-16-2023 End: 11-16-2023 Patient encounter procedure [facility] Work Phone: Start: 08-19-2023 End: 08-19-[address] Tigre Salvador Work Phone: [facility] Work Phone: Start: 08-19-2023 End: 08-19-[address] Tig[facility] Start: 06-04-2023 End: 06-04-[address] Tigre Salvador Work Phone: [facility] Work Phone: Start: 05-13-2023 End: 05-13-[address] Tigre Salvador Work Phone: [facility] Work Phone: Start: 05-13-2023 End: 05-13-[address] Tigre Salvador Work Phone: [facility] Work Phone: Start: 05-04-2023 End: 05-04-[address] Tigre Salvador [facility] Work Phone: Start: 04-29-2023 End: 04-29-[address] Tigre Salvador Work Phone: [facility] Work Phone: Start: 04-23-2023 End: 04-23-[address] Tigre Salvador Work Phone: [facility] Work Phone: Start: 04-23-2023 End: 04-23-[address] Tigre Salvador [facility] Work Phone: Start: 02-16-2023 End: 02-16-[address] Tigre Salvador Work Phone: [facility] Work Phone: Start: 02-16-2023 End: 02-16-[address] Tigre Salvador Work Phone: [facility] Start: 02-10-2023 End: 02-10-[address] Tigre Salvador Work Phone: [facility] Work Phone: Start: 02-10-2023 End: 02-10-[address] Tigre Salvador Work Phone: [facility] Start: 01-06-2023 End: 01-06-[address] Tigre Salvador Work Phone: [facility] Work Phone: Start: 01-06-2023 End: 01-06-[address] Tigre Salvador Work Phone: [facility] Start: 12-30-2022 End: 12-30-[address] Tigre Salvador Work Phone: [facility] Start: 12-24-2022 End: 12-24-[address] Tigre Salvador Work Phone: [facility] Start: 12-17-2022 End: 12-17-[address] Tigre Salvador Work Phone: [facility] Start: 12-10-2022 End: 12-10-[address] Tigre Salvador Work Phone: [facility] Start: 10-16-2022 End: 10-16-[address] Tigre Salvador Work Phone: [facility] Start: 04-30-2022 End: 04-30-2022 ambulatory [facility] Work Phone: Start: 04-30-2022 End: 04-30-2022 Patient encounter procedure [facility]-Outpatient Bone Densitometry Start: 04-14-2022 End: 04-14-2022 ambulatory [facility] Work Phone: Start: 04-14-2022 End: 04-14-2022 Patient encounter procedure [facility]-Laboratory, [facility] Procedures Date Procedure Procedure Detail Performing Clinician Start: 03-30-2025 X-ray of chest, PA and lateral views Dr. Kyler Salvador MD Work Phone: Start: 03-30-2025 In-vitro immunologic test Dr. Tigre Salvador MD Work Phone: Comment on above: QuantiFERON-TB Gold Plus is a qualitativ e indirect test forM tuberculosis infection (including disease) and isintended for use in conjunction with risk assessment,radiography, and other medical and diagnostic evaluations.The QuantiFERON-TB Gold Plus result is determined bysubtracting the Nil value from either TB antigen (Ag)value. The Mitogen tube serves as a control for the test. No response to M tub erculosis antigens detected.Infection with M tuberculosis is unlikely, but high riskindividuals should be considered for additional testing(ATS/IDSA/CDC Clinical Practice Guidelines, 2017). Thereference range is an Antigen minus Nil result of <0.35IU/mL.The specimen received for QuantiFERON testing was incubatedby the ordering institution. Specific procedures outlinedin our Directory of Services and in the package insert forthe QuantiFERON Gold (In Tube) test must be followed toenable for proper stimulation of cells for the productionof interferon gamma. Chemiluminescence immunoassaymethodologyPerformed at: [facility] [employer] [facility] [address] [id number] Director: Guy Chance PhD, Phone: [phone] Start: 03-15-2025 Plain x-ray of pelvis and lower extremity Dr. Kyler Salvador MD Work Phone: Start: 02-22-2025 Vitamin D, 25-hydroxy measurement Dr. Mack Salvador MD Work Phone: Comment on above: Vitamin D StatusDeficiency: <20 ng/mL (5 0nmol/L)Insufficiency: 20-30 ng/mL (50-75 nmol/L)Sufficiency: 30-100 ng/mL (75-250 nmol/L)Toxicity: >100 ng/mL (>250 nmol/L) Start: 08-19-2023 Plain chest X-ray Dr. Tigre Salvador Work Phone: Start: 06-04-[address] Tigre Salvador Work Phone: Start: 05-04-[address] Tigre Salvador Work Phone: Start: 05-04-2023 Dual energy X-ray absorptiometry Dr. Pilo Salvador Work Phone: Start: 02-16-[address] Chung Salvador Work Phone: Start: 04-30-2022 Screening mammography History of repair of musculotendinous cuff of shoulder History of rotator cuff surgery Dr. Kyler Salvador MD Work Phone: Comment on above: 2014- R bicep rupture, not corrected History of repair of musculotendinous cuff of shoulder History of rotator cuff surgery Dr. Jeanie Eckert DC Plan of Treatment Date Care Activity Detail Author Start: 12-25-2024 Patient referral [facility] Work Phone[facility] Work Phone: Payers Date Payer Category Payer Medicare [id number] 2024 Self-pay [id number] 2024 Unknown [id number] 2016 Unknown [id number] 2014 Medicare [id number] Medicare [id number] Unknown [employer] [id number] [id number] Unknown [id number] 2.16.8 40.1.475844.3.579.2.462 Unknown [id number] 2.16.8 40.1.250160.3.579.2.462 Unknown [id number] 2.16.8 40.1.098173.3.579.2.462 Unknown [id number] 2.16.8 40.1.994224.3.579.2.462 Unknown [id number] 2.16.8 40.1.510255.3.579.2.462 Unknown [id number] 2.16.8 40.1.681767.3.579.2.462 Unknown [id number] 2.16.8 40.1.690035.3.579.2.462 Unknown [id number] 2.16.8 40.1.558137.3.579.2.462 Unknown [id number] 2.16.8 40.1.516140.3.579.2.462 Unknown [id number] 2.16.8 40.1.809488.3.579.2.462 Unknown [id number] 2.16.8 40.1.407236.3.579.2.462 Unknown [id number] 2.16.8 40.1.263077.3.579.2.462 Unknown [id number] 2.16.8 40.1.116149.3.579.2.462 Unknown [id number] 2.16.8 40.1.236571.3.579.2.462 Unknown [id number] 2.16.8 40.1.296726.3.579.2.462 Unknown [id number] 2.16.8 40.1.096600.3.579.2.462 Unknown [id number] 2.16.8 40.1.592296.3.579.2.462 Unknown [id number] 2.16.8 40.1.382023.3.579.2.462 Unknown [id number] 2.16.8 40.1.648322.3.579.2.462 Unknown [id number] 2.16.8 40.1.006367.3.579.2.462 Social History Date Type Detail Facility Start: 09-08-2021 End: 06-04-2023 Tobacco smoking status NHIS Unknown if ever smoked [facility] Start: 1950 Sex Assigned At Female [facility] Start: 07-17-2024 End: 05-31-2025 Tobacco smoking status NHIS Never smoked tobacco (finding) [facility] Sex Female [facility] Goals Date Patient Goal Desired Activity /State Clinical Notes 10-19-2024 to 05-21-2025 Note Date & Type Note Facility 05-21-2025 Progress note [facility] 03-30-2025 Radiology Diagnostic study note [facility] Imaging Services [address] [place], [place] [address] Chest PA and Lateral MR#: [id number] Acct: [id number] Name: HELDER BROWNLEE Rep #: [id number] : 1950 F 74 From: Sonido Garcia MD PCP: Dr. Kyler Salvador MD Status: REG CLI Study:Chest PA and Lateral Date of Exam: 03/30/25 Exam# [id number] Ordering Dr: Cait Pearce MD PROCEDURE: CHEST PA AND LATERAL 03/30/2025 REASON FOR EXAM: ARTHROPATHY TECHNIQUE: CHEST PA AND LATERAL COMPARISON: None FINDINGS: Hardware: None Heart: The heart is nonenlarged Mediastinum: The mediastinal contour is unremarkable. Lungs: Hyperinflation. Calcified granuloma in the superior segment of the rightlower lobe. Bones: Degenerative changes are identified within the thoracic spine. Dextroscoliosis at the thoracolumbar junction. Prior rotator cuff surgery involving the right shoulder. RAD/Chest PA and Lateral IMPRESSION: Hyperinflation. Calcified granuloma in the right midlung. Reading Location: [id number] CC: Dr. Kyler Salvador MD; Dr. Cait Pearce MD ~ [employer]: Signed [facility] 03-15-2025 Radiology Diagnostic study note [facility] Imaging Services [address] [place] [address] HIP, UNI W/ Pelvis 2-3 Views MR#: [id number] Acct: [id number] Name: HELDER BROWNLEE Rep #: [id number] : 1950 F 74 From: Sarah Colorado MD PCP: Dr. Kyler Salvador MD Status: REG CLI Study:HIP, UNI W/ Pelvis 2-3 Views Date of Ex am: 03/15/25 Exam# [id number] Ordering Dr: Ryan Salvador MD EXAM: XR Right Hip With Pelvis When Performed, 2 or 3 Views CLINICAL INDICATION: R HIP PAIN TECHNIQUE: Two or three views of the right hip with pelvis when performed. COMPARISON: No relevant prior studies available. FINDINGS: BONES/JOINTS: Mild degenerative changes of the hip joint. No acute fracture. No dislocation. SOFT TISSUES: Unremarkable. RAD/HIP, UNI W/ Pelvis 2-3 Views IMPRESSION: Degenerative changes as above. Reading Location: [facility] CC: Dr. Kyler Salvador MD ~ [employer]: Signed [facility] 02-05-2025 Evaluation note Diagnosis Onset Date Resolution Segmental and somatic dysfunction of cervical region [...] Back pain noneactive February 05, 2025 10:24am Segmental and somatic dysfunction of cervical region acute March 05, 2025 10:25am Segmental and somatic dysfunction of lumbar region acute March 05, 2025 10:25am Segmental and somatic dysfunction of pelvic region acute March 05, 2025 10:25am Segmental and somatic dysfunction of thoracic region acute March 05, 2025 10:25am DDD (degenerative disc disease), lumbosacral chronic March 05, 2025 10:25am Degenerative disc disease, cervical chronic March 05, 2025 10:25am Back pain noneactive March 05, 2025 10:25am Segmental and somatic dysfunction of cervical region acute April 12 9:55am Segmental and somatic dysfunction of lumbar region acute April 12 9:55am Segmental and somatic dysfunction of pelvic region acute April 12 9:55am Segmental and somatic dysfunction of thoracic region acute April 12 9:55am DDD (degenerative disc disease), lumbosacral chronic March 9:55am Scoliosis chronic April 12, 2 025 9:55am Segmental and somatic dysfunction of lumbar region acute May 21, 2025 9:52am Segmental and somatic dysfunction of pelvic region acute May 21, 2025 9:52am Segmental and somatic dysfunction of thoracic region acute May 21, 2025 9:52am DDD (degenerative disc disease), lumbosacral chronic May 21, 2025 9:52am Scoliosis chronic April 9:52am Back pain noneactive April 9:52am [facility] Work Phone: 1(696) 125-828304-28-2025 Evaluation note* Diagnosis Onset Date Resolution Status Admit Date Neck pain acute December 25 10:09am Segmental and somatic dysfunction of cervical region acute A pril 2024 10:09am Segmental and somatic dysfunction of lumbar region acute Apr 2024 10:09am Segmental and somatic dysfunction of pelvic region acute Apr 2024 10:09am Segmental and somatic dysfunction of thoracic region acute A pril 2024 10:09am DDD (degenerative disc disease), lumbosacral chronic November 10:09am Scoliosis chronic December 25 10:09am Back pain noneactive December 25 10:09am Segmental and somatic dysfunction of cervical region acute J [facility] 2024 10:24am Segmental and somatic dysfunction of lumbar region acute Jan 10:24am Segmental and somatic dysfunction of pelvic region acute Jan 10:24am Segmental and somatic dysfunction of thoracic region acute J [facility] 2024 10:24am DDD (degenerative disc disease), lumbosacral chronic February 05, 2025 10:24am Degenerative disc disease, cervical chronic February 05, 2025 1 0:24am Scoliosis chronic February 05, 2025 10:24am Back pain noneactive February 05, 2025 10:24am Segmental and somatic dysfunction of cervical region acute J [id number] 10:25am Segmental and somatic dysfunction of lumbar region acute Feb 10:25am Segmental and somatic dysfunction of pelvic region acute Feb 10:25am Segmental and somatic dysfunction of thoracic region acute J [email or web address] 10:25am DDD (degenerative disc disease), lumbosacral chronic March 05, 2025 10:25am Degenerative disc disease, cervical chronic March 05, 2025 1 0:25am Back pain noneactive March 05, 2025 10:25am [facility] Work Phone: 1(601) 221-242504-28-2025 Evaluation note* Diagnosis Onset Date Resolution Status Admit Date Neck pain acute December 25 10:09am Segmental and somatic dysfunction of cervical region acute December 25, 2024 10:09am Segmental and somatic dysfunction of lumbar region acute Apr 2024 10:09am Segmental and somatic dysfunction of pelvic region acute Apr 2024 10:09am Segmental and somatic dysfunction of thoracic region acute December 25, 2024 10:09am DDD (degenerative disc disease), lumbosacral chronic November 10:09am Scoliosis chronic December 25 10:09am Back pain noneactive December 25 10:09am Segmental and somatic dysfunction of cervical region acute February 05, 2025 1 0:24am Segmental and somatic dysfunction of lumbar region acute Nikos e 2025 10:24am Segmental and somatic dysfunction of pelvic region acute Jan 10:24am Segmental and somatic dysfunction of thoracic region acute February 05, 2025 1 0:24am DDD (degenerative disc disease), lumbosacral chronic February 05, 2025 10:24am Degenerative disc disease, cervical chronic February 05, 2025 1 0:24am Scoliosis chronic February 05, 2025 10:24am Back pain noneactive February 05, 2025 10:24am Segmental and somatic dysfunction of cervical region acute March 05, 2025 1 0:25am Segmental and somatic dysfunction of lumbar region acute Feb 10:25am Segmental and somatic dysfunction of pelvic region acute Feb 10:25am Segmental and somatic dysfunction of thoracic region acute March 05, 2025 1 0:25am DDD (degenerative disc disease), lumbosacral chronic March 05, 2025 10:25am Degenerative disc disease, cervical chronic March 05, 2025 1 0:25am Back pain noneactive March 05, 2025 10:25am Intercostal neuritis acute 2024 9:55am Segmental and somatic dysfunction of cervical region acute April 12 9:55am Segmental and somatic dysfunction of lumbar region acute Mar 9:55am Segmental and somatic dysfunction of pelvic region acute Mar 9:55am Segmental and somatic dysfunction of thoracic region acute April 12 9:55am DDD (degenerative disc disease), lumbosacral chronic March 9:55am Degenerative disc disease, cervical chronic April 12 9:55am Scoliosis chronic April 12, 025 9:55am Back pain noneactive April 12, 025 9:55am [facility] Work Phone: 1(929) 536-519004-28-2025 Evaluation note* Diagnosis Onset Date Resolution Status Admit Date Neck pain acute December 25 10:09am Segmental and somatic dysfunction of cervical region acute December 25, 2024 10:09am Segmental and somatic dysfunction of lumbar region acute Apr 2024 10:09am Segmental and somatic dysfunction of pelvic region acute Nov 10:09am Segmental and somatic dysfunction of thoracic region acute December 25, 2024 10:09am DDD (degenerative disc disease), lumbosacral chronic November 10:09am Scoliosis chronic December 25 10:09am Back pain noneactive December 25 10:09am Segmental and somatic dysfunction of cervical region acute February 05, 2025 1 0:24am Segmental and somatic dysfunction of lumbar region acute Jan 10:24am Segmental and somatic dysfunction of pelvic region acute Jan 10:24am Segmental and somatic dysfunction of thoracic region acute February 05, 2025 1 0:24am DDD (degenerative disc disease), lumbosacral chronic February 05, 2025 10:24am Degenerative disc disease, cervical chronic February 05, 2025 1 0:24am Scoliosis chronic February 05, 2025 10:24am Back pain noneactive February 05, 2025 10:24am Segmental and somatic dysfunction of cervical region acute March 05, 2025 1 0:25am Segmental and somatic dysfunction of lumbar region acute Feb 10:25am Segmental and somatic dysfunction of pelvic region acute Feb 10:25am Segmental and somatic dysfunction of thoracic region acute March 05, 2025 1 0:25am DDD (degenerative disc disease), lumbosacral chronic March 05, 2025 10:25am Degenerative disc disease, cervical chronic March 05, 2025 1 0:25am Back pain noneactive March 05, 2025 10:25am Segmental and somatic dysfunction of cervical region acute April 12 9:55am Segmental and somatic dysfunction of lumbar region acute Mar 9:55am Segmental and somatic dysfunction of pelvic region acute Mar 9:55am Segmental and somatic dysfunction of thoracic region acute April 12 9:55am DDD (degenerative disc disease), lumbosacral chronic March 9:55am Scoliosis chronic April 12, 025 9:55am [facility] Work Phone: 1(291) 696-716903-18-2025 Evaluation note* Diagnosis Onset Date Resolution Status Admit Date Neck pain acute November 14 1:53pm Segmental and somatic dysfunction of cervical region acute M 2024 1:53pm Segmental and somatic dysfunction of lumbar region acute [facility] 2024 1:53pm Segmental and somatic dysfunction of pelvic region acute [facility] 2024 1:53pm Segmental and somatic dysfunction of thoracic region acute [facility] 2024 1:53pm DDD (degenerative disc disease), lumbosacral chronic October 1:53pm Scoliosis chronic November 14 1:53pm Back pain noneactive November 14 1:53pm Neck pain acute December 25 10:09am Segmental and somatic dysfunction of cervical region [facility] 20[facility] 10:09am Segmental and somatic dysfunction of lumbar region acute Apr il 2024 10:09am Segmental and somatic dysfunction of pelvic region acute Apr sd 2024 10:09am Segmental and somatic dysfunction of thoracic region acute A [facility] 2024 10:09am DDD (degenerative disc disease), lumbosacral chronic November 10:09am Scoliosis chronic December 25 10:09am Back pain noneactive December 25 10:09am Segmental and somatic dysfunction of cervical region acute J [facility] 2024 10:24am Segmental and somatic dysfunction of lumbar region acute Nikos e 2024 10:24am Segmental and somatic dysfunction of pelvic region acute Nikos e 2024 10:24am Segmental and somatic dysfunction of thoracic region acute J [facility] 2024 10:24am DDD (degenerative disc disease), lumbosacral chronic February 05, 2025 10:24am Degenerative disc disease, cervical chronic February 05, 2025 1 0:24am Scoliosis chronic February 05, 2025 10:24am Back pain noneactive February 05, 2025 10:24am [facility] Work Phone: 1(361) 859-737603-18-2025 Evaluation note* Diagnosis Onset Date Resolution Status Admit Date Neck pain acute November 14 1:53pm Segmental and somatic dysfunction of cervical region acute [facility] 2024 1:53pm Segmental and somatic dysfunction of lumbar region acute [facility] 2024 1:53pm Segmental and somatic dysfunction of pelvic region acute [facility] 2024 1:53pm Segmental and somatic dysfunction of thoracic region acute [facility] 2024 1:53pm DDD (degenerative disc disease), lumbosacral chronic October 1:53pm Scoliosis chronic November 14 1:53pm Back pain noneactive November 14 1:53pm Neck pain acute December 25 10:09am Segmental and somatic dysfunction of cervical region acute A pril 2024 10:09am Segmental and somatic dysfunction of lumbar region acute Apr il 2024 10:09am Segmental and somatic dysfunction of pelvic region acute Apr 2024 10:09am Segmental and somatic dysfunction of thoracic region acute A pril 2024 10:09am DDD (degenerative disc disease), lumbosacral chronic November 10:09am Scoliosis chronic December 25 10:09am Back pain noneactive December 25 10:09am Segmental and somatic dysfunction of cervical region acute J une 2024 10:24am Segmental and somatic dysfunction of lumbar region acute Nikos e 2024 10:24am Segmental and somatic dysfunction of pelvic region acute Jan 10:24am Segmental and somatic dysfunction of thoracic region acute J une 2024 10:24am DDD (degenerative disc disease), lumbosacral chronic February 05, 2025 10:24am Degenerative disc disease, cervical chronic February 05, 2025 1 0:24am Scoliosis chronic February 05, 2025 10:24am Back pain noneactive February 05, 2025 10:24am Segmental and somatic dysfunction of cervical region acute J [facility] 2024 10:25am Segmental and somatic dysfunction of lumbar region acute Feb 10:25am Segmental and somatic dysfunction of pelvic region acute Feb 10:25am Segmental and somatic dysfunction of thoracic region acute J [facility] 2024 10:25am DDD (degenerative disc disease), lumbosacral chronic March 05, 2025 10:25am Degenerative disc disease, cervical chronic March 05, 2025 1 0:25am Back pain noneactive March 05, 2025 10:25am [facility] Work Phone: 1(842) 486-352602-20-2025 Evaluation note* Diagnosis Onset Date Resolution Status Admit Date Neck pain acute October 19, 2024 9:23am Segmental and somatic dysfunction of cervical region acute October 19 9:23am Segmental and somatic dysfunction of lumbar region acute Feb 2024 9:23am Segmental and somatic dysfunction of pelvic region acute Feb 2024 9:23am Segmental and somatic dysfunction of thoracic region acute October 19 9:23am DDD (degenerative disc disease), lumbosacral chronic October 012024 9:23am History of rotator cuff surgery chronic October 19 9:23am Back pain noneactive October 19, 2024 9:23am Neck pain acute November 14 1:53pm Segmental and somatic dysfunction of cervical region acute November 14, 2024 1:53pm Segmental and somatic dysfunction of lumbar region acute [facility] 2024 1:53pm Segmental and somatic dysfunction of pelvic region acute [facility] 2024 1:53pm Segmental and somatic dysfunction of thoracic region acute November 14, 2024 1:53pm DDD (degenerative disc disease), lumbosacral chronic October 1:53pm Scoliosis chronic November 14 1:53pm Back pain noneactive November 14 1:53pm Neck pain acute December 25 10:09am Segmental and somatic dysfunction of cervical region acute December 25, 2024 10:09am Segmental and somatic dysfunction of lumbar region acute Apr 2024 10:09am Segmental and somatic dysfunction of pelvic region acute Nov 10:09am Segmental and somatic dysfunction of thoracic region acute December 25, 2024 10:09am DDD (degenerative disc disease), lumbosacral chronic November 10:09am Scoliosis chronic December 25 10:09am Back pain noneactive December 25 10:09am Segmental and somatic dysfunction of cervical region acute February 05, 2025 1 0:24am Segmental and somatic dysfunction of lumbar region acute Jan 10:24am Segmental and somatic dysfunction of pelvic region acute Jan 10:24am Segmental and somatic dysfunction of thoracic region acute February 05, 2025 1 0:24am DDD (degenerative disc disease), lumbosacral chronic February 05, 2025 10:24am Degenerative disc disease, cervical chronic February 05, 2025 1 0:24am Scoliosis chronic February 05, 2025 10:24am Back pain noneactive February 05, 2025 10:24am [facility] Work Phone: Evaluation noteNo assessment information available [facility] Work Phone: Evaluation note* Diagnosis Onset Date Resolution Status Segmental and somatic dysfunction of lumbar region acute Segmental and somatic dysfunction of pelvic region acute DDD (degenerative disc disease), lumbosacral chronic Scoliosis chronic Segmental and somatic dysfunction of lumbar region acute Segmental and somatic dysfunction of pelvic region acute DDD (degenerative disc disease), lumbosacral chronic Scoliosis chronic Segmental and somatic dysfunction of cervical region acute Segmental and somatic dysfunction of lumbar region acute Segmental and somatic dysfunction of pelvic region acute Segmental and somatic dysfunction of thoracic region acute DDD (degenerative disc disease), lumbosacral chronic Degenerative disc disease, cervical chronic Scoliosis chronic Segmental and somatic dysfunction of cervical region acute Segmental and somatic dysfunction of lumbar region acute Segmental and somatic dysfunction of pelvic region acute Segmental and somatic dysfunction of thoracic region acute DDD (degenerative disc disease), lumbosacral chronic Degenerative disc disease, cervical chronic Scoliosis chronic [facility] Work Phone: Evaluation note* Diagnosis Onset Date Resolution Status Segmental and somatic dysfunction of cervical region acute Segmental and somatic dysfunction of lumbar region acute Segmental and somatic dysfunction of pelvic region acute Segmental and somatic dysfunction of thoracic region acute DDD (degenerative disc disease), lumbosacral chronic Degenerative disc disease, cervical chronic Scoliosis chronic [facility] Work Phone: Evaluation note* Diagnosis Onset Date Resolution Status Segmental and somatic dysfunction of lumbar region acute Segmental and somatic dysfunction of pelvic region acute Segmental and somatic dysfunction of thoracic region acute DDD (degenerative disc disease), lumbosacral chronic Scoliosis chronic [facility] Work Phone: Evaluation note* Diagnosis Onset Date Resolution Status Segmental and somatic dysfunction of lumbar region acute Segmental and somatic dysfunction of pelvic region acute Segmental and somatic dysfunction of thoracic region acute DDD (degenerative disc disease), lumbosacral chronic Scoliosis chronic DDD (degenerative disc disease), lumbosacral chronic Scoliosis chronic [facility] Work Phone: Progress note Author Jeanie Eckert [facility] Note Date/Time May 21, 2025 10:51am [facility] [place] [address] OFFICE VISIT Date of Service: 05/21/25 MR#: [id number] Acct: [id number] Name: HELDER BROWNLEE Rep #: [id number] : 1950 Provider: BECKY Eckert Age/Sex: 74/F [place] [facility] [place]: Signed Intake Vital Signs 07/17/24 11:42 Height 5 ft 2 in Intake Visit Reasons: Back pain Chief Complaint: Low and upper back Pain Is patient in pain?: Yes (right low back ) Pain scale (1-10): 4 Allergies poison marleen extract Allergy (Unknown, Verified 05/21/25 10:04) unknown adhesive tape Adverse Reaction (Mild, Verified 05/21/25 10:04) Rash Medications ?Medication ?Instructions ?Recorded ?Confirmed ?Type calcium carbonate (Calcium 500) 500 mg PO DAILY 05/21/25 History cholecalciferol (vitamin D3) 25 25 mcg PO DAILY 05/21/25 History mcg (1,000 unit) capsule multivitamin with minerals 1 tab PO DAILY 06/04/23 History polyethylene glycol 3350 17 17 g PO DAILY PRN 06/04/23 05/21/25 History gram/dose oral powder (Miralax) nabumetone 500 mg tablet 500 mg PO BID 05/04/2405/21 History benzonatate 200 mg capsule 200 mg PO TID PRN 05/21/25 05/21/25 History Have you fallen in the past [...] follow up on back pain. Pt. reports some improvement in her right shoulder/upper back . She states she still has some mobility/ROM issues but mild pain 1/10. She continues to complain of right low back pain that extends into her right hip and groin. She states transitioning from sitting to standing is when she feels the most pain. She rates her pain 4/10 today. She was recently was started on a new medication skyrizi for arthritis and states she believes it is giving her some relief. She treats painat home with CBD and Magnesium oil which has been helpful. She had to take her NSAID's daily to help alleviate her pain. Her pain and stiffness is worse in themornings but gets better as the day goes on. She treats pain at home with heat, turmeric, stretching and aspirin as needed. She reports chiropractic adjustmentsand acupuncture are helpful in relieving her pain and discomfort. Location: neck/back Duration: frequent Aggravating or associated factors: twisting, bending,standing Relieving factors: chiro Pain Quality: aching, dull [...] the right greater than left (paraspinal L1-L5, trap,latissimus, glute, piriformis) and on the left greater than right ( thoracic paraspinal (T5-T10),), Yes Trigger (R lumbar multifidi,Glute medius,pir) and Yes misalignment T1, T2, T6, T7, T8, L1, L2, L3, L4, L5 and RIL Sacroiliac joints: on the right tender to palpation Office Procedures Procedures - Chiropractic Procedures Manipulation: Cervical C6, Lumbar L4, Thoracic T4 and Pelvis RIL Manipulation: 3-4 regions Patient Response: positive Details: ?Acupuncture Patient instructions/Risk: Patient instructed not to move and informed of risks of moving. Risks associated with the procedure and the specific location were reviewed with the patient and consent was obtained. Acupuncture performed: E-stim was not utilized. Acupoints Treated: BL23/25/27/40,yaoyan,GB30/31/40 Sterile, single use, solid filament needles were inserted at various depths and angles to release tight tissue, improve microcirculation and remove neuro- noxious chemicals via a myofascial twitch response. Aromas were inserted, needle manipulation was performed. Needle removal was performed and pressure wasapplied when necessary. Minutes:20 Needle Number: [id number] Patient response: pos Patient Positioning: prone Acupuncture Acupuncture Initial Session: Yes Assessment and Plan Assessment and Plan (1) Back pain: Qualifiers: Back pain location: low back pain Chronicity: chronic Back pain laterality: right Sciatica presence: with sciatica Sciatica laterality: sciatica of right side Qualified Code(s): M54.41 - Lumbago with sciatica, rightside; G89.29 - Other chronic pain (2) Scoliosis: Status: Chronic Qualifiers: Idiopathic scoliosis type: other Scoliosis type: idiopathic Spinal region: thoracolumbar Qualified Code(s): M41.25 - Other idiopathic scoliosis, thoracolumbar region Comment: right apex L2 (3) Segmental and somatic dysfunction of pelvic region: Status: Acute (4) Segmental and somatic dysfunction of lumbar region: Status: Acute (5) Segmental and somatic dysfunction of thoracic region: Status: Acute (6) DDD (degenerative disc disease), lumbosacral: Status: Chronic Qualifiers: Disc-related pain type: discogenic back pain only Qualified Code(s): M51.370 - Other intervertebral disc degeneration, 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 Orders: Orders Chiropractic Treatments Today M41.25 - Other idiopathic scoliosis, thoracolumbar region, M51.370 - Other intervertebral disc degeneration, 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, M99.02 - Segmental and somatic dysfunction of thoracic region, M99.03 - Segmental and somatic dysfunction of lumbar region, M99.05 - Segmental and somatic dysfunction of pelvic region Plan Patient was treated without incident. She is showing overall improvement. Continue care. Plan Details Goals & Barriers: Goals Decrease spasm Improve intersegmental motion Decrease pain Barriers Scoliosis DDD Follow Up: 2wks Coding Level of Care Code No Charge Diagnoses Chronic right-sided low back pain with right-sided sciatica M54.41; G89.29 Back pain location: low back pain Chronicity: chronic Back pain laterality: right Sciatica presence: with sciatica Sciatica laterality: sciatica of right side Other idiopathic scoliosis, thoracolumbar region M41.25 Idiopathic scoliosis type: other Scoliosis type: idiopathic Spinal region: thoracolumbar Segmental and somatic dysfunction of pelvic region M99.05 Segmental and somatic dysfunction of lumbar region M99.03 Segmental and somatic dysfunction of thoracic region M99.02 Degeneration of intervertebral disc of lumbosacral region with discogenic back pain M51.370 Disc-related pain type: discogenic back pain only CPT Codes Procedures - Manipulation: 3-4 regions (75241) Acupuncture - Acupuncture Initial Session: Yes (69230) Clinical Quality Measures Falls Risk Screening/Assistive Devices Have you fallen in the past year?: No 05/21/25 1141 <Electronically signed by Jeanie Andrade> Date _ Jeanie Eckert D.C. Cosigner Signature: Date (if applicable) CC: ~ [facility] Work Phone: Reason for referral (narrative)No reason for referral information available[facility] Work Phone: Family History No Family History [...] Complaint Admit Date DRY NEEDLING/ADJUSTMENT October 19 9:23am DRY NEEDLING/ADJUSTMENT November 14, 2024 1:53pm [...] Back pain February 05, 2025 10:24 am Chief Complaint Admit Date DRY NEEDLING/ADJUSTMENT November 14, 2024 1:53pm DRY NEEDLING/ADJUSTMENT December 25, 2024 10:09am ACUPUNCTURE/ADJUSTMENT February 05, 2025 10 :24am Reason for Visit Admit Date Neck pain November 14, 2024 1:5 3pm [...] Back pain February 05, 2025 10:24 am Chief Complaint Admit Date DRY NEEDLING/ADJUSTMENT November 14, 2024 1:53pm DRY NEEDLING/ADJUSTMENT December 25, 2024 10:09am ACUPUNCTURE/ADJUSTMENT February 05, 2025 10 :24am ACUPUNCTURE/ADJUSTMENT March 05, 2025 10 :25am Reason for Visit Admit Date Neck pain November 14, 2024 1:5 3pm [...] Back pain February 05, 2025 10:24 am Segmental and somatic dysfunction of cer vical region March 05, 2025 10:25am Segmental and somatic dysfunction of lum bar region March 05, 2025 10:25am Segmental and somatic dysfunction of pel anila region March 05, 2025 10:25am Segmental and somatic dysfunction of tho racic region March 05, 2025 10:25am DDD (degenerative disc disease), lumbosa cral March 05, 2025 10:25am Degenerative disc disease, cervical March 05, 2025 10:25am Back pain March 05, 2025 10:25 am Chief Complaint Admit Date DRY NEEDLING/ADJUSTMENT December 25, 2024 10:09am ACUPUNCTURE/ADJUSTMENT February 05, 2025 10 :24am ACUPUNCTURE/ADJUSTMENT March 05, 2025 10 :25am HIP PAIN March 15, 2025 9:31 am Reason for Visit Admit Date Neck pain December 25, 2024 10: 09am [...] Back pain February 05, 2025 10:24 am Segmental and somatic dysfunction of cer vical region March 05, 2025 10:25am Segmental and somatic dysfunction of lum bar region March 05, 2025 10:25am Segmental and somatic dysfunction of pel anila region March 05, 2025 10:25am Segmental and somatic dysfunction of tho racic region March 05, 2025 10:25am DDD (degenerative disc disease), lumbosa cral March 05, 2025 10:25am Degenerative disc disease, cervical March 05, 2025 10:25am Back pain March 05, 2025 10:25 am Chief Complaint Admit Date DRY NEEDLING/ADJUSTMENT December 25, 2024 10:09am ACUPUNCTURE/ADJUSTMENT February 05, 2025 10 :24am ACUPUNCTURE/ADJUSTMENT March 05, 2025 10 :25am HIP PAIN March 15, 2025 9:31 am PAIN- COPY PCP March 28, 2025 11:3 0am DRY NEEDLING/ADJUSTMENT April 12 9:55am Reason for Visit Admit Date Neck pain December 25, 2024 10: 09am [...] Back pain February 05, 2025 10:24 am Segmental and somatic dysfunction of cer vical region March 05, 2025 10:25am Segmental and somatic dysfunction of lum bar region March 05, 2025 10:25am Segmental and somatic dysfunction of pel anila region March 05, 2025 10:25am Segmental and somatic dysfunction of tho racic region March 05, 2025 10:25am DDD (degenerative disc disease), lumbosa cral March 05, 2025 10:25am Degenerative disc disease, cervical March 05, 2025 10:25am Back pain March 05, 2025 10:25 am Intercostal neuritis April 12, 2025 9 :55am Segmental and somatic dysfunction of cer vical region April 12, 2025 9:55am Segmental and somatic dysfunction of lum bar region April 12, 2025 9:55am Segmental and somatic dysfunction of pel anila region April 12, 2025 9:55am Segmental and somatic dysfunction of tho racic region April 12, 2025 9:55am DDD (degenerative disc disease), lumbosa cral April 12, 2025 9:55am Degenerative disc disease, cervical Augu 2024 9:55am Scoliosis April 12, 2025 9: 55am Back pain April 12, 2025 9: 55am Reason for Visit Admit Date Neck pain December 25, 2024 10: 09am [...] Back pain February 05, 2025 10:24 am Segmental and somatic dysfunction of cer vical region March 05, 2025 10:25am Segmental and somatic dysfunction of lum bar region March 05, 2025 10:25am Segmental and somatic dysfunction of pel anila region March 05, 2025 10:25am Segmental and somatic dysfunction of tho racic region March 05, 2025 10:25am DDD (degenerative disc disease), lumbosa cral March 05, 2025 10:25am Degenerative disc disease, cervical March 05, 2025 10:25am Back pain March 05, 2025 10:25 am Segmental and somatic dysfunction of cer vical region April 12, 2025 9:55am Segmental and somatic dysfunction of lum bar region April 12, 2025 9:55am Segmental and somatic dysfunction of pel anila region April 12, 2025 9:55am Segmental and somatic dysfunction of tho racic region April 12, 2025 9:55am DDD (degenerative disc disease), lumbosa cral April 12, 2025 9:55am Scoliosis April 12, 2025 9: 55am Chief Complaint Admit Date ACUPUNCTURE/ADJUSTMENT February 05, 2025 10 :24am ACUPUNCTURE/ADJUSTMENT March 05, 2025 10 :25am HIP PAIN March 15, 2025 9:31 am PAIN- COPY PCP March 28, 2025 11:3 0am DRY NEEDLING/ADJUSTMENT April 12 9:55am ACUPUNCTURE/ADJUSTMENT May 21, 025 9:52am Reason for Visit Admit Date Segmental and somatic dysfunction of cer vical [...] Back pain February 05, 2025 10:24 am Segmental and somatic dysfunction of cer vical region March 05, 2025 10:25am Segmental and somatic dysfunction of lum bar region March 05, 2025 10:25am Segmental and somatic dysfunction of pel anila region March 05, 2025 10:25am Segmental and somatic dysfunction of tho racic region March 05, 2025 10:25am DDD (degenerative disc disease), lumbosa cral March 05, 2025 10:25am Degenerative disc disease, cervical March 05, 2025 10:25am Back pain March 05, 2025 10:25 am Segmental and somatic dysfunction of cer vical region April 12, 2025 9:55am Segmental and somatic dysfunction of lum bar region April 12, 2025 9:55am Segmental and somatic dysfunction of pel anila region April 12, 2025 9:55am Segmental and somatic dysfunction of tho racic region April 12, 2025 9:55am DDD (degenerative disc disease), lumbosa cral April 12, 2025 9:55am Scoliosis April 12, 2025 9: 55am Segmental and somatic dysfunction of lum bar region May 21, 2025 9:52am Segmental and somatic dysfunction of pel anila region May 21, 2025 9:52am Segmental and somatic dysfunction of tho racic region May 21, 2025 9:52am DDD (degenerative disc disease), lumbosa cral May 21, 2025 9:52am Scoliosis May 21, 2025 9:52am Back pain May 21, 2025 9:52am Chief Complaint Admit Date ACUPUNCTURE/ADJUSTMENT February 05, 2025 10 :24am ACUPUNCTURE/ADJUSTMENT March 05, 2025 10 :25am HIP PAIN March 15, 2025 9:31 am PAIN- COPY PCP March 28, 2025 11:3 0am DRY NEEDLING/ADJUSTMENT April 12 9:55am ACUPUNCTURE/ADJUSTMENT May 21, 2 025 9:52am idiopathic scoliosis May 31, 2025 1 0:52am Summary Purpose Advance Directives No Advanced Directives Records Found Additional Source Comments Care Teams (unrecognized sec tion and content) Team Status: Active Member Role Status Dates Dr. Tigre Salvador MD Family Provider Active Dr. Tigre Salvador MD Primary Care Provider Activ e Team Status: Inactive Member Role Status Dates Dr. Tigre Salvador MD Primary Care Provider, [facility] Provider Active Dr. Jeanie Eckert DC Attending [...] February 05, 2025 End: February 05, 2025 Team Status: Active Member Role/Relationship Status Dates Dr. Kyler Salvador MD Family Provider Active Dr. Kyler Salvador MD Primary Care Provider Acti ve Team Status: Inactive Member Role/Relationship Status Dates Dr. Kyler Salvador MD Primary Care Provider Acti ve Start: November 14, 2024 End: November 14, 2024 Dr. Jeanie Eckert DC Attending Provider Active S tart: November 14, 2024 End: November 14, 2024 Dr. Jeanie Eckert DC Referring Provider Active S tart: November 14, 2024 End: November 14, 2024 Team Status: Inactive Member Role/Relationship Status Dates Dr. Kyler Salvador MD Primary Care Provider Acti ve Start: December 25, 2024 End: December 25, 2024 Dr. Jeanie Eckert DC Attending Provider Active S tart: December 25, 2024 End: December 25, 2024 Dr. Jeanie Eckert DC Referring Provider Active S tart: December 25, 2024 End: December 25, 2024 Team Status: Inactive Member Role/Relationship Status Dates Dr. Kyler Salvador MD Primary Care Provider Acti ve Start: February 05, 2025 End: February 05, 2025 Dr. Kyler Salvador MD Referring Provider Active Start: February 05, 2025 End: February 05, 2025 Dr. Jeanie Eckert DC Attending Provider Active S tart: February 05, 2025 End: February 05, 2025 Team Status: Inactive Member Role/Relationship Status Dates Dr. Kyler Salvador MD Primary Care Provider Acti ve Start: February 22, 2025 End: February 22, 2025 Dr. Kyler Salvador MD Attending Provider Active Start: February 22, 2025 End: February 22, 2025 Dr. Kyler Salvador MD Referring Provider Active Start: February 22, 2025 End: February 22, 2025 Team Status: Inactive Member Role/Relationship Status Dates Dr. Kyler Salvador MD Primary Care Provider Acti ve Start: March 05, 2025 End: March 05, 2025 Dr. Kyler Salvador MD Referring Provider Active Start: March 05, 2025 End: March 05, 2025 Dr. Jeanie Eckert DC Attending Provider Active S tart: March 05, 2025 End: March 05, 2025 Team Status: Inactive Member Role/Relationship Status Dates Dr. Kyler Salvador MD Primary Care Provider Acti ve Start: December 25, 2024 End: December 25, 2024 Dr. Jeanie Eckert DC Attending Provider Active S tart: December 25, 2024 End: December 25, 2024 Dr. Jeanie Eckert DC Referring Provider Active S tart: December 25, 2024 End: December 25, 2024 Team Status: Inactive Member Role/Relationship Status Dates Dr. Kyler Salvador MD Primary Care Provider Acti ve Start: February 05, 2025 End: February 05, 2025 Dr. Jeanie Eckert DC Attending Provider Active S tart: February 05, 2025 End: February 05, 2025 Dr. Jeanie Eckert DC Referring Provider Active S tart: February 05, 2025 End: February 05, 2025 Team Status: Inactive Member Role/Relationship Status Dates Dr. Kyler Salvador MD Primary Care Provider Acti ve Start: February 22, 2025 End: February 22, 2025 Dr. Kyler Salvador MD Attending Provider Active Start: February 22, 2025 End: February 22, 2025 Dr. Kyler Salvador MD Referring Provider Active Start: February 22, 2025 End: February 22, 2025 Team Status: Inactive Member Role/Relationship Status Dates Dr. Kyler Salvador MD Primary Care Provider Acti ve Start: March 05, 2025 End: March 05, 2025 Dr. Kyler Salvador MD Referring Provider Active Start: March 05, 2025 End: March 05, 2025 Dr. Jeanie Eckert DC Attending Provider Active S tart: March 05, 2025 End: March 05, 2025 Team Status: Inactive Member Role/Relationship Status Dates Dr. Kyler Salvador MD Primary Care Provider Acti ve Start: March 15, 2025 End: March 15, 2025 Dr. Kyler Salvador MD Attending Provider Active Start: March 15, 2025 End: March 15, 2025 Kyler RAZO MD Referring Provider Active Start: March 15, 2025 End: March 15, 2025 Team Status: Inactive Member Role/Relationship Status Dates Dr. Kyler Salvador MD Primary Care Provider Acti ve Start: March 05, 2025 End: March 05, 2025 Dr. Jeanie Eckert DC Attending Provider Active S tart: March 05, 2025 End: March 05, 2025 Dr. Jeanie Eckert DC Referring Provider Active S tart: March 05, 2025 End: March 05, 2025 Team Status: Active Member Role/Relationship Status Dates Dr. Kyler Salvador MD Primary Care Provider Acti ve Start: March 28, 2025 Dr. Cait Pearce MD Attending Provider Active Start: March 28, 2025 Dr. Cait Pearce MD Referring Provider Active Start: March 28, 2025 Team Status: Active Member Role/Relationship Status Dates Dr. Kyler Salvador MD Primary Care Provider Acti ve Start: March 30, 2025 Dr. Cait Pearce MD Attending Provider Active Start: March 30, 2025 Dr. Cait Pearce MD Referring Provider Active Start: March 30, 2025 Team Status: Inactive Member Role/Relationship Status Dates Dr. Kyler Salvador MD Primary Care Provider Acti ve Start: April 12, 2025 End: April 12, 2025 Dr. Kyler Salvador MD Referring Provider Active Start: April 12, 2025 End: April 12, 2025 Dr. Jeanie Eckert DC Attending Provider Active S tart: April 12, 2025 End: April 12, 2025 Team Status: Inactive Member Role/Relationship Status Dates Dr. Kyler Salvador MD Primary Care Provider Acti ve Start: March 28, 2025 End: March 28, 2025 Dr. Cait Pearec MD Attending Provider Active Start: March 28, 2025 End: March 28, 2025 Dr. Cait Pearce MD Referring Provider Active Start: March 28, 2025 End: March 28, 2025 Team Status: Inactive Member Role/Relationship Status Dates Dr. Kyler Salvador MD Primary Care Provider Acti ve Start: March 30, 2025 End: March 30, 2025 Dr. Cait Pearce MD Attending Provider Active Start: March 30, 2025 End: March 30, 2025 Dr. Cait Pearce MD Referring Provider Active Start: March 30, 2025 End: March 30, 2025 Team Status: Active Member Role/Relationship Status Dates Dr. Kyler Salvador MD Primary care physician Act [place] Team Status: Inactive Member Role/Relationship Status Dates Dr. Kyler Salvador MD Primary care physician [place] Start: February 05, 2025 End: February 05, 2025 Dr. Jeanie Eckert DC Attending physician Active Start: February 05, 2025 End: February 05, 2025 Dr. Jeanie Eckert DC Referring Provider Active S tart: February 05, 2025 End: February 05, 2025 Team Status: Inactive Member Role/Relationship Status Dates Dr. Kyler Salvador MD Primary care physician [place] Start: February 22, 2025 End: February 22, 2025 Dr. Kyler Salvador MD Attending physician Active Start: February 22, 2025 End: February 22, 2025 Dr. Kyler Salvador MD Referring Provider Active Start: February 22, 2025 End: February 22, 2025 Team Status: Inactive Member Role/Relationship Status Dates Dr. Kyler Salvador MD Primary care physician [place] Start: March 05, 2025 End: March 05, 2025 Dr. Jeanie Eckert DC Attending physician Active Start: March 05, 2025 End: March 05, 2025 Dr. Jeanie Eckert DC Referring Provider Active S tart: March 05, 2025 End: March 05, 2025 Team Status: Inactive Member Role/Relationship Status Dates Dr. Kyler Salvador MD Primary care physician [place] Start: March 15, 2025 End: March 15, 2025 Dr. Kyler Salvador MD Attending physician Active Start: March 15, 2025 End: March 15, 2025 Kyler RAZO MD Referring Provider Active Start: March 15, 2025 End: March 15, 2025 Team Status: Inactive Member Role/Relationship Status Dates Dr. Kyler Salvador MD Primary care physician [place] Start: March 28, 2025 End: March 28, 2025 Dr. Cait Pearce MD Attending physician Active Start: March 28, 2025 End: March 28, 2025 Dr. Cait Pearce MD Referring Provider Active Start: March 28, 2025 End: March 28, 2025 Team Status: Inactive Member Role/Relationship Status Dates Dr. Kyler Salvador MD Primary care physician [place] Start: March 30, 2025 End: March 30, 2025 Dr. Cait Pearce MD Attending physician Active Start: March 30, 2025 End: March 30, 2025 Dr. Cait Pearce MD Referring Provider Active Start: March 30, 2025 End: March 30, 2025 Team Status: Inactive Member Role/Relationship Status Dates Dr. Kyler Salvador MD Primary care physician [place] Start: April 12, 2025 End: April 12, 2025 Dr. Jeanie Eckert DC Attending physician Active Start: April 12, 2025 End: April 12, 2025 Dr. Jeanie Eckert DC Referring Provider Active S tart: April 12, 2025 End: April 12, 2025 Team Status: Inactive Member Role/Relationship Status Dates Dr. Kyler Salvador MD Primary care physician [place] Start: May 21, 2025 End: May 21, 2025 Dr. Kyler Salvador MD Referring Provider Active Start: May 21, 2025 End: May 21, 2025 Dr. Jeanie Eckert DC Attending physician Active Start: May 21, 2025 End: May 21, 2025 Team Status: Inactive Member Role/Relationship Status Dates Dr. Kyler Salvador MD Primary care physician [place] Start: May 31, 2025 End: May 31, 2025 Dr. Kyler Salvador MD Referring Provider Active Start: May 31, 2025 End: May 31, 2025 Dr. Holland Rosas MD Attending physician Active Start: May 31, 2025 End: May 31, 2025 INFORMATION SOURCE (unrecogn ized section and content) DATE CREATED AUTHOR 07/04/2025 [facility] FOR RECORDS PERTAINING TO PATIENTS WHO ARE [...] BE BASED ON THE PRIMARY CLINICAL RECORDS. [employer] provides no warranty or guarantee of the accuracy or completeness of information in this document.
--- NOTE | 2025-07-07 16:45 | CT_ITS ---
PROCEDURE: ABDOMEN/PELVIS W IV CONT ONLY 07/07/2025 REASON FOR EXAM: ? PYELONEPHRITIS TECHNIQUE: Procedure Code: CTABDPELIV Modality: CT Procedure: ABDOMEN/PELVIS W IV CONT ONLY Coronal and Sagittal reconstruction series were provided. CONTRAST: Isovue 370 VOLUME: 75 mL One or more dose reduction techniques were used (e.g., Automated exposure control, adjustment of the mA and/or kV according to patient size, use of iterative reconstruction technique. RADIATION DOSE SUMMARY: CTDlvol: 39 mGy DLP: 792 mGycm FINDINGS: There is a lumbar scoliosis without an acute lumbar compression deformity. There is a T12 vertebral body hemangioma. There are multiple hypodense lesions in the liver suggesting cysts. Gallbladder and portal vein are normal. The spleen is unremarkable and there is no pancreatic mass. There is no differential enhancement of the kidneys, abscess, calculus or hydronephrosis. There is no obstruction of the large bowel with the small bowel and there is no free air or adenopathy. No positive findings are detected for appendicitis. CT/Abdomen/Pelvis W IV Cont ONLY IMPRESSION: Ever cysts. No acute abnormality Reading [facility]
--- NOTE | 2025-07-07 16:45 | CT_ITS ---
PROCEDURE: SPINE LUMBAR WITHOUT CONTRAST 07/07/2025 REASON FOR EXAM: BACK PAIN TECHNIQUE: Procedure Code: CTSPL Modality: CT Procedure: SPINE LUMBAR WITHOUT CONTRAST Coronal and Sagittal reconstruction series were provided. One or more dose reduction techniques were used (e.g., Automated exposure control, adjustment of the mA and/or kV according to patient size, use of iterative reconstruction technique RADIATION DOSE SUMMARY: CTDlvol: 39 mGy DLP: 792 mGycm FINDINGS: Lumbar scoliosis. No lumbar compression deformity. Diffuse lumbar degenerative disc space narrowing. Moderate osteopenia. No transverse process fracture. Negative for severe spinal stenosis on axial soft tissue windows. No paravertebral mass lesion. CT/Spine Lumbar without Contrast IMPRESSION: Diffuse degenerative disc space narrowing. Scoliosis convex to the right. The re is no acute compression deformity. Reading [facility]
[2025-07-07 16:47] LABS: Hematocrit 42.5 % (37-47); Hemoglobin 14.6 g/dL (12.0-15.0); Immature Granulocytes Count 0.050 X10^3/uL (0.0-0.0); Mean Corp Hgb Conc 34.4 g/dL (32-36); Mean Corpuscular Volume 89.5 fL (81-99); Mean Platelet Vol. 9.7 fl (6.2-12.0); NRBC Flagged by Analyzer 0 % (0-5); Platelet Count 204 K/mm3 (150-450); RBC Distribution Width CV 13.0 % (11.6-14.6); RBC Distribution Width SD 43.0 fl (35.1-43.9); Red Blood Count 4.75 M/mm3 (4.2-5.4); White Blood Count 12.3 K/mm3 (4.4-11.0)
--- NOTE | 2025-07-07 16:50 | RAD_ITS ---
PROCEDURE: CHEST PA AND LATERAL 07/07/2025 REASON FOR EXAM: COUGH TECHNIQUE: Procedure Code: RADCXR Modality: DX Procedure: CHEST PA AND LATERAL COMPARISON: 03/30/2025 FINDINGS: Lungs/Pleura: No focal consolidation, pneumothorax or pleural effusion. Mild- moderate chronic interstitial emphysematous lung changes. Stable subcentimeter probable calcified granuloma right mid lung zone. Heart/Mediastinum: Normal in size. Mildly tortuous thoracic aorta. Bones/Soft tissues: Degenerative changes of the spine. Right humeral head anchor screws. RAD/Chest PA and Lateral IMPRESSION: No acute cardiopulmonary disease. Reading Location: [id number]
[2025-07-07 17:13] LABS: AST(SGOT) 23 U/L (<=31); Alanine Aminotransfer ALT/SGPT 15 U/L (<=34); Albumin, Serum 4.1 g/dL (3.4-4.8); Alkaline Phosphatase 72 U/L (35-104); Anion Gap 10 (5-15); BUN 18 mg/dL (4-19); BUN/Creat Ratio 24.9 RATIO (10-20); Bilirubin, Direct 0.11 mg/dL (0.00-0.30); Calcium,Total 9.6 mg/dL (7.6-11.0); Carbon Dioxide 24.5 mmol/L (21.0-32.0); Chloride 103 mmol/L (98-108); Estimated Creatinine Clearance 48.85 ml/min (50-250); Globulin 2.4 g/dL (2.2-4.2); Glucose 116 mg/dL (70-99); Lipase 19 U/L (13-75); Potassium 3.7 mmol/L (3.3-5.1); Procalcitonin 0.08 ng/mL (<=0.10)
[2025-07-07 17:37] VITALS: BP 115/61; PULSE 86; RESP 18; TEMP 37.2; O2SAT 96
--- NOTE | 2025-07-07 18:02 | EX.ED.DYSGE1 ---
HPI History of Present Illness Chief Complaint: Back Informant: patient and spouse/S.O. Narrative Narrative: Patient is a 75-year-old female with past medical history of psoriasis currently on Skyrizi. She states that she has chronic back pain but over the last few days has had increasing low back pain without reported trauma or excessive activity. She states the pain is slightly more on the left side but does radiate into the right low back. She reports that there has been no loss of bowel or bladder control and she denies any IV drug use. She also denies any history of recent back surgery or procedures. Patient states she has had a low-grade fever for the last 1 to 2 days. With this she reports she has had congestion and cough. She also states that there has been slight burning with urination for the last 24 hours. She states she is been taking her home medications but the back pain has not improved with that she presents for evaluation. [facility] Medical History History of breast abscess Cataracts Arthritis Osteoporosis Scoliosis Appendicitis hx of child Low back pain Visual impairment Psoriasis Home Medications ?Medication ?Instructions ?Recorded ?Last Taken ?Type multivitamin with minerals 1 tab PO DAILY 06/04/23 Unknown History benzonatate 200 mg capsule 200 mg PO TID PRN 05/21/25 Unknown History cholecalciferol (vitamin D3) 25 75 mcg PO DAILY 05/31/25 Unknown History mcg (1,000 unit) capsule nabumetone 500 mg tablet 500 mg PO BID PRN 05/31/25 Unknown History risankizumab-rzaa 150 mg/mL 150 mg subcut Q12W 05/31/25 Unknown History subcutaneous pen injector (Skyrizi) diazepam 5 mg tablet (Valium) 5 mg PO TID PRN Muscle pain/spasm 07/07/25 Unknown Rx 5 days #15 tabs Allergy/AdvReac Type Severity Reaction Status Date / Time poison marleen extract Allergy Unknown unknown Verified 07/07/25 15:49 sulfasalazine (From Allergy Hives Verified 07/07/25 15:49 Azulfidine) adhesive tape AdvReac Mild Rash Verified 07/07/25 15:49 Family History Mother Arthritis Autoimmune disease Hypertension Father Hypertension Myocardial infarction Brother Depression Grandfather CVA (cerebral vascular accident) Sister Thyroid disorder Surgical History History of cataract surgery History of rotator cuff surgery Hx of breast lump removal History of laparotomy Hx of appendectomy Hx of section Social History household members: spouse current occupational status: retired pets and animals: Yes pets and animals: cat(s) Smoking Status: Never smoker alcohol intake: never caffeine: Yes Type: coffee Number of servings: 2 what type of physical activity do you participate in: walking frequency: 5-6 times per week do you feel safe at home: Yes ROS ROS ED Constitutional Constitutional ED: Reports fever(s); Denies chills ENT ENT ED: Reports rhinorrhea and sore throat Cardiovascular Cardiovascular: Denies chest pain Respiratory/Chest Respiratory/Chest: Denies cough or dyspnea Gastrointestinal Gastrointestinal: Denies abdominal pain, diarrhea, nausea or vomiting Genitourinary Genitourinary ED: Reports dysuria Musculoskeletal Musculoskeletal: Reports back pain and myalgias Integumentary Denies rash Neurologic Neurologic: Denies headache(s) Hematologic/Lymphatic Hematologic/Lymphatic: Denies easy bleeding or easy bruising EXAM Physical Exam Const Vital Signs: 07/07/25 15:49 07/07/25 17:37 Temperature 100.1 F H 98.9 F Temperature Source Oral Oral Pulse Rate 122 H 86 Respiratory Rate 18 18 Blood Pressure 135/71 H 115/61 Blood Pressure Mean 92 79 Pulse Ox 96 96 Oxygen Delivery Method Room Air Positive well nourished and well developed General Appearance ED: well developed; Negative for pallor HEENT HEENT Narrative: Normocephalic atraumatic Bilateral TMs are retracted but show no secondary findings to suggest infection Nasal mucosa is hyperemic and boggy Cobblestoning is noted in the posterior pharynx consistent with sinus drainage without airway edema or compromise; no secondary findings in the posterior pharynx to suggest infection Eyes PERRL and EOMs intact bilaterally General Eye ED: Negative for scleral icterus Neck supple Neck Narrative: No nuchal rigidity or meningeal signs Resp normal respiratory effort and clear to auscultation bilaterally Resp Narrative: No nasal flaring retractions tachypnea or accessory muscle use Cardio regular rhythm Rate: tachycardic and other Other Details: Tachycardic rate with regular rhythm Radial and carotid pulses are equal and symmetric GI normal to inspection, nondistended, normoactive bowel sounds, non-tender, non-distended and no masses GI Narrative: Soft nontender nondistended with normal active bowel sounds No voluntary guarding or rigidity or pulsatile mass No peritoneal signs Auscultation: normoactive bowel sounds Palpation: soft Back/Spine Back/Spine Narrative: No bony deformity or step-off of the thoracic or lumbar spine There is diffuse pain with palpation across the low back region with spasm and tension noted No overlying abrasions or ecchymosis to suggest trauma No overlying erythema or warmth to suggest infection such as cellulitis or abscess No shingles noted No saddle anesthesia. Negative straight leg raise. No clonus or Babinski. Patellar reflexes are plus 1 out of 4 bilaterally. Extremity normal to inspection Extremity Narrative: No asymmetric edema no pitting edema negative Homans' sign bilaterally Neuro oriented x3, CN's II-XII intact bilaterally and no sensory deficits noted Sensorium / Orientation: alert Motor Exam: strength 5/5 throughout Psych mental status grossly normal Skin no rashes or lesions noted and no wounds General Skin Exam: Negative for jaundice or pallor MDM MDM MDM Narrative Medical decision making narrative: Patient arrived to the ER with a low-grade fever and was tachycardic most likely from the fever. She does have a history of chronic back pain but with the history of immunosuppression from Skyrizi as well as increasing pain in the low back there is concern she could have a UTI or pyelonephritis. With the recent congestion and cough she may have COVID influenza RSV or potential pneumonia. She denies loss of bowel bladder control or IV drug use going against cauda equina or epidural abscess. She also denies any recent injections or procedures going against discitis or osteomyelitis. With her history of fever and immunosuppression and now worsening symptoms I do feel it is prudent to assess the patient with laboratory studies viral swab and strep swab UA and even a CT scan of the abdomen pelvis and low back. White count is elevated 12.3 and despite her history of immunosuppression nature of count is elevated and this would go against neutropenic fever. Urine sample shows +2 bacteria but there are no white blood cells present no leukocyte esterase and negative nitrite I do not feel that this is true infection and most likely colonization. Viral swab was negative as well as strep. Chest x-ray revealed no obvious infiltrate. Imaging studies also showed no sign of intestinal infection or inflammation around the kidneys going against pyelonephritis or compression fracture in the low back. After receiving medication patient reported feeling much better and her fever reduce. Vitals remained stable. Therefore at this time as overall workup is negative I do not feel there is need for admission and she is otherwise safe for discharge History & Record Review Discussion w/independent historian: Patient and Significant other Lab Data Attestation: I reviewed the patient's lab results. Labs: Laboratory Results - last 24 hr 07/07/25 07/07/25 14:11 16:35 WBC 12.3 H RBC 4.75 Hgb 14.6 Hct 42.5 MCV 89.5 MCH 30.7 MCHC 34.4 RDW Std Deviation 43.0 RDW Coeff of Kellee 13.0 Plt Count 204 MPV 9.7 Immature Gran % (Auto) 0.400 Neut % (Auto) 88.3 H Lymph % (Auto) 6.8 L Gage % (Auto) 4.2 Eos % (Auto) 0.1 Baso % (Auto) 0.2 Absolute Neuts (auto) 10.9 H Absolute Lymphs (auto) 0.84 Nucleated RBC % 0 Sodium 138 Potassium 3.7 Chloride 103 Carbon Dioxide 24.5 Anion Gap 10 BUN 18 Creatinine 0.74 Estim Creat Clear Calc 48.85 L Est GFR (MDRD) Non-Af 84 BUN/Creatinine Ratio 24.9 H Glucose 116 H Lactic Acid 1.3 Calcium 9.6 Total Bilirubin 0.20 Direct Bilirubin 0.11 AST 23 ALT 15 Alkaline Phosphatase 72 Total Protein 6.5 Albumin 4.1 Globulin 2.4 Lipase 19 Procalcitonin 0.08 Urine Color Yellow Urine Clarity Clear Urine pH 7.0 Ur Specific Hunter 1.010 Urine Protein 15 H Urine Glucose (UA) Normal Urine Ketones Negative Urine Occult Blood 25 H Urine Nitrite Negative Urine Bilirubin Negative Urine Urobilinogen Normal Ur Leukocyte Esterase Negative Urine RBC 0-5 SEEN Urine WBC 0 SEEN Ur Squamous Epith Cells 0-5 SEEN Urine Bacteria 2+ Urine Mucus 0 SEEN Radiography Diagnostic Testing: Clinical Impression(s) from Imaging Studies Abdomen/Pelvis CT 07/07/25 16:45 IMPRESSION: Ever cysts. No acute abnormality Reading [facility] Lumbar Spine CT 07/07/25 16:45 IMPRESSION: Diffuse degenerative disc space narrowing. Scoliosis convex to the right. There is no acute compression deformity. Reading Location[facility] Chest X-Ray 07/07/25 16:50 IMPRESSION: No acute cardiopulmonary disease. Reading Location: [facility] Chest x-ray as interpreted by the emergency medicine physician reveals no acute infiltrate pneumothorax or pleural effusion Discharge Plan Triage Chief Complaint: Back Other Complaint: Hypertension ED Provider: Wes Dixon Dx/Rx/DC Orders Clinical Impression: Viral syndrome, Spasm of muscle of lower back, Psoriasis Instructions: ED Back Spasm, No Trauma, ED Viral Syndrome (Adult) Prescriptions: New diazepam [Valium] 5 mg tablet 5 mg PO TID PRN (Reason: Muscle pain/spasm) 5 Days Qty: 15 0RF No Action cholecalciferol (vitamin D3) 25 mcg (1,000 unit) capsule 75 mcg PO DAILY multivitamin with minerals Tablet 1 tab PO DAILY nabumetone 500 mg tablet 500 mg PO BID PRN Skyrizi 150 mg/mL pen injector 150 mg subcut Q12W Patient Comments: [NO ORIGINAL SIG] benzonatate 200 mg capsule 200 mg PO TID PRN Primary Care Provider: Kyler Salvador Referrals: Kyler Salvador MD [Primary Care Provider, Family Practice] Activity Restrictions/Additional Instructions: Your workup today did not reveal any obvious signs of infection such as UTI COVID influenza RSV or pneumonia. This indicates that you have a viral illness which will last on average 2 to 3 weeks. Fever should resolve in under 7 days. If fever lasts over 1 week or symptoms persist despite time or you have any further concerns return to the ER for repeat evaluation Print Language: Norwegian Disposition Disposition: Home, Self Care Discharge Date/Time: 07/07/25 18:37
[2025-07-07 18:14] VITALS: BP 125/58; PULSE 94; RESP 18; TEMP 37; O2SAT 95
== END 2025-07-07 18:37 | disposition home or self-care (01) ==
PROVIDERS: Emergency Medicine; Emergency Provider Emergency Medicine; PCP Family Medicine; Visit Provider Emergency Medicine
DX: M54.9 Dorsalgia, unspecified (principal); L40.9 Psoriasis, unspecified; I10 Essential (primary) hypertension; B34.9 Viral infection, unspecified; M62.830 Muscle spasm of back; R50.9 Fever, unspecified
CPT/HCPCS: 71046; 72131; 74177; 80048; 80076; 81001; 83605; 83690; 84145; 85025; 87631; 96361; 96374; 96375; 99284; Q9967; A4216; J2405

== ENCOUNTER → 2025-08-13 | Outpatient (CLI) | payer MEDICARE, SELFPAY ==
[2025-08-13 17:34] LABS: Hematocrit 40.8 % (37-47); Hemoglobin 13.6 g/dL (12.0-15.0); Immature Granulocytes Count 0.030 X10^3/uL (0.0-0.0); Mean Corp Hgb Conc 33.3 g/dL (32-36); Mean Corpuscular Volume 93.6 fL (81-99); Mean Platelet Vol. 9.6 fl (6.2-12.0); NRBC Flagged by Analyzer 0 % (0-5); Platelet Count 279 K/mm3 (150-450); RBC Distribution Width CV 14.4 % (11.6-14.6); RBC Distribution Width SD 49.9 fl (35.1-43.9); Red Blood Count 4.36 M/mm3 (4.2-5.4); White Blood Count 9.1 K/mm3 (4.4-11.0)
[2025-08-13 18:38] LABS: AST(SGOT) 24 U/L (<=31); Alanine Aminotransfer ALT/SGPT 19 U/L (<=34); Albumin, Serum 4.2 g/dL (3.4-4.8); Alkaline Phosphatase 77 U/L (35-104); Anion Gap 10 (5-15); BUN 16 mg/dL (4-19); BUN/Creat Ratio 20.6 RATIO (10-20); Calcium,Total 10.0 mg/dL (7.6-11.0); Carbon Dioxide 24.2 mmol/L (21.0-32.0); Chloride 105 mmol/L (98-108); Globulin 2.3 g/dL (2.2-4.2); Glucose 120 mg/dL (70-99); Potassium 4.1 mmol/L (3.3-5.1)
--- OUTSIDE RECORDS SUMMARY | 2025-08-13 20:18 | XMS RPT_ITS | CCD ---
Author Organization [facility]ini[facility] Care Team Providers Care Slip Cover Operator Name Role Phone Dr. Tigre Salvador Primary [...] 5 [place] MEZA, Dr. Chávez Referring Provider [phone] [place] MEZA, Dr. Chávez Primary Care Provider Dossi DC, Dr. Ware Attending Provider [phone] Doss[place] DC, Dr. Ware Referring Provider [phone] [place] MEZA, Dr. Chávez Attending Provider [place] MEZA, Dr. Chávez Primary Care Provider Dossi DC, Dr. Ware Attending Provider Dossi DC, Dr. Ware Referring Provider [phone] [place] MEZA, Dr. Chávez Referring Provider [place] MEZA, Kyler Referring Provider Jake Pearce MD, Dr. Chavira Attending Provider Ramses MEZA, Dr. Chavira Referring Provider [place] MEZA, Dr. Chávez Primary Care Physicia n Dossi DC, Dr. Ware Attending Physician Dossi DC, Dr. Ware Referring Provider [place] MEZA, Dr. Chávez Attending Physician Ramses MEZA, Dr. Chavira Attending Physician Ralph MEZA, Dr. Lino Attending Physician [phone] Ranney, Christopher Referring Unavailable Ranney, Christopher Attending Unavailable Ranney, Christopher Primary Care Unavailable Vellanki, Cait Referring Unavailable Vellanki, Cait Attending Unavailable Ranney, Christopher Primary Care Unavailable Ranney, Christopher Referring Unavailable Ranney, Christopher Attending Unavailable Ranney, Christopher Primary Care Unavailable Dossi, Jeanie Referring Unavailable Ranney, Christopher Primary Care Unavailable Dossi, Jeanie Attending Unavailable Dossi, Jeanie Referring Unavailable Dossi, Jeanie Attending Unavailable Ranney, Christopher Primary Care Unavailable Dossi, Jeanie Attending Unavailable Dossi, Jeanie Referring Unavailable Ranney, Christopher Primary Care Unavailable Ranney, Christopher Attending Unavailable Ranney DUNG, Christopher Referring Unavaila ble Ranney, Christopher Primary Care Unavailable Ranney, Christopher Primary Care Unavailable Wes Dixon Attending Unavailable Ranney, Christopher Primary Care Unavailable Dossi, Jeanie Referring Unavailable Dossi, Jeanie Attending Unavailable Ranney, Christopher Referring Unavailable Ranney, Christopher Primary Care Unavailable Holland Rosas Attending Unavailable Vellanki, Cait Referring Unavailable Vellanki, Cait Attending Unavailable Ranney, Christopher Primary Care Unavailable Ranney, Christopher Referring Unavailable Ranney, Christopher Attending Unavailable Ranney, Christopher Primary Care Unavailable Vellanki, Cait Referring Unavailable Vellanki, Cait Attending Unavailable Ranney, Christopher Primary Care Unavailable Ranney, Christopher Referring Unavailable Ranney, Christopher Primary Care Unavailable Dossi, Jeanie Attending Unavailable Dossi, Jeanie Referring Unavailable Ranney, Christopher Primary Care Unavailable Dossi, Jeanie Attending Unavailable Dossi, Jeanie Referring Unavailable Ranney, Christopher Primary Care Unavailable Dossi, Jeanie Attending Unavailable [facility] Referring Unavailable [facility] Unavailable Dossi, Jeanie Attending Unavailable [facility] Unavailable Dossi, Jeanie Attending Unavailable Dossi, Jeanie Referring Unavailable Dossi, Jeanie Referring Unavailable [facility] Unavailable Dossi, Jeanie Attending Unavailable Dossi, Jeanie Referring Unavailable [facility] Unavailable Dossi, Jeanie Attending Unavailable Dossi, Jeanie Referring Unavailable [facility] Unavailable Dossi, Jeanie Attending Unavailable Allergies Allergy Classification Reported Allergen(s) Allergy Type Date of Onset Reaction(s) Facility (20 sources) Adhesive Tape; Translations: [adhesive tape] Propensity to adverse reactions 2 Rash [facility] (19 sources) POISON MARLEEN EXTRACT Drug Allergy 2 [facility] (1 source) sulfaSALAzine Drug Allergy 5 [facility] (1 source) sulfaSALAzine Drug Allergy 5 [facility] Repository (1 source) poison marleen extract Drug allergy (disorder) 5 [facility] Repository Medications Current Medications Medication Drug [...] Start: 06-04-2023 take 1 tablet by ginny once daily Multivitamin With Minerals Active 1 [...] Risankizumab-Rzaa (1 source) Start: 05-31-2025 Risankizumab-Rza a (Lawrenceyrizi) 150 mg/mL pen injector Active 150 mg [...] July 10, 2020 1:00am polyethylene glycol 3350 53100 mg powder for oral solution (20 sources) [...] Test Name Value Interpretation Reference Range Facility Abdomen/Pelvis W IV Cont ONL Yon 07-07-2025 Abdomen/Pelvis W IV Cont ONLY [facility] Imaging Services [address] [place], [place] [id number] Abdomen/Pelvis W IV Cont ONLY MR#: [id number] Acct: [id number] Name: HELDER BROWNLEE Rep #: [id number] : 1950 F 75 From: Brendan Turner MD PCP: Dr. Kyler Salvador MD Status: REG ER Study: Abdomen/Pelvis W IV Cont ONLY Date of Exam: Exam# [id number] Ordering Dr: Wes Dixon DO PROCEDURE: ABDOMEN/PELVIS W IV CONT ONLY 07/07/2025 REASON FOR EXAM: ? PYELONEPHRITIS TECHNIQUE: Procedure Code: CTABDPELIV Modality: CT Procedure: ABDOMEN/PELVIS W IV CONT ONLY Coronal and Sagittal reconstruction series were provided. CONTRAST: Isovue 370 VOLUME: 75 mL One or more dose reduction techniques were used (e.g., Automated exposure control, adjustment of the mA and/or kV according to patient size, use of iterative reconstruction technique. RADIATION DOSE SUMMARY: CTDlvol: 39 mGy DLP: 792 mGycm FINDINGS: There is a lumbar scoliosis without an acute lumbar compression deformity. There is a T12 vertebral body hemangioma. There are multiple hypodense lesions in the liver suggesting cysts. Gallbladder and portal vein are normal. The spleen is unremarkable and there is no pancreatic mass. There is no differential enhancement of the kidneys, abscess, calculus or hydronephrosis. There is no obstruction of the large bowel with the small bowel and there is no free air or adenopathy. No positive findings are detected for appendicitis. CT/Abdomen/Pelvis W IV Cont ONLY IMPRESSION: Ever cysts. No acute abnormality Reading [facility] CC: Dr. Kyler Salvador MD; Wes Dixon DO After [employer] Program Teacher: Signed Normal [facility] Basic Metabolic Profile (BMP )on 07-07-2025 BUN/CRE 24.9 RATIO High 10-20 [facility] Comment on above: Performed By: #### L 501.2450, L509.7001, L100.0100, L500.3400, L503.6005, L500.2500 #### [facility] Laboratory [address] [place], [address] Calcium [Mass/Vol] 9.6 mg/dL Normal 7.6-11.0 [facility] Comment on above: Performed By: #### L 501.2450, L509.7001, L100.0100, L500.3400, L503.6005, L500.2500 #### [facility] [address] [place], [address] Chloride [Moles/Vol] 103 mmol/L Normal 98-108 [facility] Comment on above: Performed By: #### L 501.2450, L509.7001, L100.0100, L500.3400, L503.6005, L500.2500 #### [facility] [address] [place], [address] CO2 [Moles/Vol] 24.5 mmol/L Normal 21.0-32.0 [facility] Comment on above: Performed By: #### L 501.2450, L509.7001, L100.0100, L500.3400, L503.6005, L500.2500 #### [facility] [address] [place], [address] Creatinine [Mass/Vol] 0.74 mg/dL Normal 0.70-1.[address] [facility] Comment on above: Performed By: #### L 501.2450, L509.7001, L100.0100, L500.3400, L503.6005, L500.2500 #### [facility] [address] [place], [address] ECRCL 48.85 ml/min Low 50-250 [facility] Comment on above: Performed By: #### L 501.2450, L509.7001, L100.0100, L500.3400, L503.6005, L500.2500 #### [facility] [address] [place], [address] GAP 10 Normal 5-15 [facility] Comment on above: Performed By: #### L 501.2450, L509.7001, L100.0100, L500.3400, L503.6005, L500.2500 #### [facility] [address] [place], [address] GFR/1.73 sq M.predicted among non-blacks MDRD (S/P/Bld) [Vol rate/Area] 84 mL/min/{1.73_m2} Normal >60 [facility] Comment on above: Result Comment: mL/m in/1.73m2 CKD-EPI Creatinine Equation (2020) Performed By: #### L 501.2450, L509.7001, L100.0100, L500.3400, L503.6005, L500.2500 #### [facility] [address] [place], [address] Glucose [Mass/Vol] 116 mg/dL High 70-99 [facility] Comment on above: Performed By: #### L 501.2450, L509.7001, L100.0100, L500.3400, L503.6005, L500.2500 #### [facility] [address] [place], [address] Potassium [Moles/Vol] 3.7 mmol/L Normal 3.3-5.[address] [facility] Comment on above: Performed By: #### L 501.2450, L509.7001, L100.0100, L500.3400, L503.6005, L500.2500 #### [facility] [address] [place], [address] Sodium [Moles/Vol] 138 mmol/L Normal 133-145 [facility] Comment on above: Performed By: #### L 501.2450, L509.7001, L100.0100, L500.3400, L503.6005, L500.2500 #### [facility] [address] [place], [address] Urea nitrogen [Mass/Vol] 18 mg/dL Normal 4-19 [facility] Comment on above: Performed By: #### L 501.2450, L509.7001, L100.0100, L500.3400, L503.6005, L500.2500 #### [facility] [address] [place], [address] CBC W/Diff, Automatedon 11-0 8-2025 Absolute Lymph 0.84 X10 3/uL Normal 0.83-4.51 [facility] Comment on above: Performed By: #### L 501.2450, L509.7001, L100.0100, L500.3400, L503.6005, L500.2500 #### [facility] [address] [place], [address] Absolute Neut 10.9 X10 3/uL High 2.0-7.7 [facility] Comment on above: Performed By: #### L 501.2450, L509.7001, L100.0100, L500.3400, L503.6005, L500.2500 #### [facility] [address] [place], [address] Basophils/100 WBC (Bld) 0.2 % Normal 0-1 [facility] Comment on above: Performed By: #### L 501.2450, L509.7001, L100.0100, L500.3400, L503.6005, L500.2500 #### [facility] [address] [place], [address] Eosinophils/100 WBC (Bld) 0.1 % Normal 0-5 [facility] Comment on above: Performed By: #### L 501.2450, L509.7001, L100.0100, L500.3400, L503.6005, L500.2500 #### [facility] [address] [place], [address] Erythrocyte distribution width (RBC) [Ratio] 13.0 % Normal 11.6-14.6 [facility] Comment on above: Performed By: #### L 501.2450, L509.7001, L100.0100, L500.3400, L503.6005, L500.2500 #### [facility] [address] [place], [address] Hematocrit (Bld) [Volume fraction] 42.5 % Normal 37-47 [facility] Comment on above: Performed By: #### L 501.2450, L509.7001, L100.0100, L500.3400, L503.6005, L500.2500 #### [facility] [address] [place], [address] Hemoglobin (Bld) [Mass/Vol] 14.6 g/dL Normal 12.0-15.0 [facility] Comment on above: Performed By: #### L 501.2450, L509.7001, L100.0100, L500.3400, L503.6005, L500.2500 #### [facility] [address] [place], [address] IG% 0.400 Normal 0.0-0.9 [facility] Comment on above: Result Comment: IG% - Immature Granulocytes (promyelocytes, myelocytes and metamyelocytes) > 1% indicates that a LEFT SHIFT is Present. Performed By: #### L 501.2450, L509.7001, L100.0100, L500.3400, L503.6005, L500.2500 #### [facility] [address] [place], [address] Lymphocytes/100 WBC (Bld) 6.8 % Low 19-41 [facility] Comment on above: Performed By: #### L 501.2450, L509.7001, L100.0100, L500.3400, L503.6005, L500.2500 #### [facility] [address] [place], [address] MCH (RBC) [Entitic mass] 30.7 pg Normal 27.0-32.0 [facility] Comment on above: Performed By: #### L 501.2450, L509.7001, L100.0100, L500.3400, L503.6005, L500.2500 #### [facility] [address] [place], [address] MCHC (RBC) [Mass/Vol] 34.4 g/dL Normal 32-[address] [facility] Comment on above: Performed By: #### L 501.2450, L509.7001, L100.0100, L500.3400, L503.6005, L500.2500 #### [facility] [address] [place], [address] MCV (RBC) [Entitic vol] 89.5 fL Normal 81-99 [facility] Comment on above: Performed By: #### L 501.2450, L509.7001, L100.0100, L500.3400, L503.6005, L500.2500 #### [facility] [address] [place], [address] Monocytes/100 WBC (Bld) 4.2 % Normal 0-10 [facility] Comment on above: Performed By: #### L 501.2450, L509.7001, L100.0100, L500.3400, L503.6005, L500.2500 #### [facility] [address] [place], [address] Neutrophils/100 WBC (Bld) 88.3 % High 47-70 [facility] Comment on above: Performed By: #### L 501.2450, L509.7001, L100.0100, L500.3400, L503.6005, L500.2500 #### [facility] [address] [place], [address] Nucleated RBC (Bld) [#/Vol] 0 10*3/uL Normal 0-5 [facility] Comment on above: Performed By: #### L 501.2450, L509.7001, L100.0100, L500.3400, L503.6005, L500.2500 #### [facility] [address] [place], [address] Platelet mean volume (Bld) [Entitic vol] 9.7 fL Normal 6.2-12.0 [facility] Comment on above: Performed By: #### L 501.2450, L509.7001, L100.0100, L500.3400, L503.6005, L500.2500 #### [facility] [address] [place], [address] Platelets (Bld) [#/Vol] 204 10*3/uL Normal 150-450 [facility] Comment on above: Performed By: #### L 501.2450, L509.7001, L100.0100, L500.3400, L503.6005, L500.2500 #### [facility] [address] [place], [address] RBC (Bld) [#/Vol] 4.75 10*6/uL Normal 4.2-5.4 [facility] Comment on above: Performed By: #### L 501.2450, L509.7001, L100.0100, L500.3400, L503.6005, L500.2500 #### [facility] [address] [place], [address] RDW SD 43.0 fl Normal 35.1-43.9 [facility] Comment on above: Performed By: #### L 501.2450, L509.7001, L100.0100, L500.3400, L503.6005, L500.2500 #### [facility] [address] [place], [address] WBC (Bld) [#/Vol] 12.3 10*3/uL High 4.4-11.0 [facility] Comment on above: Performed By: #### L 501.2450, L509.7001, L100.0100, L500.3400, L503.6005, L500.2500 #### [facility] [address] [place], [address] Chest PA and Lateralon 07-07 Chest PA and Lateral [facility] Imaging Services [address] [place] [address] Chest PA and Lateral MR#: [id number] Acct: [id number] Name: HELDER BROWNLEE Rep #: [id number] : 1950 F 75 From: Alfredo Yao MD PCP: Dr. Kyler Salvador MD Status: [facility] ER Study: Chest PA and Lateral Date of Exam: 07/07/25 Exam# [id number] Ordering Dr: Wes Dixon DO PROCEDURE: CHEST PA AND LATERAL 07/07/2025 REASON FOR EXAM: COUGH TECHNIQUE: Procedure Code: RADCXR Modality: DX Procedure: CHEST PA AND LATERAL COMPARISON: 03/30/2025 FINDINGS: Lungs/Pleura: No focal consolidation, pneumothorax or pleural effusion. Mild-moderate chronic interstitial emphysematous lung changes. Stable subcentimeter probable calcified granuloma right mid lung zone. Heart/Mediastinum: Normal in size. Mildly tortuous thoracic aorta. Bones/Soft tissues: Degenerative changes of the spine. Right humeral head anchor screws. RAD/Chest PA and Lateral IMPRESSION: No acute cardiopulmonary disease. Reading Location: [facility] CC: Dr. Kyler Salvador MD; Wes Dixon DO [employer] Program Teacher: Signed Normal [facility] Emergency Department Summary on 07-07-2025 Emergency Department Summary [facility] Medical Records Department [address] [place] [address] Emergency Department Summary 07/07/25 MR#: [id number] Acct: [id number] Name: HELDER BROWNLEE Rep #: [id number] : 1950 75 From: Wes Dixon DO PCP: Dr. Kyler Salvador MD Status:[facility] ER Location: ED HPI History of Present Illness Chief Complaint: Back Informant: patient and spouse/S.O. Narrative Narrative: Patient is a 75-year-old female with past medical history of psoriasis currently on Skyrizi. She states that she has chronic back pain but over the last few days has had increasing low back pain without reported trauma or excessive activity. She states the pain is slightly more on the left side but does radiate into the right low back. She reports that there has been no loss of bowel or bladder control and she denies any IV drug use. She also denies any history of recent back surgery or procedures. Patient states she has had a low-grade fever for the last 1 to 2 days. With this she reports she has had congestion and cough. She also states that there has been slight burning with urination for the last 24 hours. She states she is been taking her home medications but the back pain has not improved with that she presents for evaluation. [facility] Medical History History of breast abscess Cataracts Arthritis Osteoporosis Scoliosis Appendicitis hx of child Low back pain Visual impairment Psoriasis Home Medications ???Medication ???Instructions ???Recorded ???Last Taken ???Type multivitamin with minerals 1 tab PO DAILY 06/04/23 Unknown Hi story benzonatate 200 mg capsule 200 mg PO TID PRN 05/21/25 Unknown History cholecalciferol (vitamin D3) 25 75 mcg PO DAILY 05/31/25 Unknown H istory mcg (1,000 unit) capsule nabumetone 500 mg tablet 500 mg PO BID PRN 05/31/25 Unknown History risankizumab-rzaa 150 mg/mL 150 mg subcut Q12W 05/31/25 Unknow n History subcutaneous pen injector (Skyrizi) diazepam 5 mg tablet (Valium) 5 mg PO TID PRN Muscle pain/spasm 07/07/25 Unknown Rx 5 days #15 tabs Allergy/AdvReac Type Severity Reaction Status Date / Time poison marleen extract Allergy Unknown unknown Verified 07/07/25 15:49 sulfasalazine (From Allergy Hives Verified 07/07/25 15:49 Azulfidine) adhesive tape AdvReac Mild Rash Verified 07/07/25 15:49 Family History Mother Arthritis Autoimmune disease Hypertension Father Hypertension Myocardial infarction Brother Depression Grandfather CVA (cerebral vascular accident) Sister Thyroid disorder Surgical History History of cataract surgery History of rotator cuff surgery Hx of breast lump removal History of laparotomy Hx of appendectomy Hx of section Social History household members: spouse current occupational status: retired pets and animals: Yes pets and animals: cat(s) Smoking Status: Never smoker alcohol intake: never caffeine: Yes Type: coffee Number of servings: 2 what type of physical activity do you participate in: walking frequency: 5-6 times per week do you feel safe at home: Yes ROS ROS ED Constitutional Constitutional ED: Reports fever(s); Denies chills ENT ENT ED: Reports rhinorrhea and sore throat Cardiovascular Cardiovascular: Denies chest pain Respiratory/Chest Respiratory/Chest: Denies cough or dyspnea Gastrointestinal Gastrointestinal: Denies abdominal pain, diarrhea, nausea or vomiting Genitourinary Genitourinary ED: Reports dysuria Musculoskeletal Musculoskeletal: Reports back pain and myalgias Integumentary Denies rash Neurologic Neurologic: Denies headache(s) Hematologic/Lymphatic Hematologic/Lymphatic : Denies easy bleeding or easy bruising EXAM Physical Exam Const Vital Signs: 07/07/25 15:49 07/07/25 17:37 Temperature 100.1 F H 98.9 F Temperature Source Oral Oral Pulse Rate 122 H 86 Respiratory Rate 18 18 Blood Pressure 135/71 H 115/61 Blood Pressure Mean 92 79 Pulse Ox 96 96 Oxygen Delivery Method Room Air Positive well nourished and well developed General Appearance ED: well developed; Negative for pallor HEENT HEENT Narrative: Normocephalic atraumatic Bilateral TMs are retracted but show no secondary findings to suggest infection Nasal mucosa is hyperemic and boggy Cobblestoning is noted in the posterior pharynx consistent with sinus drainage without airway edema or compromise; no secondary findings in the posterior pharynx to suggest infection Eyes PERRL and EOMs intact bilaterally General Eye ED: Negative for scleral icterus Neck supple (more content not included)... Normal [facility] L509.7001on 07-07-2025 Procalcitonin 0.08 ng/mL Normal <=0.10 [facility] Comment on above: Result Comment: Inte rpretation: <0.10-0.25 ng/mL: Antibiotic therapy discouraged. Bacterial infection unlikely. 0.25-0.50 ng/mL: Antibiotic therapy encouraged. Bacterial infection possible. >0.50 ng/mL: Antibiotic therapy strongly encouraged. Suggestive of presence of bacterial infection. PCT should always be interpreted in the clinical context of the patient. Therefore, clinicians should use the PCT results in conjunction with other laboratory findings and clinical signs of the patient. Performed By: #### L 501.2450, L509.7001, L100.0100, L500.3400, L503.6005, L500.2500 ####[facility] [id number] [place], [place], [id number] Lactic Acidon 07-07-2025 Lactate [Moles/Vol] 1.3 mmol/L Normal 0.0-2.0 [facility] Comment on above: Order Comment: Y Performed By: #### L 501.2450, L509.7001, L100.0100, L500.3400, L503.6005, L500.2500 #### [facility] [address] [place], [address] Lipaseon 07-07-2025 Lipase [Catalytic activity/Vol] 19 U/L Normal 13-75 [facility] Comment on above: Result Comment: Eric henderson note: LIPASE revised reference range effective 22. New Lipase methodology. Expected to produce lower values than the previous assay method. NEW Reference Range: 13 - 75 U/L Performed By: #### L 501.2450, L509.7001, L100.0100, L500.3400, L503.6005, L500.2500 #### [facility] [address] [place], [place], [id number] Liver Profileon 07-07-2025 Albumin [Mass/Vol] 4.1 g/dL Normal 3.4-4.8 [facility] Comment on above: Performed By: #### L 501.2450, L509.7001, L100.0100, L500.3400, L503.6005, L500.2500 #### [facility] [address] [place], [address] ALK PHOS 72 U/L Normal 35-104 [facility] Comment on above: Performed By: #### L 501.2450, L509.7001, L100.0100, L500.3400, L503.6005, L500.2500 #### [facility] [address] [place], [address] ALT [Catalytic activity/Vol] 15 U/L Normal <=34 [facility] Comment on above: Performed By: #### L 501.2450, L509.7001, L100.0100, L500.3400, L503.6005, L500.2500 #### [facility] [address] [place], [address] AST [Catalytic activity/Vol] 23 U/L Normal <=31 [facility] Comment on above: Performed By: #### L 501.2450, L509.7001, L100.0100, L500.3400, L503.6005, L500.2500 #### [facility] [address] [place], [address] Bilirubin [Mass/Vol] 0.20 mg/dL Normal 0.00-1.30 [facility] Comment on above: Performed By: #### L 501.2450, L509.7001, L100.0100, L500.3400, L503.6005, L500.2500 #### [facility] [address] [place], [address] Bilirubin.direct [Mass/Vol] 0.11 mg/dL Normal 0.00-0.30 [facility] Comment on above: Performed By: #### L 501.2450, L509.7001, L100.0100, L500.3400, L503.6005, L500.2500 #### [facility] [address] [place], [address] Globulin (S) [Mass/Vol] 2.4 g/dL Normal 2.2-4.2 [facility] Comment on above: Performed By: #### L 501.2450, L509.7001, L100.0100, L500.3400, L503.6005, L500.2500 #### [facility] [address] [place], [address] T PROT 6.5 g/dL Normal 5.9-8.4 [facility] Comment on above: Performed By: #### L 501.2450, L509.7001, L100.0100, L500.3400, L503.6005, L500.2500 #### [facility] [address] [place], [address] M100.678on 07-07-2025 M100.678 Pending SARS-CoV-2 (COVID 19) Negative INFLUENZA A Negative INFLUENZA B Negative RSV PCR Negative Normal [facility] Comment on above: Performed By: #### M 100.678 ####[facility] [address] [place], [address] Spine Lumbar without Contras ton 07-07-2025 Spine Lumbar without Contrast [facility] Imaging Services [address] [place] [address] Spine Lumbar without Contrast MR#: [id number] Acct: [id number] Name: HELDER BROWNLEE Rep #: [id number] : 1950 F 75 From: Brendan Turner MD PCP: Dr. Kyler Salvador MD Status: REG ER Study: Spine Lumbar without Contrast Date of Exam: Exam# [id number] Ordering Dr: Wes Dixon DO PROCEDURE: SPINE LUMBAR WITHOUT CONTRAST 07/07/2025 REASON FOR EXAM: BACK PAIN TECHNIQUE: Procedure Code: CTSPL Modality: CT Procedure: SPINE LUMBAR WITHOUT CONTRAST Coronal and Sagittal reconstruction series were provided. One or more dose reduction techniques were used (e.g., Automated exposure control, adjustment of the mA and/or kV according to patient size, use of iterative reconstruction technique RADIATION DOSE SUMMARY: CTDlvol: 39 mGy DLP: 792 mGycm FINDINGS: Lumbar scoliosis. No lumbar compression deformity. Diffuse lumbar degenerative disc space narrowing. Moderate osteopenia. No transverse process fracture. Negative for severe spinal stenosis on axial soft tissue windows. No paravertebral mass lesion. CT/Spine Lumbar without Contrast IMPRESSION: Diffuse degenerative disc space narrowing. Scoliosis convex to the right. There is no acute compression deformity. Reading [facility] CC: Dr. Kyler Salvador MD; Wes Dixon DO [employer] Teacher: Signed Normal [facility] Urinalysis, Completeon 07-07 BACTERIA 2+ /hpf Normal None Seen [facility] Comment on above: Order Comment: NENO CTOR TO SPECIFY Performed By: #### L 400.0001 ####[facility] [address] [place], [address] EPI,SQUAMOUS 0-5 SEEN Normal 5-10 [facility] Comment on above: Order Comment: NENO CTOR TO SPECIFY Performed By: #### L 400.0001 ####[facility] [address] [place], [address] RBC 0-5 SEEN Normal 0-5 [facility] Comment on above: Order Comment: [facility] CTOR TO SPECIFY Performed By: #### L 400.0001 ####[facility] [address] [place], [address] Mucus Ql (Urine sed) 0 SEEN Normal [facility] Comment on above: Order Comment: NENO CTOR TO SPECIFY Performed By: #### L 400.0001 ####[facility] [address] [place], [address] WBC 0 SEEN Normal 0-5 [facility] Comment on above: Order Comment: NENO CTOR TO SPECIFY Performed By: #### L 400.0001 ####[facility] [address] [facility] [address] [place], [place], [address] Dexa Bone Density Studyon Dexa Bone Density Study [facility] Imaging Services [address] [place] [address] Dexa Bone Density Study MR#: [id number] Acct: [id number] Name: HELDER BROWNLEE Rep #: [id number] : 1950 F 75 From: Wayne loja MD PCP: Dr. Kyler Salvador MD Status: REG CLI Study: Dexa Bone Density Study Date of Exam: 07/03/25 Exam# [id number] Ordering Dr: Kyler Salvador PROCEDURE: DEXA BONE [...] Recommend follow-up as clinically warranted. Reading Location: [id number] CC: Dr. Kyler Salvador MD After [employer] Program Teacher: Signed Normal [facility] Chiropractic Reporton 2024 Chiropractic Report [facility] [address] [place] [address] OFFICE VISIT Date of Service: 06/27/25 MR#: [id number] Acct: [id number] Name: HELDER BROWNLEE Rep #: [id number] : 1950 Provider: BECKY Silvestre Age/Sex: 75/F [place] [facility] Status: Signed Intake Vital Signs [...] Complaint: Right hip and low back pain Health Aid Required: No Accompanied by: Self Is patient [...] misalignment T1, (more content not included)... Normal [facility] Neurology Visit Reporton Neurology Visit Report [facility] [address] [facility], [address] [place] [id number] OFFICE VISIT Date of Service: 05/31/25 MR#: [id number] Acct: [id number] Name: HELDER BROWNLEE Rep #: [id number] : 1950 Provider: Dr. Holland rubin MD Age/Sex: 74/F Location: [facility] Status: Signed HPI HPI Chief Complaint: Establish Care Details: The patient is a 74-year-old right-handed female who presents to [facility]. She was referred by Dr. Jeanie Eckert with [facility] for idiopathic scoliosis in the thoracolumbar [...] this with her primary care physician or director [place]. Patient does have psoriasis which is currently [...] equal and (more content not included)... Normal [facility] Chiropractic Reporton 2024 Chiropractic Report [facility] [place] [address] OFFICE VISIT Date of Service: 05/21/25 MR#: [id number] Acct: [id number] Name: HELDER BROWNLEE Rep #: [id number] : 1950 Provider: BECKY Silvestre Age/Sex: 74/F Location: [facility] Status: Signed Intake Vital Signs 07/17/24 11:42 [...] obtained. Acupunc (more content not included)... Normal [facility] Chiropractic Reporton 2024 Chiropractic Report [facility] [address] [place] [address] OFFICE VISIT Date of Service: 04/12/25 MR#: [id number] Acct: [id number] Name: HELDER BROWNLEE Rep #: [id number] : 1950 Provider: BECKY Silvestre Age/Sex: 74/F Location: [facility] Status: Signed Intake Vital Signs 07/17/24 11:42 [...] inspected a (more content not included)... Normal [facility] Quantiferon TB-Gold+on 04-03 QFT MITOGEN ANN > 10.00 Normal . [facility] Comment on above: Performed By: #### L 3400.8000 ####[facility] [address] [place], [address] QFT NIL VALUE 0.01 IU/mL Normal . [facility] Comment on above: Performed By: #### L 3400.8000 ####[facility] [address] [place], [address] QFT TB GOLD+ Comment Normal . [facility] Comment on above: Result Comment: David [...] the test. Performed By: #### L 3400.8000 ####[facility] [address] [place], [address] QFT TB POS CRIT Negative Normal Negative [facility] Comment on above: Result Comment: No [...] interferon gamma. Chemiluminescence immunoassay methodology Performed at: [facility] [id number] Salesman/Owner: Guy Chance PhD, Phone: [phone] Performed By: #### L 3400.8000 ####[facility] [address] [place], [place], [id number] QFT TB1+ AG ANN 0.01 IU/mL Normal . [facility] Comment on above: Performed By: #### L 3400.8000 ####[facility] [address] [place], [place], [address] QFT TB2+ AG ANN 0.02 IU/mL Normal . [facility] Comment on above: Performed By: #### L 3400.8000 ####[facility] [address] [place], [place], [address] Chest PA and Lateralon 03-30 Chest PA and Lateral [facility] Imaging Services [address] [place] [address] Chest PA and Lateral MR#: [id number] Acct: [id number] Name: HELDER BROWNLEE Rep #: [id number] : 1950 F 74 From: Wayne loja MD PCP: Dr. Kyler Salvador MD Status: REG CLI Study: Chest PA and Lateral Date of Exam: 03/30/25 Exam# [id number] Ordering Dr: Cait Pearce MD PROCEDURE: CHEST [...] granuloma in the right midlung. Reading Location: [id number]-L CC: Dr. Kyler Salvador MD; Dr. Cait Pearce MD [employer] Teacher: Signed Normal [facility] Qualitative QuantiFERON-TB g old in tube testOrdered By: Cait Pearce on 03-30-2025 M. tuberculosis tuberculin stim IFN-g Ql (Bld) 0.01 IU/mL . [facility] Absolute lymphocyte countOrd ered By: Cait Pearce on 03-28-2025 Lymphocytes Auto (Unsp spec) [#/Vol] 1.78 10*3/uL 0.83-4.51 [facility] Absolute neutrophil countOrd ered By: Caitkendall Pearce on 03-28-2025 Neutrophils (Bld) [#/Vol] 5.6 10*3/uL 2.0-7.7 [facility] Anion gap in Serum or Plasma Ordered By: Cait Pearce on 03-28-2025 Anion gap [Moles/Vol] 10 mmol/L 5-[address] [facility] Automated lymphocyte count a s percentage of total leukocytesOrdered By: Cait Pearce on 03-28-2025 Lymphocytes/100 WBC Auto (Unsp spec) 21.8 % 19-41 [facility] BUN/creatinine ratioOrdered By: Cait Pearce on 03-28-2025 Urea nitrogen/Creatinine [Mass ratio] 31.4 mg/mg High 10-20 [facility] Basophil percentageOrdered B y: Cait Pearce on 03-28-2025 Basophils/100 WBC (Bld) 0.7 % 0-1 [facility] Bilirubin, totalOrdered By: Cait Pearce on 03-28-2025 Bilirubin [Mass/Vol] 0.19 mg/dL 0.00-1.30 [facility] CBC W/Diff, Automatedon 07-3 0-2025 Absolute Lymph 1.78 X10 3/uL Normal 0.83-4.51 [facility] Comment on above: Performed By: #### L 101.9900, L100.0100, L501.6710, L500.4050 ####[facility] [address] [place], [address] Absolute Neut 5.6 X10 3/uL Normal 2.0-7.7 [facility] Comment on above: Performed By: #### L 101.9900, L100.0100, L501.6710, L500.4050 ####[facility] [address] [place], [address] Basophils/100 WBC (Bld) 0.7 % Normal 0-1 [facility] Comment on above: Performed By: #### L 101.9900, L100.0100, L501.6710, L500.4050 ####[facility] [address] [place], [address] Eosinophils/100 WBC (Bld) 1.2 % Normal 0-5 [facility] Comment on above: Performed By: #### L 101.9900, L100.0100, L501.6710, L500.4050 ####[facility] [address] [place], [address] Erythrocyte distribution width (RBC) [Ratio] 13.2 % Normal 11.6-14.6 [facility] Comment on above: Performed By: #### L 101.9900, L100.0100, L501.6710, L500.4050 ####[facility] [address] [place], [address] Hematocrit (Bld) [Volume fraction] 39.8 % Normal 37-47 [facility] Comment on above: Performed By: #### L 101.9900, L100.0100, L501.6710, L500.4050 ####[facility] [address] [place], [address] Hemoglobin (Bld) [Mass/Vol] 13.1 g/dL Normal 12.0-15.0 [facility] Comment on above: Performed By: #### L 101.9900, L100.0100, L501.6710, L500.4050 ####[facility] [address] [place], [address] IG% 0.200 Normal 0.0-0.9 [facility] Comment on above: Result Comment: IG% - Immature Granulocytes (promyelocytes, myelocytes and metamyelocytes) > 1% indicates that a LEFT SHIFT is Present. Performed By: #### L 101.9900, L100.0100, L501.6710, L500.4050 ####[facility] [address] [place], [address] Lymphocytes/100 WBC (Bld) 21.8 % Normal 19-41 [facility] Comment on above: Performed By: #### L 101.9900, L100.0100, L501.6710, L500.4050 ####[facility] [address] [place], [address] MCH (RBC) [Entitic mass] 30.5 pg Normal 27.0-32.0 [facility] Comment on above: Performed By: #### L 101.9900, L100.0100, L501.6710, L500.4050 ####[facility] [address] [place], [address] MCHC (RBC) [Mass/Vol] 32.9 g/dL Normal 32-[address] [facility] Comment on above: Performed By: #### L 101.9900, L100.0100, L501.6710, L500.4050 ####[facility] [address] [place], [address] MCV (RBC) [Entitic vol] 92.8 fL Normal 81-99 [facility] Comment on above: Performed By: #### L 101.9900, L100.0100, L501.6710, L500.4050 ####[facility] [address] [place], [address] Monocytes/100 WBC (Bld) 7.0 % Normal 0-10 [facility] Comment on above: Performed By: #### L 101.9900, L100.0100, L501.6710, L500.4050 ####[facility] [address] [place], [address] Neutrophils/100 WBC (Bld) 69.1 % Normal 47-70 [facility] Comment on above: Performed By: #### L 101.9900, L100.0100, L501.6710, L500.4050 ####[facility] [address] [place], [address] Nucleated RBC (Bld) [#/Vol] 0 10*3/uL Normal 0-5 [facility] Comment on above: Performed By: #### L 101.9900, L100.0100, L501.6710, L500.4050 ####[facility] [address] [place], [address] Platelet mean volume (Bld) [Entitic vol] 10.4 fL Normal 6.2-12.0 [facility] Comment on above: Performed By: #### L 101.9900, L100.0100, L501.6710, L500.4050 ####[facility] [address] [place], [address] Platelets (Bld) [#/Vol] 241 10*3/uL Normal 150-450 [facility] Comment on above: Performed By: #### L 101.9900, L100.0100, L501.6710, L500.4050 ####[facility] [address] [place], [address] RBC (Bld) [#/Vol] 4.29 10*6/uL Normal 4.2-5.4 [facility] Comment on above: Performed By: #### L 101.9900, L100.0100, L501.6710, L500.4050 ####[facility] [address] [place], [address] RDW SD 44.8 fl High 35.1-43.9 [facility] Comment on above: Performed By: #### L 101.9900, L100.0100, L501.6710, L500.4050 ####[facility] [address] [place], [address] WBC (Bld) [#/Vol] 8.2 10*3/uL Normal 4.4-11.0 [facility] Comment on above: Performed By: #### L 101.9900, L100.0100, L501.6710, L500.4050 ####[facility] [address] [place], [address] CRPon 03-28-2025 C-REACTIVE PROT < 3.00 Normal 0.0-3.0 [facility] Comment on above: Performed By: #### L 101.9900, L100.0100, L501.6710, L500.4050 ####[facility] [address] [place], [address] Carbon dioxide, total [Moles /volume] in Central venous bloodOrdered By: Cait Pearce on 03-28-2025 CO2 [Moles/Vol] 25.2 mmol/L 21.0-32.0 [facility] Chloride assayOrdered By: Joss Pearce on 03-28-2025 Chloride [Moles/Vol] 104 mmol/L 98-108 [facility] Comprehensive Metabolic Prof ilon 03-28-2025 Albumin [Mass/Vol] 3.9 g/dL Normal 3.4-4.8 [facility] Comment on above: Performed By: #### L 101.9900, L100.0100, L501.6710, L500.4050 ####[facility] [address] [place], [address] Albumin/Globulin [Mass ratio] 1.7 {ratio} Normal 0.9-2.4 [facility] Comment on above: Performed By: #### L 101.9900, L100.0100, L501.6710, L500.4050 ####[facility] [address] [place], [address] ALK PHOS 79 U/L Normal 35-104 [facility] Comment on above: Performed By: #### L 101.9900, L100.0100, L501.6710, L500.4050 ####[facility] [address] [place], [address] ALT [Catalytic activity/Vol] 17 U/L Normal <=34 [facility] Comment on above: Performed By: #### L 101.9900, L100.0100, L501.6710, L500.4050 ####[facility] [address] [place], [address] AST [Catalytic activity/Vol] 23 U/L Normal <=31 [facility] Comment on above: Performed By: #### L 101.9900, L100.0100, L501.6710, L500.4050 ####[facility] [address] [place], [address] Bilirubin [Mass/Vol] 0.19 mg/dL Normal 0.00-1.30 [facility] Comment on above: Performed By: #### L 101.9900, L100.0100, L501.6710, L500.4050 ####[facility] [address] [place], [address] BUN/CRE 31.4 RATIO High 10-20 [facility] Comment on above: Performed By: #### L 101.9900, L100.0100, L501.6710, L500.4050 ####[facility] [address] [place], [address] Calcium [Mass/Vol] 9.8 mg/dL Normal 7.6-11.0 [facility] Comment on above: Performed By: #### L 101.9900, L100.0100, L501.6710, L500.4050 ####[facility] [address] [place], [address] Chloride [Moles/Vol] 104 mmol/L Normal 98-108 [facility] Comment on above: Performed By: #### L 101.9900, L100.0100, L501.6710, L500.4050 ####[facility] [address] [place], [address] CO2 [Moles/Vol] 25.2 mmol/L Normal 21.0-32.0 [facility] Comment on above: Performed By: #### L 101.9900, L100.0100, L501.6710, L500.4050 ####[facility] [address] [place], [address] Creatinine [Mass/Vol] 0.79 mg/dL Normal 0.70-1.[address] [facility] Comment on above: Performed By: #### L 101.9900, L100.0100, L501.6710, L500.4050 ####[facility] [address] [place], [address] GAP 10 Normal 5-15 [facility] Comment on above: Performed By: #### L 101.9900, L100.0100, L501.6710, L500.4050 ####[facility] [address] [place], [address] GFR/1.73 sq M.predicted among non-blacks MDRD (S/P/Bld) [Vol rate/Area] 78 mL/min/{1.73_m2} Normal >60 [facility] Comment on above: Result Comment: mL/m in/1.73m2 CKD-EPI Creatinine Equation (2020) Performed By: #### L 101.9900, L100.0100, L501.6710, L500.4050 ####[facility] [address] [place], [address] Globulin (S) [Mass/Vol] 2.3 g/dL Normal 2.2-4.2 [facility] Comment on above: Performed By: #### L 101.9900, L100.0100, L501.6710, L500.4050 ####[facility] [address] [place], [address] Glucose [Mass/Vol] 84 mg/dL Normal 70-99 [facility] Comment on above: Performed By: #### L 101.9900, L100.0100, L501.6710, L500.4050 ####[facility] [address] [place], [address] Potassium [Moles/Vol] 4.2 mmol/L Normal 3.3-5.[address] [facility] Comment on above: Performed By: #### L 101.9900, L100.0100, L501.6710, L500.4050 ####[facility] [address] [place], [address] Sodium [Moles/Vol] 139 mmol/L Normal 133-145 [facility] Comment on above: Performed By: #### L 101.9900, L100.0100, L501.6710, L500.4050 ####[facility] [address] [place], [address] T PROT 6.1 g/dL Normal 5.9-8.4 [facility] Comment on above: Performed By: #### L 101.9900, L100.0100, L501.6710, L500.4050 ####[facility] [address] [place], [address] Urea nitrogen [Mass/Vol] 25 mg/dL High 4-19 [facility] Comment on above: Performed By: #### L 101.9900, L100.0100, L501.6710, L500.4050 ####[facility] [address] [place], [address] Eosinophil percentageOrdered By: Cait Pearce on 03-28-2025 Eosinophils/100 WBC (Bld) 1.2 % 0-5 [facility] Erythrocyte Sed Rateon 03-28 SED RATE 3 mm/hr Normal 0-30 [facility] Comment on above: Performed By: #### L 101.9900, L100.0100, L501.6710, L500.4050 ####[facility] [address] [place], [address] Erythrocyte distribution wid th ratioOrdered By: Cait Pearce on 03-28-2025 Erythrocyte distribution width (RBC) [Ratio] 13.2 % 11.6-14.6 [facility] Erythrocyte distribution wid th standard deviationOrdered By: Cait Pearce on 03-28-2025 Erythrocyte distribution width (RBC) [Ratio] 44.8 fl High 35.1-43.9 [facility] Erythrocyte sedimentation ra teOrdered By: Cait Pearce on 03-28-2025 ESR (Bld) [Velocity] 3 mm/h 0-30 [facility] Glomerular filtration rate ( GFR) estimation/1.73 sq m using serum, plasma, or whole bOrdered By: Cait Pearce on 03-28-2025 GFR/1.73 sq M.predicted among non-blacks MDRD (S/P/Bld) [Vol rate/Area] 78 mL/min/{1.73_m2} >60 [facility] Comment on above: mL/min/1.73m2 CKD-EP I Creatinine Equation (2020) Hematocrit Auto (Bld) [Volum e fraction]Ordered By: Cait Pearce on 03-28-2025 Hematocrit (Bld) [Volume fraction] 39.8 % 37-47 [facility] Hemoglobin measurementOrdere d By: Cait Pearce on 03-28-2025 Hemoglobin (Bld) [Mass/Vol] 13.1 g/dL 12.0-15.0 [facility] Immature granulocytes/100 WB C Auto (Bld)Ordered By: Cait Pearce on 03-28-2025 Immature granulocytes/100 WBC (Bld) 0.200 % 0.0-0.9 [facility] Comment on above: IG% - Immature Granu locytes (promyelocytes, myelocytes and metamyelocytes) > 1% indicates that a LEFT SHIFT is Present. Laboratory - Chemistry and C hemistry - challengeOrdered By: Cait Pearce on 03-28-2025 AST [Catalytic activity/Vol] 23 U/L <32 [facility] MCV (mean corpuscular volume ) determinationOrdered By: Cait Pearce on 03-28-2025 MCV (RBC) [Entitic vol] 92.8 fL 81-99 [facility] Mean corpuscular hemoglobin (MCH) determinationOrdered By: Cait Pearce on 03-28-2025 MCH (RBC) [Entitic mass] 30.5 pg 27.0-32.0 [facility] Mean corpuscular hemoglobin concentration (MCHC) determinationOrdered By: Cait Pearce on 03-28-2025 MCHC (RBC) [Mass/Vol] 32.9 g/dL 32-[address] [facility] Mean platelet volume determi nationOrdered By: Cait Pearce on 03-28-2025 Platelet mean volume (Bld) [Entitic vol] 10.4 fL 6.2-12.0 [facility] Monocyte percentageOrdered B y: Cait Pearce on 03-28-2025 Monocytes/100 WBC (Bld) 7.0 % 0-10 [facility] Neutrophil percentageOrdered By: Cait Pearce on 03-28-2025 Neutrophils/100 WBC (Bld) 69.1 % 47-70 [facility] Nucleated red blood cell per centageOrdered By: Cait Pearce on 03-28-2025 Nucleated RBC/100 WBC (Bld) [Ratio] 0 % 0-5 [facility] Platelet countOrdered By: Joss Pearce on 03-28-2025 Platelets (Bld) [#/Vol] 241 10*3/uL 150-450 [facility] Potassium measurement (mass/ volume)Ordered By: Cait Pearce on 03-28-2025 Potassium (Unsp spec) [Mass/Vol] 4.2 mmol/L 3.3-5.1 [facility] RBC Auto (Bld) [#/Vol]Ordere d By: Cait Pearce on 03-28-2025 RBC (Bld) [#/Vol] 4.29 10*6/uL 4.2-5.4 [facility] Serum creatinine measurement (mass/volume)Ordered By: Cait Pearce on 03-28-2025 Creatinine [Mass/Vol] 0.79 mg/dL 0.70-1.[address] [facility] Serum globulin measurementOr dered By: Cait Pearce on 03-28-2025 Globulin (S) [Mass/Vol] 2.3 g/dL 2.2-4.2 [facility] Serum glucose measurement (m ass/volume)Ordered By: Cait Pearce on 03-28-2025 Glucose [Mass/Vol] 84 mg/dL 70-99 [facility] Serum or plasma C reactive p rotein measurement (mass/volume)Ordered By: Cait Pearce on 03-28-2025 CRP [Mass/Vol] mg/L 0.0-3.0 [facility] Serum or plasma alanine da silva otransferase (ALT) measurementOrdered By: Cait Pearce on 03-28-2025 ALT [Catalytic activity/Vol] 17 U/L <35 [facility] Serum or plasma albumin elisa urement (mass/volume)Ordered By: Cait Pearce on 03-28-2025 Albumin [Mass/Vol] 3.9 g/dL 3.4-4.8 [facility] Serum or plasma albumin/glob ulin mass ratioOrdered By: Cait Pearce on 03-28-2025 Albumin/Globulin [Mass ratio] 1.7 {ratio} 0.9-2.4 [facility] Serum or plasma alkaline louis sphatase measurementOrdered By: Cait Pearce on 03-28-2025 ALP [Catalytic activity/Vol] 79 U/L 35-104 [facility] Serum or plasma calcium elisa urement (mass/volume)Ordered By: Cait Pearce on 03-28-2025 Calcium [Mass/Vol] 9.8 mg/dL 7.6-11.0 [facility] Serum or plasma urea nitroge n measurement (mass/volume)Ordered By: Cait Pearce on 03-28-2025 Urea nitrogen [Mass/Vol] 25 mg/dL High 4-19 [facility] Sodium levelOrdered By: Norberto Pearce on 03-28-2025 Sodium [Moles/Vol] 139 mmol/L 133-145 [facility] Total proteinOrdered By: Sandy Pearce on 03-28-2025 Protein [Mass/Vol] 6.1 g/dL 5.9-8.4 [facility] White blood cell (WBC) count Ordered By: Cait Pearce on 03-28-2025 WBC (Bld) [#/Vol] 8.2 10*3/uL 4.4-11.0 [facility] HIP, UNI W/ Pelvis 2-3 Views on 03-15-2025 HIP, UNI W/ Pelvis 2-3 Views [facility] Services [address] [place] [address] HIP, UNI W/ Pelvis 2-3 Views MR#: [id number] Acct: [id number] Name: HELDER BROWNLEE Rep #: [id number] : 1950 F 74 From: [place] MD PCP: Dr. Kyler Salvador MD Status: REG CLI Study: HIP, UNI W/ Pelvis 2-3 Views Date of Exam: Exam# [id number] Ordering Dr: Kyler Salvador EXAM: XR Right [...] IMPRESSION: Degenerative changes as above. Reading [facility] CC: Dr. Kyler Salvador MD [employer] Teacher: Signed Normal [facility] Chiropractic Reporton 2024 Chiropractic Report [facility] [address] [place] [address] OFFICE VISIT Date of Service: 03/05/25 MR#: [id number] Acct: [id number] Name: HELDER BROWNLEE Rep #: [id number] : 1950 Provider: BECKY Silvestre Age/Sex: 74/F [place] [facility] Status: Signed Intake Vital Signs [...] neuro-noxious chemicals via a myofascial twitch response. [place] were inserted, needle manipulation was performed. Needle [...] with sc (more content not included)... Normal [facility] Anion gap in Serum or Plasma Ordered By: Kyler Salvador on 02-22-2025 Anion gap [Moles/Vol] 12 mmol/L 01-[address] [facility] BUN/creatinine ratioOrdered By: Kyler Salvador on 02-22-2025 Urea nitrogen/Creatinine [Mass ratio] 16.7 mg/mg 06-18 [facility] Basic Metabolic Profile (BMP )on 02-22-2025 BUN/CRE 16.7 RATIO Normal 06-18 [facility] Comment on above: Order Comment: Order Date: 01/15/25 Order Info: 0667-1 - BMP Performed By: #### L 500.1706 #### [facility] [address] [place], [address] Calcium [Mass/Vol] 9.6 mg/dL Normal 7.6-11.0 [facility] Comment on above: Order Comment: Order Date: 01/15/25 Order Info: 0667-1 - BMP Performed By: #### L 500.2500 #### [facility] [address] [place], [address] Chloride [Moles/Vol] 105 mmol/L Normal 98-108 [facility] Comment on above: Order Comment: Order Date: 01/15/25 Order Info: 666- - BMP Performed By: #### L 500.2500 #### [facility] [address] [place], [address] CO2 [Moles/Vol] 23.1 mmol/L Normal 21.0-32.0 [facility] Comment on above: Order Comment: Order Date: 01/15/25 Order Info: 666- - BMP Performed By: #### L 500.2500 #### [facility] [address] [place], [address] Creatinine [Mass/Vol] 0.81 mg/dL Normal 0.70-1.[address] [facility] Comment on above: Order Comment: Order Date: 01/15/25 Order Info: 06 - BMP Performed By: #### L 500.2500 #### [facility] [address] [place], [address] GAP 12 Normal 5-15 [facility] Comment on above: Order Comment: Order Date: 01/15/25 Order Info: 06 - BMP Performed By: #### L 500.2500 #### [facility] [address] [place], [address] GFR/1.73 sq M.predicted among non-blacks MDRD (S/P/Bld) [Vol rate/Area] 76 mL/min/{1.73_m2} Normal >60 [facility] Comment on above: Order Comment: Order Date: 01/15/25 Order Info: 06- - BMP Result Comment: mL/m in/1.73m2 CKD-EPI Creatinine Equation (2020) Performed By: #### L 500.2500 #### [facility] [address] [place], [address] Glucose [Mass/Vol] 94 mg/dL Normal 70-99 [facility] Comment on above: Order Comment: Order Date: 01/15/25 Order Info: 666-08 - BMP Performed By: #### L 500.2500 #### [facility] [address] [place], [address] Potassium [Moles/Vol] 4.1 mmol/L Normal 3.3-5.[address] [facility] Comment on above: Order Comment: Order Date: 01/15/25 Order Info: 666-08 - BMP Performed By: #### L 500.2500 #### [facility] [address] [place], [address] Sodium [Moles/Vol] 140 mmol/L Normal 133-145 [facility] Comment on above: Order Comment: Order Date: 01/15/25 Order Info: 666-08 - BMP Performed By: #### L 500.2500 #### [facility] [address] [place], [address] Urea nitrogen [Mass/Vol] 14 mg/dL Normal 4-19 [facility] Comment on above: Order Comment: Order Date: 01/15/25 Order Info: 666-08 - BMP Performed By: #### L 500.2500 #### [facility] [address] [place], [address] Carbon dioxide, total [Moles /volume] in Central venous bloodOrdered By: Kyler Salvador on 02-22-2025 CO2 [Moles/Vol] 23.1 mmol/L 21.0-32.0 [facility] Chloride assayOrdered By: Mack Salvador on 02-22-2025 Chloride [Moles/Vol] 105 mmol/L 98-108 [facility] Glomerular filtration rate ( GFR) estimation/1.73 sq m using serum, plasma, or whole bOrdered By: Kyler Salvador on 02-22-2025 GFR/1.73 sq M.predicted among non-blacks MDRD (S/P/Bld) [Vol rate/Area] 76 mL/min/{1.73_m2} >60 [facility] Comment on above: mL/min/1.73m2 CKD-EP I Creatinine Equation (2020) Potassium measurement (mass/ volume)Ordered By: Kyler Salvador on 02-22-2025 Potassium (Unsp spec) [Mass/Vol] 4.1 mmol/L 3.3-5.1 [facility] Serum creatinine measurement (mass/volume)Ordered By: Kyler Salvador on 02-22-2025 Creatinine [Mass/Vol] 0.81 mg/dL 0.70-1.[address] [facility] Serum glucose measurement (m ass/volume)Ordered By: Kyler Salvador on 02-22-2025 Glucose [Mass/Vol] 94 mg/dL 70-99 [facility] Serum or plasma calcium elisa urement (mass/volume)Ordered By: Kyler Salvador on 02-22-2025 Calcium [Mass/Vol] 9.6 mg/dL 7.6-11.0 [facility] Serum or plasma urea nitroge n measurement (mass/volume)Ordered By: Kyler Salvador on 02-22-2025 Urea nitrogen [Mass/Vol] 14 mg/dL 4-19 [facility] Sodium levelOrdered By: Piter Salvador on 02-22-2025 Sodium [Moles/Vol] 140 mmol/L 133-145 [facility] Vitamin D,25 Hydroxyon 02-22 Vitamin D 25-OH 59.2 ng/mL Normal 30-100 [facility] Comment on above: Order Comment: Order Date: 01/15/25Order Info: 0667-1 - BMP Result Comment: Symone min D Status Deficiency: <20 ng/mL (50nmol/L) Insufficiency: 20-30 ng/mL (50-75 nmol/L) Sufficiency: 30-100 ng/mL (75-250 nmol/L) Toxicity: >100 ng/mL (>250 nmol/L) Performed By: #### L 506.1001 ####[facility] [address] [place], [place], [id number] Chiropractic Reporton 2024 Chiropractic Report [facility] [place], [place] [id number] OFFICE VISIT Date of Service: 02/05/25 MR#: [id number] Acct: [id number] Name: HELDER BROWNLEE Rep #: [id number] : 1950 Provider: BECKY Silvestre Age/Sex: 74/F Location: [facility] Status: Signed Intake Vital Signs 07/17/24 11:42 [...] was u (more content not included)... Normal [facility] Chiropractic Reporton 2024 Chiropractic Report [facility] [address] [place] [address] OFFICE VISIT Date of Service: 12/25/24 MR#: [id number] Acct: [id number] Name: HELDER BROWNLEE Rep #: [id number] : 1950 Provider: BECKY Silvestre Age/Sex: 74/F Location: [facility] Status: Signed Intake Vital Signs 07/17/24 11:42 [...] weeks ago after a trip to [place]. She had to take her NSAID's daily [...] R:teres Major,trap,latissimu (more content not included)... Normal [facility] Chiropractic Reporton 2024 Chiropractic Report [facility] [address] [place] [address] OFFICE VISIT Date of Service: 11/14/24 MR#: [id number] Acct: [id number] Name: HELDER BROWNLEE Rep #: [id number] : 1950 Provider: BECKY Silvestre Age/Sex: 74/F Location: [facility] Status: Signed Intake Vital Signs [...] prepped. Need (more content not included)... Normal [facility] Chiropractic Reporton 2024 Chiropractic Report [facility] [address] [place] [address] OFFICE VISIT Date of Service: 10/19/24 MR#: [id number] Acct: [id number] Name: HELDER BROWNLEE Rep #: [id number] : 1950 Provider: BECKY Silvestre Age/Sex: 74/F Location: [facility] Status: Signed Intake Vital Signs [...] location were (more content not included)... Normal [facility] Vitamin D,25 Hydroxyon 10-05 Vitamin D 25-OH 47.9 ng/mL Normal [facility] Comment on above: Order Comment: Order Date: 10/05/24Order Info: 95516-0 - VITD25 Result Comment: Symone min D 25(OH) Status Range Deficiency <20 ng/mL (50nmol/L) Insufficiency 20 - 30 ng/mL (50 - 75 nmol/L) Sufficiency 30 - 100 ng/mL (75 - 250 nmol/L) Toxicity >100 ng/mL (>250 nmol/L) Performed By: #### L 506.1000 ####[facility] [address] [place], [place], [id number] Chiropractic Reporton 2024 Chiropractic Report [facility] [address] [place] [address] OFFICE VISIT Date of Service: 09/21/24 MR#: [id number] Acct: [id number] Name: HELDER BROWNLEE Rep #: [id number] : 1950 Provider: BECKY Silvestre Age/Sex: 74/F Location: [facility] Status: Signed Intake Vital Signs [...] was inspected (more content not included)... Normal [facility] CBC W/Diff, Automatedon 08-30 Absolute Lymph 1.67 X10 3/uL Normal 0.83-4.51 [facility] Comment on above: Performed By: #### L 100.0100, L500.4050, L501.6710, L101.9900 ####[facility] [address] [place], [address] Absolute Neut 5.3 X10 3/uL Normal 2.0-7.7 [facility] Comment on above: Performed By: #### L 100.0100, L500.4050, L501.6710, L101.9900 ####[facility] [address] [place], [address] Basophils/100 WBC (Bld) 0.7 % Normal 0-1 [facility] Comment on above: Performed By: #### L 100.0100, L500.4050, L501.6710, L101.9900 ####[facility] [address] [place], [address] Eosinophils/100 WBC (Bld) 1.0 % Normal 0-5 [facility] Comment on above: Performed By: #### L 100.0100, L500.4050, L501.6710, L101.9900 ####[facility] [address] [place], [address] Erythrocyte distribution width (RBC) [Ratio] 12.9 % Normal 11.6-14.6 [facility] Comment on above: Performed By: #### L 100.0100, L500.4050, L501.6710, L101.9900 ####[facility] [address] [place], [address] Hematocrit (Bld) [Volume fraction] 43.4 % Normal 37-47 [facility] Comment on above: Performed By: #### L 100.0100, L500.4050, L501.6710, L101.9900 ####[facility] [address] [place], [address] Hemoglobin (Bld) [Mass/Vol] 14.1 g/dL Normal 12.0-15.0 [facility] Comment on above: Performed By: #### L 100.0100, L500.4050, L501.6710, L101.9900 ####[facility] [address] [place], [address] IG% 0.300 Normal 0.0-0.9 [facility] Comment on above: Result Comment: IG% - Immature Granulocytes (promyelocytes, myelocytes and metamyelocytes) > 1% indicates that a LEFT SHIFT is Present. Performed By: #### L 100.0100, L500.4050, L501.6710, L101.9900 ####[facility] [address] [place], [address] Lymphocytes/100 WBC (Bld) 21.7 % Normal 19-41 [facility] Comment on above: Performed By: #### L 100.0100, L500.4050, L501.6710, L101.9900 ####[facility] [address] [place], [address] MCH (RBC) [Entitic mass] 30.3 pg Normal 27.0-32.0 [facility] Comment on above: Performed By: #### L 100.0100, L500.4050, L501.6710, L101.9900 ####[facility] [address] [place], [address] MCHC (RBC) [Mass/Vol] 32.5 g/dL Normal 32-[address] [facility] Comment on above: Performed By: #### L 100.0100, L500.4050, L501.6710, L101.9900 ####[facility] [address] [place], [address] MCV (RBC) [Entitic vol] 93.1 fL Normal 81-99 [facility] Comment on above: Performed By: #### L 100.0100, L500.4050, L501.6710, L101.9900 ####[facility] [address] [place], [address] Monocytes/100 WBC (Bld) 6.8 % Normal 0-10 [facility] Comment on above: Performed By: #### L 100.0100, L500.4050, L501.6710, L101.9900 ####[facility] [address] [place], [address] Neutrophils/100 WBC (Bld) 69.5 % Normal 47-70 [facility] Comment on above: Performed By: #### L 100.0100, L500.4050, L501.6710, L101.9900 ####[facility] [address] [place], [address] Nucleated RBC (Bld) [#/Vol] 0 10*3/uL Normal 0-5 [facility] Comment on above: Performed By: #### L 100.0100, L500.4050, L501.6710, L101.9900 ####[facility] [address] [place], [address] Platelet mean volume (Bld) [Entitic vol] 9.7 fL Normal 6.2-12.0 [facility] Comment on above: Performed By: #### L 100.0100, L500.4050, L501.6710, L101.9900 ####[facility] [address] [place], [address] Platelets (Bld) [#/Vol] 270 10*3/uL Normal 150-450 [facility] Comment on above: Performed By: #### L 100.0100, L500.4050, L501.6710, L101.9900 ####[facility] [address] [place], [address] RBC (Bld) [#/Vol] 4.66 10*6/uL Normal 4.2-5.4 [facility] Comment on above: Performed By: #### L 100.0100, L500.4050, L501.6710, L101.9900 ####[facility] [address] [place], [address] RDW SD 43.9 fl Normal 35.1-43.9 [facility] Comment on above: Performed By: #### L 100.0100, L500.4050, L501.6710, L101.9900 ####[facility] [address] [place], [address] WBC (Bld) [#/Vol] 7.7 10*3/uL Normal 4.4-11.0 [facility] Comment on above: Performed By: #### L 100.0100, L500.4050, L501.6710, L101.9900 ####[facility] [address] [place], [address] CRPon 09-13-2024 C-REACTIVE PROT < 2.90 Normal 0.0-3.0 [facility] Comment on above: Result Comment: C-Re active Protein (CRP) provides useful information for the diagnosis, therapy and monitoring of inflammatory processes and associated diseases. For the evaluation of Relative Risk for Cardiovascular Disease, a High Sensitivity CRP (HSCRP) should be ordered. Performed By: #### L 100.0100, L500.4050, L501.6710, L101.9900 ####[facility] [address] [place], [address] Comprehensive Metabolic Prof ilon 09-13-2024 Albumin [Mass/Vol] 3.6 g/dL Normal 3.2-5.0 [facility] Comment on above: Performed By: #### L 100.0100, L500.4050, L501.6710, L101.9900 ####[facility] [address] [place], [address] Albumin/Globulin [Mass ratio] 1.2 {ratio} Normal 0.9-2.4 [facility] Comment on above: Performed By: #### L 100.0100, L500.4050, L501.6710, L101.9900 ####[facility] [address] [place], [address] ALK P 82 U/L Normal 45-117 [facility] Comment on above: Performed By: #### L 100.0100, L500.4050, L501.6710, L101.9900 ####[facility] [address] [place], [address] ALT [Catalytic activity/Vol] 21 U/L Normal 13-56 [facility] Comment on above: Performed By: #### L 100.0100, L500.4050, L501.6710, L101.9900 ####[facility] [address] [place], [address] AST [Catalytic activity/Vol] 17 U/L Normal 15-37 [facility] Comment on above: Performed By: #### L 100.0100, L500.4050, L501.6710, L101.9900 ####[facility] [address] [place], [address] Bilirubin [Mass/Vol] 0.30 mg/dL Normal 0.20-1.00 [facility] Comment on above: Result Comment: For patients on eltrombopag therapy, use of Dimension [place] TBIL is not recommended. Performed By: #### L 100.0100, L500.4050, L501.6710, L101.9900 ####[facility] [address] [place], [address] BUN/CRE 20.4 RATIO High 10-20 [facility] Comment on above: Performed By: #### L 100.0100, L500.4050, L501.6710, L101.9900 ####[facility] [address] [place], [address] CA,Total 9.4 mg/dL Normal 8.5-10.1 [facility] Comment on above: Performed By: #### L 100.0100, L500.4050, L501.6710, L101.9900 ####[facility] [address] [place], [address] Chloride [Moles/Vol] 109 mmol/L High 98-107 [facility] Comment on above: Performed By: #### L 100.0100, L500.4050, L501.6710, L101.9900 ####[facility] [address] [place], [address] CO2 [Moles/Vol] 29.0 mmol/L Normal 21.0-32.0 [facility] Comment on above: Performed By: #### L 100.0100, L500.4050, L501.6710, L101.9900 ####[facility] [address] [place], [address] Creatinine [Mass/Vol] 0.88 mg/dL Normal 0.55-1.[address] [facility] Comment on above: Result Comment: The validity of the calculated GFR GFRAA in patients over 70 years has not been determined. Clinical correlation is essential. Performed By: #### L 100.0100, L500.4050, L501.6710, L101.9900 ####[facility] [address] [place], [address] EST GFR - AA 80 mL/min Normal >60 [facility] Comment on above: Result Comment: Afri can [place] GFR Calc Performed By: #### L 100.0100, L500.4050, L501.6710, L101.9900 ####[facility] [address] [place], [address] GAP 2 Low 5-15 [facility] Comment on above: Performed By: #### L 100.0100, L500.4050, L501.6710, L101.9900 ####[facility] [address] [place], [address] GFR/1.73 sq M.predicted among non-blacks MDRD (S/P/Bld) [Vol rate/Area] 66 mL/min/{1.73_m2} Normal >60 [facility] Comment on above: Result Comment: Non- GFR Calc Performed By: #### L 100.0100, L500.4050, L501.6710, L101.9900 ####[facility] [address] [place], [address] Globulin (S) [Mass/Vol] 3.1 g/dL Normal 2.2-4.2 [facility] Comment on above: Performed By: #### L 100.0100, L500.4050, L501.6710, L101.9900 ####[facility] [address] [place], [address] Glucose [Mass/Vol] 68 mg/dL Low 74-106 [facility] Comment on above: Performed By: #### L 100.0100, L500.4050, L501.6710, L101.9900 ####[facility] [address] [place], [address] Potassium [Moles/Vol] 4.2 mmol/L Normal 3.5-5.[address] [facility] Comment on above: Performed By: #### L 100.0100, L500.4050, L501.6710, L101.9900 ####[facility] [address] [place], [address] Sodium [Moles/Vol] 140 mmol/L Normal 136-145 [facility] Comment on above: Performed By: #### L 100.0100, L500.4050, L501.6710, L101.9900 ####[facility] [address] [place], [address] T PROT 6.7 g/dL Normal 6.4-8.2 [facility] Comment on above: Performed By: #### L 100.0100, L500.4050, L501.6710, L101.9900 ####[facility] [address] [place], [address] Urea nitrogen [Mass/Vol] 18 mg/dL Normal 7-18 [facility] Comment on above: Performed By: #### L 100.0100, L500.4050, L501.6710, L101.9900 ####[facility] [address] [place], [address] Erythrocyte Sed Rateon 09-13 SED RATE 2 mm/hr Normal 0-30 [facility] Comment on above: Performed By: #### L 100.0100, L500.4050, L501.6710, L101.9900 ####[facility] [address] [place], [address] Chiropractic Reporton 2023 Chiropractic Report [facility] [address] [place] [address] OFFICE VISIT Date of Service: 08/21/24 MR#: [id number] Acct: [id number] Name: HELDER BROWNLEE Rep #: [id number] : 1950 Provider: BECKY Silvestre Age/Sex: 74/F Location: [facility] Status: Signed Intake Vital Signs [...] area was cleaned and prepped. Needle Number: [id number] Minutes: 20 Therapy Performed by: Dr. Jeanie Alejandra (more content not included)... Normal [facility] Chiropractic Reporton 2023 Chiropractic Report [facility] [address] [place] [address] [id number] OFFICE VISIT Date of Service: 07/31/24 MR#: [id number] Acct: [id number] Name: HELDER BROWNLEE Rep #: [id number] : 1950 Provider: BECKY Silvestre Age/Sex: 74/F Location: [facility] Status: Signed Intake Vital Signs 05/04/24 14:10 [...] and prepped. (more content not included)... Normal [facility] Chiropractic Reporton 2023 Chiropractic Report [facility] [address] [place] [address] OFFICE VISIT Date of Service: 07/17/24 MR#: [id number] Acct: [id number] Name: HELDER BROWNLEE Rep #: [id number] 51 : 1950 Provider: BECKY Silvestre Age/Sex: 74/F [place] [facility] [place] Status: Signed Intake Vital Signs [...] completed. Pressure applied where needed. Needle Number: [id number] Minutes: 20 Therapy Performed by: Dr. Jeanie Eckert DC Patient Respons (more content not included)... Normal [facility] Basophil percentageOrdered B y: Kyler Salvador on 12-16-2023 Basophil percentage 3.3 mg/dL 2.5-4.9 [facility] Chloride [Moles/Vol] 108 mmol/L 98-107 [facility] Glucose [Mass/Vol] 84 mg/dL 74-106 [facility] Potassium [Moles/Vol] 4.2 mmol/L 3.5-5.[address] [facility] Sodium [Moles/Vol] 140 mmol/L 136-145 [facility] Laboratory - Chemistry and C hemistry - challengeOrdered By: Kyler Salvador on 12-16-2023 CO2 [Moles/Vol] 29.0 mmol/L 21.0-32.0 [facility] Magnesium [Mass/Vol] 2.5 mg/dL 1.6-2.6 [facility] Urea nitrogen/Creatinine [Mass ratio] 16.9 mg/mg 10-20 [facility] No Panel InformationOrdered By: Kyler Salvador on 12-16-2023 Ionized Calcium 5.23 mg/dL 4.36-5.20 [facility] Estimated GFR (MDRD) Amer 94 mL/min >60 [facility] Comment on above: GFR Calc Estimated GFR (MDRD) Non-Af Amer 78 mL/min >60 [facility] Comment on above: Non- GFR Calc Parathyroid Hormone (Intact) 42.8 pg/mL 18.4-80.1 [facility] Serum or plasma calcium elisa urement (mass/volume)Ordered By: Kyler Salvador on 12-16-2023 Calcium [Mass/Vol] 9.9 mg/dL 8.5-10.1 [facility] Serum or plasma creatinine m easurement (mass/volume)Ordered By: Kyler Slavador on 12-16-2023 Creatinine [Mass/Vol] 0.77 mg/dL 0.55-1.[address] [facility] Comment on above: The validity of the calculated GFR & GFRAA in patients over 70 years has not been determined. Clinical correlation is essential. Serum or plasma urea nitroge n measurement (mass/volume)Ordered By: Kyler Salvador on 12-16-2023 Urea nitrogen [Mass/Vol] 13 mg/dL 7-18 [facility] Thin prep Papanicolaou smear with manual screeningOrdered By: Kyler Salvador on 12-16-2023 Thin prep Papanicolaou smear with manual screening 3 5-15 [facility] Absolute lymphocyte countOrd ered By: Cait Pearce on 11-16-2023 Lymphocytes Auto (Unsp spec) [#/Vol] 1.81 10*3/uL 0.83-4.51 [facility] Automated lymphocyte count a s percentage of total leukocytesOrdered By: Cait Pearce on 11-16-2023 Lymphocytes/100 WBC Auto (Unsp spec) 21.6 % 19-41 [facility] Basophil percentageOrdered B y: Cait Pearce on 11-16-2023 Basophils/100 WBC (Bld) 0.7 % 0-1 [facility] Bilirubin [Mass/Vol] 0.30 mg/dL 0.20-1.00 [facility] Comment on above: For patients on eltr ombopag therapy, use of Dimension [place] TBIL is not recommended. Chloride [Moles/Vol] 105 mmol/L 98-107 [facility] Eosinophils/100 WBC (Bld) 2.1 % 0-5 [facility] Glucose [Mass/Vol] 78 mg/dL 74-106 [facility] Hemoglobin (Bld) [Mass/Vol] 14.6 g/dL 12.0-15.0 [facility] Monocytes/100 WBC (Bld) 6.8 % 0-10 [facility] Neutrophils (Bld) [#/Vol] 5.8 10*3/uL 2.0-7.7 [facility] Neutrophils/100 WBC (Bld) 68.7 % 47-70 [facility] Potassium [Moles/Vol] 4.1 mmol/L 3.5-5.[address] [facility] Comment on above: Slight Hemolysis, Re sult may be falsely increased. Protein [Mass/Vol] 6.9 g/dL 6.4-8.2 [facility] Sodium [Moles/Vol] 141 mmol/L 136-145 [facility] WBC (Bld) [#/Vol] 8.4 10*3/uL 4.4-11.0 [facility] Determination of erythrocyte mean corpuscular volume (MCV)Ordered By: Cait Pearce on 11-16-2023 MCV (RBC) [Entitic vol] 94.4 fL 81-99 [facility] Erythrocyte distribution wid th ratioOrdered By: Cait Pearce on 11-16-2023 Erythrocyte distribution width (RBC) [Ratio] 13.2 % 11.6-14.6 [facility] Erythrocyte distribution wid th standard deviationOrdered By: Cait Pearce on 11-16-2023 Erythrocyte distribution width (RBC) [Entitic vol] 45.5 fL 35.1-43.9 [facility] Erythrocyte sedimentation ra teOrdered By: Cait Pearce on 11-16-2023 ESR (Bld) [Velocity] 11 mm/h 0-30 [facility] Hematocrit Auto (Bld) [Volum e fraction]Ordered By: Cait Pearce on 11-16-2023 Hematocrit (Bld) [Volume fraction] 44.1 % 37-47 [facility] Immature granulocytes/100 WB C Auto (Bld)Ordered By: Cait Pearce on 11-16-2023 Immature granulocytes/100 WBC (Bld) 0.100 % 0.0-0.9 [facility] Comment on above: IG% - Immature Granu locytes (promyelocytes, myelocytes and metamyelocytes) > 1% indicates that a LEFT SHIFT is Present. Laboratory - Chemistry and C hemistry - challengeOrdered By: Cait Pearce on 11-16-2023 Albumin/Globulin [Mass ratio] 1.1 {ratio} 0.9-2.4 [facility] ALP [Catalytic activity/Vol] 81 U/L 45-117 [facility] ALT [Catalytic activity/Vol] 24 U/L 13-56 [facility] CO2 [Moles/Vol] 28.0 mmol/L 21.0-32.0 [facility] Globulin (S) [Mass/Vol] 3.3 g/dL 2.2-4.2 [facility] Urea nitrogen/Creatinine [Mass ratio] 20.3 mg/mg 10-20 [facility] Laboratory - Hematology and Cell countsOrdered By: Cait Pearce on 11-16-2023 MCH (RBC) [Entitic mass] 31.3 pg 27.0-32.0 [facility] MCHC (RBC) [Mass/Vol] 33.1 g/dL 32-[address] [facility] Nucleated RBC/100 WBC (Bld) [Ratio] 0 % 0-5 [facility] Platelet mean volume (Bld) [Entitic vol] 10.8 fL 6.2-12.0 [facility] Platelets (Bld) [#/Vol] 260 10*3/uL 150-450 [facility] No Panel InformationOrdered By: Cait Pearce on 11-16-2023 C-Reactive Protein Extended Range < 2.90 mg/L 0.0-3.0 [facility] Comment on above: C-Reactive Protein ( CRP) provides useful information for thediagnosis, therapy and monitoring of inflammatory processesand associated diseases. For the evaluation of Relative Riskfor Cardiovascular Disease, a High Sensitivity CRP (HSCRP)should be ordered. Estimated GFR (MDRD) Amer 92 mL/min >60 [facility] Comment on above: GFR Calc Estimated GFR (MDRD) Non-Af Amer 76 mL/min >60 [facility] Comment on above: Non- GFR Calc RBC Auto (Bld) [#/Vol]Ordere d By: Cait Pearce on 11-16-2023 RBC (Bld) [#/Vol] 4.67 10*6/uL 4.2-5.4 [facility] Serum or plasma calcium elisa urement (mass/volume)Ordered By: Cait Pearce on 11-16-2023 Calcium [Mass/Vol] 10.4 mg/dL 8.5-10.1 [facility] Serum or plasma creatinine m easurement (mass/volume)Ordered By: Cait Pearce on 11-16-2023 Creatinine [Mass/Vol] 0.79 mg/dL 0.55-1.[address] [facility] Comment on above: The validity of the calculated GFR & GFRAA in patients over 70 years has not been determined. Clinical correlation is essential. Serum or plasma urea nitroge n measurement (mass/volume)Ordered By: Cait Pearce on 11-16-2023 Urea nitrogen [Mass/Vol] 16 mg/dL 7-18 [facility] Thin prep Papanicolaou smear with manual screeningOrdered By: Cait Pearce on 11-16-2023 Thin prep Papanicolaou smear with manual screening 3.6 g/dL 3.2-5.0 [facility] Thin prep Papanicolaou smear with manual screening 26 U/L 15-37 [facility] Comment on above: Slight Hemolysis, Re sult may be falsely increased. Thin prep Papanicolaou smear with manual screening 8 5-15 [facility] Absolute lymphocyte countOrd ered By: Cait Pearce on 05-13-2023 Lymphocytes Auto (Unsp spec) [#/Vol] 1.48 10*3/uL 0.83-4.51 [facility] Basophil percentageOrdered B y: Cait Pearce on 05-13-2023 Basophils/100 WBC (Bld) 0.9 % 0-1 [facility] Bilirubin [Mass/Vol] 0.30 mg/dL 0.20-1.00 [facility] Comment on above: For patients on eltr ombopag therapy, use of Dimension [place] TBIL is not recommended. Chloride [Moles/Vol] 104 mmol/L 98-107 [facility] Eosinophils/100 WBC (Bld) 1.1 % 0-5 [facility] Glucose [Mass/Vol] 83 mg/dL 74-106 [facility] Neutrophils (Bld) [#/Vol] 5.7 10*3/uL 2.0-7.7 [facility] Neutrophils/100 WBC (Bld) 72.1 % 47-70 [facility] Potassium [Moles/Vol] 4.0 mmol/L 3.5-5.[address] [facility] Protein [Mass/Vol] 7.0 g/dL 6.4-8.2 [facility] Sodium [Moles/Vol] 137 mmol/L 136-145 [facility] WBC (Bld) [#/Vol] 7.9 10*3/uL 4.4-11.0 [facility] Blood erythrocytes count (nu mber/volume)Ordered By: Cait Pearce on 05-13-2023 RBC (Bld) [#/Vol] 4.67 10*6/uL 4.2-5.4 [facility] Blood hemoglobin measurement (mass/volume)Ordered By: Cait Pearce on 05-13-2023 Hemoglobin (Bld) [Mass/Vol] 14.4 g/dL 12.0-15.0 [facility] Blood lymphocytes/100 leukoc ytesOrdered By: Cait Pearce on 05-13-2023 Lymphocytes/100 WBC (Bld) 18.6 % 19-41 [facility] Blood monocytes/100 leukocyt esOrdered By: aCit Pearce on 05-13-2023 Monocytes/100 WBC (Bld) 6.9 % 0-10 [facility] Blood platelet mean volumeOr dered By: Cait Pearce on 05-13-2023 Platelet mean volume (Bld) [Entitic vol] 10.2 fL 6.2-12.0 [facility] Determination of erythrocyte mean corpuscular volume (MCV)Ordered By: Cait Pearce on 05-13-2023 MCV (RBC) [Entitic vol] 94.2 fL 81-99 [facility] Hematocrit Auto (Bld) [Volum e fraction]Ordered By: Cait Pearce on 05-13-2023 Hematocrit (Bld) [Volume fraction] 44.0 % 37-47 [facility] Laboratory - Chemistry and C hemistry - challengeOrdered By: Cait Pearce on 05-13-2023 ALP [Catalytic activity/Vol] 77 U/L 45-117 [facility] ALT [Catalytic activity/Vol] 26 U/L 13-56 [facility] CO2 [Moles/Vol] 28.0 mmol/L 21.0-32.0 [facility] Globulin (S) [Mass/Vol] 3.4 g/dL 2.2-4.2 [facility] Urea nitrogen/Creatinine [Mass ratio] 24.1 mg/mg 10-20 [facility] Laboratory - Hematology and Cell countsOrdered By: Cait Pearce on 05-13-2023 Erythrocyte distribution width (RBC) [Entitic vol] 44.8 fL 35.1-43.9 [facility] Erythrocyte distribution width (RBC) [Ratio] 13.2 % 11.6-14.6 [facility] Immature granulocytes/100 WBC (Bld) 0.400 % 0.0-0.9 [facility] Comment on above: IG% - Immature Granu locytes (promyelocytes, myelocytes and metamyelocytes) > 1% indicates that a LEFT SHIFT is Present. MCH (RBC) [Entitic mass] 30.8 pg 27.0-32.0 [facility] Nucleated RBC/100 WBC (Bld) [Ratio] 0 % 0-5 [facility] MCHC Auto (RBC) [Mass/Vol]Or dered By: Cait Pearce on 05-13-2023 MCHC (RBC) [Mass/Vol] 32.7 g/dL 32-[address] [facility] No Panel InformationOrdered By: Cait Pearce on 05-13-2023 Estimated GFR (MDRD) Amer 104 mL/min >60 [facility] Comment on above: GFR Calc Estimated GFR (MDRD) Non-Af Amer 86 mL/min >60 [facility] Comment on above: Non- GFR Calc Platelets bldOrdered By: Sandy Pearce on 05-13-2023 Platelets (Bld) [#/Vol] 252 10*3/uL 150-450 [facility] Serum or plasma albumin elisa urement (mass/volume)Ordered By: Cait Pearce on 05-13-2023 Albumin [Mass/Vol] 3.6 g/dL 3.2-5.0 [facility] Serum or plasma albumin/glob ulin mass ratioOrdered By: Cait Pearce on 05-13-2023 Albumin/Globulin [Mass ratio] 1.1 {ratio} 0.9-2.4 [facility] Serum or plasma calcium elisa urement (mass/volume)Ordered By: Cait Pearce on 05-13-2023 Calcium [Mass/Vol] 9.6 mg/dL 8.5-10.1 [facility] Serum or plasma creatinine m easurement (mass/volume)Ordered By: Cait Pearce on 05-13-2023 Creatinine [Mass/Vol] 0.70 mg/dL 0.55-1.[address] [facility] Comment on above: The validity of the calculated GFR & GFRAA in patients over 70 years has not been determined. Clinical correlation is essential. Serum or plasma urea nitroge n measurement (mass/volume)Ordered By: Cait Pearce on 05-13-2023 Urea nitrogen [Mass/Vol] 17 mg/dL 7-18 [facility] Thin prep Papanicolaou smear with manual screeningOrdered By: [facility] on 05-13-2023 Thin prep Papanicolaou smear with manual screening 20 U/L 15-37 [facility] Thin prep Papanicolaou smear with manual screening 5 5-15 [facility] Basophil percentageOrdered B y: Tigre Salvador on 04-23-2023 Chloride [Moles/Vol] 109 mmol/L 98-107 [facility] Cholesterol [Mass/Vol] 186 mg/dL <200 [facility] Comment on above: <200 mg/dL Desirable 200-240 mg/dL Borderline >240 mg/dL High Risk Glucose [Mass/Vol] 83 mg/dL 74-106 [facility] Potassium [Moles/Vol] 4.4 mmol/L 3.5-5.[address] [facility] Sodium [Moles/Vol] 142 mmol/L 136-145 [facility] Triglyceride [Mass/Vol] 63 mg/dL <199 [facility] Comment on above: The drugs N-Acetylcy steine and Metamizole may falsely depress this assay.Serum Triglycerides Reference Interval Normal <150 mg/dL Borderline high 150 - 199 mg/dL High 200 - 499 mg/dL Very High > or = 500 mg/dL Laboratory - Chemistry and C hemistry - challengeOrdered By: Tigre Salvador on 04-23-2023 CO2 [Moles/Vol] 30.0 mmol/L 21.0-32.0 [facility] Urea nitrogen/Creatinine [Mass ratio] 21.5 mg/mg 10-20 [facility] No Panel InformationOrdered By: Tigre Salvador on 04-23-2023 Estimated GFR (MDRD) Amer 115 mL/min >60 [facility] Comment on above: GFR Calc Estimated GFR (MDRD) Non-Af Amer 95 mL/min >60 [facility] Comment on above: Non- GFR Calc Parathyroid Hormone (Intact) 58.4 pg/mL 18.4-80.1 [facility] Serum or plasma calcium elisa urement (mass/volume)Ordered By: Tigre Salvador on 04-23-2023 Calcium [Mass/Vol] 9.4 mg/dL 8.5-10.1 [facility] Serum or plasma cholesterol in HDL measurement (mass/volume)Ordered By: Tigre Salvador on 04-23-2023 Cholesterol in HDL [Mass/Vol] 78 mg/dL >40 [facility] Comment on above: The drugs N-Acetylcy steine and Metamizole may falsely depress this assay. Reference Range HDL <40 mg/dL Low HDL Cholesterol HDL >or= 60 mg/dL High HDL Cholesterol Serum or plasma cholesterol in VLDL measurement (mass/volume)Ordered By: Tigre Salvador on 04-23-2023 Cholesterol in VLDL [Mass/Vol] 13 mg/dL 5-40 [facility] Serum or plasma creatinine m easurement (mass/volume)Ordered By: Tigre Salvador on 04-23-2023 Creatinine [Mass/Vol] 0.65 mg/dL 0.55-1.[address] [facility] Comment on above: The validity of the calculated GFR & GFRAA in patients over 70 years has not been determined. Clinical correlation is essential. Serum or plasma low density lipoprotein (LDL) cholesterol measurement (mass/volume)Ordered By: Tigre Salvador on 04-23-2023 Cholesterol in LDL [Mass/Vol] 95 mg/dL 0-130 [facility] Serum or plasma urea nitroge n measurement (mass/volume)Ordered By: Tigre Salvador on 04-23-2023 Urea nitrogen [Mass/Vol] 14 mg/dL 7-18 [facility] Thin prep Papanicolaou smear with manual screeningOrdered By: Tigre Salvador on 04-23-2023 Thin prep Papanicolaou smear with manual screening 3 5-15 [facility] Basophil percentageOrdered B y: Dr. Salvador on 02-10-2023 Chloride [Moles/Vol] 108 mmol/L 98-107 [facility] Glucose [Mass/Vol] 85 mg/dL 74-106 [facility] Potassium [Moles/Vol] 4.1 mmol/L 3.5-5.[address] [facility] Sodium [Moles/Vol] 139 mmol/L 136-145 [facility] Laboratory - Chemistry and C hemistry - challengeOrdered By: Dr. Salvador on 02-10-2023 CO2 [Moles/Vol] 27.0 mmol/L 21.0-32.0 [facility] Free T4 [Mass/Vol] 0.94 ng/dL 0.76-1.46 [facility] Urea nitrogen/Creatinine [Mass ratio] 29.3 mg/mg 10-20 [facility] No Panel InformationOrdered By: Dr. Salvador on 02-10-2023 Estimated GFR (MDRD) Amer 122 mL/min >60 [facility] Comment on above: GFR Calc Estimated GFR (MDRD) Non-Af Amer 101 mL/min >60 [facility] Comment on above: Non- GFR Calc Free Triiodothyronine (T3) pg/dL 2.7 pg/mL 2.18-3.98 [facility] Thyroid Stimulating Hormone (TSH) 2.18 uIU/mL 0.358-3.74 [facility] Serum or plasma calcium elisa urement (mass/volume)Ordered By: Dr. Salvador on 02-10-2023 Calcium [Mass/Vol] 9.8 mg/dL 8.5-10.1 [facility] Serum or plasma creatinine m easurement (mass/volume)Ordered By: Dr. Salvador on 02-10-2023 Creatinine [Mass/Vol] 0.62 mg/dL 0.55-1.[address] [facility] Comment on above: The validity of the calculated GFR & GFRAA in patients over 70 years has not been determined. Clinical correlation is essential. Serum or plasma thyroperoxid ase antibody assay (units/volume)Ordered By: Dr. Salvador on 02-10-2023 TPO Ab Qn [IU]/mL 0-34 [facility] Comment on above: Performed at: [employer] [facility] [employer] [address] [id number] Director: Guy Chance PhD, Phone: [phone] Serum or plasma urea nitroge n measurement (mass/volume)Ordered By: Dr. Salvador on 02-10-2023 Urea nitrogen [Mass/Vol] 18 mg/dL 7-18 [facility] Thin prep Papanicolaou smear with manual screeningOrdered By: Dr. Salvador on 02-10-2023 Thin prep Papanicolaou smear with manual screening 4 -15 [facility] Absolute lymphocyte countOrd ered By: Dr. Salvador on 01-06-2023 Lymphocytes Auto (Unsp spec) [#/Vol] 1.53 10*3/uL 0.83-4.51 [facility] Basophil percentageOrdered B y: Dr. Salvador on 01-06-2023 Basophils/100 WBC (Bld) 0.8 % 0-1 [facility] Bilirubin [Mass/Vol] 0.20 mg/dL 0.20-1.00 [facility] Comment on above: For patients on eltr ombopag therapy, use of Dimension [place] TBIL is not recommended. Chloride [Moles/Vol] 112 mmol/L 98-107 [facility] Eosinophils/100 WBC (Bld) 1.9 % 0-5 [facility] Glucose [Mass/Vol] 122 mg/dL 74-106 [facility] Comment on above: Fasting Glucose resu lt from 100 to 125 mg/dL suggests IMPAIRED HOMEOSTASIS per A.D.A. criteria. Neutrophils (Bld) [#/Vol] 4.1 10*3/uL 2.0-7.7 [facility] Neutrophils/100 WBC (Bld) 66.8 % 47-70 [facility] Potassium [Moles/Vol] 3.8 mmol/L 3.5-5.[address] [facility] Protein [Mass/Vol] 6.2 g/dL 6.4-8.2 [facility] Sodium [Moles/Vol] 142 mmol/L 136-145 [facility] WBC (Bld) [#/Vol] 6.2 10*3/uL 4.4-11.0 [facility] Blood erythrocytes count (nu mber/volume)Ordered By: Dr. Salvador on 01-06-2023 RBC (Bld) [#/Vol] 4.34 10*6/uL 4.2-5.4 [facility] Blood hemoglobin measurement (mass/volume)Ordered By: Dr. Salvador on 01-06-2023 Hemoglobin (Bld) [Mass/Vol] 13.6 g/dL 12.0-15.0 [facility] Blood lymphocytes/100 leukoc ytesOrdered By: Dr. Salvador on 01-06-2023 Lymphocytes/100 WBC (Bld) 24.8 % 19-41 [facility] Blood monocytes/100 leukocyt esOrdered By: Dr. Salvador on 01-06-2023 Monocytes/100 WBC (Bld) 5.5 % 0-10 [facility] Blood platelet mean volumeOr dered By: Dr. Salvador on 01-06-2023 Platelet mean volume (Bld) [Entitic vol] 9.9 fL 6.2-12.0 [facility] Determination of erythrocyte mean corpuscular volume (MCV)Ordered By: Dr. Salvador on 01-06-2023 MCV (RBC) [Entitic vol] 93.3 fL 81-99 [facility] Erythrocyte sedimentation ra teOrdered By: Dr. Salvador on 01-06-2023 ESR (Bld) [Velocity] 5 mm/h 0-30 [facility] Hematocrit Auto (Bld) [Volum e fraction]Ordered By: Dr. Salvador on 01-06-2023 Hematocrit (Bld) [Volume fraction] 40.5 % 37-47 [facility] Iron measurement (mass/mass) Ordered By: Dr. Salvador on 01-06-2023 Iron (Unsp spec) [Mass/Mass] 52 ug/dL 50-170 [facility] Laboratory - Chemistry and C hemistry - challengeOrdered By: Dr. Salvador on 01-06-2023 ALP [Catalytic activity/Vol] 77 U/L 45-117 [facility] ALT [Catalytic activity/Vol] 24 U/L 13-56 [facility] CO2 [Moles/Vol] 25.0 mmol/L 21.0-32.0 [facility] Cobalamin (Vitamin B12) [Mass/Vol] 800 pg/mL 211-911 [facility] Free T4 [Mass/Vol] 0.91 ng/dL 0.76-1.46 [facility] Globulin (S) [Mass/Vol] 2.8 g/dL 2.2-4.2 [facility] Magnesium [Mass/Vol] 2.5 mg/dL 1.6-2.6 [facility] Urea nitrogen/Creatinine [Mass ratio] 21.3 mg/mg 10-20 [facility] Laboratory - Hematology and Cell countsOrdered By: Dr. Salvador on 01-06-2023 Erythrocyte distribution width (RBC) [Entitic vol] 45.1 fL 35.1-43.9 [facility] Erythrocyte distribution width (RBC) [Ratio] 13.1 % 11.6-14.6 [facility] Immature granulocytes/100 WBC (Bld) 0.200 % 0.0-0.9 [facility] Comment on above: IG% - Immature Granu locytes (promyelocytes, myelocytes and metamyelocytes) > 1% indicates that a LEFT SHIFT is Present. MCH (RBC) [Entitic mass] 31.3 pg 27.0-32.0 [facility] Nucleated RBC/100 WBC (Bld) [Ratio] 0 % 0-5 [facility] MCHC Auto (RBC) [Mass/Vol]Or dered By: Dr. Salvador on 01-06-2023 MCHC (RBC) [Mass/Vol] 33.6 g/dL 32-[address] [facility] No Panel InformationOrdered By: Dr. Salvador on 01-06-2023 Anti-Nuclear Antibody Screen Negative Negative [facility] Comment on above: Performed at: [address] [id number] Director: Guy Chance PhD, Phone: [phone] Estimated GFR (MDRD) Amer 114 mL/min >60 [facility] Comment on above: GFR Calc Estimated GFR (MDRD) Non-Af Amer 94 mL/min >60 [facility] Comment on above: Non- GFR Calc Free Triiodothyronine (T3) pg/dL 2.1 pg/mL 2.18-3.98 [facility] Thyroid Stimulating Hormone (TSH) 2.25 uIU/mL 0.358-3.74 [facility] Vitamin D 25-Hydroxy 59.5 ng/mL [facility] Comment on above: Vitamin D 25(OH) Sta tus Range Deficiency <20 ng/mL (50nmol/L) Insufficiency 20 - 30 ng/mL (50 - 75 nmol/L) Sufficiency 30 - 100 ng/mL (75 - 250 nmol/L) Toxicity >100 ng/mL (>250 nmol/L) Platelets bldOrdered By: Dr. Salvador on 01-06-2023 Platelets (Bld) [#/Vol] 258 10*3/uL 150-450 [facility] Serum or plasma C reactive p rotein measurement (mass/volume)Ordered By: Dr. Salvador on 01-06-2023 CRP [Mass/Vol] mg/L 0.0-3.0 [facility] Comment on above: C-Reactive Protein ( CRP) provides useful information for thediagnosis, therapy and monitoring of inflammatory processesand associated diseases. For the evaluation of Relative Riskfor Cardiovascular Disease, a High Sensitivity CRP (HSCRP)should be ordered. Serum or plasma albumin elisa urement (mass/volume)Ordered By: Dr. Salvador on 01-06-2023 Albumin [Mass/Vol] 3.4 g/dL 3.2-5.0 [facility] Serum or plasma albumin/glob ulin mass ratioOrdered By: Dr. Salvador on 01-06-2023 Albumin/Globulin [Mass ratio] 1.2 {ratio} 0.9-2.4 [facility] Serum or plasma calcium elisa urement (mass/volume)Ordered By: Dr. Salvador on 01-06-2023 Calcium [Mass/Vol] 9.1 mg/dL 8.5-10.1 [facility] Serum or plasma creatinine m easurement (mass/volume)Ordered By: Dr. Salvador on 01-06-2023 Creatinine [Mass/Vol] 0.66 mg/dL 0.55-1.[address] [facility] Comment on above: The validity of the calculated GFR & GFRAA in patients over 70 years has not been determined. Clinical correlation is essential. Serum or plasma urea nitroge n measurement (mass/volume)Ordered By: Dr. Salvador on 01-06-2023 Urea nitrogen [Mass/Vol] 14 mg/dL 7-18 [facility] Serum or plasma uric acid me asurement (mass/volume)Ordered By: Dr. Salvador on 01-06-2023 Urate [Mass/Vol] 3.4 mg/dL 2.6-6.0 [facility] Comment on above: The drugs N-Acetylcy steine and Metamizole may falsely depress this assay. Serum rheumatoid factor dete ctionOrdered By: Dr. Salvador on 01-06-2023 Rheumatoid factor Ql (S) < 10.0 IU/mL <15 [facility] Thin prep Papanicolaou smear with manual screeningOrdered By: Dr. Salvador on 01-06-2023 Thin prep Papanicolaou smear with manual screening 22 U/L 15-37 [facility] Thin prep Papanicolaou smear with manual screening 5 5-15 [facility] Basophil percentageOrdered B y: Dr. Salvador on 10-16-2022 Bilirubin [Mass/Vol] 0.20 mg/dL 0.20-1.00 [facility] Comment on above: For patients on eltr ombopag therapy, use of Dimension [place] TBIL is not recommended. Chloride [Moles/Vol] 106 mmol/L 98-107 [facility] Glucose [Mass/Vol] 86 mg/dL 74-106 [facility] Potassium [Moles/Vol] 4.3 mmol/L 3.5-5.[address] [facility] Protein [Mass/Vol] 6.0 g/dL 6.4-8.2 [facility] Sodium [Moles/Vol] 140 mmol/L 136-145 [facility] Laboratory - Chemistry and C hemistry - challengeOrdered By: Dr. Salvador on 10-16-2022 ALP [Catalytic activity/Vol] 76 U/L 45-117 [facility] ALT [Catalytic activity/Vol] 24 U/L 13-56 [facility] CO2 [Moles/Vol] 29.0 mmol/L 21.0-32.0 [facility] Globulin (S) [Mass/Vol] 2.5 g/dL 2.2-4.2 [facility] Urea nitrogen/Creatinine [Mass ratio] 23.1 mg/mg 10-20 [facility] No Panel InformationOrdered By: Dr. Salvador on 10-16-2022 Estimated GFR (MDRD) Amer 100 mL/min >60 [facility] Comment on above: GFR Calc Estimated GFR (MDRD) Non-Af Amer 82 mL/min >60 [facility] Comment on above: Non- GFR Calc Serum or plasma albumin elisa urement (mass/volume)Ordered By: Dr. Salvador on 10-16-2022 Albumin [Mass/Vol] 3.5 g/dL 3.2-5.0 [facility] Serum or plasma albumin/glob ulin mass ratioOrdered By: Dr. Salvador on 10-16-2022 Albumin/Globulin [Mass ratio] 1.4 {ratio} 0.9-2.4 [facility] Serum or plasma calcium elisa urement (mass/volume)Ordered By: Dr. Salvador on 10-16-2022 Calcium [Mass/Vol] 9.7 mg/dL 8.5-10.1 [facility] Serum or plasma creatinine m easurement (mass/volume)Ordered By: Dr. Salvador on 10-16-2022 Creatinine [Mass/Vol] 0.74 mg/dL 0.55-1.[address] [facility] Comment on above: The validity of the calculated GFR & GFRAA in patients over 70 years has not been determined. Clinical correlation is essential. Serum or plasma urea nitroge n measurement (mass/volume)Ordered By: Dr. Salvador on 10-16-2022 Urea nitrogen [Mass/Vol] 17 mg/dL 7-18 [facility] Thin prep Papanicolaou smear with manual screeningOrdered By: Dr. Salvador on 10-16-2022 Thin prep Papanicolaou smear with manual screening 18 U/L 15-37 [facility] Thin prep Papanicolaou smear with manual screening 5 5-15 [facility] Absolute lymphocyte counton 04-14-2022 Lymphocytes Auto (Unsp spec) [#/Vol] 1.80 10*3/uL 0.83-4.51 [facility] Work Phone: Basophil percentageon 2021 Basophils/100 WBC (Bld) 0.7 % 0-1 [facility] Work Phone: Bilirubin [Mass/Vol] 0.30 mg/dL 0.20-1.00 [facility] Work Phone: Comment on above: For patients on eltr ombopag therapy, use of Dimension [place] TBIL is not recommended. Chloride [Moles/Vol] 105 mmol/L 98-107 [facility] Work Phone: Eosinophils/100 WBC (Bld) 1.6 % 0-5 [facility] Work Phone: Glucose [Mass/Vol] 106 mg/dL 74-106 [facility] Work Phone: Comment on above: Fasting Glucose resu lt from 100 to 125 mg/dL suggests IMPAIRED HOMEOSTASIS per A.D.A. criteria. Neutrophils (Bld) [#/Vol] 4.5 10*3/uL 2.0-7.7 [facility] Work Phone: Neutrophils/100 WBC (Bld) 64.8 % 47-70 [facility] Work Phone: Potassium [Moles/Vol] 3.8 mmol/L 3.5-5.[address] [facility] Work Phone: Protein [Mass/Vol] 6.4 g/dL 6.4-8.2 [facility] Work Phone: Sodium [Moles/Vol] 138 mmol/L 136-145 [facility] Work Phone: WBC (Bld) [#/Vol] 7.0 10*3/uL 4.4-11.0 [facility] Work Phone: Bilirubin Test strip Ql (U)o n 04-14-2022 Bilirubin Ql (U) Negative Negative [facility] Work Phone: Blood erythrocytes count (nu mber/volume)on 04-14-2022 RBC (Bld) [#/Vol] 4.52 10*6/uL 4.2-5.4 [facility] Work Phone: Blood hemoglobin measurement (mass/volume)on 04-14-2022 Hemoglobin (Bld) [Mass/Vol] 14.2 g/dL 12.0-15.0 [facility] Work Phone: Blood lymphocytes/100 leukoc yteson 04-14-2022 Lymphocytes/100 WBC (Bld) 25.8 % 19-41 [facility] Work Phone: Blood monocytes/100 leukocyt eson 04-14-2022 Monocytes/100 WBC (Bld) 6.7 % 0-10 [facility] Work Phone: Blood platelet mean volumeon 04-14-2022 Platelet mean volume (Bld) [Entitic vol] 9.8 fL 6.2-12.0 [facility] Work Phone: Determination of erythrocyte mean corpuscular volume (MCV)on 04-14-2022 MCV (RBC) [Entitic vol] 95.1 fL 81-99 [facility] Work Phone: Erythrocyte sedimentation ra cr 04-14-2022 ESR (Bld) [Velocity] 5 mm/h 0-30 [facility] Work Phone: Hematocrit Auto (Bld) [Volum e fraction]on 04-14-2022 Hematocrit (Bld) [Volume fraction] 43.0 % 37-47 [facility] Work Phone: Ketones Test strip Ql (U)on 04-14-2022 Ketones Ql (U) Negative Negative [facility] Work Phone: Laboratory - Chemistry and C hemistry - challengeon 04-14-2022 ALP [Catalytic activity/Vol] 71 U/L 45-117 [facility] Work Phone: [phone] ALT [Catalytic activity/Vol] 34 U/L 13-56 [facility] Work Phone: [phone] CO2 [Moles/Vol] 27.0 mmol/L 21.0-32.0 [facility] Work Phone: [phone] Globulin (S) [Mass/Vol] 3.0 g/dL 2.2-4.2 [facility] Work Phone: [phone] Magnesium [Mass/Vol] 2.2 mg/dL 1.6-2.6 [facility] Work Phone: [phone] Urea nitrogen/Creatinine [Mass ratio] 18.3 mg/mg 10-20 [facility] Work Phone: [phone] Laboratory - Hematology and Cell countson 04-14-2022 Erythrocyte distribution width (RBC) [Entitic vol] 45.3 fL 35.1-43.9 [facility] Work Phone: [phone] Erythrocyte distribution width (RBC) [Ratio] 12.7 % 11.6-14.6 [facility] Work Phone: [phone] Immature granulocytes/100 WBC (Bld) 0.400 % 0.0-0.9 [facility] Work Phone: [phone] Comment on above: IG% - Immature Granu locytes (promyelocytes, myelocytes and metamyelocytes) > 1% indicates that a LEFT SHIFT is Present. MCH (RBC) [Entitic mass] 31.4 pg 27.0-32.0 [facility] Work Phone: Nucleated RBC/100 WBC (Bld) [Ratio] 0 % 0-5 [facility] Work Phone: [phone] MCHC Auto (RBC) [Mass/Vol]on 04-14-2022 MCHC (RBC) [Mass/Vol] 33.0 g/dL 32-36 [facility] Work Phone: [phone] Nitrite Test strip Ql (U)on 04-14-2022 Nitrite Ql (U) Negative Negative [facility] Work Phone: No Panel Informationon 04-14 Estimated GFR (MDRD) Amer 88 mL/min >60 [facility] Work Phone: [phone] Comment on above: GFR Calc Estimated GFR (MDRD) Non-Af Amer 73 mL/min >60 [facility] Work Phone: [phone] Comment on above: Non- GFR Calc Ionized Calcium 5.3 mg/dL 4.5-5.6 [facility] Work Phone: [phone] Comment on above: Performed at: [employer] [facility] [employer] [place] [id number] Director: Guy Chance PhD, Phone: [phone] Parathyroid Hormone (Intact) 72.9 pg/mL 18.4-80.1 [facility] Work Phone: [phone] Thyroid Stimulating Hormone (TSH) 1.13 uIU/mL 0.358-3.74 [facility] Work Phone: [phone] Vitamin D 25-Hydroxy 67.0 ng/mL [facility] Work Phone: [phone] Comment on above: Vitamin D 25(OH) Sta tus Range Deficiency <20 ng/mL (50nmol/L) Insufficiency 20 - 30 ng/mL (50 - 75 nmol/L) Sufficiency 30 - 100 ng/mL (75 - 250 nmol/L) Toxicity >100 ng/mL (>250 nmol/L) Platelets bldon 04-14-2022 Platelets (Bld) [#/Vol] 273 10*3/uL 150-450 [facility] Work Phone: [phone] Protein Test strip Ql (U)on 04-14-2022 Protein Ql (U) Negative Negative [facility] Work Phone: [phone] Serum or plasma albumin elisa urement (mass/volume)on 04-14-2022 Albumin [Mass/Vol] 3.4 g/dL 3.2-5.0 [facility] Work Phone: [phone] Serum or plasma albumin/glob ulin mass ratioon 04-14-2022 Albumin/Globulin [Mass ratio] 1.1 {ratio} 0.9-2.4 [facility] Work Phone: Serum or plasma calcium elisa urement (mass/volume)on 04-14-2022 Calcium [Mass/Vol] 8.8 mg/dL 8.5-10.1 [facility] Work Phone: Serum or plasma creatinine m easurement (mass/volume)on 04-14-2022 Creatinine [Mass/Vol] 0.82 mg/dL 0.55-1.[address] [facility] Work Phone: Comment on above: The validity of the calculated GFR & GFRAA in patients over 70 years has not been determined. Clinical correlation is essential. Serum or plasma urea nitroge n measurement (mass/volume)on 04-14-2022 Urea nitrogen [Mass/Vol] 15 mg/dL 7-18 [facility] Work Phone: Thin prep Papanicolaou smear with manual screeningon 04-14-2022 Thin prep Papanicolaou smear with manual screening 23 U/L 15-37 [facility] Work Phone: [phone] Thin prep Papanicolaou smear with manual screening 6 5-15 [facility] Work Phone: Urine blood detectionon 03-30 RBC Ql (U) Negative Negative [facility] Work Phone: [phone] Urine clarityon 04-14-2022 Clarity (U) Clear Clear [facility] Work Phone: Urine color determinationon 04-14-2022 Color (U) Yellow Yellow [facility] Work Phone: Urine glucose detectionon Glucose Ql (U) Normal mg/dl Normal [facility] Work Phone: [phone] Urine leukocyte esterase det ection by dipstickon 04-14-2022 Leukocyte esterase Test strip Ql (U) Negative Negative [facility] Work Phone: Urine pHon 04-14-2022 pH (U) 6.5 [pH] 5.0 - 8.0 [facility] Work Phone: [phone] Urine specific gravity measu rementon 04-14-2022 Specific gravity (U) [Rel density] 1.015 1.002-1.030 [facility] Work Phone: Urobilinogen Auto test strip Ql (U)on 04-14-2022 Urobilinogen Ql (U) Normal mg/dl Normal [facility] Work Phone: Vital Signs Date Time Vital Sign Value Performing Clinician Faci lity 05-31-2025 10:55-0400 Body height 157.[address] Kyler Salvador MD Work Phone: [facility] 05-31-2025 10:55-0400 Body mass index (BMI) [Ratio] 22.4 kg/m2 Dr. Kyler Salvador MD Work Phone: [facility] 05-31-2025 10:55-0400 Body temperature 97.8 [degF] Dr. Kyler Salvador MD Work Phone: [facility] 05-31-2025 10:55-0400 Body weight 55.[address] Kyler Salvador MD Work Phone: [facility] 05-31-2025 10:55-0400 Diastolic blood pressure 71 mm[Hg] Dr. Kyler Salvador MD Work Phone: [facility] 05-31-2025 10:55-0400 Heart rate 76 /min Dr. Kyler Salvador MD Work Phone: [facility] 05-31-2025 10:55-0400 Respiratory rate 15 /min Dr. Kyler Salvador MD Work Phone: [facility] 05-31-2025 10:55-0400 SaO2% (BldA) [Mass fraction] 95 % Dr. Kyler Salvador MD Work Phone: [facility] 05-31-2025 10:55-0400 Systolic blood pressure 118 mm[Hg] Dr. Kyler Salvador MD Work Phone: [facility] 12-10-2022 11:15-0400 Body height 157.[address] Tigre Salvador Work Phone: [facility] 12-10-2022 11:15-0400 Body mass index (BMI) [Ratio] 21.9 kg/m2 Dr. Tigre Salvador Work Phone: [facility] 12-10-2022 11:15-0400 Body weight 54.[address] Tigre Salvador Work Phone: [facility] 12-10-2022 11:15-0400 Diastolic blood pressure 68 mm[Hg] Dr. Tigre Salvador Work Phone: [facility] 12-10-2022 11:15-0400 Systolic blood pressure 110 mm[Hg] Dr. Tigre Salvador Work Phone: [facility] Encounters Encounter Date Encounter Type Care Provider Facility Start: 07-07-2025 End: 07-07-2025 Emergency department patient visit Kyler Salvador Facility:[facility] Start: 07-03-2025 ambulatory Kyler Salvador Faci lity:[facility] Start: 06-27-2025 End: 06-27-2025 ambulatory [facility] Facility:[facility] Start: 05-31-2025 End: 05-31-[address] Holland Rosas MD -[facility] Work Phone: Start: 05-31-2025 End: 05-31-[address] Kyler Salvador MD Work Phone: -[facility] Start: 05-21-2025 End: 05-21-[address] Jeanie Eckert DC -[facility] Work Phone: Start: 05-21-2025 End: 05-21-[address] Kyler Salvador MD Work Phone: -[facility] Start: 04-12-2025 End: 04-12-[address] Jeanie Eckert DC -[facility] Work Phone: Start: 04-12-2025 End: 04-12-[address] Kyler Salvador MD Work Phone: -[facility] Start: 03-30-2025 End: 03-30-[address] Kyler Salvador MD Work Phone: -[facility] Start: 03-30-2025 End: 03-30-[address] Cait Pearce MD -[facility] Work Phone: Start: 03-30-2025 End: 03-30-[address] [facility] Facility:[facility] Start: 03-28-2025 End: 03-28-[address] Kyler Salvador MD Work Phone: -[facility] Start: 03-28-2025 End: 03-28-[address] Cait Pearce MD -[facility] Work Phone: Start: 03-28-2025 End: 03-28-[address] [facility] Facility:[facility] Start: 03-15-2025 End: 03-15-[address] Kyler Salvador MD Work Phone: -[facility] Start: 03-15-2025 End: 03-15-[address] Kyler Salvador MD -[facility] [place] Work Phone: Start: 03-15-2025 End: 03-15-2025 ambulatory Kyler Salvador Facility:[facility] Start: 03-05-2025 End: 03-05-[address] Jeanie Eckert DC -[facility] Work Phone: Start: 03-05-2025 End: 03-05-[address] Kyler Salvador MD Work Phone: [facility] Start: 02-22-2025 End: 02-22-[address] Kyler Salvador MD Work Phone: -[facility] Start: 02-22-2025 End: 02-22-[address] Kyler Salvador MD -[facility] Start: 02-22-2025 End: 02-22-2025 ambulatory Kyler Salvador Facility:[facility] Start: 02-05-2025 End: 02-05-[address] Jeanie Eckert DC -[facility] Work Phone: Start: 02-05-2025 End: 02-05-[address] Kyler Salvador MD Work Phone: [facility] Work Phone: Start: 12-25-2024 End: 12-25-[address] Jeanie Eckert DC -[facility] Work Phone: Start: 12-25-2024 End: 12-25-2024 ambulatory Jeanie Eckert Facility:[facility] Start: 11-14-2024 End: 11-14-[address] Jeanie Eckert DC -[facility] Work Phone: Start: 11-14-2024 End: 11-14-2024 ambulatory Jeanie Eckert Facility:[facility] Start: 10-19-2024 End: 10-19-[address] Jeanie Eckert DC -[facility] Work Phone: Start: 10-19-2024 End: 10-19-2024 ambulatory Jeanie Eckert Facility:[facility] Start: 10-05-2024 End: 10-05-[facility] Start: 09-21-2024 End: 09-21-2024 ambulatory Kyler Salvador Facility:[facility] Start: 09-13-2024 End: 09-13-2024 ambulatory Cait Pearec Facility:[facility] Start: 08-21-2024 End: 08-21-2024 ambulatory Jeanie Eckert Facility:[facility] Start: 07-31-2024 End: 07-31-2024 ambulatory Jeanie Almodovarsi Facility:[facility] Start: 07-17-2024 End: 07-17-2024 ambulatory Jeanie Dossi Facility:[facility] Start: 12-16-2023 End: 12-16-2023 ambulatory [facility] Work Phone: Start: 12-16-2023 End: 12-16-2023 Patient encounter procedure [facility] Work Phone: Start: 11-16-2023 End: 11-16-2023 ambulatory [facility] Work Phone: Start: 11-16-2023 End: 11-16-2023 Patient encounter procedure [facility] Work Phone: Start: 08-19-2023 End: 08-19-[address] Tigre Salvador Work Phone: [facility] Work Phone: Start: 08-19-2023 End: 08-19-[address] Tigre Salvador Work Phone: [facility] Work Phone: Start: 06-04-2023 End: 06-04-[address] Tigre Salvador Work Phone: [facility] Work Phone: Start: 05-13-2023 End: 05-13-[address] Tigre Salvador Work Phone: [facility] Work Phone: Start: 05-13-2023 End: 05-13-[address] Tigre Salvador Work Phone: [facility] Work Phone: Start: 05-04-2023 End: 05-04-[address] [facility] Work Phone: Start: 04-29-2023 End: 04-29-[address] Tigre Salvador Work Phone: [facility] Work Phone: Start: 04-23-2023 End: 04-23-[address] Tigre Salvador Work Phone: [facility] Work Phone: Start: 04-23-2023 End: 04-23-[address] Tigre Salvador Work Phone: [facility] Work Phone: Start: 02-16-2023 End: 02-16-[address] Tigre Salvador Work Phone: [facility] Work Phone: Start: 02-16-2023 End: 02-16-[address] Tigre Salvador Work Phone: [facility]-Ultrasound, [facility] Start: 02-10-2023 End: 02-10-[address] Tigre Salvador Work Phone: [facility] Work Phone: Start: 02-10-2023 End: 02-10-[address] Tigre Salvador Work Phone: [facility] Start: 01-06-2023 End: 01-06-[address] Tigre Salvador Work Phone: [facility] Work Phone: Start: 01-06-2023 End: 01-06-[address] Tigre Salvador Work Phone: [facility] Start: 12-30-2022 End: 12-30-[address] Tigre Salvador Work Phone: [facility] Start: 12-24-2022 End: 12-24-[address] Tigre Salvador Work Phone: [facility] Start: 12-17-2022 End: 12-17-[address] Tigre Salvador Work Phone: [facility] Start: 12-10-2022 End: 12-10-[address] Tigre Salvador Work Phone: [facility] Start: 10-16-2022 End: 10-16-[address] Tigre Salvador [facility] Start: 04-30-2022 End: 04-30-2022 ambulatory [facility] Work Phone: Start: 04-30-2022 End: 04-30-2022 Patient encounter procedure [facility]-Outpatient Bone Densitometry Start: 04-14-2022 End: 04-14-2022 ambulatory [facility] Work Phone: Start: 04-14-2022 End: 04-14-2022 Patient encounter procedure [facility] Procedures Date Procedure Procedure Detail Performing Clinician [...] the productionof interferon gamma. Chemiluminescence immunoassaymethodologyPerformed at: [employer] [id number] Director: Guy Chance PhD, Phone: [phone] Start: 03-15-2025 Plain x-ray of pelvis and [...] Activity Detail Author Start: 12-25-2024 Patient referral [facility] Work Phone[facility] Work Phone: Payers Date Payer Category Payer Medicare [id number] 2024 Self-pay [id number] 2024 Unknown [id number] 2016 Unknown [id number] 2014 Medicare [id number] Medicare [id number] Unknown AARP MCR ADV LIFE1 [id number] Unknown [id number] 2.16.8 [id number] Unknown [id number] 2.16.8 [id number] Unknown [id number] 2.16.8 40.1.278910.3.579.2.462 Unknown [id number] 2.16.8 40.1.806048.3.579.2.462 Unknown [id number] 2.16.8 40.1.167516.3.579.2.462 Unknown [id number] 2.16.8 40.1.618621.3.579.2.462 Unknown [id number] 2.16.8 40.1.255873.3.579.2.462 Unknown [id number] 2.16.8 40.1.268231.3.579.2.462 Unknown [id number] 2.16.8 40.1.898893.3.579.2.462 Unknown [id number] 2.16.8 40.1.741129.3.579.2.462 Unknown [id number] 2.16.8 40.1.422631.3.579.2.462 Unknown [id number] 2.16.8 40.1.868835.3.579.2.462 Unknown [id number] 2.16.8 40.1.870065.3.579.2.462 Unknown [id number] 2.16.8 40.1.440800.3.579.2.462 Unknown [id number] 2.16.8 40.1.108907.3.579.2.462 Unknown [id number] 2.16.8 40.1.659443.3.579.2.462 Unknown [id number] 2.16.8 40.1.315506.3.579.2.462 Unknown [id number] 2.16.8 40.1.259814.3.579.2.462 Unknown [id number] 2.16.8 40.1.524176.3.579.2.462 Unknown [id number] 2.16.8 40.1.618254.3.579.2.462 Unknown [id number] 2.16.8 40.1.969799.3.579.2.462 Social History Date Type Detail Facility Start: 09-08-2021 End: 06-04-2023 Tobacco smoking status NHIS Unknown if ever smoked [facility] Start: 1950 Sex Assigned At Female [facility] Start: 07-17-2024 End: 05-31-2025 Tobacco smoking status NHIS Never smoked tobacco (finding) [facility] Sex Female [facility] Goals Date Patient Goal Desired Activity /State Clinical Notes 10-19-2024 to 05-21-2025 Note Date & Type Note Facility 05-21-2025 Progress note [facility] 03-30-2025 Radiology Diagnostic study note [facility] Imaging Services [address] [place] [address] Chest PA and Lateral MR#: [id number] Acct: [id number] Name: HELDER BROWNLEE Rep #: [id number] : 1950 F 74 From: Sonido Garcia MD PCP: Dr. 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 Reading Location: [id number] CC: Dr. Kyler Salvador MD; Dr. 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 Kyler Salvador MD Status: REG CLI Study:HIP, UNI W/ Pelvis 2-3 Views Date of Ex am: 03/15/25 Exam# [id number] Ordering Dr: Ryan Salvador MD EXAM: XR [...] IMPRESSION: Degenerative changes as above. [facility] CC: Dr. 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 [facility] 02-05-2025 Evaluation note Diagnosis Onset Date [...] 9:55am DDD (degenerative disc disease), lumbosacral chronic March, 2024 9:55am Scoliosis chronic April 12, 2 025 9:55am Segmental and somatic dysfunction of lumbar region acute May 21, 2025 9:52am Segmental and somatic dysfunction of pelvic region acute May 21, 2025 9:52am Segmental and somatic dysfunction of thoracic region acute May 21, 2025 9:52am DDD (degenerative disc disease), lumbosacral chronic May 21, 2025 9:52am Scoliosis chronic April 9:52am Back pain noneactive April 9:52am [facility] Work Phone: 1(899) 139-328904-28-2025 Evaluation note* Diagnosis Onset Date Resolution Status [...] somatic dysfunction of cervical region acute J franko 2024 10:25am Segmental and somatic dysfunction of lumbar region acute Matias y 2024 10:25am Segmental and somatic dysfunction of pelvic region acute Feb 10:25am Segmental and somatic dysfunction of thoracic region acute J 2024 10:25am DDD (degenerative disc disease), lumbosacral chronic March 05, 2025 10:25am Degenerative disc disease, cervical chronic March 05, 2025 1 0:25am Back pain noneactive March 05, 2025 10:25am [facility] Work Phone: 1(226) 304-121004-28-2025 Evaluation note* Diagnosis Onset Date Resolution Status [...] 12, 025 9:55am Back pain noneactive April 12 9:55am [facility] Work Phone: 1(985) 890-277204-28-2025 Evaluation note* Diagnosis Onset Date Resolution Status Admit Date Neck pain acute December 25 10:09am Segmental and somatic dysfunction of cervical region acute December 25, 2024 10:09am Segmental and somatic dysfunction of lumbar region acute Nov 10:09am Segmental and somatic dysfunction of pelvic [...] somatic dysfunction of lumbar region acute Mar us2024 9:55am Segmental and somatic dysfunction of pelvic region acute Mar us2024 9:55am Segmental and somatic dysfunction of thoracic region acute April 12 9:55am DDD (degenerative disc disease), lumbosacral chronic March 9:55am Scoliosis chronic April 12, 025 9:55am [facility] Work Phone: 1(690) 470-741303-18-2025 Evaluation note* Diagnosis Onset Date Resolution Status Admit Date Neck pain acute November 14 1:53pm Segmental and somatic dysfunction of cervical region acute [facility] 2024 1:53pm Segmental and somatic dysfunction of lumbar region acute [facility] 2024 1:53pm Segmental and somatic dysfunction of pelvic region acute [facility] 2024 1:53pm Segmental and somatic dysfunction of thoracic region acute [facility] 2024 1:53pm DDD (degenerative disc disease), lumbosacral [...] Back pain noneactive February 05, 2025 10:24am [facility] Work Phone: 1(812) 682-214203-18-2025 Evaluation note* Diagnosis Onset Date Resolution Status Admit Date Neck pain acute November 14 1:53pm Segmental and somatic dysfunction of cervical region acute [facility] 2024 1:53pm Segmental and somatic dysfunction of lumbar region acute [facility] 2024 1:53pm Segmental and somatic dysfunction of pelvic region acute [facility] 2024 1:53pm Segmental and somatic dysfunction of thoracic region acute [facility] 2024 1:53pm DDD (degenerative disc disease), lumbosacral chronic October 1:53pm Scoliosis chronic November 14 1:53pm Back pain noneactive November 14 1:53pm Neck pain acute December 25 10:09am Segmental and somatic dysfunction of cervical region [facility] Segmental and somatic dysfunction of lumbar region acute Apr il 2024 10:09am Segmental and somatic dysfunction of pelvic region acute Apr ia 2024 10:09am Segmental and somatic dysfunction of thoracic region acute A pril 2024 10:09am DDD (degenerative disc disease), lumbosacral chronic November 10:09am Scoliosis chronic December 25 10:09am Back pain noneactive December 25 10:09am Segmental and somatic dysfunction of cervical region acute J [facility] 2024 10:24am Segmental and somatic dysfunction of lumbar region acute Nikos e , 2025 10:24am Segmental and somatic dysfunction of [...] and somatic dysfunction of thoracic region acute franko2024 10:25am DDD (degenerative disc disease), lumbosacral chronic March 05, 2025 10:25am Degenerative disc disease, cervical chronic March 05, 2025 1 0:25am Back pain noneactive March 05, 2025 10:25am [facility] Work Phone: 1(282) 407-483202-20-2025 Evaluation note* Diagnosis Onset Date Resolution Status Admit Date Neck pain acute October 19, 2024 9:23am Segmental and somatic dysfunction of cervical region acute October 19 9:23am Segmental and somatic dysfunction of lumbar region acute 2024 9:23am Segmental and somatic dysfunction of pelvic region acute 2024 9:23am Segmental and somatic dysfunction of [...] and somatic dysfunction of lumbar region acute [facility] 2024 1:53pm Segmental and somatic dysfunction of pelvic region acute [facility] 2024 1:53pm Segmental and somatic dysfunction of [...] Back pain noneactive February 05, 2025 10:24am [facility] Work Phone: Evaluation noteNo assessment information available [facility] Work Phone: Evaluation note* Diagnosis Onset [...] Degenerative disc disease, cervical chronic Scoliosis chronic [facility] Work Phone: Evaluation note* Diagnosis Onset Date Resolution Status Segmental and somatic dysfunction of cervical region acute Segmental and somatic dysfunction of lumbar region acute Segmental and somatic dysfunction of pelvic region acute Segmental and somatic dysfunction of thoracic region acute DDD (degenerative disc disease), lumbosacral chronic Degenerative disc disease, cervical chronic Scoliosis chronic [facility] Work Phone: Evaluation note* Diagnosis Onset Date Resolution Status Segmental and somatic dysfunction of lumbar region acute Segmental and somatic dysfunction of pelvic region acute Segmental and somatic dysfunction of thoracic region acute DDD (degenerative disc disease), lumbosacral chronic Scoliosis chronic [facility] Work Phone: Evaluation note* Diagnosis Onset Date Resolution Status Segmental and somatic dysfunction of lumbar region acute Segmental and somatic dysfunction of pelvic region acute Segmental and somatic dysfunction of thoracic region acute DDD (degenerative disc disease), lumbosacral chronic Scoliosis chronic DDD (degenerative disc disease), lumbosacral chronic Scoliosis chronic [facility] Work Phone: Progress note Author Jeanie Eckert [facility] Note Date/Time May 21, 2025 10:51am [facility] [address] [place] [address] OFFICE VISIT Date of Service: 05/21/25 MR#: [id number] Acct: [id number] Name: BROWNLEEHELDER Rep #: [id number] : 1950 Provider: BECKY Eckert Age/Sex: 74/F Location: [facility] Status: Signed Intake Vital Signs 07/17/24 11:42 [...] noxious chemicals via a myofascial twitch response. [place] were inserted, needle manipulation was performed. Needle [...] CPT Codes Procedures - Manipulation: 3-4 regions (20265) Acupuncture - Acupuncture Initial Session: Yes (91456) Clinical Quality Measures Falls Risk Screening/Assistive Devices Have you fallen in the past year?: No 05/21/25 1141 <Electronically signed by Jeanie Andrade> Date _ Jeanie Eckert D.C. Cosigner Signature: Date (if applicable) CC: ~ [facility] Work Phone: Reason for referral (narrative)No reason for referral [facility]: Family History No Family History [...] DRY NEEDLING/ADJUSTMENT April 12 9:55am ACUPUNCTURE/ADJUSTMENT May 21 025 9:52am Reason for Visit Admit Date [...] DRY NEEDLING/ADJUSTMENT April 12 9:55am ACUPUNCTURE/ADJUSTMENT May 21 025 9:52am idiopathic scoliosis May 31, 2025 1 0:52am Summary Purpose Advance Directives No Advanced Directives Records Found Additional Source Comments Care Teams (unrecognized sec tion and content) Team Status: Active Member Role Status Dates Dr. Tigre Salvador MD Family Provider Active Dr. iTgre Salvador MD Primary Care Provider Activ e [...] ve Start: March 28, 2025 Dr. Cait Perace MD Attending Provider Active Start: March 28, [...] ized section and content) DATE CREATED AUTHOR 07/09/2025 [facility] FOR RECORDS PERTAINING TO PATIENTS WHO ARE [...] BE BASED ON THE PRIMARY CLINICAL RECORDS. [facility]. provides no warranty or guarantee of the accuracy or completeness of information in this document.
== END | disposition home or self-care (01) ==
LOC: MTLAB 14:14
PROVIDERS: PCP Family Medicine; Referring Provider Internal Medicine Rheumatology; Visit Provider Internal Medicine Rheumatology
DX: L40.59 Other psoriatic arthropathy (principal); Z79.899 Other long term (current) drug therapy; L40.8 Other psoriasis
CPT/HCPCS: 36415; 80053; 85025